=== PATIENT | female | born 1960 | race Caucasian/White ===

== ENCOUNTER 2019-08-06 19:11 | Inpatient (IN) | payer OTHER, SELFPAY ==
--- NOTE | ~2019-08-06 | US_ITS ---
EXAMINATION: US venous doppler [facility] DATE: 08/07/2019 14:52 INDICATION: Lower limb pain. TECHNIQUE: Grayscale ultrasound images without and with compression and Doppler ultrasound images of the bilateral lower extremity veins were obtained. COMPARISON: None. FINDINGS: The visualized portions of right common femoral vein, profunda (deep) femoral vein, femoral vein, per puentes veins, and greater saphenous vein outflow are patent. There is thrombus in right popliteal and posterior tibial veins. The visualized portions of left common femoral vein, profunda femoral vein, femoral vein, popliteal v ein, peroneal veins, posterior tibial veins, and greater saphenous vein outflow are patent. IMPRESSION: 1. Deep vein thrombosis involving right popliteal and posterior tibial veins. I discussed this resul t with Teofilo Kimbrough on 08/07/19 at 14:55. Reviewed, dictated and finalized at location A. SPECIALIST IMPRESSION: 1. Deep vein thrombosis involving right popliteal and posterior tibial veins. I discussed this result with Teofilo Kimbrough on 08/07/19 at 14:55.
--- NOTE | ~2019-08-06 | CT_ITS ---
EXAMINATION: CT abdomen pelvis w con INDICATION: Diarrhea and loss of appetite TECHNIQUE: Computed tomographic images of the abdomen and pelvis were obtained after the administrati on of 100 cc of Omnipaque 350 intravenous contrast. The dose-length product (DLP) was 203.66 mGy-cm. Automated exposure control and iterative reconstruction technique were employed. COMPARISON: 07/12/2019 FINDINGS: Small pleural effusions have developed, right greater than left. There is mild associated p assive atelectasis of the lower lobes. The heart size is normal. A moderate volume of ascites is pres ent. The liver, spleen, pancreas, and adrenal glands are normal. Distention of the gallbladder is lik marj due to fasting state. There is cortical thinning of the kidneys. There is diffuse wall thickening of the colon which demonstrates interval worsening since the comparison examination. There are no di lated loops of bowel. No pathologically enlarged abdominal or pelvic lymph nodes are identified. Ther e is calcified atherosclerosis of the aorta and many of the other arteries. Anasarca has developed. T here is severe lumbar spondylosis. IMPRESSION: 1. Pancolitis with interval worsening. 2. Increase in ascites, now moderate in volume. 3. New small pleural effusions, right greater than left. Reviewed, dictated and finalized at location A. ATRIC LICENSED PRACTICAL NURSE
--- NOTE | ~2019-08-06 | XR_ITS ---
EXAMINATION: XR femur LT min 2V DATE: 08/07/2019 14:51 INDICATION: Fall with pain and abrasions to the left thigh TECHNIQUE: Overlapping proximal and distal, AP and lateral views of the left femur were obtained. COMPARISON: None FINDINGS: Alignment is normal. No fracture. Mild osteoarthritis at the left hip and bilateral sacral iliac elba nts. Joint spaces in the left knee appear relatively preserved. Small left knee joint effusion withou t evident layering lipohemarthrosis. Soft tissues are unremarkable. Excreted contrast in the bladder from contrast enhanced CT performed one day prior. IMPRESSION: 1. No fracture or malalignment. Reviewed, dictated and finalized at location A. NT ROOM TEACHER
--- NOTE | ~2019-08-06 | CT_ITS ---
EXAMINATION: CT chest w con DATE: 08/08/2019 20:22 INDICATION: Weight loss and shortness of breath TECHNIQUE: Transaxial computed tomographic images of the chest were obtained after the administration of 75 cc of Omnipaque 350 intravenous contrast. The dose-length product (DLP) was 126.17 mGy-cm. Ite rative reconstruction was used. COMPARISON: None FINDINGS: There is mild emphysema. Small pleural effusions are present which cause mild passive depen dent atelectasis. There are minimal airspace opacities of the right middle lobe. No pneumothorax is i dentified. No pathologically enlarged thoracic lymph nodes are identified. The heart size is normal. There is diffuse anasarca. A moderate to large finding of ascites is noted in the visualized upper ab domen. There is also persistent wall thickening involving the visualized splenic flexure of the colon . There is mild thoracic spondylosis. IMPRESSION: 1. Small pleural effusions resulting in mild passive dependent atelectasis. 2. Minimal airspace opacity of the right middle lobe, consistent with pneumonia. 3. Moderate to large volume of ascites in the visualized upper abdomen as well as persistent colitis involving the partially visualized colon. 4. Mild emphysema. Reviewed, dictated and finalized at location A. ERCIAL ANNOUNCER IMPRESSION: 1. Small pleural effusions resulting in mild passive dependent atelectasis. 2. Minimal airspace opacity of the right middle lobe, consistent with pneumonia . 3. Moderate to large volume of ascites in the visualized upper abdomen as well as persistent colitis involving the partially visualized colon. 4. Mild emphysema.
--- NOTE | ~2019-08-06 | XR_ITS ---
EXAMINATION: XR tibia fibula LT 2V DATE: 08/07/2019 14:51 INDICATION: Left knee pain. Fall. TECHNIQUE: 2 views of left tibia and fibula on 3 radiographs were obtained. COMPARISON: None. FINDINGS: Bone alignment is normal. No fracture. Joint spaces are normal. IMPRESSION: 1. No fracture. Reviewed, dictated and finalized at location A. STEWARD/STEWARDESS IMPRESSION: 1. No fracture.
--- NOTE | ~2019-08-06 | XR_ITS ---
EXAMINATION: XR knee LT 3V DATE: 08/07/2019 14:51 INDICATION: Left knee pain. Fall. TECHNIQUE: 3 views of left knee were obtained. COMPARISON: None. FINDINGS: Bone alignment is normal. No fracture. There is diffuse osteopenia. Joint spaces are normal . There is a small knee joint effusion. IMPRESSION: 1. Small left knee joint effusion. Reviewed, dictated and finalized at location A. NE PIPEFITTER HELPER
--- NOTE | ~2019-08-06 | XR_ITS ---
EXAMINATION: XR chest 1V portable DATE: 08/11/2019 06:49 INDICATION: Dyspnea TECHNIQUE: frontal view of the chest was obtained. COMPARISON: Chest CT dated 08/08/2019 FINDINGS: Hyperexpansion of lungs consistent with mild emphysema which is better appreciated on prior CT. Patch y airspace opacity in the right lower lung zone. Left lung is clear. No pleural effusion or pneumotho rax. The cardiomediastinal silhouette is normal. Mild thoracic levocurvature with mild spondylosis. IMPRESSION: 1. Airspace opacity in the right lower lung zone which could represent atelectasis and/or pneumonia. Reviewed, dictated and finalized at location A. T SPINNER IMPRESSION: 1. Airspace opacity in the right lower lung zone which could represent atelecta sis and/or pneumonia.
[2019-08-06 19:15] VITALS: BP 106/71; PULSE 101; RESP 16; TEMP 37.4; O2SAT 100
[2019-08-06 19:22] VITALS: BP 125/80; PULSE 101; RESP 15; O2SAT 99
--- NOTE | 2019-08-06 19:52 | ED.NAVMDI ---
HPI - Nausea/Vomiting/Diarrhea General Chief complaint: Nausea/Vomiting/Diarrhea Stated complaint: can't eat or drink Time Seen by Provider: 08/06/19 19:52 Source: patient, family and RN notes reviewed Mode of arrival: other Limitations: no limitations History of Present Illness HPI Narrative: Pt is a 59 y/o female who presents to the ED with c/o diarrhea that began 5 days ago (08/01/19). Pt notes that she constantly has diarrhea. Pt describes her diarrhea as watery, but denies blood or mucus being present. Per pt's family, pt was admitted here at [facility] from 07/12-07/16 for pancolitis. Pt was sent home with Levaquin and Flagyl. Pt sees Dr. Son on (08/09/19). Pt's family states her sx are very similar, but he states that the pt's seem worse currently. Pt cannot stand on her own and she has fallen twice within three days. Pt's family states the pt has no strength. Per pt, pt states that she has had a large glass of water today. Pt also reports fatigue, weakness, sharp lower abd pain right before a BM that goes away after diarrhea, and decreased intake, but denies fever, chills, sweats, SOB, and CP. elicited complaint: diarrhea Onset (ago): day(s) (5) Description of vomiting: other (none) Description of diarrhea: watery Associated nausea: No Associated abdominal pain: Yes Location of pain: other (lower) Pain consistency: other (occurs right before her diarrhea, but resolves after her BM) Quality: sharp Associated symptoms: weakness and other (fatigue, decreased intake) Related Data Allergies Allergy/AdvReac Type Severity Reaction Status Date / Time No Known Allergies Allergy Unknown Unverified 01/16/08 17:26 Review of Systems Review of Systems: All systems reviewed & are unremarkable except as noted in HPI and below Constitutional: Constitutional: Denies chills, Reports fatigue, Denies fever(s) and Reports other (decreased intake) Cardiovascular: Cardiovascular: Denies chest pain Respiratory: Respiratory: Denies dyspnea Gastrointestinal: Gastrointestinal: Reports abdominal pain (sharp lower, occurs before her BM and is resolved right after her BM), Reports diarrhea, Denies nausea and Denies vomiting Neurologic: Reports weakness PMFSH Past Medical History Medical History (Updated 08/06/19 @ 21:28 by Bettie Bonilla MD) Anemia Cervical dysplasia HTN (hypertension) Pancolitis Vitamin D deficiency Surgical History Surgical History H/O LEEP Family History Family History (Updated 07/12/19 @ 15:24 by Jennifer Brenner, ROLLY) Father COPD (chronic obstructive pulmonary disease) Emphysema lung Mother Rheumatoid arthritis Social History Social History (Updated 07/23/19 @ 14:57 by Heather Villaseñor) Years smoked: 40 Smoking status: Light tobacco smoker Tobacco type: cigarettes Second hand tobacco smoke exposure: No Smoking end date: 01/25/19 Alcohol intake: former Substance use: never Substance use type: does not use Gender identity (if verbalized by the patient): Female Spiritual care concerns: No Agree to blood products: Yes Exam Const: General: ill appearing and other (elderly, frail) Nutritional Appearance: thin Orientation/consciousness: patient oriented x3 Limitations: no limitations HENMT: Mouth: Yes dry mucous membranes (slightly) Throat: other (throat normal) Resp: Effort & Inspection: normal respiratory effort Auscultation: clear to auscultation bilaterally Cardio: Rate: regular rate Rhythm: regular rhythm Heart sounds: no murmurs Peripheral pulses: dorsalis pedis present bilateral 2+ GI: Inspection: distended GI Palp: Yes abdominal tenderness (diffuse) and Yes Soft to palpation Auscultation: normal bowel sounds Skin: General skin exam: normal color Neuro: General: patient oriented x3 Cognition (Neuro): normal cognition Speech: normal speech Extrem: General: edema bilateral (lower) Right upper e
[2019-08-06 19:57] LABS: Basophils Absolute Auto 0.1 K/mm3 (0.0-0.1); Basophils Percent Auto 0.6 % (0.2-1.2); Eosinophils Percent Auto 0.2 % (0-4.4); Hematocrit 30.4 % (37.0-47.0); Hemoglobin 10.2 g/dL (12.0-15.0); Immature Granulocyte Absolute 0.15 K/mm3 (0.00-0.031); Immature Granulocyte Percent A 0.9 % (0-0.5); Lymphocytes Absolute Auto 1.38 K/mm3 (0.9-3.2); Lymphocytes Percent Auto 8.5 % (18.3-44.2); Mean Corpuscular HGB Conc 33.6 g/dl (32-36); Mean Corpuscular Hemoglobin 32.6 pg (26-34); Mean Corpuscular Volume 97.1 fl (80-100); Mean Platelet Volume 11.6 fl (7.4-10.4); Monocytes Percent Auto 6.4 % (2.6-8.5); Neutrophils Absolute Auto 13.6 K/mm3 (1.3-6.7); Neutrophils Percent Auto 83.4 % (45.5-73.1); Platelet Count Result 353 k/mm3 (150-375); Red Blood Count 3.13 M/mm3 (4.2-5.4); Red Cell Distribution Width 15.8 % (11.5-14.5); White Blood Count 16.3 K/mm3 (4.5-10.0)
[2019-08-06 20:18] LABS: Alanine Aminotransferase 17 U/L (4-35); Albumin Level 2.4 g/dL (3.5-5.1); Alkaline Phosphatase 134 U/L (38-126); Aspartate Amino Transferase 37 U/L (14-36); Bilirubin,Total 1.1 mg/dL (0.2-1.3); Blood Urea Nitrogen 12 mg/dL (7-17); Calcium 7.8 mg/dL (8.4-10.2); Carbon Dioxide 25 mmol/L (22-30); Chloride 96 mmol/L (98-107); Estimated CRCL calculation 61 ml/min; Estimated Glomerular Filt Rate > 60; Glucose 89 mg/dL (65-105); Sodium 133 mmol/L (137-145)
[2019-08-06] MEDS: LACTATED RINGERS 1,000 ML 999 ML IV CONT (20:30)
--- NOTE | 2019-08-06 20:45 | PC.NURSE ---
called pharmacy about medications
--- NOTE | 2019-08-06 20:46 | PC.NURSE ---
pt stood up for urine sample and placed on bedside commode. pt unable to urinate at this time.
[2019-08-06] MEDS: POTASSIUM CHLORIDE 20 MEQ TABLET 40 MEQ PO (20:56)
[2019-08-06 21:00] VITALS: BP 140/82; PULSE 105; RESP 19; TEMP 37; O2SAT 100
--- NOTE | 2019-08-06 21:00 | PC.NURSE ---
pt refusing straight cath. edp notified.
--- NOTE | 2019-08-06 21:30 | PC.NURSE ---
pt unable to void up to the commode multiple times.
[2019-08-06 21:37] LABS: Magnesium 1.5 mg/dL (1.6-2.3); Phosphorus 2.4 mg/dL (2.5-4.5)
[2019-08-06 21:47] LABS: Lipase < 10 U/L (23-300)
[2019-08-06] MEDS: MAGNESIUM SULF 2 GM/WATER 50ML 2 GM/50 ML BAG IVPB (21:50)
--- NOTE | 2019-08-06 21:53 | PC.NURSE ---
pt up to commode. pt unable to void. edp notified. pt refusing straight cath
[2019-08-06] MEDS: VANCOMYCIN ORAL 125 MG/2.5 ML SYRUP PO (22:18)
[2019-08-06 22:21] VITALS: BP 120/85; PULSE 101; RESP 15; TEMP 37.1; O2SAT 97
[2019-08-06 22:38] VITALS: BP 117/73; PULSE 96; RESP 17; O2SAT 93
[2019-08-06 22:45] VITALS: BP 123/77; PULSE 101; RESP 20; TEMP 37.3; O2SAT 97; BMI 15.0
--- NOTE | 2019-08-06 23:02 | ADMGEN ---
This patient, Nicole Crespo, was admitted to Medical Room 244-. Patient/family oriented to hospital policies and general routines including ID bracelet, bed and alarms, visiting hours, pain management, procedures, bathroom and other care routines, personal items, smoking policy, room service/diet, and visiting hours. Valuables list has been completed. Information on how to activate the Rapid Response Team has been discussed. Patient/Family are encouraged to report perceived risks to care and to ask questions if they do not understand what they are told or what they should do.
[2019-08-07] VITALS (9 sets, daily range): BP systolic 102–118; BP diastolic 64–90; PULSE 80–94; RESP 14–20; TEMP 36.6–36.9; O2SAT 94–98; BMI 15.0
[2019-08-07] MEDS: SODIUM CHLORIDE 0.9% IV 1,000 ML 150 ML IV CONT ×2 (02:21→09:22)
[2019-08-07] MEDS: VANCOMYCIN ORAL 125 MG/2.5 ML SYRUP PO ×4 (03:56→21:54)
[2019-08-07 05:39] LABS: Add Urine Microscopic? YES; Appearance Urine Clear (Clear); Bacteria Urine Trace /hpf; Bilirubin Urine Negative (Negative); Blood Urine 1+ (Negative); Color Urine Yellow (Yellow); Glucose Urine UA Negative (Negative); Ketones Urine Negative (Negative); Leukocyte Esterase Ur Trace LEU/UL (Negative); Mucus Urine Rare /lpf; Nitrate Urine Negative (Negative); Protein Urine Negative (Negative); Squamous Epithelial Cell Urine Many /hpf (Few); Urobilinogen Urine Negative mg/dL (<2.0); WBC Urine 0-3 /hpf
[2019-08-07 05:54] LABS: Specific Grav Ur > 1.060 (1.001-1.035)
--- NOTE | 2019-08-07 09:37 | PM.IMHP ---
H&P: HPI History of Present Illness Chief complaint: pancolitis,hypokalemia,dehydration <Teofilo Kimbrough PA-C - Last Filed: 08/07/19 18:35> Narrative: Nicole Crespo is a 59 year old female with history of HTN and recent admission/discharge from [facility] for pancolitis who presented to the ER on 08/06 with complaints of return of diarrhea. Patient states she finished her antibiotic therapy as prescribed from her last discharge and the diarrhea had subsided for some time, until returned 5 days prior to presentation. She describes diarrhea as watery, non-bloody, and without mucus. She has had associated lower abdominal pain only when I have to go . She states the pain is generally in her lower abdomen and does not radiate. It is relieved with BMs. At its worse is /; currently it is a 2/10. She tried imodium for her symptoms and provided little relief for no more than 1 hours time. She also notes she has been having unintentional weight loss for the past 6 months, in which she relates to her recent teeth extraction; she states she has not been eating as much since then. She notes she has had several falls in the past week or so, with the last one being 2 days ago. She states she hurt her left lower leg and notes a bruise/abrasion on the leg, but otherwise states she has no other injuries and does not think she has any fractures; no head injuries or LOC; she thinks she just has been so weak with diarrhea and decreased PO input. She notes dizziness occasionally these past several days. Denies f/c/ns, headaches, loc, changes in v/h, cp/palpitations, sob/cough, n/v/, dysphagia, melena, brbpr, dysuria, hematuria, cloudy urine, s/sx of stroke. <Teofilo Kimbrough PA-C - Last Filed: 08/07/19 18:35> Review of Systems Review of Systems: All systems reviewed & are unremarkable except as noted in HPI and below <Teofilo Kimbrough PA-C - Last Filed: 08/07/19 18:35> PMFSH Past Medical History Medical History: Medical History Anemia Cervical dysplasia Diarrhea DVT (deep venous thrombosis) HTN (hypertension) Malnutrition Pancolitis Vitamin D deficiency <Teofilo Kimbrough PA-C - Last Filed: 08/07/19 18:35> Surgical History Surgical History: Surgical History H/O LEEP <Teofilo Kimbrough PA-C - Last Filed: 08/07/19 18:35> Family History Family History: Family History Father COPD (chronic obstructive pulmonary disease) Emphysema lung Mother Rheumatoid arthritis <ANGEL LUIS Ta Last Filed: 08/07/19 18:35> Social History Social History: Social History Social History: Patient currently lives at home alone. She lists her son, Emir, as her surrogate MDM. She wishes to be listed as DNR. Her PCP is Dr. Peoples Years smoked: 40 Smoking status: Former smoker Tobacco type: cigarettes Second hand tobacco smoke exposure: No Smoking end date: 01/25/19 Alcohol intake: former Alcohol use details: Rarely Substance use: never Substance use type: does not use Gender identity (if verbalized by the patient): Female Spiritual care concerns: No Agree to blood products: Yes <Teofilo Kimbrough PA-C - Last Filed: 08/07/19 18:35> Meds Home Medications and Allergies Home medications: Home Medications Medication Instructions Recorded Confirmed Type No Home Medications 08/06/19 08/06/19 History <ANGEL LUIS Ta Last Filed: 08/07/19 18:35> Allergies/Adverse reactions: Allergies Allergy/AdvReac Type Severity Reaction Status Date / Time No Known Allergies Allergy Unknown Unverified 01/16/08 17:26 <ANGEL LUIS Ta Last Filed: 08/07/19 18:35> Vital Signs Vital Signs - 24 hr 08/06/19 19:15 08/06/19 19:22 08/06/19 21:00 Temperatur
[2019-08-07 10:44] LABS: Basophils Absolute Auto 0.1 K/mm3 (0.0-0.1); Basophils Percent Auto 0.4 % (0.2-1.2); Eosinophils Absolute Auto 0.1 K/mm3 (0-0.3); Eosinophils Percent Auto 0.4 % (0-4.4); Hematocrit 27.2 % (37.0-47.0); Hemoglobin 9.2 g/dL (12.0-15.0); Immature Granulocyte Absolute 0.11 K/mm3 (0.00-0.031); Immature Granulocyte Percent A 0.7 % (0-0.5); Lymphocytes Absolute Auto 0.86 K/mm3 (0.9-3.2); Lymphocytes Percent Auto 5.6 % (18.3-44.2); Mean Corpuscular HGB Conc 33.8 g/dl (32-36); Mean Corpuscular Hemoglobin 32.7 pg (26-34); Mean Corpuscular Volume 96.8 fl (80-100); Mean Platelet Volume 10.3 fl (7.4-10.4); Monocytes Absolute Auto 1.3 K/mm3 (0.1-0.6); Monocytes Percent Auto 8.7 % (2.6-8.5); Neutrophils Absolute Auto 12.8 K/mm3 (1.3-6.7); Neutrophils Percent Auto 84.2 % (45.5-73.1); Platelet Count Result 286 k/mm3 (150-375); Red Blood Count 2.81 M/mm3 (4.2-5.4); Red Cell Distribution Width 15.3 % (11.5-14.5); White Blood Count 15.2 K/mm3 (4.5-10.0)
[2019-08-07 11:12] LABS: Alanine Aminotransferase 17 U/L (4-35); Alkaline Phosphatase 124 U/L (38-126); Aspartate Amino Transferase 33 U/L (14-36); Bilirubin,Total 0.7 mg/dL (0.2-1.3); Blood Urea Nitrogen 10 mg/dL (7-17); Calcium 7.2 mg/dL (8.4-10.2); Carbon Dioxide 24 mmol/L (22-30); Chloride 100 mmol/L (98-107); Estimated CRCL calculation 66 ml/min; Estimated Glomerular Filt Rate > 60; Glucose 102 mg/dL (65-105); Potassium 2.8 mmol/L (3.4-5.0); Sodium 133 mmol/L (137-145)
--- NOTE | 2019-08-07 11:13 | WPDGICN ---
Assessment and Plan Additional Plan This is a 59-year-old white female patient I am asked see because of pancolitis. Patient gives a history of intermittent diarrhea beginning approximately 6 months ago. She states it began after having tooth extraction during the summer. She subsequently was maintained on a soft diet. She began to lose weight. And eventually developed a rather profuse watery diarrhea initially hospitalized July 12, 2019. CT scan revealed pancolitis. She was treated for infectious colitis with broad-spectrum antibiotic coverage in had significant improvement. She was able to be discharged on oral antibiotics 3 days later on July 16, 2019, anticipation was for an outpatient colonoscopy at some interval. Patient reports that she did well for 1-2 weeks. However over the last 2 weeks she has had recurrent nausea vomiting and profuse diarrhea. She also notices profuse abdominal discomfort and tenderness. In the emergency room CT scan revealed recurrent pancolitis perhaps more noticeable than last admission. Past medical history is significant for dystonia. She has been treated for hypertension. Family history is significant her mother had rheumatoid arthritis her father has COPD. Patient current we is on no home medications. She has no stated drug allergies. Physical exam reveals her to be alert. She is afebrile. HEENT exam unremarkable. She is anicteric. Lungs are clear to auscultation and percussion. Heart is without murmur or extra sounds. Abdominal exam bowel sounds are diminished. She is diffusely tender. She has significant tympany. No masses are noted. Extremities reveal no edema. Laboratory testing reveals WBC 16. Hemoglobin 10. Potassium of 2. CT scan consistent with pancolitis. Impression 1. Pancolitis. Infectious etiology is felt most likely. Plan is for broad-spectrum antibiotic coverage. IV rehydration. Colonoscopy when she is clinically more stable. 2. Dehydration. Associated electrolyte imbalance identified. Plan is for IV rehydration. 3. Abdominal tympany suggest partial ileus. She is not likely to tolerate significant oral intake at this time. Parental role nutrition will be started. 4. Anemia. Likely related to her pancolitis at this point. Plan is for IV fluid rehydration and broad-spectrum antibiotics workup as outlined above. We will follow with you. GI Consult Note Consult date/time: 08/07/19 11:13 HPI: Nicole Crespo is a 59 year old female [facility] Past Medical History Medical History Anemia Cervical dysplasia HTN (hypertension) Pancolitis Vitamin D deficiency Surgical History Surgical History H/O LEEP Family History Family History Father COPD (chronic obstructive pulmonary disease) Emphysema lung Mother Rheumatoid arthritis Social History Social History (Updated 08/07/19 @ 09:49 by Teofilo Kimbrough PA-C) Social History: Patient currently lives at home alone. She lists her son, Emir, as her surrogate MDM. She wishes to be listed as DNR. Her PCP is Dr. Peoples Years smoked: 40 Smoking status: Former smoker Tobacco type: cigarettes Second hand tobacco smoke exposure: No Smoking end date: 01/25/19 Alcohol intake: former Alcohol use details: Rarely Substance use: never Substance use type: does not use Gender identity (if verbalized by the patient): Female Spiritual care concerns: No Agree to blood products: Yes Meds Home Medications and Allergies Home Medications Medication Instructions Recorded Confirmed Type No Home Medications 08/06/19 08/06/19 History Allergies Allergy/AdvReac Type Severity Reaction Status Date / Time No Known Allergies Allergy Unknown Unverified 01/16/08 17:26 Vital Signs Vital Signs - 24 hr
[2019-08-07 11:27] LABS: Hypochromasia 1+ (NORMAL); Microcytosis 1+ (NORMAL); Platelet Estimate Adequate (Adequate); Poikilocytosis 1+ (NORMAL); Stomatocytes 1+ (NORMAL); Target Cells 1+ (NORMAL)
[2019-08-07] MEDS: POTASSIUM CHLORIDE 20 MEQ TABLET PO (11:56)
[2019-08-07 15:56] LABS: Hematocrit 27.7 % (37.0-47.0); Hemoglobin 9.5 g/dL (12.0-15.0); Mean Corpuscular HGB Conc 34.3 g/dl (32-36); Mean Corpuscular Hemoglobin 32.5 pg (26-34); Mean Corpuscular Volume 94.9 fl (80-100); Mean Platelet Volume 10.2 fl (7.4-10.4); Platelet Count Result 299 k/mm3 (150-375); Red Blood Count 2.92 M/mm3 (4.2-5.4); Red Cell Distribution Width 15.3 % (11.5-14.5); White Blood Count 15.8 K/mm3 (4.5-10.0)
[2019-08-07 16:05] LABS: INR 1.1
[2019-08-07 16:06] LABS: Partial Thromboplastin Time 33.2 SECONDS (22.3-36.8)
[2019-08-07 16:17] LABS: Band Neutrophils Percent 11 % (0-6); Eosinophils Absolute Manual 0.31 K/mm3 (0.02-0.5); Eosinophils Percent Manual 2 % (0-4); Lymphocytes Absolute Manual 0.63 K/mm3 (1.1-4.5); Monocytes Percent Manual 7 % (3-9); Neutrophils Absolute Manual 13.74 K/mm3 (1.7-7.2); Neutrophils Percent Manual 76 % (46-73); Total Cells Counted 100
[2019-08-07 16:18] LABS: Hypochromasia 1+ (NORMAL); Platelet Estimate Adequate (Adequate)
[2019-08-07 16:19] LABS: Anisocytosis 2+ (NORMAL)
--- NOTE | 2019-08-07 16:55 | PC.NURSE ---
Patient refusing heparin infusion. Educated patient on importance of medication and treatment for DVT's in right leg. Patient continues to refuse and would like this RN to notify hospitalist of wishes. Will notify EDU [place] patient refusing medication at this time. Per Nicole she would like a PICC line placed for IV infusions and blood draws, PA made aware.
[2019-08-07 17:07] LABS: Blood Urea Nitrogen 10 mg/dL (7-17); Calcium 7.3 mg/dL (8.4-10.2); Carbon Dioxide 22 mmol/L (22-30); Chloride 100 mmol/L (98-107); Estimated CRCL calculation 66 ml/min; Estimated Glomerular Filt Rate > 60; Glucose 121 mg/dL (65-105); Potassium 3.3 mmol/L (3.4-5.0); Sodium 132 mmol/L (137-145)
[2019-08-07] MEDS: POTASSIUM CHLORIDE 20 MEQ TABLET 40 MEQ PO (18:49)
[2019-08-07] MEDS: APIXABAN 5 MG TABLET 10 MG PO (20:30)
[2019-08-08] VITALS (9 sets, daily range): BP systolic 140–147; BP diastolic 76–84; PULSE 81–97; RESP 16–21; TEMP 36.2–36.7; O2SAT 97–100
[2019-08-08] MEDS: SODIUM CHLORIDE 0.9% IV 1,000 ML 60 ML IV CONT ×2 (01:04→19:27)
[2019-08-08] MEDS: VANCOMYCIN ORAL 125 MG/2.5 ML SYRUP PO ×4 (04:34→21:21)
[2019-08-08 06:11] LABS: Basophils Percent Auto 0.2 % (0.2-1.2); Eosinophils Absolute Auto 0.2 K/mm3 (0-0.3); Eosinophils Percent Auto 1.3 % (0-4.4); Hematocrit 25.7 % (37.0-47.0); Hemoglobin 8.7 g/dL (12.0-15.0); Immature Granulocyte Absolute 0.06 K/mm3 (0.00-0.031); Immature Granulocyte Percent A 0.5 % (0-0.5); Lymphocytes Absolute Auto 1.18 K/mm3 (0.9-3.2); Lymphocytes Percent Auto 9.7 % (18.3-44.2); Mean Corpuscular HGB Conc 33.9 g/dl (32-36); Mean Corpuscular Hemoglobin 32.1 pg (26-34); Mean Corpuscular Volume 94.8 fl (80-100); Mean Platelet Volume 10.3 fl (7.4-10.4); Monocytes Percent Auto 8.1 % (2.6-8.5); Neutrophils Absolute Auto 9.8 K/mm3 (1.3-6.7); Neutrophils Percent Auto 80.2 % (45.5-73.1); Platelet Count Result 275 k/mm3 (150-375); Red Blood Count 2.71 M/mm3 (4.2-5.4); Red Cell Distribution Width 15.3 % (11.5-14.5); White Blood Count 12.2 K/mm3 (4.5-10.0)
[2019-08-08 06:13] LABS: Blood Urea Nitrogen 9 mg/dL (7-17); Calcium 7.2 mg/dL (8.4-10.2); Carbon Dioxide 20 mmol/L (22-30); Chloride 102 mmol/L (98-107); Estimated CRCL calculation 66 ml/min; Estimated Glomerular Filt Rate > 60; Glucose 86 mg/dL (65-105); Magnesium 1.9 mg/dL (1.6-2.3); Potassium 3.4 mmol/L (3.4-5.0); Sodium 133 mmol/L (137-145)
--- NOTE | 2019-08-08 08:40 | PM.IMPN ---
Progress Note: A&P Assessment and Plan (1) Pancolitis: Code(s): K51.00 - Ulcerative (chronic) pancolitis without complications Status: Acute Assessment and Plan: Patient has been having worsening diarrhea the previous 5-6 days prior to presentation. She had finished her outpatient antibiotics. Worsened pancolitis noted on CT; mod ascites also noted. GI has been consulted from ED and greatly appreciate input. Patient continues IV zosyn and PO Vanc for possible C. Diff, as well as, due to recent abx use Continue IVF for now at 60 mL/hr due to poor PO intake Will start clinimix for now; will defer diet recommendations per GI Await further recommendations from GI on pancolitis and ascites (2) DVT (deep venous thrombosis): Code(s): I82.409 - Acute embolism and thrombosis of unspecified deep veins of unspecified lower extremity Status: Acute Assessment and Plan: Found on venous doppler of lower extremities; right popliteal and posterior tibial veins. Discussed case with Dr. Jones as this is in setting of likely pancolitis supported by CT imaging. Patient originally refusing heparin drip, but agreeable with Eliquis. Discussed with her in length about different options and risks/benefits of options. Recommended consulting Dr. Jones for further input which she was agreeable Discussed case with Dr. Jones as this is in setting of likely pancolitis supported by CT imaging. He recommended low dose Eliquis 2.5 mg q12 hours for now and perform stool occult study. He was agreeable to see patient and greatly appreciate input. Will start Eliquis 2.[address]hr [address] Dr[address] Jones recommendations. Await further recommendations per Dr. Jones (3) Acute hypokalemia: Code(s): E87.6 - Hypokalemia Status: Acute Assessment and Plan: K 3.4 today. This was replaced this am Trend values tomorrow Replace as needed (4) Status post fall: Code(s): Z91.81 - History of falling Status: Acute Assessment and Plan: Patient admits to multiple falls at home recently although denies any injuries other than left lower leg. No head injuries per patient. Xray of left LE showed no fracture; small effusion noted on left knee Possible SNF placement Will order PT/OT now that patient has started a/c therapy Fall precautions. (5) Weakness: Code(s): R53.1 - Weakness Status: Acute Assessment and Plan: Patient has been weak likely due to diarrhea and decreased PO intake. possibly SNF placement PT/OT ordered (6) Anemia: Code(s): D64.9 - Anemia, unspecified Status: Acute Assessment and Plan: Chronic normocytic anemia. H&H stable from last visit. Hgb 9.5 yesterday. Possible anemia of chronic disease from prior iron studies Monitor H&H Tranfuse as needed Time Spent With Patient Time with patient: 25 - 35 minutes Subjective Date/time seen: 08/08/19 08:40 Interval history: Patient is a 59 yo F with history of HTN and recent admission/discharge from [place] for pancolitis in 06/2019, who is here again for pancolitis found on CT imaging, as well as, DVT in right popliteal and posterior tibial veins. Patient is feeling okay today; she feels slightly better than yesterday, but is still having diarrhea; non-bloody, no melena as far as she is aware. She is having lower abd pain with BMs still, as well. She otherwise has no other complaints. We discussed in length about different options in terms of treatment of DVT in setting of pancolitis, including anticoagulation, possible filter placed, vs doing nothing; she was agreeable to discuss this further with Dr. Jones, Hematology/Oncology. Denies f/c/ns, headaches, dizziness, lightheadedness, change
--- NOTE | 2019-08-08 09:04 | WPDGIPROGNO ---
Progress Note: A&P Additional Plan Patient is tolerating liquid diet today. Still complains of some nausea. Complains of diarrhea. Physical exam reveals her to be alert. Lungs are clear. Heart without murmur. Abdomen is soft but diffusely tender. No masses are listed. Extremities are without clubbing cyanosis or edema. She complains of some left leg pain after a fall. Doppler of the lower extremity suggest popliteal DVT on the left. Stool cultures are pending. Impression 1. Colitis. Most likely infectious colitis. Plan is to continue broad-spectrum antibiotics. Await stool cultures. We may need to consider colonoscopy after an interval. 2. New DVT identified. Patient now on anticoagulation. We need to be vigilant watch for signs of GI bleeding given her severe colitis. 3. Dehydration. Plan is to continue IV fluid rehydration. Advance diet as tolerated. She may benefit from peripheral nutrition. Subjective Date/time seen: 08/08/19 09:04 Objective Data Vital Signs Vital Signs: Vital Signs - 24 hr 08/07/19 12:00 08/07/19 14:00 08/07/19 16:00 Temperature 36.7 C Pulse Rate 83 94 89 Respiratory Rate 14 Blood Pressure 118/90 Pulse Oximetry 98 08/07/19 20:00 08/07/19 22:00 08/08/19 00:00 Temperature 36.6 C Pulse Rate 84 80 86 Respiratory Rate 20 Blood Pressure 102/73 Pulse Oximetry 94 08/08/19 04:00 08/08/19 06:00 Temperature 36.2 C L Pulse Rate 81 85 Respiratory Rate 18 Blood Pressure 141/76 H Pulse Oximetry 97 Intake/Output Intake/Output: Intake & Output 08/05/19 08/06/19 08/07/19 08/08/19 23:59 23:59 23:59 23:59 Intake Total 1100 2825 637 Output Total 600 100 Balance 1100 2225 537 Meds/Results Medications: Active Medications Generic Name Dose Route Start Last Admin Trade Name Freq PRN Reason Stop Dose Admin Apixaban 2.5 mg 08/08/19 09:00 Eliquis PO Q12HR [facility] Heparin Sodium (Porcine) 2,000 units 08/07/19 15:20 Heparin Sodium IV PUSH PRN PRN aPTT 55 - 70 seconds Heparin Sodium (Porcine) 4,000 units 08/07/19 15:32 Heparin Sodium IV PUSH PRN PRN aPTT less than 55 seconds Piperacillin/Tazobactam/Dextrose 3.375 gm in 50 mls @ 100 mls/hr 08/07/19 04:00 08/08/19 05:00 Zosyn 3.375 Gm/D5w 50ml Pm IVPB Infused Q6H [facility] Infusion Sodium Chloride 1,000 mls @ 60 mls/hr 08/07/19 00:45 08/08/19 04:34 Normal Saline Iv IV CONT 60 mls/hr .[id number] [facility] Infusion Heparin Sodium/Dextrose 25,000 units in 250 mls @ 6 mls/hr 08/07/19 15:20 Heparin Sodium/D5w 100 Units/Ml IV CONT .Q24H [facility] Protocol 600 UNITS/HR Dextrose 1,000 mls @ 50 mls/hr 08/07/19 15:42 Dextrose 10% IV CONT .Q20H PRN if PN is interrupted Amino Acids/Electrolytes/Dextrose 2,000 mls @ 80 mls/hr 08/07/19 17:00 Clinimix E 4.25%/5% Solution IV CONT .Q24H [facility] Protocol Fat Emulsion Intravenous 250 mls @ 20.833 mls/hr 08/07/19 17:00 Lipids 20% IVPB Q24H [facility] Vancomycin HCl 125 mg 08/07/19 04:00 08/08/19 04:34 Vancomycin Oral PO 125 mg Q6H [facility] Administration Radiology Results: ITS Impressions Abdomen/Pelvis CT 08/06/19 20:38 IMPRESSION: 1. Pancolitis with interval worsening. 2. Increase in ascites, now moderate in volume. 3. New small pleural effusions, right greater than left. Knee X-Ray 08/07/19 14:52 IMPRESSION: 1. Small left knee joint effusion. Tibia/Fibula X-Ray 08/07/19 14:52 IMPRESSION: 1. No fracture. Venous Doppler Study 08/07/19 14:53 IMPRESSION: 1. Deep vein thrombosis involving right popliteal and posterior tibial veins. I discussed this result with Teofilo Kimbrough on 08/07/19 at 14:55. Femur X-Ray 08/07/19 15:02 IMPRESSION: 1. No fracture or malalignment. Labs Labs: Laboratory Results - last 24 hr 08/07/19 08/07/19 08/07/19 09:53 09:53 09:53 WBC 15.2 H RBC 2.81 L Hgb 9.2 L Hct 27
[2019-08-08 09:59] LABS: Helmet Cells 1+ (NORMAL); Hypochromasia 2+ (NORMAL); Platelet Estimate Adequate (Adequate); Target Cells 2+ (NORMAL)
[2019-08-08] MEDS: APIXABAN 2.5 MG TABLET PO ×2 (10:04→17:09)
[2019-08-08] MEDS: POTASSIUM CHLORIDE 20 MEQ TABLET 40 MEQ PO (10:04)
[2019-08-08 11:49] LABS: IFOB Positive Control Positive; Immunochemical Fecal Occult Bl Negative (N)
--- NOTE | 2019-08-08 17:00 | PC.NURSE ---
Inserted straight cath on patient with only a few ml's of urine noted. Patient agreeable to insertion of crawley catheter. Unable to insert crawley on first insertion attempt and asked for assistance from charge nurse. Crawley catheter inserted successfully by Lyssa Rosales RN.
[2019-08-09] VITALS (9 sets, daily range): BP systolic 132–142; BP diastolic 71–92; PULSE 77–94; RESP 16–21; TEMP 36.1–36.7; O2SAT 100
--- NOTE | 2019-08-09 02:52 | CONS_ITS ---
DATE OF CONSULTATION: 08/08/2019 REASON FOR CONSULTATION: Anemia. HISTORY OF PRESENTING ILLNESS: This is a 59-year-old female with history of smoking and hypertension, came into the hospital after recently being discharged from the hospital with pancolitis. She came back into the hospital with complaint of weakness and fatigue along with diarrhea for 10 days duration. She denies any bleeding and bruising. During the last admission, she was treated with antibiotic therapy for diarrhea with improvement. She also has lower abdominal pain. She lost more than 20 pounds weight in 6 months, which she attributed to recent dental extraction with poor eating. She had several falls in the last couple of weeks. REVIEW OF SYSTEMS: Twelve-point review of system was reviewed and as per HPI, otherwise negative. PAST MEDICAL HISTORY: Hypertension, anemia, cervical dysplasia, pancolitis, and vitamin D deficiency. PAST SURGICAL HISTORY: History of LEEP procedure. FAMILY HISTORY: No family history of malignancy. SOCIAL HISTORY: The patient lives by herself. She has a history of 40 years smoking, but quit in January 2019. Drinks alcohol occasionally. HOME MEDICATIONS: Reviewed. ALLERGIES: REVIEWED. PHYSICAL EXAMINATION: GENERAL: This patient is tired looking female, alert and oriented. VITAL SIGNS: Per nursing note. HEENT: Normocephalic, atraumatic. Clear oropharynx. LUNGS: Clear to auscultation bilaterally. CARDIOVASCULAR: Regular rate and rhythm. No murmurs. ABDOMEN: Soft, nontender, nondistended. Bowel sounds are positive in all 4 quadrants. No hepatosplenomegaly. EXTREMITIES: Left lower extremity mild edema. NEUROLOGIC: Grossly intact. LABORATORY DATA: WBC 12.2, hemoglobin 8.7, MCV 94.8, platelet 275,000, neutrophils 80%, and lymphocytes 9.7%. Creatinine 0.6. Total protein 5.0. Hemoccult stool negative. Vitamin B12 was more than 1000. Iron level was 58 with iron saturation of 52% and ferritin of 1560 with direct bilirubin of 0, with total bilirubin 0.7. ASSESSMENT AND PLAN: 1. Normocytic anemia with leukocytosis. The patient is a 59-year-old female. She lost significant amount of weight and complained of tiredness and fatigue. She denies any bleeding and bruising. The patient had CT scan of abdomen and pelvis done on August 06 that showed pancolitis with interval worsening along with increase in ascites and new small pleural effusion, right greater than the left. There was no evidence of lymphadenopathy or malignancy. Given the recent weight loss, new diagnosis of deep venous thrombosis and previous history of smoking, I am concerned about occult malignancy. I will order a CT chest to rule out any thoracic pathology. a. In regard to her anemia, previous workup showed elevated vitamin B12 level and iron studies were also suggesting anemia of chronic disease and inflammation. Total bilirubin was also normal. I doubt there is any evidence of hemolytic anemia, but I will check LDH, haptoglobin, and reticulocyte count. This could be a bone marrow suppression or possibility of bone marrow disorder like myelodysplasia. I do not see need for bone marrow biopsy. She has lost significant amount of weight and has hypoproteinemia. This can also contribute to her anemia. In the meantime, I will just support her with a blood transfusion on a as needed basis. GI consultation has been obtained and reviewed. Hemoccult stool is negative for bleeding. 2. New onset deep venous thrombosis involving right popliteal and posterior tibial vein. She has no prior history of blood clotting disorder. I have recommended a low dose of Eliquis 2.5 mg twice a day given the fact that she has severe pancolitis and at high risk for bleeding. We w
[2019-08-09] MEDS: VANCOMYCIN ORAL 125 MG/2.5 ML SYRUP PO ×4 (03:47→21:41)
[2019-08-09 06:08] LABS: Basophils Percent Auto 0.2 % (0.2-1.2); Eosinophils Absolute Auto 0.1 K/mm3 (0-0.3); Eosinophils Percent Auto 2.2 % (0-4.4); Hematocrit 27.6 % (37.0-47.0); Hemoglobin 9.1 g/dL (12.0-15.0); Immature Granulocyte Absolute 0.04 K/mm3 (0.00-0.031); Immature Granulocyte Percent A 0.6 % (0-0.5); Lymphocytes Absolute Auto 1.08 K/mm3 (0.9-3.2); Lymphocytes Percent Auto 16.6 % (18.3-44.2); Mean Corpuscular Hemoglobin 31.4 pg (26-34); Mean Corpuscular Volume 95.2 fl (80-100); Mean Platelet Volume 9.9 fl (7.4-10.4); Monocytes Absolute Auto 0.6 K/mm3 (0.1-0.6); Monocytes Percent Auto 9.6 % (2.6-8.5); Neutrophils Absolute Auto 4.6 K/mm3 (1.3-6.7); Neutrophils Percent Auto 70.8 % (45.5-73.1); Platelet Count Result 264 k/mm3 (150-375); Red Cell Distribution Width 15.2 % (11.5-14.5); White Blood Count 6.5 K/mm3 (4.5-10.0)
[2019-08-09 06:15] LABS: Blood Urea Nitrogen 7 mg/dL (7-17); Calcium 7.2 mg/dL (8.4-10.2); Carbon Dioxide 21 mmol/L (22-30); Chloride 104 mmol/L (98-107); Estimated CRCL calculation 56 ml/min; Estimated Glomerular Filt Rate > 60; Glucose 100 mg/dL (65-105); Magnesium 1.9 mg/dL (1.6-2.3); Potassium 3.6 mmol/L (3.4-5.0); Sodium 134 mmol/L (137-145)
--- NOTE | 2019-08-09 08:39 | WPDGIPROGNO ---
Progress Note: A&P Additional Plan Patient reports feeling better after placement of [place] catheter last night. She continues to have loose stools. No bleeding reported. Physical exam reveals her to be alert. Afebrile. Abdomen is soft and nontender this morning. Labs WBC 6.5, hemoglobin 9.1, hematocrit 27.6 Impression 1. Colitis. [place] to most likely be infectious colitis. Patient now on broad-spectrum antibiotic coverage. Stool cultures have been negative so far. 2. Urinary retention. 3. DVT. Newly identified. In the left lower extremity. Patient denies any pain. Now on anticoagulation. Plan is to continue broad-spectrum antibiotic coverage. Anticipate elective colonoscopy after discharge. Would be slow to advance her diet at this point. Subjective Date/time seen: 08/09/19 08:39 Objective Data Vital Signs Vital Signs: Vital Signs - 24 hr 08/08/19 12:00 08/08/19 14:00 08/08/19 16:00 Temperature 36.7 C Pulse Rate 90 87 87 Respiratory Rate 16 Blood Pressure 140/84 Pulse Oximetry 100 08/08/19 20:00 08/08/19 22:00 08/09/19 00:00 Temperature 36.4 C Pulse Rate 97 88 89 Respiratory Rate 16 21 H Blood Pressure 147/76 H Pulse Oximetry 100 100 08/09/19 04:00 08/09/19 06:42 Temperature 36.1 C L Pulse Rate 82 77 Respiratory Rate 21 H Blood Pressure 132/71 Pulse Oximetry 100 Intake/Output Intake/Output: Intake & Output 08/06/19 08/07/19 08/08/19 08/09/19 23:59 23:59 23:59 23:59 Intake Total 1100 2825 2135 200 Output Total 600 100 300 Balance 1100 2225 2035 -100 Meds/Results Medications: Active Medications Generic Name Dose Route Start Last Admin Trade Name Freq PRN Reason Stop Dose Admin Apixaban 2.5 mg 08/08/19 09:00 08/08/19 17:09 Eliquis PO 2.5 mg Q12HR [facility] Administration Piperacillin/Tazobactam/Dextrose 3.375 gm in 50 mls @ 100 mls/hr 08/07/19 04:00 08/09/19 03:47 Zosyn 3.375 Gm/D5w 50ml Pm IVPB 100 mls/hr Q6H [facility] Administration Sodium Chloride 1,000 mls @ 60 mls/hr 08/07/19 00:45 08/08/19 19:27 Normal Saline Iv IV CONT 60 mls/hr .[id number] [facility] Administration Dextrose 1,000 mls @ 50 mls/hr 08/07/19 15:42 Dextrose 10% IV CONT .Q20H PRN if PN is interrupted Amino Acids/Electrolytes/Dextrose 2,000 mls @ 80 mls/hr 08/07/19 17:00 Clinimix E 4.25%/5% Solution IV CONT .Q24H [facility] Protocol Fat Emulsion Intravenous 250 mls @ 20.833 mls/hr 08/07/19 17:00 Lipids 20% IVPB Q24H [facility] Vancomycin HCl 125 mg 08/07/19 04:00 08/09/19 03:47 Vancomycin Oral PO 125 mg Q6H [facility] Administration Radiology Results: ITS Impressions Abdomen/Pelvis CT 08/06/19 20:38 IMPRESSION: 1. Pancolitis with interval worsening. 2. Increase in ascites, now moderate in volume. 3. New small pleural effusions, right greater than left. Knee X-Ray 08/07/19 14:52 IMPRESSION: 1. Small left knee joint effusion. Tibia/Fibula X-Ray 08/07/19 14:52 IMPRESSION: 1. No fracture. Venous Doppler Study 08/07/19 14:53 IMPRESSION: 1. Deep vein thrombosis involving right popliteal and posterior tibial veins. I discussed this result with Teofilo Kimbrough on 08/07/19 at 14:55. Femur X-Ray 08/07/19 15:02 IMPRESSION: 1. No fracture or malalignment. Chest CT 08/08/19 20:59 IMPRESSION: 1. Small pleural effusions resulting in mild passive dependent atelectasis. 2. Minimal airspace opacity of the right middle lobe, consistent with pneumonia. 3. Moderate to large volume of ascites in the visualized upper abdomen as well as persistent colitis involving the partially visualized colon. 4. Mild emphysema. Labs Labs: Laboratory Results - last 24 hr 08/08/19 08/08/19 08/09/19 05:10 11:22 05:35 WBC 12.2 H 6.5 RBC 2.71 L 2.90 L Hgb 8.7 L 9.1 L Hct 25.7 L 27.6 L MCV 94.8 95.2 MCH 32.1 31.4 MCHC 33.9 33.0 RDW 15.3 H 15.2 H Plt Count 275 264 MPV 10.3 9.9
[2019-08-09] MEDS: APIXABAN 2.5 MG TABLET PO ×2 (09:17→21:40)
--- NOTE | 2019-08-09 12:43 | PCDIET ---
Nutrition Follow-Up Complete: Underweight R/T poor intake and diarrhea as evidence by BMI of 15 ADAT with PO intake of meals and banatrol at 75% or greater to halt further wt loss Goal:Progressing towards goal. Continue with current goal. Pt current nutrition is low fiber + thrive and banatrol BID Nutrition recommendation: Agree Last recorded weight is 48.9 kg. (need new wt) Bowel Motility: diarrhea continued yesterday Labs Reviewed:Na 134 Meds Noted:Vanc, zosyn, KCL Additional Notes: Pt feeling a bit better. Diet advanced to low fiber. I briefly explained the foods this would entail with rationale. Pt is accepting of thrive and agrees to banatrol BID with meals to help bulk stool. Thrive provides 9 grams of protein, 24 vitamins and minerals, 6grams of fiber, and 270 kcal per serving. We will continue to monitor for adequate PO intake, Bms, weight every five days.
--- NOTE | 2019-08-09 13:18 | PCOTNOTE ---
Attempted to see patient this pm, however patient refused. Pt stated, Oh no, I already did physical therapy today. I know I don't look good right now, but I can only do one therapy a day. Let's do tomorrow.
[2019-08-09] MEDS: SODIUM CHLORIDE 0.9% IV 1,000 ML 60 ML IV CONT (15:01)
--- NOTE | 2019-08-09 19:59 | PM.IMPN ---
Progress Note: A&P Assessment and Plan (1) Pancolitis: Code(s): K51.00 - Ulcerative (chronic) pancolitis without complications Status: Acute Assessment and Plan: Patient has been having worsening diarrhea the previous 5-6 days prior to presentation. She had finished her outpatient antibiotics from her prior admission last month. Worsened pancolitis noted on CT during this stay; mod ascites also noted. GI has been consulted from ED and greatly appreciate input. Patient continues IV zosyn and PO Vanc for possible C. Diff, as well as, due to recent abx use. C diff test not performed due to collection technique. Pateint is having adequate PO intake with low residue diet Will stop IVF today as patient appears to be having low urine output with possible 3rd spacing. Will consider imaging and nephrology consult tomorrow if UO not improving. Await further recommendations from GI on pancolitis and ascites (2) DVT (deep venous thrombosis): Code(s): I82.409 - Acute embolism and thrombosis of unspecified deep veins of unspecified lower extremity Status: Acute Assessment and Plan: Found on venous doppler of lower extremities; right popliteal and posterior tibial veins. Discussed case with Dr. Jones as this is in setting of likely pancolitis supported by CT imaging. Patient originally refusing heparin drip, but agreeable with Eliquis. Discussed with her in length about different options and risks/benefits of options. Recommended consulting Dr. Jones for further input which she was agreeable Discussed case with Dr. Jones as this is in setting of likely pancolitis supported by CT imaging. He recommended low dose Eliquis 2.5 mg q12 hours for now. Stool occult was negative. Greatly appreciate input Dr. Cain's input. Will start Eliquis 2.[address]hr [address] Dr[address] Jones recommendations. Await further recommendations per Dr. Jones (3) Acute hypokalemia: Code(s): E87.6 - Hypokalemia Status: Acute Assessment and Plan: K 3.6 today. Trend values tomorrow Replace as needed (4) Status post fall: Code(s): Z91.81 - History of falling Status: Acute Assessment and Plan: Patient admits to multiple falls at home recently although denies any injuries other than left lower leg. No head injuries per patient. Xrays of left LE showed no fracture; small effusion noted on left knee Possible SNF placement Will order PT/OT now that patient has started a/c therapy Fall precautions. (5) Weakness: Code(s): R53.1 - Weakness Status: Acute Assessment and Plan: Patient has been weak likely due to diarrhea and decreased PO intake. possibly SNF placement PT/OT ordered (6) Anemia: Code(s): D64.9 - Anemia, unspecified Status: Acute Assessment and Plan: Chronic normocytic anemia. H&H stable from last visit. Hgb 9.1 today. Possible anemia of chronic disease from prior iron studies Monitor H&H Tranfuse as needed Dr. Jones had been consulted and greatly appreciate input. Subjective Date/time seen: 08/09/19 19:59 Interval history: Patient is a 59 yo F with history of HTN and recent admission/discharge from [place] for pancolitis in 06/2019, who is here again for pancolitis found on CT imaging, as well as, DVT in right popliteal and posterior tibial veins. Patient is feeling okay today; She is having less diarrea today. Per nursing her diarrhea is watery. Denies f/c/ns, headaches, dizziness, lightheadedness, changes in v/h, cp/palpitations, sob/cough, n/v/c, abd pain other than when having BMs, dysphagia, melena, brbpr, dysuria, hematuria, cloudy urine, s/sx of stroke. Review of Systems Review of Systems: All systems reviewed & are unr
[2019-08-10] VITALS (9 sets, daily range): BP systolic 110–115; BP diastolic 66–85; PULSE 68–86; RESP 16–20; TEMP 36.5–37.1; O2SAT 97–99
[2019-08-10] MEDS: VANCOMYCIN ORAL 125 MG/2.5 ML SYRUP PO ×4 (04:15→21:46)
[2019-08-10 05:26] LABS: Basophils Percent Auto 0.4 % (0.2-1.2); Eosinophils Absolute Auto 0.1 K/mm3 (0-0.3); Hematocrit 29.4 % (37.0-47.0); Hemoglobin 9.7 g/dL (12.0-15.0); Immature Granulocyte Absolute 0.03 K/mm3 (0.00-0.031); Immature Granulocyte Percent A 0.5 % (0-0.5); Lymphocytes Absolute Auto 1.37 K/mm3 (0.9-3.2); Lymphocytes Percent Auto 24.4 % (18.3-44.2); Mean Corpuscular Hemoglobin 32.1 pg (26-34); Mean Corpuscular Volume 97.4 fl (80-100); Mean Platelet Volume 10.3 fl (7.4-10.4); Monocytes Absolute Auto 0.6 K/mm3 (0.1-0.6); Monocytes Percent Auto 11.4 % (2.6-8.5); Neutrophils Absolute Auto 3.5 K/mm3 (1.3-6.7); Neutrophils Percent Auto 61.3 % (45.5-73.1); Platelet Count Result 272 k/mm3 (150-375); Red Blood Count 3.02 M/mm3 (4.2-5.4); Red Cell Distribution Width 15.3 % (11.5-14.5); White Blood Count 5.6 K/mm3 (4.5-10.0)
[2019-08-10 05:44] LABS: Alanine Aminotransferase 20 U/L (4-35); Alkaline Phosphatase 161 U/L (38-126); Aspartate Amino Transferase 29 U/L (14-36); Bilirubin,Total 0.7 mg/dL (0.2-1.3); Blood Urea Nitrogen 6 mg/dL (7-17); Calcium 7.2 mg/dL (8.4-10.2); Carbon Dioxide 20 mmol/L (22-30); Chloride 104 mmol/L (98-107); Estimated CRCL calculation 56 ml/min; Estimated Glomerular Filt Rate > 60; Glucose 113 mg/dL (65-105); Magnesium 1.8 mg/dL (1.6-2.3); Potassium 3.2 mmol/L (3.4-5.0); Sodium 133 mmol/L (137-145)
--- NOTE | 2019-08-10 09:03 | WPDGIPROGNO ---
Progress Note: A&P Additional Plan Patient on comfortable this morning. No specific complaints offered. She continues to have intermittent loose stools. Physical exam patient is alert. Afebrile. Abdomen bowel sounds are present. Soft. Much less tender today. No masses identified. CT scan of the chest suggests some ascites in the abdomen. Not clinically evident on exam. Laboratory work WBC 5.6, hemoglobin 9.7, Impression 1. Colitis. Infectious colitis felt most likely. Plan is to continue broad-spectrum antibiotic coverage. Clinically she is starting to improve. Plan to advance diet as tolerated. She continues to require IV fluids given diarrhea. 2. DVT. Now on anticoagulation. She denies leg pain at the present time. No swelling identified. Subjective Date/time seen: 08/10/19 09:03 Objective Data Vital Signs Vital Signs: Vital Signs - 24 hr 08/09/19 12:00 08/09/19 14:00 08/09/19 16:00 Temperature 36.7 C Pulse Rate 78 94 82 Respiratory Rate 16 Blood Pressure 142/92 H Pulse Oximetry 100 08/09/19 20:00 08/09/19 21:53 08/10/19 00:00 Temperature 36.1 C L Pulse Rate 93 91 73 Respiratory Rate 21 H Blood Pressure 138/81 Pulse Oximetry 100 08/10/19 04:00 08/10/19 06:00 Temperature 37.1 C Pulse Rate 72 68 Respiratory Rate 20 Blood Pressure 115/66 Pulse Oximetry 98 Intake/Output Intake/Output: Intake & Output 08/07/19 08/08/19 08/09/19 08/10/19 23:59 23:59 23:59 23:59 Intake Total 2825 2135 2510 350 Output Total 600 100 425 200 Balance 2225 2035 2085 150 Meds/Results Medications: Active Medications Generic Name Dose Route Start Last Admin Trade Name Freq PRN Reason Stop Dose Admin Apixaban 2.5 mg 08/08/19 09:00 08/09/19 21:40 Eliquis PO 2.5 mg Q12HR [facility] Administration Piperacillin/Tazobactam/Dextrose 3.375 gm in 50 mls @ 100 mls/hr 08/07/19 04:00 08/10/19 04:14 Zosyn 3.375 Gm/D5w 50ml Pm IVPB 100 mls/hr Q6H [facility] Administration Dextrose 1,000 mls @ 50 mls/hr 08/07/19 15:42 Dextrose 10% IV CONT .Q20H PRN if PN is interrupted Amino Acids/Electrolytes/Dextrose 2,000 mls @ 80 mls/hr 08/07/19 17:00 Clinimix E 4.25%/5% Solution IV CONT .Q24H [facility] Protocol Fat Emulsion Intravenous 250 mls @ 20.833 mls/hr 08/07/19 17:00 Lipids 20% IVPB Q24H [facility] Vancomycin HCl 125 mg 08/07/19 04:00 08/10/19 04:15 Vancomycin Oral PO 125 mg Q6H [facility] Administration Radiology Results: ITS Impressions Abdomen/Pelvis CT 08/06/19 20:38 IMPRESSION: 1. Pancolitis with interval worsening. 2. Increase in ascites, now moderate in volume. 3. New small pleural effusions, right greater than left. Knee X-Ray 08/07/19 14:52 IMPRESSION: 1. Small left knee joint effusion. Tibia/Fibula X-Ray 08/07/19 14:52 IMPRESSION: 1. No fracture. Venous Doppler Study 08/07/19 14:53 IMPRESSION: 1. Deep vein thrombosis involving right popliteal and posterior tibial veins. I discussed this result with Teofilo Kimbrough on 08/07/19 at 14:55. Femur X-Ray 08/07/19 15:02 IMPRESSION: 1. No fracture or malalignment. Chest CT 08/08/19 20:59 IMPRESSION: 1. Small pleural effusions resulting in mild passive dependent atelectasis. 2. Minimal airspace opacity of the right middle lobe, consistent with pneumonia. 3. Moderate to large volume of ascites in the visualized upper abdomen as well as persistent colitis involving the partially visualized colon. 4. Mild emphysema. Labs Labs: Laboratory Results - last 24 hr 08/10/19 08/10/19 04:54 04:54 WBC 5.6 RBC 3.02 L Hgb 9.7 L Hct 29.4 L MCV 97.4 MCH 32.1 MCHC 33.0 RDW 15.3 H Plt Count 272 MPV 10.3 Immature Gran % (Auto) 0.5 Neut % (Auto) 61.3 Lymph % (Auto) 24.4 [place] % (Auto) 11.4 H Eos % (Auto) 2.0 Baso % (Auto) 0.4 Lymph # (Auto) 1.37 [place] # (Auto) 0.6 Eos # (Auto) 0.1 Baso # (Auto) 0.
[2019-08-10] MEDS: POTASSIUM CHLORIDE 20 MEQ TABLET 40 MEQ PO (09:17)
[2019-08-10] MEDS: APIXABAN 2.5 MG TABLET PO ×2 (09:17→21:46)
--- NOTE | 2019-08-10 13:19 | PM.IMPN ---
Progress Note: A&P Assessment and Plan (1) Pancolitis: Code(s): K51.00 - Ulcerative (chronic) pancolitis without complications Status: Acute Assessment and Plan: Patient has been having worsening diarrhea the previous 5-6 days prior to presentation. She had finished her outpatient antibiotics from her prior admission last month. Worsened pancolitis noted on CT during this stay; mod ascites also noted. Today patient reports she only has had one formed bowel movement; improvement from days prior. GI has been consulted from ED and greatly appreciate input. Patient continues IV zosyn and PO Vanc for possible C. Diff, as well, due to recent abx use. C diff test not performed due to collection technique; will treat empirically as symptoms having been improving Patient is having low PO intake today with low residue diet Patient having 3rd spacing likely due to hypoalbuminemia. Patient is malnurished. Possible occult malignancy although imaging thus far is unremarkable. Will give light IVF hydration and start patient on scheduled 25 GM albumin Q6hr today. Monitor closely. Await further recommendations from GI on pancolitis and ascites (2) DVT (deep venous thrombosis): Code(s): I82.409 - Acute embolism and thrombosis of unspecified deep veins of unspecified lower extremity Status: Acute Assessment and Plan: Found on venous doppler of lower extremities; right popliteal and posterior tibial veins. Discussed case with Dr. Jones as this is in setting of likely pancolitis supported by CT imaging. Patient originally refusing heparin drip, but agreeable with Eliquis. Discussed with her in length about different options and risks/benefits of options. Recommended consulting Dr. Jones for further input which she was agreeable Discussed case with Dr. Jones as this is in setting of likely pancolitis supported by CT imaging. He recommended low dose Eliquis 2.5 mg q12 hours for now. Stool occult was negative. Greatly appreciate input Dr. Cain's input. Will start Eliquis 2.[address] Jones recommendations. Await further recommendations (3) Acute hypokalemia: Code(s): E87.6 - Hypokalemia Status: Acute Assessment and Plan: K 3.2 today. Replaced this morning Trend values tomorrow Replace as needed (4) Status post fall: Code(s): Z91.81 - History of falling Status: Acute Assessment and Plan: Patient admits to multiple falls at home recently although denies any injuries other than left lower leg. No head injuries per patient. Xrays of left LE showed no fracture; small effusion noted on left knee Possible SNF placement if patient is willing PT/OT Fall precautions. (5) Weakness: Code(s): R53.1 - Weakness Status: Acute Assessment and Plan: Patient has been weak likely due to diarrhea and decreased PO intake. possibly SNF placement PT/OT ordered (6) Anemia: Code(s): D64.9 - Anemia, unspecified Status: Acute Assessment and Plan: Chronic normocytic anemia. H&H stable from last visit. Hgb 9.7 today. Possible anemia of chronic disease from prior iron studies Monitor H&H Tranfuse as needed Dr. Jones had been consulted and greatly appreciate input. (7) Hypoalbuminemia: Code(s): E88.09 - Other disorders of plasma-protein metabolism, not elsewhere classified Status: Acute Assessment and Plan: albumin 2.0. Patient is 3rd spacing on exam. Patient is malnourished with recent weight loss over past 6 months - 25 lbs per EMR reports. Occult malignancy a possibility although imaging thus far is unremarkable. Scheduled 25 GM albumin Q6hr with light IVF hydration Consider possibly adding light diureti
[2019-08-10] MEDS: SODIUM CHLORIDE 0.9% IV 1,000 ML 50 ML IV CONT (13:50)
[2019-08-10] MEDS: ALBUMIN HUMAN 25% 25 GM/100 ML 100 ML IVPB ×2 (13:51→20:03)
--- NOTE | 2019-08-10 13:51 | PCOTNOTE ---
Attempted to see patient this pm. Patient was offered to participate in skilled OT session, but reported that she had just gotten to bed, stated I'm done for the day. , and refused OT session this date.
[2019-08-11] VITALS (12 sets, daily range): BP systolic 121–127; BP diastolic 83–88; PULSE 79–96; RESP 16–18; TEMP 36.7–37.1; O2SAT 94–100
--- NOTE | 2019-08-11 | ECHO_ITS ---
Patient Info Name: Nicole Crespo Age: 59 years : 1960 Gender: Female Ht: 61 in Wt: 107 lbs BSA: 1.45 m2 HR: 88 bpm BP: 121 / 83 mmHg Technical Quality: Good Exam Date: 08/11/2019 9:31 AM Exam Location: [facility] Pulmonary Exam Room: [facility] Patient Status: Inpatient Admit Date: 08/06/2019 Staff Ordering Physician: Teofilo Kimbrough PA-C [employer] Inspector: Zofia Mcdonald RDCS Attending Provider: Teofilo Kimbrough PA-C Referring Physician: Luis E ARCE; Exam Type: CA echo doppler color flow Study Info Indications - sob dvt Complete two-dimensional, color flow and Doppler transthoracic echocardiogram is performed. Summary 1. Left ventricular chamber dimension is mildly enlarged. 2. Entire anteroseptum and septum are akinetic except the basal sigmoid portion. [place] is akinetic. 3. Ventricular septum is sigmoid shaped. 4. Left ventricular systolic function is moderately reduced, estimated at 35-40%. 5. The left ventricular diastolic function is abnormal. 6. E/e' 12 is mildly elevated. 7. Left atrial chamber dimension is mildly enlarged. 8. Right atrial chamber dimension is mildly enlarged. 9. There is mild aortic valve sclerosis. 10. There is mild mitral valve regurgitation. 11. There is mild tricuspid valve regurgitation. 12. Mild pulmonary hypertension, estimated pulmonary arterial systolic pressure is 43 mmHg. Left Ventricle Ventricular septum is sigmoid shaped. Entire anteroseptum and septum are akinetic except the basal sigmoid portion. [place] is akinetic. E/e' 12 is mildly elevated. Left ventricular chamber dimension is mildly enlarged. Left ventricular systolic function is moderately reduced, estimated at 35-40%. The left ventricular diastolic function is abnormal. Right Ventricle Right ventricular chamber dimension is normal. Right ventricular systolic function is normal. Left Atria Left atrial chamber dimension is mildly enlarged. Right Atria Right atrial chamber dimension is mildly enlarged. Aortic Valve The aortic valve is trileaflet. There is mild aortic valve sclerosis. There is no aortic valve stenosis. There is no aortic valve regurgitation. Pulmonic Valve There is no pulmonic regurgitation. Mitral Valve There is no mitral valve stenosis. There is mild mitral valve regurgitation. Tricuspid Valve There is mild tricuspid valve regurgitation. Mild pulmonary hypertension, estimated pulmonary arterial systolic pressure is 43 mmHg. Pericardium/Pleural There is no pericardial effusion. Inferior Vena Cava Normal inferior vena cava with >50% collapse upon inspiration consistent with normal right atrial pressure, 5 mmHg. Aorta The aortic root size at the sinus of Valsalva is normal. Left Ventricular Outflow Tract Name Value Normal LVOT 2D LVOT Diameter 2.0 cm LVOT Doppler LVOT Peak Gradient 3 mmHg LVOT Mean Gradient 1 mmHg LVOT VTI 17 cm LVOT VTI/AV VTI Ratio 1.0 LVOT Stroke Volume 53 ml
[2019-08-11] MEDS: ALBUMIN HUMAN 25% 25 GM/100 ML 100 ML IVPB ×2 (01:40→11:11)
[2019-08-11] MEDS: VANCOMYCIN ORAL 125 MG/2.5 ML SYRUP PO ×4 (03:35→21:35)
[2019-08-11] MEDS: ACETAMINOPHEN 325 MG TABLET 650 MG PO ×2 (03:55→18:19)
[2019-08-11 06:06] LABS: Basophils Percent Auto 0.3 % (0.2-1.2); Eosinophils Absolute Auto 0.1 K/mm3 (0-0.3); Eosinophils Percent Auto 1.3 % (0-4.4); Hematocrit 21.6 % (37.0-47.0); Hemoglobin 7.1 g/dL (12.0-15.0); Immature Granulocyte Absolute 0.04 K/mm3 (0.00-0.031); Immature Granulocyte Percent A 0.6 % (0-0.5); Lymphocytes Absolute Auto 1.37 K/mm3 (0.9-3.2); Lymphocytes Percent Auto 21.8 % (18.3-44.2); Mean Corpuscular HGB Conc 32.9 g/dl (32-36); Mean Corpuscular Hemoglobin 32.1 pg (26-34); Mean Corpuscular Volume 97.7 fl (80-100); Mean Platelet Volume 10.7 fl (7.4-10.4); Monocytes Absolute Auto 0.7 K/mm3 (0.1-0.6); Monocytes Percent Auto 10.5 % (2.6-8.5); Neutrophils Absolute Auto 4.1 K/mm3 (1.3-6.7); Neutrophils Percent Auto 65.5 % (45.5-73.1); Platelet Count Result 195 k/mm3 (150-375); Red Blood Count 2.21 M/mm3 (4.2-5.4); Red Cell Distribution Width 15.5 % (11.5-14.5); White Blood Count 6.3 K/mm3 (4.5-10.0)
[2019-08-11] MEDS: ALBUTEROL SULFATE NEB 2.5 MG/0.5 ML INH 5 MG INHALATION (06:26)
[2019-08-11 06:28] LABS: Alanine Aminotransferase 13 U/L (4-35); Albumin Level 3.3 g/dL (3.5-5.1); Alkaline Phosphatase 106 U/L (38-126); Aspartate Amino Transferase 20 U/L (14-36); Bilirubin,Total 1.1 mg/dL (0.2-1.3); Blood Urea Nitrogen 5 mg/dL (7-17); Calcium 8.1 mg/dL (8.4-10.2); Carbon Dioxide 18 mmol/L (22-30); Chloride 100 mmol/L (98-107); Estimated CRCL calculation 65 ml/min; Estimated Glomerular Filt Rate > 60; Glucose 102 mg/dL (65-105); Magnesium 1.7 mg/dL (1.6-2.3); Potassium 3.3 mmol/L (3.4-5.0); Sodium 134 mmol/L (137-145)
--- NOTE | 2019-08-11 08:41 | PM.IMPN ---
Progress Note: A&P Assessment and Plan (1) Pancolitis: Code(s): K51.00 - Ulcerative (chronic) pancolitis without complications Status: Acute Assessment and Plan: Patient has been having worsening diarrhea the previous 5-6 days prior to presentation. She had finished her outpatient antibiotics from her prior admission last month. Worsened pancolitis noted on CT during this stay; mod ascites also noted. Patient continues to have abdominal pain with BMs, but states she has been having formed BMs recently GI has been consulted from ED and greatly appreciate input. Patient continues IV zosyn and PO Vanc for possible C. Diff, as well, due to recent abx use. C diff test not performed due to collection technique; will treat empirically as she has been clinically slowly improving in this setting, although still appears very ill due to possibly other health issues Patient having 3rd spacing likely due to hypoalbuminemia. Patient is malnurished. Possible occult malignancy although imaging thus far is unremarkable. IVF held last night as patient was SOB and she is having 3rd spacing Await further recommendations from GI on pancolitis and ascites (2) DVT (deep venous thrombosis): Code(s): I82.409 - Acute embolism and thrombosis of unspecified deep veins of unspecified lower extremity Status: Acute Assessment and Plan: Found on venous doppler of lower extremities; right popliteal and posterior tibial veins. Discussed case with Dr. Jones as this is in setting of likely pancolitis supported by CT imaging. Patient originally refusing heparin drip, but was agreeable with Eliquis. Discussed with her in length about different options and risks/benefits of options. Recommended consulting Dr. Jones for further input which she was agreeable. Unfortunately, today, her Hgb has dropped to 7.1. Eliquis has been held; she is currently refusing blood transfusions. Discussed case with Dr. Jones earlier in stay as this is in setting of likely pancolitis supported by CT imaging. Will hold low dose Eliquis at this time. (3) Acute hypokalemia: Code(s): E87.6 - Hypokalemia Status: Acute Assessment and Plan: K 3.3 today. Replaced this morning Trend values tomorrow Replace as needed (4) Status post fall: Code(s): Z91.81 - History of falling Status: Acute Assessment and Plan: Patient admits to multiple falls at home recently although denies any injuries other than left lower leg. No head injuries per patient. Xrays of left LE showed no fracture; small effusion noted on left knee Possible SNF placement if patient is willing PT/OT Fall precautions. (5) Weakness: Code(s): R53.1 - Weakness Status: Acute Assessment and Plan: Patient has been weak likely due to diarrhea and decreased PO intake/malnutrition. possibly SNF placement PT/OT ordered (6) Anemia: Code(s): D64.9 - Anemia, unspecified Status: Acute Assessment and Plan: Chronic normocytic anemia. She has had a drop in Hgb as it 7.1 today; possible occult blood loss. This is on top of possible anemia of chronic disease from prior iron studies Monitor H&H Patient is refusing transfusions at this moment. If H&H continues to drop, and she continues to refuse transfusions, Comfort care may need to be discussed. Dr. Jones had been consulted and greatly appreciate input. (7) Hypoalbuminemia: Code(s): E88.09 - Other disorders of plasma-protein metabolism, not elsewhere classified Status: Acute Assessment and Plan: albumin 3.3 today. Patient is 3rd spacing on exam. Patient is malnourished with recent weight loss over past 6 months - 25 lbs per EMR reports. Occu
[2019-08-11] MEDS: POTASSIUM CHLORIDE 20 MEQ TABLET 40 MEQ PO (10:28)
[2019-08-11] MEDS: FUROSEMIDE INJ 40 MG/4 ML VIAL 20 MG IV PUSH (10:28)
[2019-08-11] MEDS: LEVOTHYROXINE SODIUM 50 MCG TABLET PO (11:10)
--- NOTE | 2019-08-11 12:01 | WPDGIPROGNO ---
Progress Note: A&P Assessment and Plan (1) Pancolitis: Code(s): K51.00 - Ulcerative (chronic) pancolitis without complications Status: Acute Assessment and Plan: stool cultures negative, C diff was not tested by lab because insufficient sample- will order again. She is being treated empirically with oral vancomycin and also zosyn iv. Still symptomatic, now normal WBC but acidosis again. She is trying to eat, denies vomiting. Never had a colonoscopy. (2) Diarrhea: Qualifiers: Diarrhea type: unspecified type Qualified Code(s): R19.7 - Diarrhea, unspecified Code(s): R19.7 - Diarrhea, unspecified Status: Acute (3) Dehydration: Code(s): E86.0 - Dehydration Status: Acute (4) Weight loss: Code(s): R63.4 - Abnormal weight loss Status: Acute (5) Anemia: Code(s): D64.9 - Anemia, unspecified Status: Acute Assessment and Plan: noted drop in hb after xarelto was given, now on hold. Monitor h/h, no overt gib, probably multifactorial- also pancolitis. (6) Malnutrition: Code(s): E46 - Unspecified protein-calorie malnutrition Status: Acute Subjective Date/time seen: 08/11/19 12:01 Interval history: still with diarrhea and bloating after eating, no vomiting and she is eating but small amount. WBC is trending down but noted acidosis again, on iv albumin because third spacing. Review of Systems Review of Systems: All systems reviewed & are unremarkable except as noted in HPI and below Exam Const: General: comfortable Other: frail elderly HENMT: General nose exam: Normal nares present Eyes: General: appearance normal, both eyes and all related structures Neck: Neck: no JVD Resp: Auscultation: clear to auscultation bilaterally Cardio: Rate: regular rate Rhythm: regular rhythm GI: Inspection: distended GI Palp: Yes Soft to palpation, Yes Tenderness to palpation present (GI) (mild ttp diffusely, no rebound), No Guarding due to palpation present (GI) and No Rigid due to palpation Percussion: No Fluid wave present Auscultation: Hypoactive bowel sounds present Neuro: Speech: normal speech Extrem: General: pedal edema Psych: Mental Status: mental status grossly normal Objective Data Vital Signs Vital Signs: Vital Signs - 24 hr 08/10/19 14:00 08/10/19 16:00 08/10/19 20:00 Temperature 97.7 F Pulse Rate 78 86 80 Respiratory Rate 18 Blood Pressure 112/85 Pulse Oximetry 99 08/10/19 22:00 08/11/19 00:00 08/11/19 04:00 Temperature 97.7 F Pulse Rate 85 85 93 Respiratory Rate 16 Blood Pressure 110/72 Pulse Oximetry 97 08/11/19 06:00 08/11/19 06:31 08/11/19 06:39 Temperature 98.7 F Pulse Rate 96 88 93 Respiratory Rate 16 18 18 Blood Pressure 121/83 Pulse Oximetry 94 Intake/Output Intake/Output: Intake & Output 08/08/19 08/09/19 08/10/19 08/11/19 23:59 23:59 23:59 23:59 Intake Total 2135 2510 1300 1220 Output Total 100 425 300 150 Balance 2035 2085 1000 1070 Meds/Results Medications: Active Medications Generic Name Dose Route Start Last Admin Trade Name Freq PRN Reason Stop Dose Admin Acetaminophen 650 mg 08/10/19 16:12 08/11/19 03:55 Tylenol Tablet PO 650 mg Q4H PRN Administration Pain or Fever Albuterol 2.5 mg 08/11/19 06:17 Albuterol Sulf Neb 2.5mg/0.5ml INHALATION 08/13/19 05:00 Q4HRT PRN Shortness Of Breath Apixaban 2.5 mg 08/08/19 09:00 08/10/19 21:46 Eliquis PO 2.5 mg Q12HR ARISTEO Administration Guaifenesin 600 mg 08/11/19 09:00 08/11/19 10:28 Mucinex 12 Hr Tab PO 600 mg Q12HR ARISTEO Administration Piperacillin/Tazobactam/Dextrose 3.375 gm in 50 mls @ 100 mls/hr 08/07/19 04:00 08/11/19 10:59 Zosyn 3.375 Gm/D5w 50ml Pm IVPB Infused Q6H ARISTEO Infusion Dextrose 1,000 mls @ 50 mls/hr 08/07/19 15:42 Dextrose 10% IV CONT .Q20H PRN if PN is interrupted Amino Acids/Electrolytes/Dextrose
[2019-08-11 12:06] LABS: Hematocrit 22.6 % (37.0-47.0); Hemoglobin 7.6 g/dL (12.0-15.0)
--- NOTE | 2019-08-11 14:20 | PCOTNOTE ---
Patient declined treatment x2 this pm due to working on my will with son.
--- NOTE | 2019-08-11 15:34 | PCPTNOTE ---
Attempted to see patient for Physical Therapy on this date. Patient refused to do lower extremity exercises while in bed and any therapy.
[2019-08-11 17:22] LABS: IFOB Positive Control Positive; Immunochemical Fecal Occult Bl Positive (N)
[2019-08-11] MEDS: ALBUTEROL SULFATE NEB 2.5 MG/0.5 ML INH INHALATION (23:33)
[2019-08-12] VITALS (10 sets, daily range): BP systolic 118–132; BP diastolic 72–75; PULSE 79–98; RESP 16–22; TEMP 36.5–36.7; O2SAT 94–100
[2019-08-12] MEDS: VANCOMYCIN ORAL 125 MG/2.5 ML SYRUP PO ×4 (04:05→21:44)
[2019-08-12 05:59] LABS: Basophils Percent Auto 0.1 % (0.2-1.2); Eosinophils Percent Auto 0.5 % (0-4.4); Hematocrit 22.5 % (37.0-47.0); Hemoglobin 7.6 g/dL (12.0-15.0); Immature Granulocyte Absolute 0.06 K/mm3 (0.00-0.031); Immature Granulocyte Percent A 0.8 % (0-0.5); Lymphocytes Absolute Auto 1.24 K/mm3 (0.9-3.2); Lymphocytes Percent Auto 15.9 % (18.3-44.2); Mean Corpuscular HGB Conc 33.8 g/dl (32-36); Mean Corpuscular Hemoglobin 31.9 pg (26-34); Mean Corpuscular Volume 94.5 fl (80-100); Mean Platelet Volume 10.7 fl (7.4-10.4); Monocytes Absolute Auto 0.9 K/mm3 (0.1-0.6); Monocytes Percent Auto 10.9 % (2.6-8.5); Neutrophils Absolute Auto 5.6 K/mm3 (1.3-6.7); Neutrophils Percent Auto 71.8 % (45.5-73.1); Platelet Count Result 181 k/mm3 (150-375); Red Blood Count 2.38 M/mm3 (4.2-5.4); Red Cell Distribution Width 15.5 % (11.5-14.5); White Blood Count 7.8 K/mm3 (4.5-10.0)
[2019-08-12 06:14] LABS: Alanine Aminotransferase 26 U/L (4-35); Alkaline Phosphatase 109 U/L (38-126); Aspartate Amino Transferase 85 U/L (14-36); Bilirubin,Total 1.1 mg/dL (0.2-1.3); Blood Urea Nitrogen 5 mg/dL (7-17); Calcium 8.2 mg/dL (8.4-10.2); Carbon Dioxide 19 mmol/L (22-30); Chloride 104 mmol/L (98-107); Estimated CRCL calculation 56 ml/min; Estimated Glomerular Filt Rate > 60; Glucose 126 mg/dL (65-105); Magnesium 1.6 mg/dL (1.6-2.3); Potassium 2.9 mmol/L (3.4-5.0); Sodium 134 mmol/L (137-145)
[2019-08-12 06:15] LABS: Lactic Acid 1.9 mmol/L (0.7-2.1)
[2019-08-12] MEDS: LEVOTHYROXINE SODIUM 50 MCG TABLET PO (06:24)
[2019-08-12] MEDS: MAGNESIUM SULF 1 GM/D5W 100 ML 1 GM/100 ML BAG IVPB (08:21)
[2019-08-12] MEDS: POTASSIUM CHLORIDE 20 MEQ TABLET 40 MEQ PO (08:21)
--- NOTE | 2019-08-12 10:51 | WPDGIPROGNO ---
Progress Note: A&P Assessment and Plan (1) Pancolitis: Code(s): K51.00 - Ulcerative (chronic) pancolitis without complications Status: Acute Assessment and Plan: stool cultures negative, C diff ordered again (was not tested by lab because insufficient sample). She is being treated empirically with oral vancomycin and also zosyn iv, improving, normal wbc for last 4 days and tolerating diet. Never had a colonoscopy, noted drop of Hb in setting of eliquis but now is on hold and stable hb last 2 days, FOBT + expected in pancolitis. Dr Son will resume patient's care tomorrow. (2) Diarrhea: Qualifiers: Diarrhea type: unspecified type Qualified Code(s): R19.7 - Diarrhea, unspecified Code(s): R19.7 - Diarrhea, unspecified Status: Acute (3) Dehydration: Code(s): E86.0 - Dehydration Status: Acute (4) Weight loss: Code(s): R63.4 - Abnormal weight loss Status: Acute (5) Anemia: Qualifiers: Anemia type: unspecified type Qualified Code(s): D64.9 - Anemia, unspecified Code(s): D64.9 - Anemia, unspecified Status: Acute Assessment and Plan: noted drop in hb after xarelto was given, now on hold. Monitor h/h, no overt gib, probably multifactorial- also pancolitis. (6) Malnutrition: Qualifiers: Malnutrition type: unspecified type Qualified Code(s): E46 - Unspecified protein-calorie malnutrition Code(s): E46 - Unspecified protein-calorie malnutrition Status: Acute Subjective Date/time seen: 08/12/19 10:51 Interval history: patient is eating breakfast and had milk with cereal, thrive. Still with diarrhea and bloated, no bleeding but less nausea, no vomiting. Review of Systems Review of Systems: All systems reviewed & are unremarkable except as noted in HPI and below Exam Const: General: comfortable Other: frail elderly HENMT: General nose exam: Normal nares present Eyes: General: appearance normal, both eyes and all related structures Neck: Neck: no JVD Resp: Auscultation: clear to auscultation bilaterally Cardio: Rate: regular rate Rhythm: regular rhythm GI: Inspection: distended GI Palp: Yes Soft to palpation, Yes Tenderness to palpation present (GI) (mild ttp diffusely, no rebound), No Guarding due to palpation present (GI) and No Rigid due to palpation Percussion: No Fluid wave present Auscultation: Hyperactive bowel sounds present Neuro: Speech: normal speech Extrem: General: pedal edema Psych: Mental Status: mental status grossly normal Objective Data Vital Signs Vital Signs: Vital Signs - 24 hr 08/11/19 12:00 08/11/19 14:00 08/11/19 16:00 Temperature 98.3 F Pulse Rate 89 84 87 Respiratory Rate 18 Blood Pressure 122/88 Pulse Oximetry 100 08/11/19 20:00 08/11/19 22:00 08/11/19 23:34 Temperature 98.1 F Pulse Rate 88 92 79 Respiratory Rate 16 16 Blood Pressure 127/83 Pulse Oximetry 97 08/12/19 00:00 08/12/19 04:00 08/12/19 06:00 Temperature 98.0 F Pulse Rate 79 81 82 Respiratory Rate 16 Blood Pressure 123/74 Pulse Oximetry 100 Intake/Output Intake/Output: Intake & Output 08/09/19 08/10/19 08/11/19 08/12/19 23:59 23:59 23:59 23:59 Intake Total 2510 1300 1570 200 Output Total 639 361 6284 250 Balance 2085 1000 20 -50 Meds/Results Medications: Active Medications Generic Name Dose Route Start Last Admin Trade Name Freq PRN Reason Stop Dose Admin Acetaminophen 650 mg 08/10/19 16:12 08/11/19 18:19 Tylenol Tablet PO 650 mg Q4H PRN Administration Pain or Fever Albuterol 2.5 mg 08/11/19 06:17 08/11/19 23:33 Albuterol Sulf Neb 2.5mg/0.5ml INHALATION 08/13/19 05:00 2.5 mg Q4HRT PRN Administration Shortness Of Breath Apixaban 2.5 mg 08/08/19 09:00 08/10/19 21:46 Eliquis PO 2.5 mg Q12HR ARISTEO Administration Guaifenesin 600 mg 08/11/19 09:00 08/12/19 08:20 Mucinex 12 Hr Tab PO
--- NOTE | 2019-08-12 11:30 | PM.IMPN ---
Progress Note: A&P Assessment and Plan (1) Pancolitis: Code(s): K51.00 - Ulcerative (chronic) pancolitis without complications Status: Acute Assessment and Plan: Patient has been having worsening diarrhea the previous 5-6 days prior to presentation. She had finished her outpatient antibiotics from her prior admission last month. Worsened pancolitis noted on CT during this stay; mod ascites also noted. Patient continues to have abdominal pain with BMs, but states she has been having formed BMs recently GI has been consulted from ED and greatly appreciate input. Patient continues IV zosyn and PO Vanc for possible C. Diff, as well, due to recent abx use. C diff test not performed due to collection technique; will treat empirically as she has been clinically slowly improving in this setting, although still appears very ill due to possibly other health issues. Stool sample has been resent for C. diff testing per GI. Patient having 3rd spacing likely due to hypoalbuminemia. Patient is malnurished. Possible occult malignancy although imaging thus far is unremarkable. Dr. Jones is following and appreciate recommendations Patient's UO improved with albumin and lasix Await further recommendations from GI on pancolitis and ascites (2) DVT (deep venous thrombosis): Code(s): I82.409 - Acute embolism and thrombosis of unspecified deep veins of unspecified lower extremity Status: Acute Assessment and Plan: Found on venous doppler of lower extremities; right popliteal and posterior tibial veins. Discussed case with Dr. Jones as this is in setting of likely pancolitis supported by CT imaging. Patient originally refusing heparin drip, but was agreeable with Eliquis. Discussed with her in length about different options and risks/benefits of options. Recommended consulting Dr. Jones for further input which she was agreeable. Unfortunately, her Hgb has dropped yesterday and Eliquis has been subsequently held; she is currently refusing blood transfusions. Hgb is now stable at 7.[address] Jones earlier in stay. Will hold low dose Eliquis at this time. She is agreeable to speak with Cardiology for further information on HFrEF and DVT with possible IVC filter if she is a candidate. Should she be agreeable to IVC filter, will consult General Surgery for evaluation if she is a candidate for possible placement and Dr. Mckeon is unable to perform procedure. (3) HFrEF (heart failure with reduced ejection fraction): Code(s): I50.20 - Unspecified systolic (congestive) heart failure Status: Acute Assessment and Plan: Patient was shown to have EF of 35-40%, among other findings including mild pulmonary hypertension, diastolic dysfunction, and akinesis of septum and apex. Patient is stable. Will consult Dr. Mckeon for further input on this matter and possibility of IVC filter for DVT. Monitor closely (4) Acute hypokalemia: Code(s): E87.6 - Hypokalemia Status: Acute Assessment and Plan: K 2.9 today. Replaced this morning. Likely due to decreased PO intake and diarrhea Trend values tomorrow Replace as needed (5) Hypoalbuminemia: Code(s): E88.09 - Other disorders of plasma-protein metabolism, not elsewhere classified Status: Acute Assessment and Plan: albumin 3.0 today. Patient is 3rd spacing on exam, but showing improvement, with good diuresis yesterday with albumin/lasix. Patient is malnourished with recent weight loss over past 6 months - 25 lbs per EMR reports. Occult malignancy a possibility although imaging thus far is unremarkable. Her Hgb has dropped yesterday but is stable today at 7.6 Will give another dose of albumin and 20 mg IV Lasix today to see if there is more improvement with UO Monitor
[2019-08-12] MEDS: ALBUMIN HUMAN 25% 25 GM/100 ML 100 ML IVPB (12:28)
--- NOTE | 2019-08-12 14:24 | PM.CNCAR ---
Assessment and Plan Assessment and plan (1) HFrEF (heart failure with reduced ejection fraction): Code(s): I50.20 - Unspecified systolic (congestive) heart failure Status: Acute Assessment and Plan: With obvious LV dysfunction, agree with diuresis, will add low-dose lisinopril, follow up input and outputs closely, whenever she is otherwise okay she would need to have at least stress test to look for cause of her LV dysfunction or consider cardiac catheterization (2) Diarrhea: Qualifiers: Diarrhea type: unspecified type Qualified Code(s): R19.7 - Diarrhea, unspecified Code(s): R19.7 - Diarrhea, unspecified Status: Acute (3) DVT (deep venous thrombosis): Code(s): I82.409 - Acute embolism and thrombosis of unspecified deep veins of unspecified lower extremity Status: Acute Assessment and Plan: She has right-sided popliteal DVT, with mobile thrombus, and other hand she has contraindication for anticoagulation with active drop of her hemoglobin, indicating internal bleed or GI bleed, with that in mind we have to stop Eliquis, and consider IVC filter placement to prevent large PE and to prevent thrombus from propagating into the vena cava and then into PE. I discussed the procedure with the patient, risks, benefits, alternative diagnostic measure explained, she agreed with the procedure (4) Anemia: Qualifiers: Anemia type: unspecified type Qualified Code(s): D64.9 - Anemia, unspecified Code(s): D64.9 - Anemia, unspecified Status: Acute Assessment and Plan: She has underlying chronic anemia but no has significant drop after she was started on Eliquis. Okay to stop it for now, we will arrange for IVC filter tomorrow Additional Plan Thank you for allowing me to participate in this patient's care, I will be following up with you. Please do not hesitate to call me for any other inquiry History of Present Illness History of Present Illness Consult date/time: 08/12/19 14:24 59-year-old lady with history of smoking, was admitted to the hospital because of diarrhea and weight loss, noted to have leg swelling and leg pain and she had a fall, the swelling was worked up and she had venous Doppler revealing right sided popliteal DVT. She was started on anticoagulation but subsequently her hemoglobin dropped as low as 7.4. Her venous duplex showed mobile thrombus in the popliteal vein, no history of previous PE or DVT, her chest is negative for PE. Currently she feels okay as far as the pain and swelling, but the anticoagulation had to be stopped in view of significant drop of hemoglobin. I was asked to see her for possible filter placement. Obviously she has contraindication for anticoagulation due to drop of hemoglobin and bleeding, at the same time she has DVT with mobile thrombus in the popliteal vein which could propagate up and could cause PE. With that in mind I think she would need a filter at least on a temporary basis Reason For Visit: pancolitis,hypokalemia,dehydration Review of Systems Constitutional: Constitutional: Reports body ache(s), Reports fatigue and Reports lethargy Comments: Significant weight loss Cardiovascular: Cardiovascular: Denies chest pain, Reports leg edema and Reports lightheadedness PMFSH Past Medical History Medical History Anemia Cervical dysplasia Diarrhea DVT (deep venous thrombosis) HTN (hypertension) Malnutrition Pancolitis Vitamin D deficiency Surgical History Surgical History H/O LEEP Family History Family History Father COPD (chronic obstructive pulmonary disease) Emphysema lung Mother Rheumatoid arthritis Social History Social History Social History: Patient currently lives at home alone.
[2019-08-12] MEDS: FUROSEMIDE INJ 40 MG/4 ML VIAL 20 MG IV PUSH (15:31)
[2019-08-12] MEDS: POTASSIUM CHLORIDE 20 MEQ TABLET PO (15:40)
[2019-08-12] MEDS: ALBUTEROL SULFATE NEB 2.5 MG/0.5 ML INH INHALATION (23:07)
[2019-08-13] VITALS (8 sets, daily range): BP systolic 121–127; BP diastolic 77–89; PULSE 81–101; RESP 12–20; TEMP 36.5–36.8; O2SAT 98
[2019-08-13] MEDS: VANCOMYCIN ORAL 125 MG/2.5 ML SYRUP PO ×4 (04:17→21:31)
[2019-08-13 06:26] LABS: Basophils Percent Auto 0.3 % (0.2-1.2); Eosinophils Absolute Auto 0.1 K/mm3 (0-0.3); Eosinophils Percent Auto 0.9 % (0-4.4); Hematocrit 25.2 % (37.0-47.0); Hemoglobin 8.5 g/dL (12.0-15.0); Immature Granulocyte Absolute 0.14 K/mm3 (0.00-0.031); Immature Granulocyte Percent A 1.5 % (0-0.5); Lymphocytes Absolute Auto 1.43 K/mm3 (0.9-3.2); Lymphocytes Percent Auto 14.8 % (18.3-44.2); Mean Corpuscular HGB Conc 33.7 g/dl (32-36); Mean Corpuscular Hemoglobin 32.1 pg (26-34); Mean Corpuscular Volume 95.1 fl (80-100); Monocytes Absolute Auto 0.8 K/mm3 (0.1-0.6); Monocytes Percent Auto 8.7 % (2.6-8.5); Neutrophils Absolute Auto 7.1 K/mm3 (1.3-6.7); Neutrophils Percent Auto 73.8 % (45.5-73.1); Platelet Count Result 241 k/mm3 (150-375); Red Blood Count 2.65 M/mm3 (4.2-5.4); Red Cell Distribution Width 15.7 % (11.5-14.5); White Blood Count 9.6 K/mm3 (4.5-10.0)
[2019-08-13] MEDS: LEVOTHYROXINE SODIUM 50 MCG TABLET PO (06:35)
[2019-08-13 06:43] LABS: Alanine Aminotransferase 23 U/L (4-35); Albumin Level 3.1 g/dL (3.5-5.1); Alkaline Phosphatase 118 U/L (38-126); Aspartate Amino Transferase 40 U/L (14-36); Bilirubin,Total 0.9 mg/dL (0.2-1.3); Blood Urea Nitrogen 3 mg/dL (7-17); Calcium 8.3 mg/dL (8.4-10.2); Carbon Dioxide 21 mmol/L (22-30); Chloride 101 mmol/L (98-107); Estimated CRCL calculation 56 ml/min; Estimated Glomerular Filt Rate > 60; Glucose 119 mg/dL (65-105); Magnesium 1.6 mg/dL (1.6-2.3); Sodium 135 mmol/L (137-145)
[2019-08-13] MEDS: GUAIFENESIN 200 MG/10 ML UDC 600 MG PO ×2 (09:55→21:29)
--- NOTE | 2019-08-13 10:28 | WPDGIPROGNO ---
Progress Note: A&P Additional Plan Patient reports being uncomfortable in general. She still reports loose diarrhea stools. No bleeding described. No significant abdominal pain at this time. Over the weekend was noted to have a slight decline in hemoglobin. No obvious bleeding described by staff. Anticoagulation has been held. Physical exam reveals patient to be alert. She is a poor historian. Lungs are clear. Heart without murmur. Abdomen is soft and nontender. Labs reveal WBC 9.6, hemoglobin 8.5, hematocrit 25.2, MCV 95. Repeat stool for C difficile toxin remains negative. Impression 1. Shaw colitis. Noted by CT scan. Infective etiology is felt most likely. Ongoing diarrhea is described. I discussed possible colonoscopy with both daughter and patient. They prefer to defer this for 1-2 days. Patient is to have an IVC filter placed today. We will continue empiric antibiotics for now. 2. DVT. Anticoagulants on hold because of concern over possible bleeding. No obvious bleeding described. IVC filter to be placed. 3. Congestive heart failure. Cardiology following. Plan is for colonoscopy at some point when her cardiopulmonary status is stable. Continue empiric antibiotics for presumed infectious etiology at the present time. Supportive care. Subjective Date/time seen: 08/13/19 10:28 Objective Data Vital Signs Vital Signs: Vital Signs - 24 hr 08/12/19 12:00 08/12/19 14:00 08/12/19 16:00 Temperature 36.6 C Pulse Rate 85 89 89 Respiratory Rate 18 Blood Pressure 118/72 Pulse Oximetry 94 08/12/19 20:00 08/12/19 22:00 08/12/19 23:07 Temperature 36.5 C Pulse Rate 83 98 82 Respiratory Rate 22 H 16 Blood Pressure 132/75 Pulse Oximetry 94 08/13/19 00:00 08/13/19 04:00 Temperature Pulse Rate 86 84 Respiratory Rate Blood Pressure Pulse Oximetry Intake/Output Intake/Output: Intake & Output 08/10/19 08/11/19 08/12/19 08/13/19 23:59 23:59 23:59 23:59 Intake Total 1300 1570 800 220 Output Total 300 1550 1000 200 Balance 1000 20 -200 20 Meds/Results Medications: Active Medications Generic Name Dose Route Start Last Admin Trade Name Freq PRN Reason Stop Dose Admin Acetaminophen 650 mg 08/10/19 16:12 08/11/19 18:19 Tylenol Tablet PO 650 mg Q4H PRN Administration Pain or Fever Apixaban 2.5 mg 08/08/19 09:00 08/10/19 21:46 Eliquis PO 2.5 mg Q12HR [facility] Administration Guaifenesin 600 mg 08/13/19 09:00 08/13/19 09:55 Guaifenesin Liq PO 600 mg Q12H [facility] Administration Piperacillin/Tazobactam/Dextrose 3.375 gm in 50 mls @ 100 mls/hr 08/07/19 04:00 08/13/19 09:59 Zosyn 3.375 Gm/D5w 50ml Pm IVPB 100 mls/hr Q6H [facility] Administration Dextrose 1,000 mls @ 50 mls/hr 08/07/19 15:42 Dextrose 10% IV CONT .Q20H PRN if PN is interrupted Amino Acids/Electrolytes/Dextrose 2,000 mls @ 80 mls/hr 08/07/19 17:00 Clinimix E 4.25%/5% Solution IV CONT .Q24H [facility] Protocol Fat Emulsion Intravenous 250 mls @ 20.833 mls/hr 08/07/19 17:00 Lipids 20% IVPB Q24H [facility] Potassium Chloride 500 mls @ 125 mls/hr 08/13/19 07:15 08/13/19 07:53 Kcl 40 Meq/D5w 500 Ml Peripheral IVPB 08/13/19 11:14 125 mls/hr ONCE ONE Administration Levothyroxine Sodium 50 mcg 08/11/19 09:40 08/13/19 06:35 Synthroid PO 50 mcg DAILY@0630 [facility] Administration Potassium Chloride 40 meq 08/14/19 09:00 Kcl Tablet PO QAM [facility] Vancomycin HCl 125 mg 08/07/19 04:00 08/13/19 09:57 Vancomycin Oral PO 125 mg Q6H [facility] Administration Radiology Results: ITS Impressions Abdomen/Pelvis CT 08/06/19 20:38 IMPRESSION: 1. Pancolitis with interval worsening. 2. Increase in ascites, now moderate in volume. 3. New small pleural effusions, right greater than left. Knee X-Ray 08/07/19 14:52 IMPRESSION: 1. Small left knee joint effusion. Tibia/Fibula X-Ray 08/07/19 14:52 IMPRESSION
--- NOTE | 2019-08-13 12:40 | PM.IMPN ---
Progress Note: A&P Assessment and Plan (1) Pancolitis: Code(s): K51.00 - Ulcerative (chronic) pancolitis without complications <Teofilo Kimbrough PA-C - Last Filed: 08/13/19 13:52> Status: Acute <Teofilo Kimbrough PA-C - Last Filed: 08/13/19 13:52> Assessment and Plan: Patient has been having worsening diarrhea the previous 5-6 days prior to presentation. She had finished her outpatient antibiotics from her prior admission last month. Worsened pancolitis noted on CT during this stay; mod ascites also noted. Patient had 2 BMs today; pain is improving in lower abdomen. GI has been consulted from ED and greatly appreciate input. Patient continues IV zosyn and PO Vanc for possible C. Diff, as well, due to recent abx use. C diff test not performed due to collection technique; will treat empirically as she has been clinically slowly improving in this setting, although still appears very ill due to possibly other health issues. Stool sample has been re-sent for C. diff testing per GI. Patient having 3rd spacing likely due to hypoalbuminemia. Patient is malnurished. Possible occult malignancy although imaging thus far is unremarkable. Dr. oJnes is following and appreciate recommendations Patient's UO improved with albumin and lasix. Will give another dose today. Await further recommendations from GI on pancolitis and ascites <Teofilo Kimbrough PA-C - Last Filed: 08/13/19 13:52> (2) DVT (deep venous thrombosis): Code(s): I82.409 - Acute embolism and thrombosis of unspecified deep veins of unspecified lower extremity <ANGEL LUIS Ta Last Filed: 08/13/19 13:52> Status: Acute <ANGEL LUIS Ta Last Filed: 08/13/19 13:52> Assessment and Plan: Found on venous doppler of lower extremities; right popliteal and posterior tibial veins. Discussed case with Dr. Jones as this is in setting of likely pancolitis supported by CT imaging. Patient originally refusing heparin drip, but was agreeable with Eliquis. Discussed with her in length about different options and risks/benefits of options. I recommended consulting Dr. Jones for further input which she was agreeable. Unfortunately, her Hgb has dropped earlier in stay and Eliquis has been subsequently held; she is currently refusing blood transfusions. Hgb is now at 8.5 today. Discussed this with Dr. Jones and Dr. Mckeon; the consensus per their recommendations was to hold on the IVC filter today and resume Eliquis today and trend Hgb over the next couple of days. Discussed this with patient and family who is agreeable to this. Per Dr. Mckeon recommendations, will resume Eliquis this afternoon, then resume the schedule at [address] Mckeon recommendations Trend Hgb tomorrow. If showing drop in hgb again over the next day or so, then plan will be to stop eliquis and possibly proceed with filter placement. Appreciate recommendations per Dr. Mckeon and Dr. Jones. Monitor closely <Teofilo Kimbrough PA-C - Last Filed: 08/13/19 13:52> (3) HFrEF (heart failure with reduced ejection fraction): Code(s): I50.20 - Unspecified systolic (congestive) heart failure <Teofilo Kimbrough PA-C - Last Filed: 08/13/19 13:52> Status: Acute <Teofilo Kimbrough PA-C - Last Filed: 08/13/19 13:52> Assessment and Plan: Patient was shown to have EF of 35-40%, among other findings including mild pulmonary hypertension, diastolic dysfunction, and akinesis of septum and apex. Patient is stable. Dr. Mckeon following and appreciate recommendations Monitor closely <Teofilo Kimbrough PA-C - Last Filed: 08/13/19 13:52> (4) Acute hypokalemia: Code(s): E87.6 - Hypokalemia <Teofilo Kimbrough PA-C - Last Filed: 08/13/19 13:52> Status: Acute <Teofilo Kimbrough PA-C - Last Filed: 07/28
--- NOTE | 2019-08-13 14:04 | PM.PNCARD ---
Progress Note: A&P Assessment and Plan (1) HFrEF (heart failure with reduced ejection fraction): Code(s): I50.20 - Unspecified systolic (congestive) heart failure Status: Acute Assessment and Plan: With obvious LV dysfunction, agree with diuresis, will add low-dose lisinopril, follow up input and outputs closely, whenever she is otherwise okay she would need to have at least stress test to look for cause of her LV dysfunction or consider cardiac catheterization (2) Diarrhea: Qualifiers: Diarrhea type: unspecified type Qualified Code(s): R19.7 - Diarrhea, unspecified Code(s): R19.7 - Diarrhea, unspecified Status: Acute (3) DVT (deep venous thrombosis): Code(s): I82.409 - Acute embolism and thrombosis of unspecified deep veins of unspecified lower extremity Status: Acute Assessment and Plan: She has right-sided popliteal DVT, with mobile thrombus, and other hand she has contraindication for anticoagulation with active drop of her hemoglobin, indicating internal bleed or GI bleed, agree with attempting to start back on Eliquis a cane and watch her hemoglobin for 2 more days before considering IVC filter. In the event that she had bleeding with that, then will stop it and then arrange for IVC filter placement (4) Anemia: Qualifiers: Anemia type: unspecified type Qualified Code(s): D64.9 - Anemia, unspecified Code(s): D64.9 - Anemia, unspecified Status: Acute Assessment and Plan: She has underlying chronic anemia but no has significant drop after she was started on Eliquis. Subjective Date/time seen: 08/13/19 14:04 She feels slightly better today, no more active bleed, IVC filter was canceled today as she wants to try going back again on anticoagulation, okay to try back on Eliquis 2.5 b.i.d. and monitor his hemoglobin and hematocrit. No chest pain, no leg swelling Exam Narrative: Exam Narrative: Awake alert oriented x3 not in acute distress Neck is supple no obvious JVD, no carotid bruit Chest: Good air entry bilaterally, lungs are clear to auscultation and percussion bilaterally Cardiovascular: Regular rate and rhythm, 2/6 systolic murmur noted left sternal border Abdomen: Soft nontender bowel sounds positive Extremities: No edema has good pulses distally bilaterally Objective Data Vital Signs Vital Signs: Vital Signs - 24 hr 08/12/19 16:00 08/12/19 20:00 08/12/19 22:00 Temperature 36.5 C Pulse Rate 89 83 98 Respiratory Rate 22 H Blood Pressure 132/75 Pulse Oximetry 94 08/12/19 23:07 08/13/19 00:00 08/13/19 04:00 Temperature Pulse Rate 82 86 84 Respiratory Rate 16 Blood Pressure Pulse Oximetry Intake/Output Intake/Output: Intake & Output 08/10/19 08/11/19 08/12/19 08/13/19 23:59 23:59 23:59 23:59 Intake Total 1300 1570 800 220 Output Total 300 1550 1000 200 Balance 1000 20 -200 20 Meds/Results Medications: Active Medications Generic Name Dose Route Start Last Admin Trade Name Freq PRN Reason Stop Dose Admin Acetaminophen 650 mg 08/10/19 16:12 08/11/19 18:19 Tylenol Tablet PO 650 mg Q4H PRN Administration Pain or Fever Apixaban 2.5 mg 08/13/19 21:00 Eliquis PO Q12HR [facility] Furosemide 20 mg 08/13/19 14:15 Lasix Inj IV PUSH 08/13/19 14:16 ONCE ONE Guaifenesin 600 mg 08/13/19 09:00 08/13/19 09:55 Guaifenesin Liq PO 600 mg Q12H [facility] Administration Piperacillin/Tazobactam/Dextrose 3.375 gm in 50 mls @ 100 mls/hr 08/07/19 04:00 08/13/19 09:59 Zosyn 3.375 Gm/D5w 50ml Pm IVPB 100 mls/hr Q6H [facility] Administration Dextrose 1,000 mls @ 50 mls/hr 08/07/19 15:42 Dextrose 10% IV CONT .Q20H PRN if PN is interrupted Amino Acids/Electrolytes/Dextrose 2,000 mls @ 80 mls/hr 08/07/19 17:00 Clinimix E 4.25%/5% Solution IV CONT .Q24H [facility] Protocol Fat Emulsion Intravenous 250 mls @ 20.833 mls/hr 08/07
--- NOTE | 2019-08-13 14:20 | PCDIET ---
Nutrition Follow-Up Complete: Underweight R/T poor intake and diarrhea as evidence by BMI of 15 ADAT with PO intake of meals and banatrol at 75% or greater to halt further wt loss Goal not met. Pt intake fluctuates between 0-50% of meals. Nutrition recommendation: Recommend continuation of Regular diet, once medically appropriate to help pt meet nutritional needs. Recommend supplementation of Thrive BID (270kcals and 9gm pro each) to help pt meet needs. Recommend supplementation of Banatrol TID to help lessen diarrhea, if medically appropriate. Recommend weight be taken and recorded to track possible weight gain/loss. Last recorded weight is 48.9 kg. Bowel Motility: +BM 08/13 (x2) Labs Reviewed: hgb(8.5), Hct(25.2), Alb(3.1), Na(135), K(3.0), BUN(3), Glu(119) Meds Noted:KCl, vancomycin, pipperacillin, prinivil, eliquis Additional Notes: Talked with pt and family. Pt stated appetite is okay . Stated she had no abdominal pain this morning nor N/V. Family said she has been eating bites of mashed potatoes and occasionally Thrive. Noted possible GI bleed, present ascites, and consideration for IVC filter in 2 days. Will continue to monitor diet, po intake, and wt every three days
[2019-08-13] MEDS: APIXABAN 2.5 MG TABLET PO ×2 (14:28→21:30)
--- NOTE | 2019-08-13 14:56 | PCNSR ---
On 08/13/19, the student, Cristine Mcmullen, provided care and completed [facility] documentation on this patient. I have reviewed the student's documentation and agree with the findings.
--- NOTE | 2019-08-13 15:30 | PCPTNOTE ---
The PT session was unable to be completed today. Will continue per Plan of Care frequency and duration.
[2019-08-13] MEDS: ALBUMIN HUMAN 25% 25 GM/100 ML 100 ML IVPB ×2 (16:03→21:26)
[2019-08-13] MEDS: FUROSEMIDE INJ 40 MG/4 ML VIAL 20 MG IV PUSH (17:48)
[2019-08-13] MEDS: POTASSIUM CHLORIDE 20 MEQ PACKET (FOR LIQUID) PO (17:49)
--- NOTE | 2019-08-13 19:54 | P.PNONC_ITS ---
Progress Note: A/P - Additional Plan Normocytic anemia. Likely secondary to malnutrition/malabsorption. Patient has been colitis. Hemoglobin noted and has improved. No need for transfusion. Pneumonia. CT scan was done due to weight loss. CT scan showed pneumonia. Patient is on antibiotic. She is afebrile. Right lower extremity DVT. Hemoglobin has improved. I will defer put IVC filter placement unless patient has obvious sign of bleeding. Continue low-dose of Eliquis. Shaw colitis. GI is following patient. Plan for colonoscopy when stable - Time Spent With Patient Total time spent is greater than 50% in coordination of care (as documented) at patient's floor/unit and/or counseling patient: 15 - 25 minutes Subjective Interval history: Anemia DVT Colitis Review of Systems - Review of Systems Patient denies any bleeding and bruising. She denies any chest pain and shortness of breath. Remains quite tired and fatigued. No other new complaints. - Neurologic Reports weakness Exam Vital signs: Temp Pulse Resp BP Pulse Ox 36.8 C 86 12 127/89 98 08/13/19 14:00 08/13/19 16:00 08/13/19 14:00 08/13/19 14:00 08/13/19 14:00 Lungs are clear to auscultation bilaterally Cardiovascular regular rate rhythm no murmurs Abdomen soft nontender nondistended Extremities no edema PN: Objective Data - Labs CBC & Chem 7: 08/13/19 06:01 08/13/19 06:01 Labs: Laboratory Results - last 24 hr 08/13/19 08/13/19 06:01 06:01 WBC 9.6 RBC 2.65 L Hgb 8.5 L Hct 25.2 L MCV 95.1 MCH 32.1 MCHC 33.7 RDW 15.7 H Plt Count 241 MPV 11.0 H Immature Gran % (Auto) 1.5 H Neut % (Auto) 73.8 H Lymph % (Auto) 14.8 L [place] % (Auto) 8.7 H Eos % (Auto) 0.9 Baso % (Auto) 0.3 Lymph # (Auto) 1.43 [place] # (Auto) 0.8 H Eos # (Auto) 0.1 Baso # (Auto) 0.0 Abs Immat Gran (auto) 0.14 H Absolute Neuts (auto) 7.1 H Absolute Nucleated RBC 0.0 Nucleated RBC % 0.0 Sodium 135 L Potassium 3.0 L Chloride 101 Carbon Dioxide 21 L BUN 3 L Creatinine 0.70 Estim Creat Clear Calc 56 Estimated GFR > 60 Glucose 119 H Calcium 8.3 L Magnesium 1.6 Total Bilirubin 0.9 AST 40 H ALT 23 Alkaline Phosphatase 118 Total Protein 6.0 L Albumin 3.1 L
[2019-08-14] VITALS (9 sets, daily range): BP systolic 106–136; BP diastolic 72–89; PULSE 81–99; RESP 20–21; TEMP 36.4–36.9; O2SAT 100
[2019-08-14] MEDS: VANCOMYCIN ORAL 125 MG/2.5 ML SYRUP PO ×4 (04:42→21:21)
[2019-08-14] MEDS: ACETAMINOPHEN 325 MG TABLET 650 MG PO (05:09)
[2019-08-14] MEDS: LEVOTHYROXINE SODIUM 50 MCG TABLET PO (05:11)
[2019-08-14 05:51] LABS: Hematocrit 21.5 % (37.0-47.0); Hemoglobin 7.3 g/dL (12.0-15.0); Mean Corpuscular Hemoglobin 32.2 pg (26-34); Mean Corpuscular Volume 94.7 fl (80-100); Mean Platelet Volume 10.7 fl (7.4-10.4); Platelet Count Result 202 k/mm3 (150-375); Red Blood Count 2.27 M/mm3 (4.2-5.4); Red Cell Distribution Width 15.8 % (11.5-14.5)
[2019-08-14 05:54] LABS: INR 1.5; Prothrombin Time 17.4 Seconds (11.1-14.7)
[2019-08-14 06:04] LABS: Alanine Aminotransferase 14 U/L (4-35); Albumin Level 3.2 g/dL (3.5-5.1); Alkaline Phosphatase 90 U/L (38-126); Aspartate Amino Transferase 23 U/L (14-36); Bilirubin,Total 0.9 mg/dL (0.2-1.3); Calcium 8.2 mg/dL (8.4-10.2); Carbon Dioxide 24 mmol/L (22-30); Chloride 100 mmol/L (98-107); Estimated CRCL calculation 56 ml/min; Estimated Glomerular Filt Rate > 60; Glucose 97 mg/dL (65-105); Magnesium 1.5 mg/dL (1.6-2.3); Potassium 2.9 mmol/L (3.4-5.0); Sodium 134 mmol/L (137-145)
[2019-08-14 08:39] LABS: Blood Urea Nitrogen < 2 mg/dL (7-17)
[2019-08-14] MEDS: GUAIFENESIN 200 MG/10 ML UDC 600 MG PO ×2 (09:21→21:21)
[2019-08-14] MEDS: MAGNESIUM OXIDE 400 MG TABLET PO (09:22)
[2019-08-14] MEDS: POTASSIUM CHLORIDE 20 MEQ PACKET (FOR LIQUID) 40 MEQ PO ×2 (09:22→13:54)
[2019-08-14] MEDS: lisinopriL 5 MG TABLET PO (09:22)
[2019-08-14] MEDS: MAGNESIUM SULF 2 GM/WATER 50ML 2 GM/50 ML BAG IVPB (09:37)
[2019-08-14] MEDS: ALBUMIN HUMAN 25% 25 GM/100 ML 100 ML IVPB ×2 (10:35→21:22)
--- NOTE | 2019-08-14 12:26 | WPDGIPROGNO ---
Progress Note: A&P Additional Plan Patient states the diarrhea has improved. She denies abdominal pain this morning. Physical exam reveals her to be more alert. Abdomen bowel sounds are present soft and no localized tenderness appreciated. Nursing staff reports no recent blood loss. Stools are greenish in color. Hemoglobin 7.3 this morning hematocrit 21.5. Patient never had IVC filter placed yesterday was restarted on Eliquis. Impression 1. Shaw colitis. Noted on CT scan. [place] to be infectious etiology. Appears to be improving with broad-spectrum antibiotic coverage. Colonoscopy anticipated when more stable. 2. Anemia. Suspected to be multifactorial. No obvious GI bleeding at this time. 3. DVT. Has intermittently been on Eliquis. IVC filter has been discussed as well. Subjective Date/time seen: 08/14/19 12:26 Objective Data Vital Signs Vital Signs: Vital Signs - 24 hr 08/13/19 14:00 08/13/19 16:00 08/13/19 20:00 Temperature 36.8 C Pulse Rate 95 86 81 Respiratory Rate 12 Blood Pressure 127/89 Pulse Oximetry 98 08/13/19 22:00 08/14/19 00:00 08/14/19 04:00 Temperature 36.5 C Pulse Rate 93 85 84 Respiratory Rate 20 Blood Pressure 121/77 Pulse Oximetry 98 08/14/19 06:00 Temperature 36.4 C Pulse Rate 99 Respiratory Rate 20 Blood Pressure 136/89 Pulse Oximetry 100 Intake/Output Intake/Output: Intake & Output 08/11/19 08/12/19 08/13/19 08/14/19 23:59 23:59 23:59 23:59 Intake Total 2866 289 8985 300 Output Total 1550 2478 019 7482 Balance 20 -200 920 -1500 Meds/Results Medications: Active Medications Generic Name Dose Route Start Last Admin Trade Name Freq PRN Reason Stop Dose Admin Acetaminophen 650 mg 08/10/19 16:12 08/14/19 05:09 Tylenol Tablet PO 650 mg Q4H PRN Administration Pain or Fever Apixaban 2.5 mg 08/13/19 21:00 08/13/19 21:30 Eliquis PO 2.5 mg Q12HR [facility] Administration Furosemide 20 mg 08/14/19 09:00 Lasix Inj IV PUSH DAILY [facility] Guaifenesin 600 mg 08/13/19 09:00 08/14/19 09:21 Guaifenesin Liq PO 600 mg Q12H [facility] Administration Piperacillin/Tazobactam/Dextrose 3.375 gm in 50 mls @ 100 mls/hr 08/07/19 04:00 08/14/19 10:43 Zosyn 3.375 Gm/D5w 50ml Pm IVPB Infused Q6H [facility] Infusion Dextrose 1,000 mls @ 50 mls/hr 08/07/19 15:42 Dextrose 10% IV CONT .Q20H PRN if PN is interrupted Amino Acids/Electrolytes/Dextrose 2,000 mls @ 80 mls/hr 08/07/19 17:00 Clinimix E 4.25%/5% Solution IV CONT .Q24H [facility] Protocol Fat Emulsion Intravenous 250 mls @ 20.833 mls/hr 08/07/19 17:00 Lipids 20% IVPB Q24H [facility] Albumin Human 100 mls @ 60 mls/hr 08/13/19 21:00 08/14/19 10:35 Albutein IVPB 60 mls/hr Q12HR [facility] Administration Levothyroxine Sodium 50 mcg 08/11/19 09:40 08/14/19 05:11 Synthroid PO 50 mcg DAILY@0630 [facility] Administration Lisinopril 5 mg 08/14/19 09:00 08/14/19 09:22 Prinivil PO 5 mg QAM [facility] Administration Magnesium Oxide 400 mg 08/14/19 09:00 08/14/19 09:22 Mag-Ox PO 400 mg QAM [facility] Administration Potassium Chloride 20 meq 08/13/19 17:00 08/13/19 17:49 Kcl Powder (For Liquid) PO 20 meq 1700 [facility] Administration Potassium Chloride 40 meq 08/14/19 09:00 08/14/19 09:22 Kcl Powder (For Liquid) PO 40 meq DAILY [facility] Administration Vancomycin HCl 125 mg 08/07/19 04:00 08/14/19 09:36 Vancomycin Oral PO 125 mg Q6H [facility] Administration Radiology Results: ITS Impressions Abdomen/Pelvis CT 08/06/19 20:38 IMPRESSION: 1. Pancolitis with interval worsening. 2. Increase in ascites, now moderate in volume. 3. New small pleural effusions, right greater than left. Knee X-Ray 08/07/19 14:52 IMPRESSION: 1. Small left knee joint effusion. Tibia/Fibula X-Ray 08/07/19 14:52 IMPRESSION: 1. No fracture. Venous Doppler Study 08/07/19 14:53 IMPRESSION: 1. Deep vein t
--- NOTE | 2019-08-14 13:49 | PCDIET ---
Consult recieved for a BMI of 20. Pt is being followed by RD. Current diet order for regular diet with Thrive BID and Banatrol TID. Next follow up on 08/16, and every three days.
[2019-08-14] MEDS: FUROSEMIDE INJ 40 MG/4 ML VIAL 20 MG IV PUSH (13:54)
--- NOTE | 2019-08-14 15:20 | PM.IMPN ---
Progress Note: A&P Assessment and Plan (1) Pancolitis: Code(s): K51.00 - Ulcerative (chronic) pancolitis without complications Status: Acute Assessment and Plan: Patient has been having worsening diarrhea the previous 5-6 days prior to presentation. She had finished her outpatient antibiotics from her prior admission last month. Worsened pancolitis noted on CT during this stay; mod ascites also noted. Patient had 2 BMs today; pain is improving in lower abdomen. GI has been consulted from ED and greatly appreciate input. Patient continues IV zosyn and PO Vanc for possible C. Diff, as well, due to recent abx use. C diff test not performed due to collection technique; will treat empirically as she has been clinically slowly improving in this setting, although still appears very ill due to possibly other health issues. Stool sample has been re-sent for C. diff testing per GI. Patient having 3rd spacing likely due to hypoalbuminemia. Patient is malnurished. Possible occult malignancy although imaging thus far is unremarkable. Dr. Jones is following and appreciate recommendations Patient's UO improved with albumin and lasix. Will give another dose today. 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 Discussed case with Dr. Jones as this is in setting of likely pancolitis supported by CT imaging. Patient originally refusing heparin drip, but was agreeable with Eliquis. Discussed with her in length about different options and risks/benefits of options. I recommended consulting Dr. Jones for further input which she was agreeable. Unfortunately, her Hgb has dropped earlier in stay and Eliquis has been subsequently held; she is currently refusing blood transfusions. Hgb is now at 8.5 today. Discussed this with Dr. Jones and Dr. Mckeon; the consensus per their recommendations was to hold on the IVC filter today and resume Eliquis today and trend Hgb over the next couple of days. Discussed this with patient and family who is agreeable to this. Per Dr. Mckeon recommendations, will resume Eliquis this afternoon, then resume the schedule at [address] Mckeon recommendations Trend Hgb tomorrow. If showing drop in hgb again over the next day or so, then plan will be to stop eliquis and possibly proceed with filter placement. Appreciate recommendations per Dr. Mckeon and Dr. Jones. Monitor closely (3) HFrEF (heart failure with reduced ejection fraction): Code(s): I50.20 - Unspecified systolic (congestive) heart failure Status: Acute Assessment and Plan: Patient was shown to have EF of 35-40%, among other findings including mild pulmonary hypertension, diastolic dysfunction, and akinesis of septum and apex. Patient is stable. Dr. Mckeon following and appreciate rec
--- NOTE | 2019-08-14 15:32 | PM.PNCARD ---
Progress Note: A&P Assessment and Plan (1) HFrEF (heart failure with reduced ejection fraction): Code(s): I50.20 - Unspecified systolic (congestive) heart failure Status: Acute Assessment and Plan: With obvious LV dysfunction Started on Lisinopril BP somewhat low. WIll hold off BB at this point She appears well compensated from CHF standpoint. No evidence of volume overload, she is probably dry. . Would hold off diuresing given ongoing diarrhea. whenever she is otherwise okay she would need to have at least stress test to look for cause of her LV dysfunction or consider cardiac catheterization (2) Diarrhea: Qualifiers: Diarrhea type: unspecified type Qualified Code(s): R19.7 - Diarrhea, unspecified Code(s): R19.7 - Diarrhea, unspecified Status: Acute (3) DVT (deep venous thrombosis): Code(s): I82.409 - Acute embolism and thrombosis of unspecified deep veins of unspecified lower extremity Status: Acute Assessment and Plan: She has right-sided popliteal DVT, with mobile thrombus, and other hand she has contraindication for anticoagulation with active drop of her hemoglobin, indicating internal bleed or GI bleed, agree with attempting to start back on Eliquis at low dose 2.5 BID and watch her hemoglobin before considering IVC filter. In the event that she had bleeding with that, then will stop it and then arrange for IVC filter placement (4) Anemia: Qualifiers: Anemia type: unspecified type Qualified Code(s): D64.9 - Anemia, unspecified Code(s): D64.9 - Anemia, unspecified Status: Acute Assessment and Plan: Monitor while on Eliquis Additional Plan Thank you for allowing me to participate in this patient's care, I will be following up with you. Please do not hesitate to call me for any other inquiry Subjective Date/time seen: 08/14/19 15:32 Still with diarrhea. Denies chest pain or dyspnea. Review of Systems Constitutional: Constitutional: Reports body ache(s), Reports fatigue and Reports lethargy Cardiovascular: Cardiovascular: Denies chest pain, Reports leg edema and Reports lightheadedness Endocrine: Endocrine: Reports fatigue Exam Narrative: Exam Narrative: Awake alert oriented x3. Appears cachectic. in not in acute distress Neck is supple no obvious JVD, no carotid bruit Chest: Good air entry bilaterally, lungs are clear to auscultation and percussion bilaterally Cardiovascular: Regular rate and rhythm, 2/6 systolic murmur noted left sternal border Abdomen: Soft nontender bowel sounds positive Extremities: No edema has good pulses distally bilaterally Objective Data Vital Signs Vital Signs: Vital Signs - 24 hr 08/13/19 16:00 08/13/19 20:00 08/13/19 22:00 Temperature 36.5 C Pulse Rate 86 81 93 Respiratory Rate 20 Blood Pressure 121/77 Pulse Oximetry 98 08/14/19 00:00 08/14/19 04:00 08/14/19 06:00 Temperature 36.4 C Pulse Rate 85 84 99 Respiratory Rate 20 Blood Pressure 136/89 Pulse Oximetry 100 08/14/19 14:00 Temperature 36.9 C Pulse Rate 85 Respiratory Rate 20 Blood Pressure 113/72 Pulse Oximetry 100 Intake/Output Intake/Output: Intake & Output 08/11/19 08/12/19 08/13/19 08/14/19 23:59 23:59 23:59 23:59 Intake Total 1633 769 2986 350 Output Total 1550 8847 592 6122 Balance 20 -200 920 -1450 Meds/Results Medications: Active Medications Generic Name Dose Route Start Last Admin Trade Name Freq PRN Reason Stop Dose Admin Acetaminophen 650 mg 08/10/19 16:12 08/14/19 05:09 Tylenol Tablet PO 650 mg Q4H PRN Administration Pain or Fever Apixaban 2.5 mg 08/13/19 21:00 08/13/19 21:30 Eliquis PO 2.5 mg Q12HR [facility] Administration Furosemide 20 mg 08/14/19 09:00 08/14/19 13:54 Lasix Inj IV PUSH 20 mg DAILY [facility] Administration Guaifenesin 600 mg 08/13/19 09:00 08/14/19 09:21 Guaifenesin Liq PO 600 mg Q12H [facility]
[2019-08-14 16:04] LABS: Magnesium 2.2 mg/dL (1.6-2.3); Potassium 4.7 mmol/L (3.4-5.0)
[2019-08-14] MEDS: APIXABAN 2.5 MG TABLET PO (21:23)
[2019-08-15] VITALS (9 sets, daily range): BP systolic 127–128; BP diastolic 74–79; PULSE 77–89; RESP 16–21; TEMP 36.7–37.2; O2SAT 99–100
[2019-08-15] MEDS: VANCOMYCIN ORAL 125 MG/2.5 ML SYRUP PO ×4 (05:00→21:01)
[2019-08-15 05:30] LABS: Hematocrit 22.2 % (37.0-47.0); Hemoglobin 7.5 g/dL (12.0-15.0); Mean Corpuscular HGB Conc 33.8 g/dl (32-36); Mean Corpuscular Hemoglobin 32.3 pg (26-34); Mean Corpuscular Volume 95.7 fl (80-100); Mean Platelet Volume 11.3 fl (7.4-10.4); Platelet Count Result 228 k/mm3 (150-375); Red Blood Count 2.32 M/mm3 (4.2-5.4); White Blood Count 7.1 K/mm3 (4.5-10.0)
[2019-08-15] MEDS: LEVOTHYROXINE SODIUM 50 MCG TABLET PO (05:37)
[2019-08-15 05:52] LABS: Alanine Aminotransferase 12 U/L (4-35); Albumin Level 3.4 g/dL (3.5-5.1); Alkaline Phosphatase 71 U/L (38-126); Aspartate Amino Transferase 19 U/L (14-36); Bilirubin,Total 0.9 mg/dL (0.2-1.3); Calcium 8.3 mg/dL (8.4-10.2); Carbon Dioxide 23 mmol/L (22-30); Chloride 100 mmol/L (98-107); Estimated CRCL calculation 56 ml/min; Estimated Glomerular Filt Rate > 60; Glucose 81 mg/dL (65-105); Sodium 135 mmol/L (137-145)
[2019-08-15 06:39] LABS: Blood Urea Nitrogen < 2 mg/dL (7-17)
[2019-08-15] MEDS: ALBUMIN HUMAN 25% 25 GM/100 ML 100 ML IVPB ×2 (08:03→21:00)
[2019-08-15] MEDS: GUAIFENESIN 200 MG/10 ML UDC 600 MG PO ×2 (08:04→21:00)
[2019-08-15] MEDS: APIXABAN 2.5 MG TABLET PO ×2 (08:04→21:01)
[2019-08-15] MEDS: POTASSIUM CHLORIDE 20 MEQ PACKET (FOR LIQUID) 40 MEQ PO (08:06)
[2019-08-15] MEDS: lisinopriL 5 MG TABLET PO (08:15)
--- NOTE | 2019-08-15 09:05 | WPDGIPROGNO ---
Progress Note: A&P Additional Plan Patient alert and comfortable this morning. Still feels weak. She states diarrhea has lessened to a great deal. Starting to have some formation to stools. H less frequent bowel movements. no recent evidence for GI blood loss. She denies abdominal pain. Tolerating diet. Physical exam reveals her to be alert. Vital signs are stable. HEENT exam she is anicteric. Lungs are clear. Heart without murmur. Abdomen bowel sounds are present soft and nontender. Extremities reveal ecchymoses. No swelling appreciated. Laboratory work WBC 7.1, hemoglobin 7.5, hematocrit 22.2. Essentially stable. Impression 1. Pancolitis by CT scan. Infectious etiology felt most likely. Clinically improving with antibiotics. Plan for colonoscopy at some point when she is stronger. 2. DVT. Currently on anticoagulation. IVC filter on hold. No signs of GI blood loss. This should be okay. Continue to monitor hemoglobin. 3. Fluid overload, congestive heart failure. Cardiology following. Plan is to increase activity if at all possible. Resume more normal diet. Complete course of antibiotics. Subjective Date/time seen: 08/15/19 09:05 Objective Data Vital Signs Vital Signs: Vital Signs - 24 hr 08/14/19 12:00 08/14/19 14:00 08/14/19 16:00 Temperature 36.9 C Pulse Rate 93 85 81 Respiratory Rate 20 Blood Pressure 113/72 Pulse Oximetry 100 08/14/19 20:00 08/14/19 22:00 08/15/19 00:00 Temperature 36.7 C Pulse Rate 84 81 89 Respiratory Rate 21 H Blood Pressure 106/79 Pulse Oximetry 100 08/15/19 04:00 08/15/19 06:00 Temperature 36.7 C Pulse Rate 78 80 Respiratory Rate 21 H Blood Pressure 127/79 Pulse Oximetry 100 Intake/Output Intake/Output: Intake & Output 08/12/19 08/13/19 08/14/19 08/15/19 23:59 23:59 23:59 23:59 Intake Total 800 1270 1315 400 Output Total 1368 586 3586 600 Balance -200 920 -5471 -200 Meds/Results Medications: Active Medications Generic Name Dose Route Start Last Admin Trade Name Freq PRN Reason Stop Dose Admin Acetaminophen 650 mg 08/10/19 16:12 08/14/19 05:09 Tylenol Tablet PO 650 mg Q4H PRN Administration Pain or Fever Apixaban 2.5 mg 08/13/19 21:00 08/13/19 21:30 Eliquis PO 2.5 mg Q12HR [facility] Administration Apixaban 2.5 mg 08/14/19 21:00 08/15/19 08:04 Eliquis PO 2.5 mg Q12HR [facility] Administration Guaifenesin 600 mg 08/13/19 09:00 08/15/19 08:04 Guaifenesin Liq PO 600 mg Q12H [facility] Administration Piperacillin/Tazobactam/Dextrose 3.375 gm in 50 mls @ 100 mls/hr 08/07/19 04:00 08/15/19 05:00 Zosyn 3.375 Gm/D5w 50ml Pm IVPB 100 mls/hr Q6H [facility] Administration Dextrose 1,000 mls @ 50 mls/hr 08/07/19 15:42 Dextrose 10% IV CONT .Q20H PRN if PN is interrupted Amino Acids/Electrolytes/Dextrose 2,000 mls @ 80 mls/hr 08/07/19 17:00 Clinimix E 4.25%/5% Solution IV CONT .Q24H [facility] Protocol Fat Emulsion Intravenous 250 mls @ 20.833 mls/hr 08/07/19 17:00 Lipids 20% IVPB Q24H [facility] Albumin Human 100 mls @ 60 mls/hr 08/13/19 21:00 08/15/19 08:03 Albutein IVPB 60 mls/hr Q12HR [facility] Administration Levothyroxine Sodium 50 mcg 08/11/19 09:40 08/15/19 05:37 Synthroid PO 50 mcg DAILY@0630 [facility] Administration Lisinopril 5 mg 08/14/19 09:00 08/15/19 08:15 Prinivil PO 5 mg QAM [facility] Administration Potassium Chloride 20 meq 08/13/19 17:00 08/14/19 16:29 Kcl Powder (For Liquid) PO Not Given 1700 [facility] Potassium Chloride 40 meq 08/14/19 09:00 08/15/19 08:06 Kcl Powder (For Liquid) PO 40 meq DAILY [facility] Administration Vancomycin HCl 125 mg 08/07/19 04:00 08/15/19 05:00 Vancomycin Oral PO 125 mg Q6H [facility] Administration Radiology Results: ITS Impressions Abdomen/Pelvis CT 08/06/19 20:38 IMPRESSION: 1. Pancolitis with interval worsening. 2. Increase in ascites, now moderate in volume. 3.
--- NOTE | 2019-08-15 12:52 | PM.IMPN ---
Progress Note: A&P Assessment and Plan (1) Pancolitis: Code(s): K51.00 - Ulcerative (chronic) pancolitis without complications Status: Acute Assessment and Plan: Patient has been having worsening diarrhea the previous 5-6 days prior to presentation. She had finished her outpatient antibiotics from her prior admission last month. Worsened pancolitis noted on CT during this stay; mod ascites also noted. Patient had 2 BMs today; pain is improving in lower abdomen. GI has been consulted from ED and greatly appreciate input. Patient continues IV zosyn and PO Vanc for possible C. Diff, as well, due to recent abx use. C diff test not performed due to collection technique; will treat empirically as she has been clinically slowly improving in this setting, although still appears very ill due to possibly other health issues. Stool sample has been re-sent for C. diff testing per GI. Patient having 3rd spacing likely due to hypoalbuminemia. Patient is malnurished. Possible occult malignancy although imaging thus far is unremarkable. Dr. Jones is following and appreciate recommendations Patient's UO improved with albumin and lasix. Will give another dose today. Await further recommendations from GI on pancolitis and ascites 08/15/19 12:52 Patient is a 59 year female with a pain colitis on broad-spectrum antibiotics her her symptoms have improved and able to tolerate diet without much complains abdominal pain and nausea vomiting, also found to DVT patient was started on Eliquis there was a concerned about bleeding, her hemoglobin was monitored and was stable it was decided to restart her Eliquis and placement of IVC filter was postponed, however her hemoglobin dropped today to 7 from 8.5 yesterday patient be seen by shovel log loader operator and lap layer and further recommendation to follow, patient also has systolic dysfunction patient is being diuresed and albumin is added to help hypoalbuminemia, patient main concern is a poor appetite she denies abdominal pain at present denies any fever or chills, today patient stats she feels better her appetite has improved, stool frequency has improved and there is no blood in the stool. discuss with patient and her son to increase her acitivities and appetite, will continue to work with PT/OT. (2) DVT (deep venous thrombosis): Code(s): I82.409 - Acute embolism and thrombosis of unspecified deep veins of unspecified lower extremity Status: Acute Assessment and Plan: Found on venous doppler of lower extremities; right popliteal and posterior tibial veins. Discussed case with Dr. Jones as this is in setting of likely pancolitis supported by CT imaging. Patient originally refusing heparin drip, but was agreeable with Eliquis. Discussed with her in length about different options and risks/benefits of options. I recommended consulting Dr. Jones for further input which she was agreeable. Unfortunately, her Hgb has dropped earlier in stay and Eliquis has been subsequently held; she is currently refusing blood transfusions. Hgb is now at 8.5 today. Discussed this with Dr. Jones and Dr. Mckeon; the consensus per their recommendations was to hold on the IVC filter today and resume Eliquis today and trend Hgb over the next couple of days. Discussed this with patient and family who is agreeable to this. Per Dr. Mckeon recommendations, will resume Eliquis this afternoon, then resume the schedule at [address] Mckeon recommendations Trend Hgb tomorrow. If showing drop in hgb again over the next day or so, then plan will be to stop eliquis and possibly proceed with filter placement. Appreciate recommendations per Dr. Mckeon and Dr. Jones. Monitor closely D/W shovel log loader operator on 08/14 does not suspect GI bleed with Eliquis and recommended to continue low dose Eliquis and patient does not need IVC filter, today patient HH is stable will CPM
--- NOTE | 2019-08-15 15:06 | PCOTNOTE ---
Attempted to see patient this pm. Patient reports of pain in her hips. Patient was asked if she would like to change position or participate in UE exercises, but patient stated she will only cooperate with one therapy session per day. Patient refuses skilled OT session this date.
--- NOTE | 2019-08-15 15:06 | PM.PNCARD ---
Progress Note: A&P Assessment and Plan (1) HFrEF (heart failure with reduced ejection fraction): Code(s): I50.20 - Unspecified systolic (congestive) heart failure Status: Acute Assessment and Plan: With obvious LV dysfunction Started on Lisinopril BP somewhat low. WIll hold off BB at this point She appears well compensated from CHF standpoint. No evidence of volume overload, she is probably dry. . Would hold off diuresing given ongoing diarrhea. whenever she is otherwise okay she would need to have at least stress test to look for cause of her LV dysfunction or consider cardiac catheterization (2) Diarrhea: Qualifiers: Diarrhea type: unspecified type Qualified Code(s): R19.7 - Diarrhea, unspecified Code(s): R19.7 - Diarrhea, unspecified Status: Acute (3) DVT (deep venous thrombosis): Code(s): I82.409 - Acute embolism and thrombosis of unspecified deep veins of unspecified lower extremity Status: Acute Assessment and Plan: She has right-sided popliteal DVT, with mobile thrombus, and other hand she has contraindication for anticoagulation with active drop of her hemoglobin, indicating internal bleed or GI bleed, agree with attempting to start back on Eliquis at low dose 2.5 BID and watch her hemoglobin before considering IVC filter. In the event that she had bleeding with that, then will stop it and then arrange for IVC filter placement (4) Anemia: Qualifiers: Anemia type: unspecified type Qualified Code(s): D64.9 - Anemia, unspecified Code(s): D64.9 - Anemia, unspecified Status: Acute Assessment and Plan: Monitor while on Eliquis Additional Plan Thank you for allowing me to participate in this patient's care, I will be following up with you. Please do not hesitate to call me for any other inquiry Subjective Date/time seen: 08/15/19 15:06 She feels slightly better today, no shortness of breath, no leg pain and no leg swelling, she is able to tolerate low-dose Eliquis with no further bleeding Exam Narrative: Exam Narrative: Awake alert oriented x3. Appears cachectic. in not in acute distress Neck is supple no obvious JVD, no carotid bruit Chest: Good air entry bilaterally, lungs are clear to auscultation and percussion bilaterally Cardiovascular: Regular rate and rhythm, 2/6 systolic murmur noted left sternal border Abdomen: Soft nontender bowel sounds positive Extremities: No edema has good pulses distally bilaterally Objective Data Vital Signs Vital Signs: Vital Signs - 24 hr 08/14/19 16:00 08/14/19 20:00 08/14/19 22:00 Temperature 36.7 C Pulse Rate 81 84 81 Respiratory Rate 21 H Blood Pressure 106/79 Pulse Oximetry 100 08/15/19 00:00 08/15/19 04:00 08/15/19 06:00 Temperature 36.7 C Pulse Rate 89 78 80 Respiratory Rate 21 H Blood Pressure 127/79 Pulse Oximetry 100 08/15/19 08:00 08/15/19 12:00 Temperature Pulse Rate 81 77 Respiratory Rate Blood Pressure Pulse Oximetry Intake/Output Intake/Output: Intake & Output 08/12/19 08/13/19 08/14/19 08/15/19 23:59 23:59 23:59 23:59 Intake Total 800 1270 1315 720 Output Total 3188 068 9738 600 Balance -200 920 -1485 120 Meds/Results Medications: Active Medications Generic Name Dose Route Start Last Admin Trade Name Freq PRN Reason Stop Dose Admin Acetaminophen 650 mg 08/10/19 16:12 08/14/19 05:09 Tylenol Tablet PO 650 mg Q4H PRN Administration Pain or Fever Apixaban 2.5 mg 08/13/19 21:00 08/13/19 21:30 Eliquis PO 2.5 mg Q12HR [facility] Administration Apixaban 2.5 mg 08/14/19 21:00 08/15/19 08:04 Eliquis PO 2.5 mg Q12HR [facility] Administration Guaifenesin 600 mg 08/13/19 09:00 08/15/19 08:04 Guaifenesin Liq PO 600 mg Q12H [facility] Administration Piperacillin/Tazobactam/Dextrose 3.375 gm in 50 mls @ 100 mls/hr 08/07/19 04:00 08/15/19 11:33 Zosyn 3.375 Gm/D5w 50ml Pm IVPB In
[2019-08-15] MEDS: POTASSIUM CHLORIDE 20 MEQ PACKET (FOR LIQUID) PO (17:35)
--- NOTE | 2019-08-15 18:10 | WPDONCPN ---
Progress Note: A/P - Additional Plan Normocytic anemia. This is likely secondary to malnutrition/malabsorption and colitis. Hemoglobin remains stable at 7.3 without any obvious signs of bleeding. GI is following and plan for colonoscopy when patient is stable. Right lower extremity DVT. Continue Eliquis at low dose of 2.5 mg b.i.d.. IVC filter placement plan is deferred for drop in hemoglobin or symptoms Pneumonia. Patient is afebrile. Shaw colitis. GI note reviewed. - Time Spent With Patient Total time spent is greater than 50% in coordination of care (as documented) at patient's floor/unit and/or counseling patient: 15 - 25 minutes Subjective Interval history: Anemia DVT Colitis Review of Systems - Review of Systems Patient is looking better with improvement in energy level. Denies any abdominal pain. Denies any bleeding. Denies any chest pain. No other new complaints. - Neurologic Reports weakness Exam Vital signs: Prasanth Whitehead. Assessment of coma and impaired consciousness. A practical scale. Lancet 1974; 2:81-4. Narrative: Lungs are clear to auscultation bilaterally Cardiovascular regular rate rhythm no murmurs Abdomen soft nontender nondistended bowel sounds are positive Extremities no edema PN: Objective Data - Labs CBC & Chem 7: 08/15/19 04:50 08/15/19 04:50 Labs: Laboratory Results - last 24 hr 08/15/19 08/15/19 04:50 04:50 WBC 7.1 RBC 2.32 L Hgb 7.5 L Hct 22.2 L MCV 95.7 MCH 32.3 MCHC 33.8 RDW 16.0 H Plt Count 228 MPV 11.3 H Sodium 135 L Potassium 3.0 L Chloride 100 Carbon Dioxide 23 BUN < 2 L Creatinine 0.70 Estim Creat Clear Calc 56 Estimated GFR > 60 Glucose 81 Calcium 8.3 L Total Bilirubin 0.9 AST 19 ALT 12 Alkaline Phosphatase 71 Total Protein 6.0 L Albumin 3.4 L
[2019-08-16] VITALS (9 sets, daily range): BP systolic 118–138; BP diastolic 69–88; PULSE 78–88; RESP 16–18; TEMP 36.6–37.2; O2SAT 97–100
[2019-08-16] MEDS: VANCOMYCIN ORAL 125 MG/2.5 ML SYRUP PO ×4 (03:51→21:07)
[2019-08-16] MEDS: LEVOTHYROXINE SODIUM 50 MCG TABLET PO (05:56)
[2019-08-16 06:06] LABS: Hematocrit 22.7 % (37.0-47.0); Hemoglobin 7.7 g/dL (12.0-15.0); Mean Corpuscular HGB Conc 33.9 g/dl (32-36); Mean Corpuscular Hemoglobin 32.1 pg (26-34); Mean Corpuscular Volume 94.6 fl (80-100); Mean Platelet Volume 10.7 fl (7.4-10.4); Platelet Count Result 232 k/mm3 (150-375); Red Cell Distribution Width 16.3 % (11.5-14.5); White Blood Count 7.8 K/mm3 (4.5-10.0)
[2019-08-16 06:34] LABS: Alanine Aminotransferase 11 U/L (4-35); Albumin Level 3.5 g/dL (3.5-5.1); Alkaline Phosphatase 68 U/L (38-126); Aspartate Amino Transferase 19 U/L (14-36); Bilirubin,Total 0.9 mg/dL (0.2-1.3); Calcium 8.6 mg/dL (8.4-10.2); Carbon Dioxide 22 mmol/L (22-30); Chloride 102 mmol/L (98-107); Estimated CRCL calculation 65 ml/min; Estimated Glomerular Filt Rate > 60; Glucose 96 mg/dL (65-105); Potassium 2.7 mmol/L (3.4-5.0); Sodium 135 mmol/L (137-145)
[2019-08-16 07:22] LABS: Blood Urea Nitrogen < 2 mg/dL (7-17)
--- NOTE | 2019-08-16 08:05 | WPDGIPROGNO ---
Progress Note: A&P Additional Plan Patient alert and comfortable this morning. She states bowel habits are much less frequent. Starting to have formation to her stools. She denies abdominal pain. She denies blood in her stools. Physical exam reveals her to be alert. Vital signs stable. She is afebrile. HEENT exam she is anicteric. Lungs were are clear. Abdomen is soft nontender with no organomegaly. Laboratory reveals hemoglobin 7.7, hematocrit 22.7 stable. Impression 1. Shaw colitis. [place] to be infectious etiology. Plan is for colonoscopy later when she is clinically more stable. Continue empiric antibiotics for complete course. Allow diet as tolerated. 2. DVT. Agree with anticoagulation if necessary. Continue to monitor hemoglobin closely. 3. Anemia. Likely multifactorial, could be from recent colitis as a contributing cause. Plan to increase activity. Eventual colonoscopy when stable. Complete course of antibiotics. Subjective Date/time seen: 08/16/19 08:05 Objective Data Vital Signs Vital Signs: Vital Signs - 24 hr 08/15/19 12:00 08/15/19 14:00 08/15/19 16:00 Temperature 36.8 C Pulse Rate 77 87 79 Respiratory Rate 16 Blood Pressure 128/74 Pulse Oximetry 99 08/15/19 20:00 08/15/19 22:00 08/16/19 00:00 Temperature 37.2 C Pulse Rate 89 84 79 Respiratory Rate 16 Blood Pressure 128/75 Pulse Oximetry 100 08/16/19 04:00 08/16/19 06:00 Temperature 37.2 C Pulse Rate 88 87 Respiratory Rate 16 Blood Pressure 138/88 Pulse Oximetry 100 Intake/Output Intake/Output: Intake & Output 08/13/19 08/14/19 08/15/19 08/16/19 23:59 23:59 23:59 23:59 Intake Total 1270 1315 1130 350 Output Total 350 2800 750 Balance 920 -1485 380 350 Meds/Results Medications: Active Medications Generic Name Dose Route Start Last Admin Trade Name Freq PRN Reason Stop Dose Admin Acetaminophen 650 mg 08/10/19 16:12 08/14/19 05:09 Tylenol Tablet PO 650 mg Q4H PRN Administration Pain or Fever Apixaban 2.5 mg 08/13/19 21:00 08/13/19 21:30 Eliquis PO 2.5 mg Q12HR ARISTEO Administration Apixaban 2.5 mg 08/14/19 21:00 08/15/19 21:01 Eliquis PO 2.5 mg Q12HR [facility]O Administration Guaifenesin 600 mg 08/13/19 09:00 08/15/19 21:00 Guaifenesin Liq PO 600 mg Q12H [facility] Administration Piperacillin/Tazobactam/Dextrose 3.375 gm in 50 mls @ 100 mls/hr 08/07/19 04:00 08/16/19 04:15 Zosyn 3.375 Gm/D5w 50ml Pm IVPB Infused Q6H [facility] Infusion Dextrose 1,000 mls @ 50 mls/hr 08/07/19 15:42 Dextrose 10% IV CONT .Q20H PRN if PN is interrupted Amino Acids/Electrolytes/Dextrose 2,000 mls @ 80 mls/hr 08/07/19 17:00 Clinimix E 4.25%/5% Solution IV CONT .Q24H [facility] Protocol Fat Emulsion Intravenous 250 mls @ 20.833 mls/hr 08/07/19 17:00 Lipids 20% IVPB Q24H [facility] Albumin Human 100 mls @ 60 mls/hr 08/13/19 21:00 08/15/19 22:30 Albutein IVPB Infused Q12HR [facility] Infusion Potassium Chloride 500 mls @ 125 mls/hr 08/16/19 06:36 Kcl 40 Meq/D5w 500 Ml Peripheral IVPB 08/16/19 10:35 ONCE ONE Levothyroxine Sodium 50 mcg 08/11/19 09:40 08/16/19 05:56 Synthroid PO 50 mcg DAILY@0630 [facility] Administration Lisinopril 5 mg 08/14/19 09:00 08/15/19 08:15 Prinivil PO 5 mg QAM [facility]O Administration Multivitamins Therapeutic 1 tablet 08/16/19 09:00 Multivitamins Therapeutic(*Bkc PO QAM [facility]STEO Potassium Chloride 20 meq 08/13/19 17:00 08/15/19 17:35 Kcl Powder (For Liquid) PO 20 meq 1700 [facility] Administration Potassium Chloride 40 meq 08/14/19 09:00 08/15/19 08:06 Kcl Powder (For Liquid) PO 40 meq DAILY [facility] Administration Vancomycin HCl 125 mg 08/07/19 04:00 08/16/19 03:51 Vancomycin Oral PO 125 mg Q6H [facility] Administration Radiology Results: ITS Impressions Abdomen/Pelvis CT 08/06/19 20:38 IMPRESSION: 1. Pancolitis with interval worsening. 2. Inc
[2019-08-16] MEDS: ALBUMIN HUMAN 25% 25 GM/100 ML 100 ML IVPB (08:19)
[2019-08-16] MEDS: APIXABAN 2.5 MG TABLET PO ×2 (08:25→21:07)
[2019-08-16] MEDS: GUAIFENESIN 200 MG/10 ML UDC 600 MG PO ×2 (08:25→21:07)
[2019-08-16] MEDS: lisinopriL 5 MG TABLET PO (08:27)
[2019-08-16] MEDS: MULTIVITAMINS THERAPEUTIC TAB (*BKC) 1 TABLET PO (08:27)
[2019-08-16] MEDS: POTASSIUM CHLORIDE 20 MEQ PACKET (FOR LIQUID) 40 MEQ PO ×2 (08:30→12:26)
--- NOTE | 2019-08-16 12:51 | PCDIET ---
Nutrition Follow-Up Complete: Underweight R/T poor intake and diarrhea as evidence by BMI of 15 ADAT with PO intake of meals and banatrol at 75% or greater to halt further wt loss Goal: Progressing towards goal. Continue with current goal. Pt current nutrition is Regular Level 7 with Banatrol and Thrive BID. Nutrition recommendation: Agree Last recorded weight is 48.9 kg. Bowel Motility: Watery stool yesterday, (per pt BM's starting to form and less frequent) Labs Reviewed:Hgb 7.7, Hct 22.7, Na 135, K 2.7, Protein 6.0 Meds Noted:KCL, MTV Additional Notes: Pt appetite improving. Average intake up to 50% for meals. Pt has not been eating banatrol. I explained that it comes in the applesauce and how it can aid in bulking stools and microbiome building . Pt is eating Thrive. Thrive provides 9 grams of protein, 24 vitamins and minerals, 6grams of fiber, and 270 kcal per serving. Need new weight. No new weight since admission. We will continue to monitor PO intake and wt every five days.
--- NOTE | 2019-08-16 13:01 | PM.IMPN ---
Progress Note: A&P Assessment and Plan (1) Pancolitis: Code(s): K51.00 - Ulcerative (chronic) pancolitis without complications Status: Acute Assessment and Plan: Patient has been having worsening diarrhea the previous 5-6 days prior to presentation. She had finished her outpatient antibiotics from her prior admission last month. Worsened pancolitis noted on CT during this stay; mod ascites also noted. Patient had 2 BMs today; pain is improving in lower abdomen. GI has been consulted from ED and greatly appreciate input. Patient continues IV zosyn and PO Vanc for possible C. Diff, as well, due to recent abx use. C diff test not performed due to collection technique; will treat empirically as she has been clinically slowly improving in this setting, although still appears very ill due to possibly other health issues. Stool sample has been re-sent for C. diff testing per GI. Patient having 3rd spacing likely due to hypoalbuminemia. Patient is malnurished. Possible occult malignancy although imaging thus far is unremarkable. Dr. Jones is following and appreciate recommendations Patient's UO improved with albumin and lasix. Will give another dose today. Await further recommendations from GI on pancolitis and ascites 08/15/19 12:52 08/16/19 13:01 Patient is a 59 year female with a pain colitis on broad-spectrum antibiotics her her symptoms have improved and able to tolerate diet without much complains abdominal pain and nausea vomiting, also found to DVT patient was started on Eliquis there was a concerned about bleeding, her hemoglobin was monitored and was stable it was decided to restart her Eliquis and placement of IVC filter was postponed, however her hemoglobin dropped today to 7 from 8.5 yesterday patient be seen by meter record clerk and charger and further recommendation to follow, patient also has systolic dysfunction patient is being diuresed and albumin is added to help hypoalbuminemia which is improving and will hold her albumin supplement, patient main concern was her poor appetite, which is also improving she denies abdominal pain at present denies any fever or chills, today patient stats she feels better her appetite has improved, stool frequency has improved and there is no blood in the stool. discuss with patient and her son to increase her acitivities and appetite, will continue to work with PT/OT. if patient is clinically stable, will discharge home tomorrow with home health. (2) DVT (deep venous thrombosis): Code(s): I82.409 - Acute embolism and thrombosis of unspecified deep veins of unspecified lower extremity Status: Acute Assessment and Plan: Found on venous doppler of lower extremities; right popliteal and posterior tibial veins. Discussed case with Dr. Jones as this is in setting of likely pancolitis supported by CT imaging. Patient originally refusing heparin drip, but was agreeable with Eliquis. Discussed with her in length about different options and risks/benefits of options. I recommended consulting Dr. Jones for further input which she was agreeable. Unfortunately, her Hgb has dropped earlier in stay and Eliquis has been subsequently held; she is currently refusing blood transfusions. Hgb is now at 8.5 today. Discussed this with Dr. Jones and Dr. Mckeon; the consensus per their recommendations was to hold on the IVC filter today and resume Eliquis today and trend Hgb over the next couple of days. Discussed this with patient and family who is agreeable to this. Per Dr. Mckeon recommendations, will resume Eliquis this afternoon, then resume the schedule at [address] Mckeon recommendations Trend Hgb tomorrow. If showing drop in hgb again over the next day or so, then plan will be to stop eliquis and possibly proceed with filter placement. Appreciate recommendations per Dr. Mckeon and Dr. Jones. Monitor closely D/W meter record clerk
--- NOTE | 2019-08-16 15:41 | PM.PNCARD ---
Progress Note: A&P Assessment and Plan (1) HFrEF (heart failure with reduced ejection fraction): Code(s): I50.20 - Unspecified systolic (congestive) heart failure Status: Acute Assessment and Plan: With obvious LV dysfunction Started on Lisinopril BP somewhat low. WIll hold off BB at this point She appears well compensated from CHF standpoint. No evidence of volume overload, she is probably dry. . Would hold off diuresing given ongoing diarrhea. whenever she is otherwise okay she would need to have at least stress test to look for cause of her LV dysfunction or consider cardiac catheterization (2) Diarrhea: Qualifiers: Diarrhea type: unspecified type Qualified Code(s): R19.7 - Diarrhea, unspecified Code(s): R19.7 - Diarrhea, unspecified Status: Acute (3) DVT (deep venous thrombosis): Code(s): I82.409 - Acute embolism and thrombosis of unspecified deep veins of unspecified lower extremity Status: Acute Assessment and Plan: She has right-sided popliteal DVT, with mobile thrombus, and other hand she has contraindication for anticoagulation with active drop of her hemoglobin, indicating internal bleed or GI bleed, agree with attempting to start back on Eliquis at low dose 2.5 BID and watch her hemoglobin before considering IVC filter. She seems to be progressively getting better slowly (4) Anemia: Qualifiers: Anemia type: unspecified type Qualified Code(s): D64.9 - Anemia, unspecified Code(s): D64.9 - Anemia, unspecified Status: Acute Assessment and Plan: Monitor while on Eliquis Additional Plan Thank you for allowing me to participate in this patient's care, I will be following up with you. Please do not hesitate to call me for any other inquiry Subjective Date/time seen: 08/16/19 15:41 She feels fair today, still feeling weak and fatigued, no more leg pain or leg swelling, no nausea or vomiting, no more diarrhea Exam Narrative: Exam Narrative: Awake alert oriented x3. Appears cachectic. in not in acute distress Neck is supple no obvious JVD, no carotid bruit Chest: Good air entry bilaterally, lungs are clear to auscultation and percussion bilaterally Cardiovascular: Regular rate and rhythm, 2/6 systolic murmur noted left sternal border Abdomen: Soft nontender bowel sounds positive Extremities: No edema has good pulses distally bilaterally Objective Data Vital Signs Vital Signs: Vital Signs - 24 hr 08/15/19 16:00 08/15/19 20:00 08/15/19 22:00 Temperature 37.2 C Pulse Rate 79 89 84 Respiratory Rate 16 Blood Pressure 128/75 Pulse Oximetry 100 08/16/19 00:00 08/16/19 04:00 08/16/19 06:00 Temperature 37.2 C Pulse Rate 79 88 87 Respiratory Rate 16 Blood Pressure 138/88 Pulse Oximetry 100 08/16/19 08:00 08/16/19 12:00 Temperature Pulse Rate 78 85 Respiratory Rate Blood Pressure Pulse Oximetry Intake/Output Intake/Output: Intake & Output 08/13/19 08/14/19 08/15/19 08/16/19 23:59 23:59 23:59 23:59 Intake Total 1270 1315 1130 507.2 Output Total 350 2800 750 Balance 920 -1485 380 507.2 Meds/Results Medications: Active Medications Generic Name Dose Route Start Last Admin Trade Name Freq PRN Reason Stop Dose Admin Acetaminophen 650 mg 08/10/19 16:12 08/14/19 05:09 Tylenol Tablet PO 650 mg Q4H PRN Administration Pain or Fever Apixaban 2.5 mg 08/13/19 21:00 08/13/19 21:30 Eliquis PO 2.5 mg Q12HR ARISTEO Administration Apixaban 2.5 mg 08/14/19 21:00 08/16/19 08:25 Eliquis PO 2.5 mg Q12HR ARISTEO Administration Guaifenesin 600 mg 08/13/19 09:00 08/16/19 08:25 Guaifenesin Liq PO 600 mg Q12H ARISTEO Administration Piperacillin/Tazobactam/Dextrose 3.375 gm in 50 mls @ 100 mls/hr 08/07/19 04:00 08/16/19 12:24 Zosyn 3.375 Gm/D5w 50ml Pm IVPB Infused Q6H ARISTEO Infusion Dextrose 1,000 mls @ 50 mls/hr 08/07/19 15:42 Dext
[2019-08-16] MEDS: POTASSIUM CHLORIDE 20 MEQ PACKET (FOR LIQUID) PO (17:09)
[2019-08-16 17:42] LABS: Calcium 8.8 mg/dL (8.4-10.2); Carbon Dioxide 22 mmol/L (22-30); Chloride 101 mmol/L (98-107); Estimated CRCL calculation 65 ml/min; Estimated Glomerular Filt Rate > 60; Glucose 106 mg/dL (65-105); Magnesium 1.9 mg/dL (1.6-2.3); Potassium 3.7 mmol/L (3.4-5.0); Sodium 139 mmol/L (137-145)
[2019-08-16 18:07] LABS: Blood Urea Nitrogen < 2 mg/dL (7-17)
[2019-08-17] VITALS (8 sets, daily range): BP systolic 120–131; BP diastolic 76–79; PULSE 81–88; RESP 16–18; TEMP 36.3–36.9; O2SAT 98–100
[2019-08-17] MEDS: ACETAMINOPHEN 325 MG TABLET 650 MG PO (04:47)
[2019-08-17] MEDS: VANCOMYCIN ORAL 125 MG/2.5 ML SYRUP PO (04:47)
[2019-08-17] MEDS: LEVOTHYROXINE SODIUM 50 MCG TABLET PO (05:48)
[2019-08-17 06:14] LABS: Alanine Aminotransferase 11 U/L (4-35); Albumin Level 3.2 g/dL (3.5-5.1); Alkaline Phosphatase 73 U/L (38-126); Aspartate Amino Transferase 22 U/L (14-36); Bilirubin,Total 0.9 mg/dL (0.2-1.3); Calcium 8.8 mg/dL (8.4-10.2); Carbon Dioxide 22 mmol/L (22-30); Chloride 103 mmol/L (98-107); Estimated CRCL calculation 65 ml/min; Estimated Glomerular Filt Rate > 60; Glucose 91 mg/dL (65-105); Potassium 3.6 mmol/L (3.4-5.0); Sodium 137 mmol/L (137-145)
[2019-08-17 06:21] LABS: Blood Urea Nitrogen < 2 mg/dL (7-17)
[2019-08-17 06:52] LABS: Hematocrit 23.7 % (37.0-47.0); Hemoglobin 7.8 g/dL (12.0-15.0); Mean Corpuscular HGB Conc 32.9 g/dl (32-36); Mean Corpuscular Hemoglobin 32.1 pg (26-34); Mean Corpuscular Volume 97.5 fl (80-100); Mean Platelet Volume 11.2 fl (7.4-10.4); Platelet Count Result 263 k/mm3 (150-375); Red Blood Count 2.43 M/mm3 (4.2-5.4); Red Cell Distribution Width 16.9 % (11.5-14.5); White Blood Count 7.8 K/mm3 (4.5-10.0)
[2019-08-17] MEDS: POTASSIUM CHLORIDE 20 MEQ PACKET (FOR LIQUID) 40 MEQ PO (09:29)
[2019-08-17] MEDS: GUAIFENESIN 200 MG/10 ML UDC 600 MG PO (09:29)
[2019-08-17] MEDS: lisinopriL 5 MG TABLET PO (09:29)
[2019-08-17] MEDS: APIXABAN 2.5 MG TABLET PO ×2 (09:29→20:11)
[2019-08-17] MEDS: MULTIVITAMINS THERAPEUTIC TAB (*BKC) 1 TABLET PO (09:29)
--- NOTE | 2019-08-17 09:34 | WPDGIPROGNO ---
Progress Note: A&P Additional Plan Patient reports no abdominal pain. Her appetite is slowly improving. But not yet at baseline. Diarrhea a improved during the day. Reports several bowel movements nightly. She denies any blood in her stools. She denies any abdominal pain. Physical exam reveals her to be alert. Vital signs stable. Lungs are clear. Heart without murmur. Abdomen is soft and nontender. Labs reveal hemoglobin 7.8, hematocrit 23.7, MCV 97, Impression 1. Pancolitis. Presumed infectious etiology. Plan is to complete course of antibiotics. Outpatient follow-up encourage. Anticipate colonoscopy when she is strong enough. 2. DVT. Patient now on anticoagulation. Agree with avoiding IVC filter if at all possible. 3. Congestive heart failure. Plan is to continue to encourage oral intake. Anticipate follow-up electively in the office in 2 weeks. Subjective Date/time seen: 08/17/19 09:34 Objective Data Vital Signs Vital Signs: Vital Signs - 24 hr 08/16/19 12:00 08/16/19 14:00 08/16/19 16:00 Temperature 36.6 C Pulse Rate 85 87 82 Respiratory Rate 16 Blood Pressure 118/69 Pulse Oximetry 100 08/16/19 20:00 08/16/19 21:18 08/17/19 00:00 Temperature 36.9 C Pulse Rate 79 87 82 Respiratory Rate 18 Blood Pressure 123/74 Pulse Oximetry 97 08/17/19 04:00 08/17/19 05:09 Temperature 36.9 C Pulse Rate 87 82 Respiratory Rate 16 Blood Pressure 131/79 Pulse Oximetry 100 Intake/Output Intake/Output: Intake & Output 08/14/19 08/15/19 08/16/19 08/17/19 23:59 23:59 23:59 23:59 Intake Total 1315 1130 982.2 610 Output Total 2800 750 250 125 Balance -1485 380 732.2 485 Meds/Results Medications: Active Medications Generic Name Dose Route Start Last Admin Trade Name Freq PRN Reason Stop Dose Admin Acetaminophen 650 mg 08/10/19 16:12 08/17/19 04:47 Tylenol Tablet PO 650 mg Q4H PRN Administration Pain or Fever Apixaban 2.5 mg 08/13/19 21:00 08/13/19 21:30 Eliquis PO 2.5 mg Q12HR ARISTEO Administration Apixaban 2.5 mg 08/14/19 21:00 08/16/19 21:07 Eliquis PO 2.5 mg Q12HR ARISTEO Administration Guaifenesin 600 mg 08/13/19 09:00 08/16/19 21:07 Guaifenesin Liq PO 600 mg Q12H ARISTEO Administration Dextrose 1,000 mls @ 50 mls/hr 08/07/19 15:42 Dextrose 10% IV CONT .Q20H PRN if PN is interrupted Fat Emulsion Intravenous 250 mls @ 20.833 mls/hr 08/07/19 17:00 Lipids 20% IVPB Q24H ARISTEO Levothyroxine Sodium 50 mcg 08/11/19 09:40 08/17/19 05:48 Synthroid PO 50 mcg DAILY@0630 ARISTEO Administration Lisinopril 5 mg 08/14/19 09:00 08/16/19 08:27 Prinivil PO 5 mg QAM ARISTEO Administration Multivitamins Therapeutic 1 tablet 08/16/19 09:00 08/16/19 08:27 Multivitamins Therapeutic(*Bkc PO 1 tablet QAM ARISTEO Administration Potassium Chloride 20 meq 08/13/19 17:00 08/16/19 17:09 Kcl Powder (For Liquid) PO 20 meq 1700 ARISTEO Administration Potassium Chloride 40 meq 08/14/19 09:00 08/16/19 08:30 Kcl Powder (For Liquid) PO 40 meq DAILY ARISTEO Administration Radiology Results: ITS Impressions Abdomen/Pelvis CT 08/06/19 20:38 IMPRESSION: 1. Pancolitis with interval worsening. 2. Increase in ascites, now moderate in volume. 3. New small pleural effusions, right greater than left. Knee X-Ray 08/07/19 14:52 IMPRESSION: 1. Small left knee joint effusion. Tibia/Fibula X-Ray 08/07/19 14:52 IMPRESSION: 1. No fracture. Venous Doppler Study 08/07/19 14:53 IMPRESSION: 1. Deep vein thrombosis involving right popliteal and posterior tibial veins. I discussed this result with Teofilo Kimbrough on 08/07/19 at 14:55. Femur X-Ray 08/07/19 15:02 IMPRESSION: 1. No fracture or malalignment. Chest CT 08/08/19 20:59 IMPRESSION: 1. Small pleural effusions resulting in mild passive dependent atelectasis. 2. Minimal airspace opacity of the right middle
--- NOTE | 2019-08-17 15:09 | PM.DS ---
DS: Diagnosis Admitting Diagnosis Admitting Diagnosis: Ulcerative (chronic) pancolitis without complications DS: Summary Time Spent with Patient Time attestation: Total time spent providing and/or coordinating discharge services: DS: Data Data Completed and Pending Labs on day of discharge: Labs from last 24 hours 08/17/19 08/17/19 08/16/19 05:45 05:45 17:22 WBC 7.8 RBC 2.43 L Hgb 7.8 L Hct 23.7 L MCV 97.5 MCH 32.1 MCHC 32.9 RDW 16.9 H Plt Count 263 MPV 11.2 H Sodium 137 139 Potassium 3.6 3.7 Chloride 103 101 Carbon Dioxide 22 22 BUN < 2 L < 2 L Creatinine 0.60 L 0.60 L Estim Creat Clear Calc 65 65 Estimated GFR > 60 > 60 Glucose 91 106 H Calcium 8.8 8.8 Magnesium 1.9 Total Bilirubin 0.9 AST 22 ALT 11 Alkaline Phosphatase 73 Total Protein 6.0 L Albumin 3.2 L Ova & Parasites 08/06/19 21:00 WBC RBC Hgb Hct MCV MCH MCHC RDW Plt Count MPV Sodium Potassium Chloride Carbon Dioxide BUN Creatinine Estim Creat Clear Calc Estimated GFR Glucose Calcium Magnesium Total Bilirubin AST ALT Alkaline Phosphatase Total Protein Albumin Ova & Parasites see below Discharge Plan Discharge Attending physician on discharge: John Grimaldo Consulting providers: Cristopher Son ; Stephane Jones ; Santosh Mckeon Discharging Clinician: John Grimaldo Patient Disposition: Home Health Service Activity: as tolerated Diet: heart healthy Discharge Instructions: Per Care Coordination: [facility] has been arranged and will follow for RN and PT/OT eval and treat. [facility] can be contacted at [phone]. [facility] will contact you prior to their first visit. Patient to follow up with her primary care provider as soon as possible, patient is instructed if any symptoms redevelop to go to nearest ER. Patient Instructions: Antibiotic Form, Albumin (By injection), Apixaban (By mouth), Hypokalemia (IP), Deep Vein Thrombosis (DC), Hypomagnesemia (IP), Infectious Colitis (GEN) Stand Alone Forms: General Discharge Information Follow-up/Referrals: Richelle Rey MD [Primary Care Provider] - 1 Week (Follow up with Dr. Peoples on 08/24/2019 at 10:15 am.) Discharge Medications: New Eliquis 2.5 mg Tablet 2.5 mg PO Q12HR Qty: 60 RF: 2 Thera 400 mcg Tablet 1 tablet PO QAM Qty: 30 RF: 2 levothyroxine [Synthroid] 50 mcg Tablet 50 mcg PO DAILY@0630 Qty: 30 RF: 2 guaifenesin 100 mg/5 mL Liquid 600 mg PO Q12H Qty: 120 RF: 0 potassium chloride 20 mEq Packet 20 meq PO 1700 Qty: 30 RF: 0 lisinopril 5 mg Tablet 5 mg PO QAM Qty: 30 RF: 2 No Action No Home Medications RF: 0 Date of admission: 08/06/19 21:13 Primary Care Provider: Richelle Rey Admitting Provider: Ry Sullivan Attending physician on admission: Teofilo Kimbrough Condition: Stable Quality VTE Prophylaxis VTE prophylaxis: pharmacologic ordered (DVT - low dose eliquis)
--- NOTE | 2019-08-17 15:39 | PM.PNCARD ---
Progress Note: A&P Assessment and Plan (1) HFrEF (heart failure with reduced ejection fraction): Code(s): I50.20 - Unspecified systolic (congestive) heart failure Status: Acute Assessment and Plan: With obvious LV dysfunction Started on Lisinopril BP somewhat low. WIll hold off BB at this point She appears well compensated from CHF standpoint. No evidence of volume overload, she is probably dry. . Would hold off diuresing given ongoing diarrhea. whenever she is otherwise okay she would need to have at least stress test to look for cause of her LV dysfunction or consider cardiac catheterization (2) Diarrhea: Qualifiers: Diarrhea type: unspecified type Qualified Code(s): R19.7 - Diarrhea, unspecified Code(s): R19.7 - Diarrhea, unspecified Status: Acute (3) DVT (deep venous thrombosis): Code(s): I82.409 - Acute embolism and thrombosis of unspecified deep veins of unspecified lower extremity Status: Acute Assessment and Plan: She has right-sided popliteal DVT, with mobile thrombus, and other hand she has contraindication for anticoagulation with active drop of her hemoglobin, indicating internal bleed or GI bleed, agree with attempting to start back on Eliquis at low dose 2.5 BID and watch her hemoglobin before considering IVC filter. She seems to be progressively getting better slowly (4) Anemia: Qualifiers: Anemia type: unspecified type Qualified Code(s): D64.9 - Anemia, unspecified Code(s): D64.9 - Anemia, unspecified Status: Acute Assessment and Plan: Monitor while on Eliquis Additional Plan Thank you for allowing me to participate in this patient's care, I will be following up with you. Please do not hesitate to call me for any other inquiry Subjective Date/time seen: 08/17/19 15:39 She feels slightly better today, now she is up in a chair, and trying to move, no chest pain no leg pain no shortness of breath Exam Narrative: Exam Narrative: Awake alert oriented x3. Appears cachectic. in not in acute distress Neck is supple no obvious JVD, no carotid bruit Chest: Good air entry bilaterally, lungs are clear to auscultation and percussion bilaterally Cardiovascular: Regular rate and rhythm, 2/6 systolic murmur noted left sternal border Abdomen: Soft nontender bowel sounds positive Extremities: No edema has good pulses distally bilaterally Objective Data Vital Signs Vital Signs: Vital Signs - 24 hr 08/16/19 16:00 08/16/19 20:00 08/16/19 21:18 Temperature 36.9 C Pulse Rate 82 79 87 Respiratory Rate 18 Blood Pressure 123/74 Pulse Oximetry 97 08/17/19 00:00 08/17/19 04:00 08/17/19 05:09 Temperature 36.9 C Pulse Rate 82 87 82 Respiratory Rate 16 Blood Pressure 131/79 Pulse Oximetry 100 Intake/Output Intake/Output: Intake & Output 08/14/19 08/15/19 08/16/19 08/17/19 23:59 23:59 23:59 23:59 Intake Total 1315 1130 982.2 850 Output Total 2800 750 250 125 Balance -1485 380 732.2 725 Meds/Results Medications: Active Medications Generic Name Dose Route Start Last Admin Trade Name Freq PRN Reason Stop Dose Admin Acetaminophen 650 mg 08/10/19 16:12 08/17/19 04:47 Tylenol Tablet PO 650 mg Q4H PRN Administration Pain or Fever Apixaban 2.5 mg 08/13/19 21:00 08/13/19 21:30 Eliquis PO 2.5 mg Q12HR ARISTEO Administration Apixaban 2.5 mg 08/14/19 21:00 08/17/19 09:29 Eliquis PO 2.5 mg Q12HR ARISTEO Administration Guaifenesin 600 mg 08/13/19 09:00 08/17/19 09:29 Guaifenesin Liq PO 600 mg Q12H ARISTEO Administration Dextrose 1,000 mls @ 50 mls/hr 08/07/19 15:42 Dextrose 10% IV CONT .Q20H PRN if PN is interrupted Fat Emulsion Intravenous 250 mls @ 20.833 mls/hr 08/07/19 17:00 Lipids 20% IVPB Q24H [facility] Levothyroxine Sodium 50 mcg 08/11/19 09:40 08/17/19 05:48 Synthroid PO 50 mcg DAILY@0630 [facility] Administration Lis
--- NOTE | 2019-08-17 16:22 | PCOTNOTE ---
The patient treatment was not able to be completed on 08/17/2019. Will plan to continue treatment per plan of care.
[2019-08-17] MEDS: POTASSIUM CHLORIDE 20 MEQ PACKET (FOR LIQUID) PO (17:10)
--- NOTE | 2019-08-17 17:27 | PM.IMPN ---
Progress Note: A&P Assessment and Plan (1) Pancolitis: Code(s): K51.00 - Ulcerative (chronic) pancolitis without complications Status: Acute Assessment and Plan: Patient has been having worsening diarrhea the previous 5-6 days prior to presentation. She had finished her outpatient antibiotics from her prior admission last month. Worsened pancolitis noted on CT during this stay; mod ascites also noted. Patient had 2 BMs today; pain is improving in lower abdomen. GI has been consulted from ED and greatly appreciate input. Patient continues IV zosyn and PO Vanc for possible C. Diff, as well, due to recent abx use. C diff test not performed due to collection technique; will treat empirically as she has been clinically slowly improving in this setting, although still appears very ill due to possibly other health issues. Stool sample has been re-sent for C. diff testing per GI. Patient having 3rd spacing likely due to hypoalbuminemia. Patient is malnurished. Possible occult malignancy although imaging thus far is unremarkable. Dr. Jones is following and appreciate recommendations Patient's UO improved with albumin and lasix. Will give another dose today. Await further recommendations from GI on pancolitis and ascites 08/15/19 12:52 08/17/19 17:27 Patient is a 59 year female with a pain colitis on broad-spectrum antibiotics her her symptoms have improved and able to tolerate diet without much complains abdominal pain and nausea vomiting, also found to DVT patient was started on Eliquis there was a concerned about bleeding, her hemoglobin was monitored and was stable it was decided to restart her Eliquis and placement of IVC filter was postponed, however her hemoglobin dropped today to 7 from 8.5 yesterday patient be seen by tube pusher and orange grower and further recommendation to follow, patient also has systolic dysfunction patient is being diuresed and albumin is added to help hypoalbuminemia which is improving and will hold her albumin supplement, patient main concern was her poor appetite, which is also improving she denies abdominal pain at present denies any fever or chills, today patient stats she feels better her appetite has improved, stool frequency has improved and there is no blood in the stool. discuss with patient and her son to increase her acitivities and appetite, will continue to work with PT/OT. if patient is clinically stable, plan was to discharge the patient to custodial today however patient insert insert template he refused and patient does not wish to go home will continue to monitor overnight and plan. (2) DVT (deep venous thrombosis): Code(s): I82.409 - Acute embolism and thrombosis of unspecified deep veins of unspecified lower extremity Status: Acute Assessment and Plan: Found on venous doppler of lower extremities; right popliteal and posterior tibial veins. Discussed case with Dr. Jones as this is in setting of likely pancolitis supported by CT imaging. Patient originally refusing heparin drip, but was agreeable with Eliquis. Discussed with her in length about different options and risks/benefits of options. I recommended consulting Dr. Jones for further input which she was agreeable. Unfortunately, her Hgb has dropped earlier in stay and Eliquis has been subsequently held; she is currently refusing blood transfusions. Hgb is now at 8.5 today. Discussed this with Dr. Jones and Dr. Mckeon; the consensus per their recommendations was to hold on the IVC filter today and resume Eliquis today and trend Hgb over the next couple of days. Discussed this with patient and family who is agreeable to this. Per Dr. Mckeon recommendations, will resume Eliquis this afternoon, then resume the schedule at [address] Mckeon recommendations Trend Hgb tomorrow. If showing drop in hgb again over the next day or so, then plan will be to stop eliquis a
[2019-08-18] MEDS: LEVOTHYROXINE SODIUM 50 MCG TABLET PO (05:30)
[2019-08-18 05:54] LABS: Hematocrit 24.5 % (37.0-47.0); Hemoglobin 8.1 g/dL (12.0-15.0); Mean Corpuscular HGB Conc 33.1 g/dl (32-36); Mean Corpuscular Hemoglobin 32.1 pg (26-34); Mean Corpuscular Volume 97.2 fl (80-100); Mean Platelet Volume 10.1 fl (7.4-10.4); Platelet Count Result 262 k/mm3 (150-375); Red Blood Count 2.52 M/mm3 (4.2-5.4); White Blood Count 9.7 K/mm3 (4.5-10.0)
[2019-08-18 06:00] VITALS: BP 122/70; PULSE 91; RESP 16; TEMP 36.4; O2SAT 97
[2019-08-18 06:13] LABS: Alanine Aminotransferase 13 U/L (4-35); Albumin Level 3.3 g/dL (3.5-5.1); Alkaline Phosphatase 85 U/L (38-126); Aspartate Amino Transferase 22 U/L (14-36); Bilirubin,Total 0.5 mg/dL (0.2-1.3); Carbon Dioxide 21 mmol/L (22-30); Chloride 107 mmol/L (98-107); Estimated CRCL calculation 65 ml/min; Estimated Glomerular Filt Rate > 60; Glucose 85 mg/dL (65-105); Sodium 136 mmol/L (137-145)
[2019-08-18 07:37] LABS: Blood Urea Nitrogen < 2 mg/dL (7-17)
--- NOTE | 2019-08-18 09:24 | WPDGIPROGNO ---
Progress Note: A&P Assessment and Plan (1) Pancolitis: Code(s): K51.00 - Ulcerative (chronic) pancolitis without complications Status: Acute Assessment and Plan: she completed treatment with abx, C diff stool was negative. timing of colonoscopy by Dr Son as outpatient whe she is stronger (2) Diarrhea: Qualifiers: Diarrhea type: unspecified type Qualified Code(s): R19.7 - Diarrhea, unspecified Code(s): R19.7 - Diarrhea, unspecified Status: Acute Assessment and Plan: overall much better (3) Malnutrition: Qualifiers: Malnutrition type: unspecified type Qualified Code(s): E46 - Unspecified protein-calorie malnutrition Code(s): E46 - Unspecified protein-calorie malnutrition Status: Acute Assessment and Plan: she is eating more, also getting thrive and other extra supplements (4) Weakness: Code(s): R53.1 - Weakness Status: Acute (5) DVT (deep venous thrombosis): Qualifiers: DVT location: lower extremity Affected thrombotic vein of extremity: unspecified vein of extremity Chronicity: acute Laterality: unspecified laterality Qualified Code(s): I82.409 - Acute embolism and thrombosis of unspecified deep veins of unspecified lower extremity Code(s): I82.409 - Acute embolism and thrombosis of unspecified deep veins of unspecified lower extremity Status: Acute Assessment and Plan: she is back again on blood thinners, she has chronic anemia- monitor for signs of bleeding. (6) Anemia: Qualifiers: Anemia type: unspecified type Qualified Code(s): D64.9 - Anemia, unspecified Code(s): D64.9 - Anemia, unspecified Status: Acute Subjective Date/time seen: 08/18/19 09:24 Interval history: every day she is eating more, less diarrhea and overall better. She is back on eliquis again and no report of gib Review of Systems Review of Systems: All systems reviewed & are unremarkable except as noted in HPI and below Exam Const: General: comfortable and no acute distress Other: chronically ill appearing but comfortable, thin HENMT: General nose exam: Normal nares present Eyes: General: appearance normal, both eyes and all related structures Neck: Neck: no JVD Resp: Auscultation: clear to auscultation bilaterally Cardio: Rate: regular rate Rhythm: regular rhythm GI: GI Palp: Yes Soft to palpation and No Tenderness to palpation present (GI) Auscultation: normal bowel sounds Skin: General skin exam: normal color Neuro: Speech: normal speech Extrem: General: normal to inspection Psych: Mental Status: mental status grossly normal Objective Data Vital Signs Vital Signs: Vital Signs - 24 hr 08/17/19 12:00 08/17/19 14:00 08/17/19 16:00 Temperature 97.3 F L Pulse Rate 81 86 86 Respiratory Rate 16 Blood Pressure 120/77 Pulse Oximetry 100 08/17/19 22:00 08/18/19 06:00 Temperature 97.7 F 97.5 F L Pulse Rate 82 91 Respiratory Rate 18 16 Blood Pressure 128/76 122/70 Pulse Oximetry 98 97 Intake/Output Intake/Output: Intake & Output 08/15/19 08/16/19 08/17/19 08/18/19 23:59 23:59 23:59 23:59 Intake Total 1130 982.2 1340 200 Output Total 750 250 250 400 Balance 380 732.2 1090 -200 Meds/Results Medications: Active Medications Generic Name Dose Route Start Last Admin Trade Name Freq PRN Reason Stop Dose Admin Acetaminophen 650 mg 08/10/19 16:12 08/17/19 04:47 Tylenol Tablet PO 650 mg Q4H PRN Administration Pain or Fever Apixaban 2.5 mg 08/13/19 21:00 08/13/19 21:30 Eliquis PO 2.5 mg Q12HR ARISTEO Administration Apixaban 2.5 mg 08/14/19 21:00 08/17/19 20:11 Eliquis PO 2.5 mg Q12HR ARISTEO Administration Dextrose 1,000 mls @ 50 mls/hr 08/07/19 15:42 Dextrose 10% IV CONT .Q20H PRN if PN is interrupted Fat Emulsion Intravenous 250 mls @ 20.833 mls/hr 08/07/19 17:00 Lipids 20% IVPB
[2019-08-18] MEDS: POTASSIUM CHLORIDE 20 MEQ PACKET (FOR LIQUID) 40 MEQ PO (09:45)
[2019-08-18] MEDS: APIXABAN 2.5 MG TABLET PO ×2 (09:46→20:36)
[2019-08-18] MEDS: lisinopriL 5 MG TABLET PO (09:46)
[2019-08-18] MEDS: MULTIVITAMINS THERAPEUTIC TAB (*BKC) 1 TABLET PO (09:46)
--- NOTE | 2019-08-18 12:39 | PM.PNCARD ---
Progress Note: A&P Assessment and Plan (1) HFrEF (heart failure with reduced ejection fraction): Code(s): I50.20 - Unspecified systolic (congestive) heart failure Status: Acute Assessment and Plan: With obvious LV dysfunction Started on Lisinopril BP somewhat low. WIll hold off BB at this point She appears well compensated from CHF standpoint. No evidence of volume overload, she is probably dry. . Would hold off diuresing given ongoing diarrhea. whenever she is otherwise okay she would need to have at least stress test to look for cause of her LV dysfunction or consider cardiac catheterization (2) Diarrhea: Qualifiers: Diarrhea type: unspecified type Qualified Code(s): R19.7 - Diarrhea, unspecified Code(s): R19.7 - Diarrhea, unspecified Status: Acute (3) DVT (deep venous thrombosis): Qualifiers: DVT location: lower extremity Affected thrombotic vein of extremity: unspecified vein of extremity Chronicity: acute Laterality: unspecified laterality Qualified Code(s): I82.409 - Acute embolism and thrombosis of unspecified deep veins of unspecified lower extremity Code(s): I82.409 - Acute embolism and thrombosis of unspecified deep veins of unspecified lower extremity Status: Acute Assessment and Plan: She has right-sided popliteal DVT, with mobile thrombus, and other hand she has contraindication for anticoagulation with active drop of her hemoglobin, indicating internal bleed or GI bleed, agree with attempting to start back on Eliquis at low dose 2.5 BID and watch her hemoglobin before considering IVC filter. She seems to be progressively getting better slowly (4) Anemia: Qualifiers: Anemia type: unspecified type Qualified Code(s): D64.9 - Anemia, unspecified Code(s): D64.9 - Anemia, unspecified Status: Acute Assessment and Plan: Monitor while on Eliquis Additional Plan She is okay to be discharged home, and needs to have a follow-up with me in 1 week Subjective Date/time seen: 08/18/19 12:39 Interval history: She reported that every day she is eating more, less diarrhea and overall better. She is back on eliquis again and no report of gib Exam Narrative: Exam Narrative: Awake alert oriented x3. Appears cachectic. in not in acute distress Neck is supple no obvious JVD, no carotid bruit Chest: Good air entry bilaterally, lungs are clear to auscultation and percussion bilaterally Cardiovascular: Regular rate and rhythm, 2/6 systolic murmur noted left sternal border Abdomen: Soft nontender bowel sounds positive Extremities: No edema has good pulses distally bilaterally Objective Data Vital Signs Vital Signs: Vital Signs - 24 hr 08/17/19 14:00 08/17/19 16:00 08/17/19 22:00 Temperature 36.3 C L 36.5 C Pulse Rate 86 86 82 Respiratory Rate 16 18 Blood Pressure 120/77 128/76 Pulse Oximetry 100 98 08/18/19 06:00 Temperature 36.4 C L Pulse Rate 91 Respiratory Rate 16 Blood Pressure 122/70 Pulse Oximetry 97 Intake/Output Intake/Output: Intake & Output 08/15/19 08/16/19 08/17/19 08/18/19 23:59 23:59 23:59 23:59 Intake Total 1130 982.2 1340 440 Output Total 750 250 250 400 Balance 380 732.2 1090 40 Meds/Results Medications: Active Medications Generic Name Dose Route Start Last Admin Trade Name Freq PRN Reason Stop Dose Admin Acetaminophen 650 mg 08/10/19 16:12 08/17/19 04:47 Tylenol Tablet PO 650 mg Q4H PRN Administration Pain or Fever Apixaban 2.5 mg 08/13/19 21:00 08/13/19 21:30 Eliquis PO 2.5 mg Q12HR ARISTEO Administration Apixaban 2.5 mg 08/14/19 21:00 08/18/19 09:46 Eliquis PO 2.5 mg Q12HR ARISTEO Administration Dextrose 1,000 mls @ 50 mls/hr 08/07/19 15:42 Dextrose 10% IV CONT .Q20H PRN if PN is interrupted Fat Emulsion Intravenous 250 mls @ 20.833 mls/hr 08/07/19 17:00 Lipids 20% IVPB Q24H ARISTEO Levothyroxine S
--- NOTE | 2019-08-18 13:04 | PM.IMPN ---
Progress Note: A&P Assessment and Plan (1) Pancolitis: Code(s): K51.00 - Ulcerative (chronic) pancolitis without complications Status: Acute Assessment and Plan: Patient has been having worsening diarrhea the previous 5-6 days prior to presentation. She had finished her outpatient antibiotics from her prior admission last month. Worsened pancolitis noted on CT during this stay; mod ascites also noted. Patient had 2 BMs today; pain is improving in lower abdomen. GI has been consulted from ED and greatly appreciate input. Patient continues IV zosyn and PO Vanc for possible C. Diff, as well, due to recent abx use. C diff test not performed due to collection technique; will treat empirically as she has been clinically slowly improving in this setting, although still appears very ill due to possibly other health issues. Stool sample has been re-sent for C. diff testing per GI. Patient having 3rd spacing likely due to hypoalbuminemia. Patient is malnurished. Possible occult malignancy although imaging thus far is unremarkable. Dr. Jones is following and appreciate recommendations Patient's UO improved with albumin and lasix. Will give another dose today. Await further recommendations from GI on pancolitis and ascites 08/15/19 12:52 08/18/19 13:04 Patient is a 59 year female with a pain colitis on broad-spectrum antibiotics her her symptoms have improved and able to tolerate diet without much complains abdominal pain and nausea vomiting, also found to DVT patient was started on Eliquis there was a concerned about bleeding, her hemoglobin was monitored and was stable it was decided to restart her Eliquis and placement of IVC filter was postponed, however her hemoglobin dropped today to 7 from 8.5 yesterday patient be seen by college sports assistant and lead nurse and further recommendation to follow, patient also has systolic dysfunction patient is being diuresed and albumin is added to help hypoalbuminemia which is improving and will hold her albumin supplement, patient main concern was her poor appetite, which is also improving she denies abdominal pain at present denies any fever or chills, today patient stats she feels better her appetite has improved, stool frequency has improved and there is no blood in the stool. discuss with patient and her son to increase her acitivities and appetite, will continue to work with PT/OT. if patient is clinically stable, plan was to discharge the [facility] however patient had not been participating in PT/OT, patient as started to participate in the therapy, patient will benefit from physical therapy and going to acute rehab before going home as patient is quite weak and debilitated (2) DVT (deep venous thrombosis): Qualifiers: DVT location: lower extremity Affected thrombotic vein of extremity: unspecified vein of extremity Chronicity: acute Laterality: unspecified laterality Qualified Code(s): I82.409 - Acute embolism and thrombosis of unspecified deep veins of unspecified lower extremity Code(s): I82.409 - Acute embolism and thrombosis of unspecified deep veins of unspecified lower extremity Status: Acute Assessment and Plan: Found on venous doppler of lower extremities; right popliteal and posterior tibial veins. Discussed case with Dr. Jones as this is in setting of likely pancolitis supported by CT imaging. Patient originally refusing heparin drip, but was agreeable with Eliquis. Discussed with her in length about different options and risks/benefits of options. I recommended consulting Dr. Jones for further input which she was agreeable. Unfortunately, her Hgb has dropped earlier in stay and Eliquis has been subsequently held; she is currently refusing blood transfusions. Hgb is now at 8.5 today[address] Discussed this with Dr. Jones and Dr. Mckeon; the consensus per their recommendations was to hold on the IVC don
[2019-08-18 14:00] VITALS: BP 123/80; PULSE 89; RESP 16; TEMP 38.1; O2SAT 99
[2019-08-18 14:56] VITALS: TEMP 36.9
--- NOTE | 2019-08-18 16:45 | PCOTNOTE ---
The patient treatment was not able to be completed on [08/18/19] due to [short of staff]. Will plan to continue treatment per plan of care.
[2019-08-18] MEDS: FAMOTIDINE 20 MG TABLET PO (16:46)
[2019-08-18] MEDS: POTASSIUM CHLORIDE 20 MEQ PACKET (FOR LIQUID) PO (16:47)
[2019-08-18 22:00] VITALS: BP 126/84; PULSE 82; RESP 16; TEMP 36.8; O2SAT 98
[2019-08-19 05:30] VITALS: BP 123/81; PULSE 86; RESP 16; TEMP 36.8; O2SAT 97
[2019-08-19] MEDS: LEVOTHYROXINE SODIUM 50 MCG TABLET PO (05:31)
[2019-08-19 05:35] LABS: Hematocrit 24.4 % (37.0-47.0); Hemoglobin 7.6 g/dL (12.0-15.0); Mean Corpuscular HGB Conc 31.1 g/dl (32-36); Mean Corpuscular Hemoglobin 31.8 pg (26-34); Mean Corpuscular Volume 102.1 fl (80-100); Mean Platelet Volume 10.9 fl (7.4-10.4); Platelet Count Result 238 k/mm3 (150-375); Red Blood Count 2.39 M/mm3 (4.2-5.4); Red Cell Distribution Width 17.1 % (11.5-14.5); White Blood Count 6.7 K/mm3 (4.5-10.0)
[2019-08-19 05:53] LABS: Alanine Aminotransferase 13 U/L (4-35); Alkaline Phosphatase 75 U/L (38-126); Aspartate Amino Transferase 26 U/L (14-36); Bilirubin,Total 0.5 mg/dL (0.2-1.3); Blood Urea Nitrogen 2 mg/dL (7-17); Calcium 8.7 mg/dL (8.4-10.2); Carbon Dioxide 21 mmol/L (22-30); Chloride 105 mmol/L (98-107); Estimated CRCL calculation 65 ml/min; Estimated Glomerular Filt Rate > 60; Glucose 80 mg/dL (65-105); Potassium 3.9 mmol/L (3.4-5.0); Sodium 137 mmol/L (137-145)
[2019-08-19] MEDS: FAMOTIDINE 20 MG TABLET PO ×2 (08:23→21:08)
[2019-08-19] MEDS: MULTIVITAMINS THERAPEUTIC TAB (*BKC) 1 TABLET PO (08:23)
[2019-08-19] MEDS: lisinopriL 5 MG TABLET PO (08:23)
[2019-08-19] MEDS: APIXABAN 2.5 MG TABLET PO ×2 (08:23→21:08)
[2019-08-19] MEDS: POTASSIUM CHLORIDE 20 MEQ PACKET (FOR LIQUID) 40 MEQ PO (08:24)
--- NOTE | 2019-08-19 11:25 | PM.PNCARD ---
Progress Note: A&P Assessment and Plan (1) HFrEF (heart failure with reduced ejection fraction): Code(s): I50.20 - Unspecified systolic (congestive) heart failure Status: Acute Assessment and Plan: With obvious LV dysfunction Started on Lisinopril BP somewhat low. WIll hold off BB at this point She appears well compensated from CHF standpoint. No evidence of volume overload, she is probably dry. . Would hold off diuresing given ongoing diarrhea. whenever she is otherwise okay she would need to have at least stress test to look for cause of her LV dysfunction or consider cardiac catheterization (2) Diarrhea: Qualifiers: Diarrhea type: unspecified type Qualified Code(s): R19.7 - Diarrhea, unspecified Code(s): R19.7 - Diarrhea, unspecified Status: Acute (3) DVT (deep venous thrombosis): Qualifiers: DVT location: lower extremity Affected thrombotic vein of extremity: unspecified vein of extremity Chronicity: acute Laterality: unspecified laterality Qualified Code(s): I82.409 - Acute embolism and thrombosis of unspecified deep veins of unspecified lower extremity Code(s): I82.409 - Acute embolism and thrombosis of unspecified deep veins of unspecified lower extremity Status: Acute Assessment and Plan: She has right-sided popliteal DVT, with mobile thrombus, and other hand she has contraindication for anticoagulation with active drop of her hemoglobin, indicating internal bleed or GI bleed, agree with attempting to start back on Eliquis at low dose 2.5 BID and watch her hemoglobin before considering IVC filter. She seems to be progressively getting better slowly (4) Anemia: Qualifiers: Anemia type: unspecified type Qualified Code(s): D64.9 - Anemia, unspecified Code(s): D64.9 - Anemia, unspecified Status: Acute Assessment and Plan: Monitor while on Eliquis Additional Plan She is okay to be discharged home, and needs to have a follow-up with me in 1 week Subjective Date/time seen: 08/19/19 11:25 Feels okay today, no shortness of breath no chest pain, still has some diarrhea Exam Narrative: Exam Narrative: Awake alert oriented x3. Appears cachectic. in not in acute distress Neck is supple no obvious JVD, no carotid bruit Chest: Good air entry bilaterally, lungs are clear to auscultation and percussion bilaterally Cardiovascular: Regular rate and rhythm, 2/6 systolic murmur noted left sternal border Abdomen: Soft nontender bowel sounds positive Extremities: No edema has good pulses distally bilaterally Objective Data Vital Signs Vital Signs: Vital Signs - 24 hr 08/18/19 14:00 08/18/19 14:56 08/18/19 22:00 Temperature 38.1 C H 36.9 C 36.8 C Pulse Rate 89 82 Respiratory Rate 16 16 Blood Pressure 123/80 126/84 Pulse Oximetry 99 98 08/19/19 05:30 Temperature 36.8 C Pulse Rate 86 Respiratory Rate 16 Blood Pressure 123/81 Pulse Oximetry 97 Intake/Output Intake/Output: Intake & Output 08/16/19 08/17/19 08/18/19 08/19/19 23:59 23:59 23:59 23:59 Intake Total 982.2 1340 990 540 Output Total 250 250 900 Balance 732.2 1090 90 540 Meds/Results Medications: Active Medications Generic Name Dose Route Start Last Admin Trade Name Freq PRN Reason Stop Dose Admin Acetaminophen 650 mg 08/10/19 16:12 08/17/19 04:47 Tylenol Tablet PO 650 mg Q4H PRN Administration Pain or Fever Apixaban 2.5 mg 08/13/19 21:00 08/13/19 21:30 Eliquis PO 2.5 mg Q12HR ARISTEO Administration Apixaban 2.5 mg 08/14/19 21:00 08/19/19 08:23 Eliquis PO 2.5 mg Q12HR ARISTEO Administration Famotidine 20 mg 08/18/19 15:00 08/19/19 08:23 Pepcid PO 20 mg Q12HR ARISTEO Administration Dextrose 1,000 mls @ 50 mls/hr 08/07/19 15:42 Dextrose 10% IV CONT .Q20H PRN if PN is interrupted Fat Emulsion Intravenous 250 mls @ 20.833 mls/hr 08/07/19 17:00 Lipids 20% IVPB
--- NOTE | 2019-08-19 11:59 | WPDGIPROGNO ---
Progress Note: A&P Assessment and Plan (1) Pancolitis: Code(s): K51.00 - Ulcerative (chronic) pancolitis without complications Status: Acute Assessment and Plan: she completed treatment with abx, C diff stool was negative. timing of colonoscopy by Dr Son as outpatient whe she is stronger (2) Diarrhea: Qualifiers: Diarrhea type: unspecified type Qualified Code(s): R19.7 - Diarrhea, unspecified Code(s): R19.7 - Diarrhea, unspecified Status: Acute Assessment and Plan: better (3) Malnutrition: Qualifiers: Malnutrition type: unspecified type Qualified Code(s): E46 - Unspecified protein-calorie malnutrition Code(s): E46 - Unspecified protein-calorie malnutrition Status: Acute Assessment and Plan: encourage to keep eating (4) Weakness: Code(s): R53.1 - Weakness Status: Acute (5) DVT (deep venous thrombosis): Qualifiers: Affected thrombotic vein of extremity: unspecified vein of extremity Chronicity: acute DVT location: lower extremity Laterality: unspecified laterality Qualified Code(s): I82.409 - Acute embolism and thrombosis of unspecified deep veins of unspecified lower extremity Code(s): I82.409 - Acute embolism and thrombosis of unspecified deep veins of unspecified lower extremity Status: Acute Assessment and Plan: low dose eliquis, monitor hb or signs of bleeding (6) Anemia: Qualifiers: Anemia type: unspecified type Qualified Code(s): D64.9 - Anemia, unspecified Code(s): D64.9 - Anemia, unspecified Status: Acute Assessment and Plan: hb 7.5-8.5, now she is on low dose eliquis because dvt's- monitor, patient denies blood in stools. Subjective Date/time seen: 08/19/19 11:59 Interval history: better appetite, overall better. Less diarrhea but still accidents. Review of Systems Review of Systems: All systems reviewed & are unremarkable except as noted in HPI and below Exam Const: General: comfortable and no acute distress Other: chronically ill appearing but comfortable, thin HENMT: General nose exam: Normal nares present Eyes: General: appearance normal, both eyes and all related structures Neck: Neck: no JVD Resp: Auscultation: clear to auscultation bilaterally Cardio: Rate: regular rate Rhythm: regular rhythm GI: GI Palp: Yes Soft to palpation, No Tenderness to palpation present (GI) and No Guarding due to palpation present (GI) Auscultation: normal bowel sounds Skin: General skin exam: normal color Neuro: Speech: normal speech Extrem: General: normal to inspection Psych: Mental Status: mental status grossly normal Objective Data Vital Signs Vital Signs: Vital Signs - 24 hr 08/18/19 14:00 08/18/19 14:56 08/18/19 22:00 Temperature 100.5 F H 98.5 F 98.2 F Pulse Rate 89 82 Respiratory Rate 16 16 Blood Pressure 123/80 126/84 Pulse Oximetry 99 98 08/19/19 05:30 Temperature 98.3 F Pulse Rate 86 Respiratory Rate 16 Blood Pressure 123/81 Pulse Oximetry 97 Intake/Output Intake/Output: Intake & Output 08/16/19 08/17/19 08/18/19 08/19/19 23:59 23:59 23:59 23:59 Intake Total 982.2 1340 990 540 Output Total 250 250 900 Balance 732.2 1090 90 540 Meds/Results Medications: Active Medications Generic Name Dose Route Start Last Admin Trade Name Freq PRN Reason Stop Dose Admin Acetaminophen 650 mg 08/10/19 16:12 08/17/19 04:47 Tylenol Tablet PO 650 mg Q4H PRN Administration Pain or Fever Apixaban 2.5 mg 08/13/19 21:00 08/13/19 21:30 Eliquis PO 2.5 mg Q12HR ARISTEO Administration Apixaban 2.5 mg 08/14/19 21:00 08/19/19 08:23 Eliquis PO 2.5 mg Q12HR ARISTEO Administration Famotidine 20 mg 08/18/19 15:00 08/19/19 08:23 Pepcid PO 20 mg Q12HR ARISTEO Administration Dextrose 1,000 mls @ 50 mls/hr 08/07/19 15:42 Dextrose 10% IV CONT .Q20H PRN if PN
--- NOTE | 2019-08-19 13:35 | PM.IMPN ---
Progress Note: A&P Assessment and Plan (1) Pancolitis: Code(s): K51.00 - Ulcerative (chronic) pancolitis without complications Status: Acute Assessment and Plan: Patient has been having worsening diarrhea the previous 5-6 days prior to presentation. She had finished her outpatient antibiotics from her prior admission last month. Worsened pancolitis noted on CT during this stay; mod ascites also noted. Patient had 2 BMs today; pain is improving in lower abdomen. GI has been consulted from ED and greatly appreciate input. Patient continues IV zosyn and PO Vanc for possible C. Diff, as well, due to recent abx use. C diff test not performed due to collection technique; will treat empirically as she has been clinically slowly improving in this setting, although still appears very ill due to possibly other health issues. Stool sample has been re-sent for C. diff testing per GI. Patient having 3rd spacing likely due to hypoalbuminemia. Patient is malnurished. Possible occult malignancy although imaging thus far is unremarkable. Dr. Jones is following and appreciate recommendations Patient's UO improved with albumin and lasix. Will give another dose today. Await further recommendations from GI on pancolitis and ascites 08/15/19 12:52 08/19/19 13:35 Patient is a 59 year female with a pain colitis on broad-spectrum antibiotics her her symptoms have improved and able to tolerate diet without much complains abdominal pain and nausea vomiting, also found to DVT patient was started on Eliquis there was a concerned about bleeding, her hemoglobin was monitored and was stable it was decided to restart her Eliquis and placement of IVC filter was postponed, however her hemoglobin dropped today to 7 from 8.5 yesterday patient be seen by manager payer and security incident handler and further recommendation to follow, patient also has systolic dysfunction patient is being diuresed and albumin is added to help hypoalbuminemia which is improving and will hold her albumin supplement, patient main concern was her poor appetite, which is also improving she denies abdominal pain at present denies any fever or chills, today patient stats she feels better her appetite has improved, stool frequency has improved and there is no blood in the stool. discuss with patient and her son to increase her acitivities and appetite, will continue to work with PT/OT. if patient is clinically stable, plan was [facility] however patient had not been participating in PT/OT, patient as started to participate in the therapy, patient will benefit from physical therapy and going to acute rehab before going home as patient is quite weak and debilitated, Today patient doing well however still loos BM and accidents, will give immodium as needed, hopefully we can discharge her tomorrow to rehab. (2) DVT (deep venous thrombosis): Qualifiers: DVT location: lower extremity Affected thrombotic vein of extremity: unspecified vein of extremity Chronicity: acute Laterality: unspecified laterality Qualified Code(s): I82.409 - Acute embolism and thrombosis of unspecified deep veins of unspecified lower extremity Code(s): I82.409 - Acute embolism and thrombosis of unspecified deep veins of unspecified lower extremity Status: Acute Assessment and Plan: Found on venous doppler of lower extremities; right popliteal and posterior tibial veins. Discussed case with Dr. Jones as this is in setting of likely pancolitis supported by CT imaging. Patient originally refusing heparin drip, but was agreeable with Eliquis. Discussed with her in length about different options and risks/benefits of options. I recommended consulting Dr. Jones for further input which she was agreeable. Unfortunately, her Hgb has dropped earlier in stay and Eliquis has been subsequently held; she is currently refusing blood transfusions.
[2019-08-19 14:00] VITALS: BP 112/72; PULSE 87; RESP 14; TEMP 36.8; O2SAT 99
[2019-08-19] MEDS: LOPERAMIDE HCL 2 MG CAPSULE PO (15:57)
--- NOTE | 2019-08-19 16:48 | PCOTNOTE ---
The patient treatment was not able to be completed on [08/19/2019]. Will plan to continue treatment per plan of care.
[2019-08-19] MEDS: POTASSIUM CHLORIDE 20 MEQ PACKET (FOR LIQUID) PO (17:59)
[2019-08-19 21:50] VITALS: BP 128/77; PULSE 94; RESP 16; TEMP 36.7; O2SAT 100
[2019-08-20] MEDS: LOPERAMIDE HCL 2 MG CAPSULE PO (05:28)
[2019-08-20 05:56] VITALS: BP 135/81; PULSE 89; RESP 16; TEMP 36.4; O2SAT 97
[2019-08-20 06:03] LABS: Hematocrit 24.3 % (37.0-47.0); Hemoglobin 7.6 g/dL (12.0-15.0); Mean Corpuscular HGB Conc 31.3 g/dl (32-36); Mean Corpuscular Hemoglobin 31.9 pg (26-34); Mean Corpuscular Volume 102.1 fl (80-100); Platelet Count Result 223 k/mm3 (150-375); Red Blood Count 2.38 M/mm3 (4.2-5.4); Red Cell Distribution Width 17.3 % (11.5-14.5); White Blood Count 7.4 K/mm3 (4.5-10.0)
[2019-08-20 06:16] LABS: Alanine Aminotransferase 14 U/L (4-35); Albumin Level 2.9 g/dL (3.5-5.1); Alkaline Phosphatase 82 U/L (38-126); Aspartate Amino Transferase 26 U/L (14-36); Bilirubin,Total 0.3 mg/dL (0.2-1.3); Blood Urea Nitrogen 3 mg/dL (7-17); Calcium 8.7 mg/dL (8.4-10.2); Carbon Dioxide 20 mmol/L (22-30); Chloride 107 mmol/L (98-107); Estimated CRCL calculation 65 ml/min; Estimated Glomerular Filt Rate > 60; Glucose 81 mg/dL (65-105); Sodium 136 mmol/L (137-145)
[2019-08-20] MEDS: LEVOTHYROXINE SODIUM 50 MCG TABLET PO (06:27)
--- NOTE | 2019-08-20 07:07 | WPDGIPROGNO ---
Progress Note: A&P Additional Plan Patient alert and comfortable. Reports some loose stools remain. No bleeding. Patient has completed course of antibiotics. Physical exam reveals her to be alert. Comfortable at rest. Abdomen bowel sounds are present. Soft and nontender. Impression 1. Pancolitis. Improving. Still some loose stools however. She remains very weak. Would not tolerate colonoscopy at this time. Plan is for outpatient follow-up. I will see her in the office in several weeks. Outpatient colonoscopy we anticipated. Continue supportive care. 2. DVT. Patient now on Eliquis. Would continue to follow CBC intermittently as an outpatient. Subjective Date/time seen: 08/20/19 07:07 Objective Data Vital Signs Vital Signs: Vital Signs - 24 hr 08/19/19 14:00 08/19/19 21:50 08/20/19 05:56 Temperature 36.8 C 36.7 C 36.4 C Pulse Rate 87 94 89 Respiratory Rate 14 16 16 Blood Pressure 112/72 128/77 135/81 Pulse Oximetry 99 100 97 Intake/Output Intake/Output: Intake & Output 08/17/19 08/18/19 08/19/19 08/20/19 23:59 23:59 23:59 23:59 Intake Total 2708 857 8237 250 Output Total 250 900 550 Balance 1090 90 1380 -300 Meds/Results Medications: Active Medications Generic Name Dose Route Start Last Admin Trade Name Freq PRN Reason Stop Dose Admin Acetaminophen 650 mg 08/10/19 16:12 08/17/19 04:47 Tylenol Tablet PO 650 mg Q4H PRN Administration Pain or Fever Apixaban 2.5 mg 08/13/19 21:00 08/13/19 21:30 Eliquis PO 2.5 mg Q12HR ARISTEO Administration Apixaban 2.5 mg 08/14/19 21:00 08/19/19 21:08 Eliquis PO 2.5 mg Q12HR ARISTEO Administration Famotidine 20 mg 08/18/19 15:00 08/19/19 21:08 Pepcid PO 20 mg Q12HR ARISTEO Administration Dextrose 1,000 mls @ 50 mls/hr 08/07/19 15:42 Dextrose 10% IV CONT .Q20H PRN if PN is interrupted Fat Emulsion Intravenous 250 mls @ 20.833 mls/hr 08/07/19 17:00 Lipids 20% IVPB Q24H ARISTEO Levothyroxine Sodium 50 mcg 08/11/19 09:40 08/20/19 06:27 Synthroid PO 50 mcg DAILY@0630 ARISTEO Administration Lisinopril 5 mg 08/14/19 09:00 08/19/19 08:23 Prinivil PO 5 mg QAM ARISTEO Administration Loperamide HCl 2 mg 08/19/19 14:30 08/20/19 05:28 Loperamide Hcl PO 2 mg PRN PRN Administration Diarrhea Multivitamins Therapeutic 1 tablet 08/16/19 09:00 08/19/19 08:23 Multivitamins Therapeutic(*Bkc PO 1 tablet QAM ARISTEO Administration Potassium Chloride 20 meq 08/13/19 17:00 08/19/19 17:59 Kcl Powder (For Liquid) PO 20 meq 1700 ARISTEO Administration Potassium Chloride 40 meq 08/14/19 09:00 08/19/19 08:24 Kcl Powder (For Liquid) PO 40 meq DAILY ARISTEO Administration Radiology Results: ITS Impressions Abdomen/Pelvis CT 08/06/19 20:38 IMPRESSION: 1. Pancolitis with interval worsening. 2. Increase in ascites, now moderate in volume. 3. New small pleural effusions, right greater than left. Knee X-Ray 08/07/19 14:52 IMPRESSION: 1. Small left knee joint effusion. Tibia/Fibula X-Ray 08/07/19 14:52 IMPRESSION: 1. No fracture. Venous Doppler Study 08/07/19 14:53 IMPRESSION: 1. Deep vein thrombosis involving right popliteal and posterior tibial veins. I discussed this result with Teofilo Kimbrough on 08/07/19 at 14:55. Femur X-Ray 08/07/19 15:02 IMPRESSION: 1. No fracture or malalignment. Chest CT 08/08/19 20:59 IMPRESSION: 1. Small pleural effusions resulting in mild passive dependent atelectasis. 2. Minimal airspace opacity of the right middle lobe, consistent with pneumonia. 3. Moderate to large volume of ascites in the visualized upper abdomen as well as persistent colitis involving the partially visualized colon. 4. Mild emphysema. Chest X-Ray 08/11/19 07:56 IMPRESSION: 1. Airspace opacity in the right lower lung zone which could represent atelectasis and/or pneumonia. Labs Labs: Laboratory Resul
[2019-08-20] MEDS: lisinopriL 5 MG TABLET PO (08:18)
[2019-08-20] MEDS: FAMOTIDINE 20 MG TABLET PO (08:18)
[2019-08-20] MEDS: APIXABAN 2.5 MG TABLET PO (08:19)
[2019-08-20] MEDS: MULTIVITAMINS THERAPEUTIC TAB (*BKC) 1 TABLET PO (08:19)
[2019-08-20] MEDS: POTASSIUM CHLORIDE 20 MEQ PACKET (FOR LIQUID) 40 MEQ PO (08:19)
--- NOTE | 2019-08-20 15:07 | PM.DS ---
DS: Diagnosis Admitting Diagnosis Admitting Diagnosis: Ulcerative (chronic) pancolitis without complications Discharge Diagnosis (1) Pancolitis: Code(s): K51.00 - Ulcerative (chronic) pancolitis without complications Status: Acute Assessment and Plan: Patient has been having worsening diarrhea the previous 5-6 days prior to presentation. She had finished her outpatient antibiotics from her prior admission last month. Worsened pancolitis noted on CT during this stay; mod ascites also noted. Patient had 2 BMs today; pain is improving in lower abdomen. GI has been consulted from ED and greatly appreciate input. Patient continues IV zosyn and PO Vanc for possible C. Diff, as well, due to recent abx use. C diff test not performed due to collection technique; will treat empirically as she has been clinically slowly improving in this setting, although still appears very ill due to possibly other health issues. Stool sample has been re-sent for C. diff testing per GI. Patient having 3rd spacing likely due to hypoalbuminemia. Patient is malnurished. Possible occult malignancy although imaging thus far is unremarkable. Dr. Jones is following and appreciate recommendations Patient's UO improved with albumin and lasix. Will give another dose today. Await further recommendations from GI on pancolitis and ascites 08/15/19 12:52 08/19/19 13:35 Patient is a 59 year female with a pain colitis on broad-spectrum antibiotics her her symptoms have improved and able to tolerate diet without much complains abdominal pain and nausea vomiting, also found to DVT patient was started on Eliquis there was a concerned about bleeding, her hemoglobin was monitored and was stable it was decided to restart her Eliquis and placement of IVC filter was postponed, however her hemoglobin dropped today to 7 from 8.5 yesterday patient be seen by lapping machine operator and wall taper helper and further recommendation to follow, patient also has systolic dysfunction patient is being diuresed and albumin is added to help hypoalbuminemia which is improving and will hold her albumin supplement, patient main concern was her poor appetite, which is also improving she denies abdominal pain at present denies any fever or chills, today patient stats she feels better her appetite has improved, stool frequency has improved and there is no blood in the stool. discuss with patient and her son to increase her acitivities and appetite, will continue to work with PT/OT. if patient is clinically stable, plan was to discharge the patient to halfway on 08/16 however patient had not been participating in PT/OT, patient as started to participate in the therapy, patient will benefit from physical therapy and going to acute rehab before going home as patient is quite weak and debilitated, Today patient doing well however still loos BM and accidents, will give immodium as needed, hopefully we can discharge her tomorrow to rehab. (2) DVT (deep venous thrombosis): Qualifiers: DVT location: lower extremity Affected thrombotic vein of extremity: unspecified vein of extremity Chronicity: acute Laterality: unspecified laterality Qualified Code(s): I82.409 - Acute embolism and thrombosis of unspecified deep veins of unspecified lower extremity Code(s): I82.409 - Acute embolism and thrombosis of unspecified deep veins of unspecified lower extremity Status: Acute Assessment and Plan: Found on venous doppler of lower extremities; right popliteal and posterior tibial veins. Discussed case with Dr. Jones as this is in setting of likely pancolitis supported by CT imaging. Patient originally refusing heparin drip, but was agreeable with Eligarcia. Discussed with her in length about different options and risks/benefits of options. I recommended consulting Dr. Jones for further input which she was agreeable. Unfortunately, her Hgb has dropped earlier in s
[2019-08-20] MEDS: NEOMYCIN/POLYMYXIN/BACITRACIN OINTMENT PACKET 1 PACKET (16:36)
--- NOTE | 2019-08-20 16:37 | PM.PNCARD ---
Progress Note: A&P Assessment and Plan (1) HFrEF (heart failure with reduced ejection fraction): Code(s): I50.20 - Unspecified systolic (congestive) heart failure Status: Acute Assessment and Plan: With obvious LV dysfunction Started on Lisinopril BP somewhat low. WIll hold off BB at this point She appears well compensated from CHF standpoint. No evidence of volume overload, she is probably dry. . Would hold off diuresing given ongoing diarrhea. whenever she is otherwise okay she would need to have at least stress test to look for cause of her LV dysfunction or consider cardiac catheterization (2) Diarrhea: Qualifiers: Diarrhea type: unspecified type Qualified Code(s): R19.7 - Diarrhea, unspecified Code(s): R19.7 - Diarrhea, unspecified Status: Acute (3) DVT (deep venous thrombosis): Qualifiers: DVT location: lower extremity Affected thrombotic vein of extremity: unspecified vein of extremity Chronicity: acute Laterality: unspecified laterality Qualified Code(s): I82.409 - Acute embolism and thrombosis of unspecified deep veins of unspecified lower extremity Code(s): I82.409 - Acute embolism and thrombosis of unspecified deep veins of unspecified lower extremity Status: Acute Assessment and Plan: She has right-sided popliteal DVT, with mobile thrombus, and other hand she has contraindication for anticoagulation with active drop of her hemoglobin, indicating internal bleed or GI bleed, agree with attempting to start back on Eliquis at low dose 2.5 BID and watch her hemoglobin before considering IVC filter. She seems to be progressively getting better slowly (4) Anemia: Qualifiers: Anemia type: unspecified type Qualified Code(s): D64.9 - Anemia, unspecified Code(s): D64.9 - Anemia, unspecified Status: Acute Assessment and Plan: Monitor while on Eliquis Additional Plan She is okay to be discharged home, and needs to have a follow-up with me in 1 week Subjective Date/time seen: 08/20/19 16:37 She feels well today, no chest pain no shortness of breath, she was able to ambulate with no limitation. Exam Narrative: Exam Narrative: Awake alert oriented x3. Appears cachectic. in not in acute distress Neck is supple no obvious JVD, no carotid bruit Chest: Good air entry bilaterally, lungs are clear to auscultation and percussion bilaterally Cardiovascular: Regular rate and rhythm, 2/6 systolic murmur noted left sternal border Abdomen: Soft nontender bowel sounds positive Extremities: No edema has good pulses distally bilaterally Objective Data Vital Signs Vital Signs: Vital Signs - 24 hr 08/19/19 21:50 08/20/19 05:56 Temperature 36.7 C 36.4 C Pulse Rate 94 89 Respiratory Rate 16 16 Blood Pressure 128/77 135/81 Pulse Oximetry 100 97 Intake/Output Intake/Output: Intake & Output 08/17/19 08/18/19 08/19/19 08/20/19 23:59 23:59 23:59 23:59 Intake Total 5536 465 3119 850 Output Total 250 900 550 Balance 1090 90 1380 300 Meds/Results Medications: Active Medications Generic Name Dose Route Start Last Admin Trade Name Freq PRN Reason Stop Dose Admin Acetaminophen 650 mg 08/10/19 16:12 08/17/19 04:47 Tylenol Tablet PO 650 mg Q4H PRN Administration Pain or Fever Apixaban 2.5 mg 08/13/19 21:00 08/13/19 21:30 Eliquis PO 2.5 mg Q12HR ARISTEO Administration Apixaban 2.5 mg 08/14/19 21:00 08/20/19 08:19 Eliquis PO 2.5 mg Q12HR ARISTEO Administration Famotidine 20 mg 08/18/19 15:00 08/20/19 08:18 Pepcid PO 20 mg Q12HR ARISTEO Administration Dextrose 1,000 mls @ 50 mls/hr 08/07/19 15:42 Dextrose 10% IV CONT .Q20H PRN if PN is interrupted Fat Emulsion Intravenous 250 mls @ 20.833 mls/hr 08/07/19 17:00 Lipids 20% IVPB Q24H [facility] Levothyroxine Sodium 50 mcg 08/11/19 09:40 08/20/19 06:27 Synthroid PO 50 mcg DAILY@0630 [facility] Adm
== END 2019-08-20 17:15 | disposition home health service (06) | DRG 386 ==
LOC: ANHED 21:28 → ANH2MED 21:32
PROVIDERS: Emergency Medicine; Family Medicine; Internal Medicine Gastroenterology; Physician Assistant; Admitting Provider Internal Medicine; Emergency Provider Emergency Medicine; PCP Family Medicine; Visit Provider Family Medicine
DX: K51.00 Ulcerative (chronic) pancolitis without complications (principal); E46 Unspecified protein-calorie malnutrition; I82.431 Acute embolism and thrombosis of right popliteal vein; I82.441 Acute embolism and thrombosis of right tibial vein; A09 Infectious gastroenteritis and colitis, unspecified; I50.32 Chronic diastolic (congestive) heart failure; I11.0 Hypertensive heart disease with heart failure; E86.0 Dehydration; E87.6 Hypokalemia; I10 Essential (primary) hypertension; D63.8 Anemia in other chronic diseases classified elsewhere; E55.9 Vitamin D deficiency, unspecified; E88.09 Other disorders of plasma-protein metabolism, not elsewhere classified; R33.9 Retention of urine, unspecified; D72.829 Elevated white blood cell count, unspecified; F17.210 Nicotine dependence, cigarettes, uncomplicated; Z86.718 Personal history of other venous thrombosis and embolism; Z68.20 Body mass index [BMI] 20.0-20.9, adult; Z91.81 History of falling; Z87.891 Personal history of nicotine dependence
CPT/HCPCS: 36415; 36569; 71045; 71260; 73552; 73562; 73590; 74177; 80048; 80053; 81001; 82274; 83605; 83690; 83735; 84100; 84132; 85014; 85018; 85025; 85027; 85610; 85730; 87045; 87046; 87177; 87209; 87324; 87427; 93306; 93970; 94640; 96361; 96365; 96367; 96368; 97110; 97116; 97161; 97166; 97530; 97535; 99285; A9270; C1751; J1940; J2543; J3475; J3480; J7030; J7120; P9047; Q9967

== ENCOUNTER 2019-08-23 16:49 | Inpatient (IN) | payer OTHER, SELFPAY ==
[2019-08-23] VITALS (8 sets, daily range): BP systolic 101–132; BP diastolic 66–98; PULSE 76–113; RESP 16–18; TEMP 36.7–38.3; O2SAT 97–100; BMI 20.5
--- NOTE | ~2019-08-23 | CT_ITS ---
EXAMINATION: CT abdomen pelvis w con DATE: 08/23/2019 19:53 INDICATION: Colitis presenting with abdominal pain TECHNIQUE: Computed tomography (CT) of the abdomen and pelvis was performed with 100 mL Omnipaque-350 intravenous contrast. Automated exposure control and iterative reconstruction technique were employe d. The dose-length product was 293.71 mGy-cm. COMPARISON: 08/06/2019 FINDINGS: Small bilateral pleural effusion with dependent compressive atelectasis in the bilateral lower lobes. Heart size is normal. Atherosclerotic coronary artery calcifications. No pericardial effusion. Small region of transient hepatic attenuation difference on both sides of the ligamentum teres. Liver is o therwise normal. Gallbladder is distended to 4 cm but without evident wall thickening or pericholecys tic inflammatory stranding to suggest acute cholecystitis. Spleen, pancreas, bilateral adrenal glands and kidneys are normal. Increase in the degree of marked edematous wall thickening with mucosal hype remia throughout the colon consistent with pancolitis. No pneumatosis or portal venous gas. Small bow el and appendix are normal. Moderate amount of ascites throughout the abdomen and pelvis. No abscess or free intraperitoneal gas. Small amount of gas within the otherwise normal-appearing bladder. Uteru s and bilateral ovaries are normal. Extensive body wall edema throughout the abdomen, pelvis and exte nding to the proximal thighs. No pathologically enlarged abdominal or pelvic lymphadenopathy. There i s calcified atherosclerosis of the aorta and many of the other arteries. Lumbar dextroscoliosis with severe spondylosis. IMPRESSION: 1. Progression of edematous wall thickening associated with pancolitis which could be infectious, inf lammatory or unlikely ischemic in etiology. 2. Anasarca with moderate amount of ascites, small bilateral pleural effusions and extensive body wal l edema. 3. Small amount of gas within the normal-appearing bladder. Correlate for recent instrumentation or F oley catheterization. Reviewed, dictated and finalized at location A. ON OPERATOR IMPRESSION: 1. Progression of edematous wall thickening associated with pancolitis which co uld be infectious, inflammatory or unlikely ischemic in etiology. 2. Anasarca with moderate amount of ascites, small bilateral pleural effusions and extensive body wall edema. 3. Small amount of gas within the normal-appearing bladder. Correlate for recen t instrumentation or [place] catheterization.
--- NOTE | 2019-08-23 17:04 | ECG_ITS ---
Measurements Intervals Tie Siding Rate: 109 P: 56 DC: 128 QRS: 69 QRSD: 82 T: 220 QT: 364 QTc: 491 Interpretive Statements SINUS TACHYCARDIA ST-T WAVE ABNORMALITY IN ANTEROLATERAL LEADS- CONSIDER ISCHEMIA BASELINE ARTIFACT- I, II, III, AVR, AVL, AVF, V1-V2 ABNORMAL ECG Electronically Signed On 08-23-2019 20:03:27 SAP PROJECT MANAGER by Nikolas Bullard D.O.
--- NOTE | 2019-08-23 17:42 | ED.NAVMDI ---
HPI - Nausea/Vomiting/Diarrhea General Chief complaint: Nausea/Vomiting/Diarrhea Stated complaint: Weakness,diarrhea Time Seen by Provider: 08/23/19 17:15 Source: patient, family and RN notes reviewed Mode of arrival: wheelchair Limitations: no limitations History of Present Illness HPI Narrative: A 59 y/o female presents to the ED with severe diarrhea since Tuesday. She states that she was recently admitted for diarrhea, decreased intake, cramping ABD pain, and generalized weakness and was d/c 3 days ago. She reports that her symptoms immediately returned and have continued to worsen. She notes that she has had 6-8 extremely bad smelling episode of diarrhea today and that she has been so weak that she has been unable to get up on her own. She also notes that she has been taking Immodium but denies it alleviating her symptoms. She also denies any blood in her diarrhea, fevers, chills, N/V, SOB, and any other medical complaints at this time. MD elicited complaint: diarrhea Onset (ago): day(s) (3) Associated nausea: No Associated abdominal pain: Yes Location of pain: other (lower) Quality: cramping Relieving factors: none Associated symptoms: loss of appetite and weakness (generalized) Treatment prior to arrival: immodium Related Data Allergies Allergy/AdvReac Type Severity Reaction Status Date / Time No Known Allergies Allergy Unknown Verified 08/23/19 17:41 Review of Systems Review of Systems: All systems reviewed & are unremarkable except as noted in HPI and below Constitutional: Constitutional: Denies chills, Denies fatigue, Denies fever(s), Denies headache(s), Denies night sweats, Reports poor appetite and Reports weakness (generalized) Eyes: Eyes: Denies change in vision, Denies loss of vision and Denies other visual disturbances ENT: Denies headache(s), Denies hoarseness, Denies epistaxis, Denies nasal congestion and Denies sore throat Cardiovascular: Cardiovascular: Denies chest pain, Denies leg edema, Denies palpitations and Denies dyspnea Respiratory: Respiratory: Denies cough, Denies dyspnea and Denies wheezing Gastrointestinal: Gastrointestinal: Reports GI cramping (lower), Reports diarrhea, Denies nausea and Denies vomiting Genitourinary: Genitourinary: Denies hematuria, Denies urinary frequency and Denies dysuria Musculoskeletal: Musculoskeletal: Denies abnormal gait, Denies deformity, Denies joint swelling, Denies muscle weakness and Denies numbness Integumentary/Breasts: Skin/Breast: Denies rash, Denies unusual bruising and Denies wounds Neurologic: Denies abnormal gait, Denies headache(s), Denies focal weakness, Denies loss of vision and Denies numbness Psychiatric: Psychiatric: Reports no additional psychiatric complaints Endocrine: Endocrine: Denies fatigue and Denies palpitations Hematologic/Lymphatic: Hematologic/Lymphatic: Denies easy bleeding and Denies easy bruising Allergic/Immunologic: Allergic/Immunologic: Denies wheezing PMFSH Past Medical History Medical History Anemia Cervical dysplasia Diarrhea DVT (deep venous thrombosis) HTN (hypertension) Malnutrition Pancolitis Vitamin D deficiency Surgical History Surgical History H/O LEEP Family History Family History Father COPD (chronic obstructive pulmonary disease) Emphysema lung Mother Rheumatoid arthritis Social History Social History Social History: Patient currently lives at home alone. She lists her son, Emir, as her surrogate MDM. She wishes to be listed as DNR. Her PCP is Dr. Peoples Years smoked: 40 Smoking status: Former smoker Tobacco type: cigarettes Second hand tobacco smoke exposure: No Smoking end date: 01/25/19 Alcohol intake: former Substance use: never Substance use type: does not use Gender identity (if verbalized by
[2019-08-23 18:09] LABS: Hematocrit 26.4 % (37.0-47.0); Hemoglobin 8.5 g/dL (12.0-15.0); Mean Corpuscular HGB Conc 32.2 g/dl (32-36); Mean Corpuscular Hemoglobin 32.8 pg (26-34); Mean Corpuscular Volume 101.9 fl (80-100); Mean Platelet Volume 10.6 fl (7.4-10.4); Platelet Count Result 224 k/mm3 (150-375); Red Blood Count 2.59 M/mm3 (4.2-5.4); Red Cell Distribution Width 17.2 % (11.5-14.5); White Blood Count 19.7 K/mm3 (4.5-10.0)
[2019-08-23 18:21] LABS: Alanine Aminotransferase 15 U/L (4-35); Albumin Level 3.2 g/dL (3.5-5.1); Alkaline Phosphatase 96 U/L (38-126); Aspartate Amino Transferase 27 U/L (14-36); Bilirubin,Total 0.6 mg/dL (0.2-1.3); Blood Urea Nitrogen 5 mg/dL (7-17); Calcium 8.8 mg/dL (8.4-10.2); Carbon Dioxide 23 mmol/L (22-30); Chloride 102 mmol/L (98-107); Estimated Glomerular Filt Rate > 60; Glucose 106 mg/dL (65-105); Lipase 44 U/L (23-300); Magnesium 1.5 mg/dL (1.6-2.3); Potassium 3.2 mmol/L (3.4-5.0); Sodium 135 mmol/L (137-145)
[2019-08-23] MEDS: LACTATED RINGERS 1,000 ML 999 ML IV CONT ×2 (18:28→20:30)
[2019-08-23 18:32] LABS: Band Neutrophils Percent 6 % (0-6); Lymphocytes Absolute Manual 0.78 K/mm3 (1.1-4.5); Monocytes Absolute Manual 0.59 K/mm3 (0.1-0.90); Monocytes Percent Manual 3 % (3-9); Neutrophils Absolute Manual 18.32 K/mm3 (1.7-7.2); Neutrophils Percent Manual 87 % (46-73); Nucleated Red Blood Cells 1 %; Total Cells Counted 100
[2019-08-23 18:33] LABS: Anisocytosis 2+ (NORMAL); Hypochromasia 1+ (NORMAL); Platelet Estimate Adequate (Adequate)
[2019-08-23] MEDS: ACETAMINOPHEN 500 MG TABLET 1000 MG PO (18:45)
[2019-08-23 20:25] LABS: Lactic Acid Reflex 1.1 mmol/L (0.7-2.1)
[2019-08-23] MEDS: POTASSIUM CHLORIDE 20 MEQ PACKET (FOR LIQUID) 40 MEQ (20:30)
[2019-08-23] MEDS: MAGNESIUM SULF 2 GM/WATER 50ML 2 GM/50 ML BAG IVPB (20:30)
--- NOTE | 2019-08-23 20:48 | PC.NURSE ---
avinash from dr curtis for 40 meq potasium powder instead of k ridella
[2019-08-23 21:02] LABS: Add Urine Microscopic? YES; Appearance Urine Cloudy (Clear); Bilirubin Urine Negative (Negative); Blood Urine Negative (Negative); Color Urine Yellow (Yellow); Glucose Urine UA Negative (Negative); Ketones Urine Negative (Negative); Leukocyte Esterase Ur 3+ LEU/UL (Negative); Mucus Urine Rare /lpf; Nitrate Urine Negative (Negative); Protein Urine 1+ mg/dL (Negative); Squamous Epithelial Cell Urine Many /hpf (Few); Urobilinogen Urine Negative mg/dL (<2.0); WBC Urine >75 /hpf
[2019-08-23 21:29] LABS: Specific Grav Ur 1.056 (1.001-1.035)
--- NOTE | 2019-08-23 21:42 | PM.IMHP ---
H&P: HPI History of Present Illness Chief complaint: colitis Narrative: This is a 59 year old female known to be anticoagulated chronically on Eliquis secondary to LLE DVT who is well known to our Hospitalist service for multiple recent admissions secondary to pancolitis who has had ongoing wattery diarrhea and diffuse abdominal pain since June of this year. The patient was discharged home 3 days ago and did complete her course of antibiotic therapy for her colitis. Tonight she came back to the hospital because her diarrhea has worsened since she left the hospital three days ago. She complains of worsening fatigue and diarrhea. She denies any black or bloody stools. She also denies any recent fevers. She has continued to have diffuse abdominal pain and abdominal bloating. The patient is currently being followed by animal husbandman, Dr. Son for her diarrhea. She tested negative for c. Diff colitis during her last hospitalization. On further questioning, she denies any chest pain, shortness of breath, coughing, nausea, vomiting, dysuria, hematuria or other symptoms. [facility] CT [facility] demonstrated progression of edematous wall thickening associated with pancolitis. Anasarca with moderate amount of ascites, small bilateral pleural effusions and extensive body wall edema. Review of Systems Review of Systems: All systems reviewed & are unremarkable except as noted in HPI and below PMFSH Past Medical History Medical History Anemia Cervical dysplasia Diarrhea DVT (deep venous thrombosis) HTN (hypertension) Malnutrition Pancolitis Vitamin D deficiency Surgical History Surgical History H/O LEEP Family History Family History Father COPD (chronic obstructive pulmonary disease) Emphysema lung Mother Rheumatoid arthritis Social History Social History Social History: Patient currently lives at home alone. She lists her son, Emir, as her surrogate MDM. She wishes to be listed as DNR. Her PCP is Dr. Peoples Years smoked: 40 Smoking status: Former smoker Tobacco type: cigarettes Second hand tobacco smoke exposure: No Smoking end date: 01/25/19 Alcohol intake: former Drinks per week: 2 Substance use: never Substance use type: does not use Gender identity (if verbalized by the patient): Female Spiritual care concerns: No Agree to blood products: Yes Meds Home Medications and Allergies Home Medications Medication Instructions Recorded Confirmed Type apixaban [Eliquis] 2.5 mg PO Q12HR #60 tablet 08/17/19 08/23/19 Rx levothyroxine [Synthroid] 50 mcg PO DAILY@0630 #30 tablet 08/17/19 08/23/19 Rx lisinopril 5 mg PO QAM #30 tablet 08/17/19 08/23/19 Rx potassium chloride 20 meq PO 1700 #30 ea 08/17/19 08/23/19 Rx multivitamin with folic acid 1 tablet PO QPM 08/23/19 08/23/19 History [Thera] Allergies Allergy/AdvReac Type Severity Reaction Status Date / Time No Known Allergies Allergy Unknown Verified 08/23/19 17:41 Vital Signs Vital Signs - 24 hr 08/23/19 16:58 08/23/19 17:40 08/23/19 19:22 Temperature 38.3 C H Pulse Rate 113 H 102 H 76 Respiratory Rate 18 16 18 Blood Pressure 124/71 132/98 H 112/74 Pulse Oximetry 100 98 97 08/23/19 20:47 08/23/19 21:02 Temperature Pulse Rate 90 102 H Respiratory Rate 16 16 Blood Pressure 128/72 101/67 Pulse Oximetry 97 100 Exam Const: General: cooperative, alert, awake, ill appearing and tired appearing Nutritional Appearance: thin and underweight Orientation/consciousness: patient oriented x3 HENMT: Head: normal to inspection General nose exam: Normal external nose present Face and sinus: normal facial exam Mouth: Yes Normal oral and palatal mucosa present and
--- NOTE | 2019-08-23 22:04 | ADMGEN ---
This patient, Nicole Crespo, was admitted to [facility] Surg Room 331-01. Patient/family oriented to hospital policies and general routines including ID bracelet, bed and alarms, visiting hours, pain management, procedures, bathroom and other care routines, personal items, smoking policy, room service/diet, and visiting hours. Valuables list has been completed. Information on how to activate the Rapid Response Team has been discussed. Patient/Family are encouraged to report perceived risks to care and to ask questions if they do not understand what they are told or what they should do.
[2019-08-23] MEDS: FAMOTIDINE 20 MG/2 ML VIAL IV PUSH (22:21)
[2019-08-23] MEDS: DEXTROSE 5%/LACTATED RINGERS 1,000 ML 125 ML IV CONT (22:24)
[2019-08-24] VITALS: BP 121/75; PULSE 100
[2019-08-24 06:00] VITALS: BP 115/61; PULSE 99; RESP 16; TEMP 36.7; O2SAT 95
[2019-08-24] MEDS: DEXTROSE 5%/LACTATED RINGERS 1,000 ML 125 ML IV CONT ×2 (06:21→14:46)
[2019-08-24] MEDS: LEVOTHYROXINE SODIUM INJ 100 MCG/5 ML VIAL 25 MCG IV PUSH (06:22)
[2019-08-24 08:07] LABS: Basophils Absolute Auto 0.1 K/mm3 (0.0-0.1); Basophils Percent Auto 0.6 % (0.2-1.2); Eosinophils Absolute Auto 0.1 K/mm3 (0-0.3); Eosinophils Percent Auto 0.5 % (0-4.4); Hematocrit 26.7 % (37.0-47.0); Hemoglobin 8.4 g/dL (12.0-15.0); Immature Granulocyte Absolute 0.43 K/mm3 (0.00-0.031); Immature Granulocyte Percent A 2.2 % (0-0.5); Lymphocytes Absolute Auto 1.08 K/mm3 (0.9-3.2); Lymphocytes Percent Auto 5.5 % (18.3-44.2); Mean Corpuscular HGB Conc 31.5 g/dl (32-36); Mean Corpuscular Hemoglobin 32.3 pg (26-34); Mean Corpuscular Volume 102.7 fl (80-100); Monocytes Absolute Auto 1.5 K/mm3 (0.1-0.6); Monocytes Percent Auto 7.8 % (2.6-8.5); Neutrophils Absolute Auto 16.5 K/mm3 (1.3-6.7); Neutrophils Percent Auto 83.4 % (45.5-73.1); Platelet Count Result 199 k/mm3 (150-375); Red Cell Distribution Width 17.3 % (11.5-14.5); White Blood Count 19.8 K/mm3 (4.5-10.0)
[2019-08-24 08:19] LABS: Blood Urea Nitrogen 5 mg/dL (7-17); Calcium 8.2 mg/dL (8.4-10.2); Carbon Dioxide 18 mmol/L (22-30); Chloride 103 mmol/L (98-107); Estimated CRCL calculation 93 ml/min; Estimated Glomerular Filt Rate > 60; Glucose 100 mg/dL (65-105); Magnesium 1.8 mg/dL (1.6-2.3); Potassium 3.3 mmol/L (3.4-5.0); Sodium 135 mmol/L (137-145)
[2019-08-24] MEDS: APIXABAN 2.5 MG TABLET PO ×2 (09:00→20:49)
[2019-08-24] MEDS: POTASSIUM CHLORIDE 20 MEQ TABLET.ER PO (09:29)
[2019-08-24] MEDS: FAMOTIDINE 20 MG/2 ML VIAL IV PUSH ×2 (09:29→20:49)
--- NOTE | 2019-08-24 12:55 | WPDGICN ---
Assessment and Plan Additional Plan This is a 59-year-old white female patient I am asked to see because of pancolitis. Patient has been hospitalized on 2 recent occasions with pancolitis. She has had significant diarrhea and dehydration. Most recently discharged from the hospital 3 days ago. She states 1-1/2 days ago began to have diarrhea again. This prompted her to return to the emergency room. She was admitted for concerns of dehydration and electrolyte imbalance. Patient denies any bleeding. She has only minimal abdominal pain. She does have a poor appetite that has not changed since her recent hospital stay. She denies a fever. During her last hospital stay she was identified to have a left lower extremity DVT. She now is on Eliquis anticoagulation. She was felt to have congestive heart failure with subsequent anasarca. Past medical history in addition to DVT, pancolitis, includes chronic anemia. She has been treated for cervical dysplasia. Family history is significant mother had rheumatoid arthritis, father had COPD. Physical exam reveals patient to be alert. She is anicteric. She is thin in appearance. Lungs are clear to auscultation and percussion. Heart is without murmur or extra sounds. Abdominal exam bowel sounds are present soft nontender with no organomegaly. Extremities are without clubbing cyanosis , she does have 2 to3+ edema in the lower extremities. Laboratory studies revealed WBC 19.7, hemoglobin 8.5, hematocrit 26, LFTs are within normal limits. Urinalysis with elevated wbc's. And is cloudy. CT scan of the abdomen consistent with pancolitis. Impression 1. Pancolitis. Infectious etiology is felt most likely. The pancolitis has been persistent. An inflammatory bowel disease cannot be excluded. We will plan a colonoscopy next week if she is strong enough to complete this test. Broad-spectrum antibiotics will be considered. Repeat stool cultures are in progress. 2. Diarrhea. Contributes to her dehydration. Cultures are pending. 3. Dehydration. Electrolyte imbalances noted. Rehydration in progress at this time. 3. DVT in the left lower extremity. Patient currently on Eliquis. Patient appears asymptomatic at this time. 5. Congestive heart failure. cardiology followed her during recent hospital stay. We will continue diuresis and supportive care. Plan is for stool cultures as described., rehydration. Anticipate colonoscopy next week if at all possible. GI Consult Note Consult date/time: 08/24/19 12:55 HPI: Nicole Crespo is a 59 year old female FOR[facility]LY [facility], [facility] Past Medical History Medical History Anemia Cervical dysplasia Diarrhea DVT (deep venous thrombosis) HTN (hypertension) Malnutrition Pancolitis Vitamin D deficiency Surgical History Surgical History H/O LEEP Family History Family History Father COPD (chronic obstructive pulmonary disease) Emphysema lung Mother Rheumatoid arthritis Social History Social History Social History: Patient currently lives at home alone. She lists her son, Emir, as her surrogate MDM. She wishes to be listed as DNR. Her PCP is Dr. Peoples Years smoked: 40 Smoking status: Former smoker Tobacco type: cigarettes Second hand tobacco smoke exposure: No Smoking end date: 01/25/19 Alcohol intake: former Drinks per week: 2 Substance use: never Substance use type: does not use Gender identity (if verbalized by the patient): Female Spiritual care concerns: No Agree to blood products: Yes Meds Home Medications and Allergies Home Medications Medication Instructions Recorded Confirmed Type apixaban [Eliquis] 2.5 mg PO Q12HR #60 tablet 08/17/19 08/23/19 Rx levothyroxine [Synthroid] 50 mcg PO DAILY@0630 #30
[2019-08-24 14:00] VITALS: BP 136/86; PULSE 109; RESP 18; TEMP 37.4; O2SAT 98
--- NOTE | 2019-08-24 14:09 | PM.IMPN ---
Progress Note: A&P Assessment and Plan (1) Pancolitis: Code(s): K51.00 - Ulcerative (chronic) pancolitis without complications Status: Acute Assessment and Plan: Admit to med-surg, consider that the patient's pancolitis may be secondary to inflammatory bowel disease, multiple episodes of colitis in past few months, continue IV flagyl , advance diet as tolerated add ensures for malnutrition (2) Diarrhea: Qualifiers: Diarrhea type: unspecified type Qualified Code(s): R19.7 - Diarrhea, unspecified Code(s): R19.7 - Diarrhea, unspecified Status: Chronic Assessment and Plan: Continue supportive care, encourage fluids orally (3) Acute hypokalemia: Code(s): E87.6 - Hypokalemia Status: Acute Assessment and Plan: Continue potassium replacement. Monitor serum potassium. (4) Hypomagnesemia: Code(s): E83.42 - Hypomagnesemia Status: Acute Assessment and Plan: Continue magnesium replacement. Monitor serum magnesium. 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 Continue Eliquis therapy. (7) Weakness: Code(s): R53.1 - Weakness Status: Chronic Assessment and Plan: Secondary to ongoing colitis and chronic illness. Encourage nutrition, PT/OT evaluation when appropriate. (8) Dehydration: Code(s): E86.0 - Dehydration Status: Acute Assessment and Plan: Continue ensure fluids orally Monitor urine output and vital signs closely. (9) Leukocytosis: Qualifiers: Leukocytosis type: unspecified Qualified Code(s): D72.829 - Elevated white blood cell count, unspecified Code(s): D72.829 - Elevated white blood cell count, unspecified Status: Acute Assessment and Plan: Likely secondary to ongoing inflammation from colitis - Monitor CBCd. (10) Anemia: Qualifiers: Anemia type: unspecified type Qualified Code(s): D64.9 - Anemia, unspecified Code(s): D64.9 - Anemia, unspecified Status: Chronic Assessment and Plan: No signs of acute blood loss. Monitor H/H, transfuse prn. Subjective Date/time seen: 08/24/19 14:09 Interval history: 59 year old female known to be anticoagulated chronically on Eliquis secondary to LLE DVT who is well known to our Hospitalist service for multiple recent admissions secondary to pancolitis who has had ongoing wattery diarrhea and diffuse abdominal pain since June of this year. Pt discharged 3 days ago, back again with similar symptoms. Pt explained that she will benefit from a colonoscopy, to check for diagnosis of UC. Review of Systems Review of Systems: All systems reviewed & are unremarkable except as noted in HPI and below ROS unobtainable: other (tired , unwell appearing ) Cardiovascular: Cardiovascular: Denies no additional cardiovascular complaints Respiratory: Respiratory: Denies no additional respiratory complaints Gastrointestinal: Gastrointestinal: Reports diarrhea and Denies vomiting Neurologic: Denies confusion Exam Const: General: cooperative, alert, awake, ill appearing and tired appearing Nutritional Appearance: thin and underweight Orientation/consciousness: patient oriented x3 Resp: Effort & Inspection: normal respiratory effort Auscultation: crackles (bibasilar crackles++) Cardio: Rate: regular rate Rhythm: regular rhythm Heart sounds: no murmurs GI: Inspection: normal to inspection Auscultation: normal bowel sounds Neuro: General: patient oriented x3 Cranial nerves: Yes CN's II-XII intact bila
[2019-08-24] MEDS: metroNIDAZOLE 500 MG/ISO 100ML 500 MG/100 ML BAG 100 MG IVPB ×2 (14:48→20:49)
[2019-08-24 21:46] VITALS: BP 124/68; PULSE 110; RESP 18; TEMP 37.9; O2SAT 100
[2019-08-24 22:31] VITALS: TEMP 37.9
[2019-08-24] MEDS: ACETAMINOPHEN 325 MG TABLET 650 MG PO (22:31)
[2019-08-24 23:30] VITALS: TEMP 37.4
[2019-08-25] MEDS: DEXTROSE 5%/LACTATED RINGERS 1,000 ML 125 ML IV CONT ×3 (00:28→19:35)
[2019-08-25] MEDS: metroNIDAZOLE 500 MG/ISO 100ML 500 MG/100 ML BAG 100 MG IVPB ×3 (05:59→21:21)
[2019-08-25 06:00] VITALS: BP 118/62; PULSE 102; RESP 18; TEMP 36.8; O2SAT 95
[2019-08-25] MEDS: LEVOTHYROXINE SODIUM INJ 100 MCG/5 ML VIAL 25 MCG IV PUSH (06:00)
[2019-08-25 08:18] LABS: Blood Urea Nitrogen 6 mg/dL (7-17); Calcium 8.3 mg/dL (8.4-10.2); Carbon Dioxide 18 mmol/L (22-30); Chloride 106 mmol/L (98-107); Estimated CRCL calculation 93 ml/min; Estimated Glomerular Filt Rate > 60; Glucose 103 mg/dL (65-105); Potassium 3.1 mmol/L (3.4-5.0); Sodium 133 mmol/L (137-145)
[2019-08-25 08:34] LABS: Hematocrit 24.8 % (37.0-47.0); Mean Corpuscular HGB Conc 32.3 g/dl (32-36); Mean Corpuscular Hemoglobin 32.9 pg (26-34); Mean Corpuscular Volume 102.1 fl (80-100); Mean Platelet Volume 10.9 fl (7.4-10.4); Platelet Count Result 192 k/mm3 (150-375); Red Blood Count 2.43 M/mm3 (4.2-5.4); Red Cell Distribution Width 16.8 % (11.5-14.5); White Blood Count 14.5 K/mm3 (4.5-10.0)
[2019-08-25] MEDS: FAMOTIDINE 20 MG/2 ML VIAL IV PUSH ×2 (09:39→21:21)
[2019-08-25] MEDS: POTASSIUM CHLORIDE 20 MEQ PACKET (FOR LIQUID) PO ×2 (09:40→17:53)
[2019-08-25] MEDS: APIXABAN 2.5 MG TABLET PO ×2 (09:40→21:21)
--- NOTE | 2019-08-25 12:17 | WPDGIPROGNO ---
Progress Note: A&P Additional Plan Patient alert this morning. She appears to be confused at times. She reports some size loose stools have persisted. She denies any bleeding. Physical exam reveals her to be alert. Afebrile. Lungs are clear. Heart without murmur. Abdomen is soft. Tender on the left abdomen. Labs reveal WBC 14.5. This is decreased from 19 yesterday. Hemoglobin 8, hematocrit 24, MCV 102. Urinalysis with greater than 75 white cells per high-power field. Impression 1. Pancolitis. Noted on CT scan. Infectious etiology felt most likely. This is her 3rd admission with diarrhea and dehydration. Plan is for colonoscopy on Tuesday. Stool cultures are in progress. Plan to continue intravenous antibiotics. Two. Dehydration. Electrolyte imbalance likely on this basis. Secondary to diarrhea. 3. UTI. Urine culture pending antibiotics in progress. This may account for her abdominal pain. 4. Chronic anemia. Macrocytic indices noted. Will be certain to check folate B12 levels. 5. DVT. Patient now on Eliquis anticoagulation. Plan is for colonoscopy on Tuesday. Empiric antibiotics pending stool cultures and urine cultures. Subjective Date/time seen: 08/25/19 12:17 Objective Data Vital Signs Vital Signs: Vital Signs - 24 hr 08/24/19 14:00 08/24/19 21:46 08/24/19 22:31 Temperature 37.4 C 37.9 C H 37.9 C H Pulse Rate 109 H 110 H Respiratory Rate 18 18 Blood Pressure 136/86 124/68 Pulse Oximetry 98 100 08/24/19 23:30 08/25/19 06:00 Temperature 37.4 C 36.8 C Pulse Rate 102 H Respiratory Rate 18 Blood Pressure 118/62 Pulse Oximetry 95 Intake/Output Intake/Output: Intake & Output 08/22/19 08/23/19 08/24/19 08/25/19 23:59 23:59 23:59 23:59 Intake Total 2049 3490 1200 Output Total 150 100 Balance 2049 3340 1100 Meds/Results Medications: Active Medications Generic Name Dose Route Start Last Admin Trade Name Freq PRN Reason Stop Dose Admin Acetaminophen 650 mg 08/23/19 20:48 08/24/19 22:31 Tylenol Tablet PO 650 mg Q4H PRN Administration Mild Pain (1-3) or Fever Apixaban 2.5 mg 08/24/19 09:00 08/25/19 09:40 Eliquis PO 2.5 mg Q12HR ARISTEO Administration Famotidine 20 mg 08/23/19 21:00 08/25/19 09:39 Pepcid Iv IV PUSH 20 mg Q12HR ARISTEO Administration Dextrose/Lactated Ringer's 1,000 mls @ 125 mls/hr 08/23/19 20:50 08/25/19 09:46 Dextrose 5%/Lactated Ringers IV CONT 125 mls/hr .Q8H ARISTEO Administration Metronidazole 500 mg in 100 mls @ 100 mls/hr 08/24/19 14:00 08/25/19 05:59 Flagyl 500 Mg/Iso Soln 100 Ml IVPB 100 mls/hr Q8H ARISTEO Administration Levothyroxine Sodium 25 mcg 08/24/19 06:30 08/25/19 06:00 Levothyroxine Sodium Inj IV PUSH 25 mcg DAILY@0630 ARISTEO Administration Ondansetron HCl 4 mg 08/23/19 20:48 Zofran Inj IV PUSH Q4H PRN Nausea Potassium Chloride 20 meq 08/25/19 09:00 08/25/19 09:40 Kcl Powder (For Liquid) PO 20 meq DAILY ARISTEO Administration Radiology Results: ITS Impressions Abdomen/Pelvis CT 08/23/19 20:03 IMPRESSION: 1. Progression of edematous wall thickening associated with pancolitis which could be infectious, inflammatory or unlikely ischemic in etiology. 2. Anasarca with moderate amount of ascites, small bilateral pleural effusions and extensive body wall edema. 3. Small amount of gas within the normal-appearing bladder. Correlate for recent instrumentation or Underwood catheterization. Labs Labs: Laboratory Results - last 24 hr 08/25/19 08/25/19 08:00 08:00 WBC 14.5 H RBC 2.43 L Hgb 8.0 L Hct 24.8 L MCV 102.1 H MCH 32.9 MCHC 32.3 RDW 16.8 H Plt Count 192 MPV 10.9 H Sodium 133 L Potassium 3.1 L Chloride 106 Carbon Dioxide 18 L BUN 6 L Creatinine 0.40 L Estim Creat Clear Calc 93 Estimated GFR > 60 Glucose 103 Calcium 8.3 L
[2019-08-25 14:00] VITALS: BP 140/75; PULSE 104; RESP 18; TEMP 37.2; O2SAT 99
--- NOTE | 2019-08-25 14:11 | PM.IMPN ---
Progress Note: A&P Assessment and Plan (1) Pancolitis: Code(s): K51.00 - Ulcerative (chronic) pancolitis without complications Status: Acute Assessment and Plan: Admit to med-surg, consider that the patient's pancolitis may be secondary to inflammatory bowel disease, multiple episodes of colitis in past few months, continue IV flagyl , advance diet as tolerated add ensures for malnutrition . WCC is 1400 coming down. Pt hopefully will be having colonoscopy on Tuesday. (2) Diarrhea: Qualifiers: Diarrhea type: unspecified type Qualified Code(s): R19.7 - Diarrhea, unspecified Code(s): R19.7 - Diarrhea, unspecified Status: Chronic Assessment and Plan: Continue supportive care, encourage fluids orally (3) Acute hypokalemia: Code(s): E87.6 - Hypokalemia Status: Acute Assessment and Plan: Continue potassium replacement. Monitor serum potassium. (4) Hypomagnesemia: Code(s): E83.42 - Hypomagnesemia Status: Acute Assessment and Plan: Continue magnesium replacement. Monitor serum magnesium. 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 Continue Eliquis therapy. (7) Weakness: Code(s): R53.1 - Weakness Status: Chronic Assessment and Plan: Secondary to ongoing colitis and chronic illness. Encourage nutrition, PT/OT evaluation when appropriate. (8) Dehydration: Code(s): E86.0 - Dehydration Status: Acute Assessment and Plan: Continue ensure fluids orally Monitor urine output and vital signs closely. (9) Leukocytosis: Qualifiers: Leukocytosis type: unspecified Qualified Code(s): D72.829 - Elevated white blood cell count, unspecified Code(s): D72.829 - Elevated white blood cell count, unspecified Status: Acute Assessment and Plan: Likely secondary to ongoing inflammation from colitis - Monitor CBCd. (10) Anemia: Qualifiers: Anemia type: unspecified type Qualified Code(s): D64.9 - Anemia, unspecified Code(s): D64.9 - Anemia, unspecified Status: Chronic Assessment and Plan: No signs of acute blood loss. Monitor H/H, transfuse prn. Subjective Date/time seen: 08/25/19 14:11 Interval history: 59 year old female known to be anticoagulated chronically on Eliquis secondary to LLE DVT who is well known to our Hospitalist service for 3 recent admissions secondary to pancolitis who has had ongoing wattery diarrhea and diffuse abdominal pain since June of this year. Pt discharged 3 days ago, back again with similar symptoms. Pt explained that she will benefit from a colonoscopy, to check for diagnosis of UC. Pt will hopefully have colonoscopy on tuesday. Review of Systems Constitutional: Constitutional: Reports fatigue Gastrointestinal: Gastrointestinal: Reports diarrhea Psychiatric: Psychiatric: Reports anxiety and Denies confusion Exam Const: General: alert, ill appearing and tired appearing; No confusion Nutritional Appearance: thin and underweight Orientation/consciousness: patient oriented x3 and No confusion HENMT: Head: normal to inspection General nose exam: Normal external nose present Face and sinus: normal facial exam Mouth: Yes Normal oral and palatal mucosa present and Yes oropharynx normal Eyes: Pupils: Equal, round and reactive pupils present EOM: EOMs intact bilaterally Neck: Neck: supple and no JVD Thyroid: thyroid normal Lymphatic: lymphadenopathy not noted Resp: Effort & Inspection: normal respiratory effort Ausculta
[2019-08-25 14:55] LABS: Folic Acid 5.7 ng/mL (2.76->20)
[2019-08-25 22:00] VITALS: BP 148/80; PULSE 105; RESP 18; TEMP 36.6; O2SAT 100
[2019-08-25] MEDS: GUAIFENESIN/DEXTROMETHORPHAN 10 ML UDC PO (22:54)
[2019-08-26] MEDS: LEVOTHYROXINE SODIUM INJ 100 MCG/5 ML VIAL 25 MCG IV PUSH (05:48)
[2019-08-26] MEDS: metroNIDAZOLE 500 MG/ISO 100ML 500 MG/100 ML BAG 100 MG IVPB ×3 (05:52→21:00)
[2019-08-26 06:00] VITALS: BP 132/74; PULSE 100; RESP 16; TEMP 36.8; O2SAT 98
--- NOTE | 2019-08-26 07:47 | WPDGIPROGNO ---
Progress Note: A&P Additional Plan Patient has difficulty reporting her bowel habits. Apparently still has loose stools. That are watery. Appears to be less frequent. She states pain has minimized. No bleeding reported. Current we afebrile. Physical exam reveals her to be alert. Current we oriented. She is anicteric. Lungs are clear. Abdomen is soft. Minimal tenderness appreciated. Extremities with edema is noted. Laboratory work reveals WBC 14.5, hemoglobin 8.0. Hematocrit 24. MCV 102. Impression 1. Pancolitis. 2. Diarrhea. Presumed infectious etiology. Because of recurrent persistent colitis colonoscopy will be performed hopefully to exclude IBD. 3. Dehydration. Improving with IV rehydration. 4. Congestive heart failure. 5. Apparent bouts of confusion. 6. DVT. Will hold anticoagulation until after endoscopy. Plan is for colonoscopy in the morning after preparation today. We will continue broad-spectrum antibiotic coverage. IV rehydration as required. Monitor for signs of fluid overload. Subjective Date/time seen: 08/26/19 07:47 Objective Data Vital Signs Vital Signs: Vital Signs - 24 hr 08/25/19 14:00 08/25/19 22:00 08/26/19 06:00 Temperature 37.2 C 36.6 C 36.8 C Pulse Rate 104 H 105 H 100 Respiratory Rate 18 18 16 Blood Pressure 140/75 148/80 H 132/74 Pulse Oximetry 99 100 98 Intake/Output Intake/Output: Intake & Output 08/23/19 08/24/19 08/25/19 08/26/19 23:59 23:59 23:59 23:59 Intake Total 2049 3490 3500 1021 Output Total 150 100 300 Balance 2049 3340 3400 721 Meds/Results Medications: Active Medications Generic Name Dose Route Start Last Admin Trade Name Freq PRN Reason Stop Dose Admin Acetaminophen 650 mg 08/23/19 20:48 08/24/19 22:31 Tylenol Tablet PO 650 mg Q4H PRN Administration Mild Pain (1-3) or Fever Apixaban 2.5 mg 08/24/19 09:00 08/25/19 21:21 Eliquis PO 2.5 mg Q12HR ARISTEO Administration Famotidine 20 mg 08/23/19 21:00 08/25/19 21:21 Pepcid Iv IV PUSH 20 mg Q12HR ARISTEO Administration Guaifenesin/Dextromethorphan 10 ml 08/25/19 21:49 08/25/19 22:54 Robitussin-Dm Syrup PO 10 ml Q4H PRN Administration Cough Dextrose/Lactated Ringer's 1,000 mls @ 125 mls/hr 08/23/19 20:50 08/26/19 04:58 Dextrose 5%/Lactated Ringers IV CONT 125 mls/hr .Q8H ARISTEO Infusion Metronidazole 500 mg in 100 mls @ 100 mls/hr 08/24/19 14:00 08/26/19 05:52 Flagyl 500 Mg/Iso Soln 100 Ml IVPB 100 mls/hr Q8H ARISTEO Administration Levothyroxine Sodium 25 mcg 08/24/19 06:30 08/26/19 05:48 Levothyroxine Sodium Inj IV PUSH 25 mcg DAILY@0630 ARISTEO Administration Ondansetron HCl 4 mg 08/23/19 20:48 Zofran Inj IV PUSH Q4H PRN Nausea Potassium Chloride 20 meq 08/25/19 17:00 08/25/19 17:53 Kcl Powder (For Liquid) PO 20 meq BID ARISTEO Administration Radiology Results: ITS Impressions Abdomen/Pelvis CT 08/23/19 20:03 IMPRESSION: 1. Progression of edematous wall thickening associated with pancolitis which could be infectious, inflammatory or unlikely ischemic in etiology. 2. Anasarca with moderate amount of ascites, small bilateral pleural effusions and extensive body wall edema. 3. Small amount of gas within the normal-appearing bladder. Correlate for recent instrumentation or Underwood catheterization. Labs Labs: Laboratory Results - last 24 hr 08/25/19 08/25/19 08/25/19 07:54 08:00 08:00 WBC 14.5 H RBC 2.43 L Hgb 8.0 L Hct 24.8 L MCV 102.1 H MCH 32.9 MCHC 32.3 RDW 16.8 H Plt Count 192 MPV 10.9 H Sodium 133 L Potassium 3.1 L Chloride 106 Carbon Dioxide 18 L BUN 6 L Creatinine 0.40 L Estim Creat Clear Calc 93 Estimated GFR > 60 Glucose 103 Calcium 8.3 L Vitamin B12 747.0 Folate 5.7
[2019-08-26 10:03] LABS: Hematocrit 23.5 % (37.0-47.0); Hemoglobin 7.8 g/dL (12.0-15.0); Mean Corpuscular HGB Conc 33.2 g/dl (32-36); Mean Corpuscular Hemoglobin 32.9 pg (26-34); Mean Corpuscular Volume 99.2 fl (80-100); Mean Platelet Volume 10.1 fl (7.4-10.4); Platelet Count Result 172 k/mm3 (150-375); Red Blood Count 2.37 M/mm3 (4.2-5.4); Red Cell Distribution Width 16.2 % (11.5-14.5); White Blood Count 10.9 K/mm3 (4.5-10.0)
[2019-08-26] MEDS: POTASSIUM CHLORIDE 20 MEQ PACKET (FOR LIQUID) PO (10:06)
[2019-08-26] MEDS: FAMOTIDINE 20 MG/2 ML VIAL IV PUSH ×2 (10:06→20:54)
[2019-08-26] MEDS: PEG (High)/E-LYTE SOLN 4,000 ML BTL 4000 ML PO (10:13)
[2019-08-26 10:17] LABS: Blood Urea Nitrogen 6 mg/dL (7-17); Carbon Dioxide 19 mmol/L (22-30); Chloride 101 mmol/L (98-107); Estimated CRCL calculation 93 ml/min; Estimated Glomerular Filt Rate > 60; Glucose 138 mg/dL (65-105); Sodium 132 mmol/L (137-145)
[2019-08-26 14:00] VITALS: BP 130/73; PULSE 101; RESP 12; TEMP 36.6; O2SAT 98
--- NOTE | 2019-08-26 14:31 | PCPTNOTE ---
The PT treatment was unable to be completed today due to patient refusal in AM, procedure preparation in PM. Will continue per Plan of Care frequency and duration.
--- NOTE | 2019-08-26 15:28 | PM.IMPN ---
Progress Note: A&P Assessment and Plan (1) Pancolitis: Code(s): K51.00 - Ulcerative (chronic) pancolitis without complications Status: Acute Assessment and Plan: Admit to med-surg, consider that the patient's pancolitis may be secondary to inflammatory bowel disease, multiple episodes of colitis in past few months, continue IV flagyl ,wcc is normal now, npo from sd, Pt hopefully will be having colonoscopy on Tuesday. 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 Monitor serum potassium. (4) Hypomagnesemia: Code(s): E83.42 - Hypomagnesemia Status: Acute Assessment and Plan: Continue magnesium replacement. Monitor serum magnesium. (5) Malnutrition: Qualifiers: Malnutrition type: unspecified type Qualified Code(s): E46 - Unspecified protein-calorie malnutrition Code(s): E46 - Unspecified protein-calorie malnutrition Status: Acute (6) Chronic anticoagulation: Code(s): Z79.01 - [facility]PC (current) use of anticoagulants Status: Chronic Assessment and Plan: On chronic anticoagulation w/ Elquis secondary to LLE DVT. Continue Eliquis therapy. hold eliquis pt is going for colonoscopy tuesday (7) Weakness: Code(s): R53.1 - Weakness Status: Chronic Assessment and Plan: Secondary to ongoing colitis and chronic illness. Encourage nutrition, PT/OT evaluation when appropriate. (8) Dehydration: Code(s): E86.0 - Dehydration Status: Acute Assessment and Plan: Continue ensure fluids orally Monitor urine output and vital signs closely. (9) Leukocytosis: Qualifiers: Leukocytosis type: unspecified Qualified Code(s): D72.829 - Elevated white blood cell count, unspecified Code(s): D72.829 - Elevated white blood cell count, unspecified Status: Acute Assessment and Plan: Likely secondary to ongoing inflammation from colitis - Monitor CBCd. (10) Anemia: Qualifiers: Anemia type: unspecified type Qualified Code(s): D64.9 - Anemia, unspecified Code(s): D64.9 - Anemia, unspecified Status: Chronic Assessment and Plan: No signs of acute blood loss. Monitor H/H, transfuse prn. Subjective Date/time seen: 08/26/19 15:28 Interval history: 59 year old female known to be anticoagulated chronically on Eliquis secondary to LLE DVT who is well known to our Hospitalist service for 3 recent admissions secondary to pancolitis who has had ongoing wattery diarrhea and diffuse abdominal pain since June of this year. Pt discharged few days ago, back again with similar symptoms. Pt explained that she will benefit from a colonoscopy, to check for diagnosis of UC. Pt will hopefully have colonoscopy on tuesday. pt is doing bowel prep. pt looks very malnourished from chronic diarrhea, i will consult dietican tomorrow Review of Systems Review of Systems: All systems reviewed & are unremarkable except as noted in HPI and below Gastrointestinal: Gastrointestinal: Reports diarrhea Comments: thin , malnournished, thin skin , pale complexion Exam Const: General: alert, ill appearing and tired appearing; No confusion Nutritional Appearance: thin and underweight Orientation/consciousness: patient oriented x3 and No confusion HENMT: Head: normal to inspection General nose exam: Normal external nose present Face and sinus: normal facial exam Mouth: Yes Normal oral and palatal mucosa present and Yes oropharynx normal Eyes: Pupils: Equal, rou
[2019-08-26] MEDS: POTASSIUM CHLORIDE 20 MEQ PACKET (FOR LIQUID) 40 MEQ PO (16:49)
[2019-08-26] MEDS: DEXTROSE 5%/LACTATED RINGERS 1,000 ML 125 ML IV CONT (19:51)
[2019-08-26 22:00] VITALS: BP 149/90; PULSE 99; RESP 18; TEMP 36.5; O2SAT 100
[2019-08-27] VITALS (8 sets, daily range): BP systolic 107–144; BP diastolic 63–88; PULSE 76–100; RESP 16–22; TEMP 36.3–36.9; O2SAT 97–100; BMI 20.5
[2019-08-27] MEDS: metroNIDAZOLE 500 MG/ISO 100ML 500 MG/100 ML BAG 100 MG IVPB ×3 (05:29→21:41)
[2019-08-27 06:20] LABS: Hematocrit 23.1 % (37.0-47.0); Hemoglobin 7.6 g/dL (12.0-15.0); Mean Corpuscular HGB Conc 32.9 g/dl (32-36); Mean Corpuscular Hemoglobin 32.5 pg (26-34); Mean Corpuscular Volume 98.7 fl (80-100); Mean Platelet Volume 10.6 fl (7.4-10.4); Platelet Count Result 162 k/mm3 (150-375); Red Blood Count 2.34 M/mm3 (4.2-5.4); Red Cell Distribution Width 15.8 % (11.5-14.5); White Blood Count 7.7 K/mm3 (4.5-10.0)
[2019-08-27] MEDS: DEXTROSE 5%/LACTATED RINGERS 1,000 ML 125 ML IV CONT (06:44)
[2019-08-27 07:11] LABS: Blood Urea Nitrogen 5 mg/dL (7-17); Calcium 8.2 mg/dL (8.4-10.2); Carbon Dioxide 19 mmol/L (22-30); Chloride 104 mmol/L (98-107); Estimated CRCL calculation 93 ml/min; Estimated Glomerular Filt Rate > 60; Glucose 116 mg/dL (65-105); Potassium 3.1 mmol/L (3.4-5.0); Sodium 135 mmol/L (137-145)
[2019-08-27] MEDS: LEVOTHYROXINE SODIUM INJ 100 MCG/5 ML VIAL 25 MCG IV PUSH (07:30)
--- NOTE | 2019-08-27 09:57 | PCPTNOTE ---
The patient treatment was not able to be completed this A.M. due to going for testing. Will plan to continue treatment per plan of care.
--- NOTE | 2019-08-27 10:05 | PC.NURSE ---
To [facility] lab @ [id number]
[2019-08-27] MEDS: LACTATED RINGERS 1,000 ML 150 ML IV CONT (10:24)
--- NOTE | 2019-08-27 10:44 | WPDANESEPPF ---
Anes - Initial Pre Proc Eval Procedure: Operation Date: 08/27/19 11:00 Proposed Procedures p Colonoscopy - Critsopher Son MD Date/Time: 08/27/19 10:44 Surgeon: Jim Medeiros MD Pre Op Diagnosis: colitis Patient Data Age: 59 Gender: F Height: 5 ft 1 in Weight: 49.3 kg Last Vital Signs Temp 97.4 F L 08/27/19 10:22 Pulse 97 08/27/19 10:22 Resp 20 08/27/19 10:22 BP 144/79 H 08/27/19 10:22 Pulse Ox 100 08/27/19 10:22 Allergies Allergy/AdvReac Type Severity Reaction Status Date / Time No Known Allergies Allergy Unknown Verified 08/27/19 10:17 Home Medications Medication Instructions Recorded Confirmed Type apixaban [Eliquis] 2.5 mg PO Q12HR #60 tablet 08/17/19 08/23/19 Rx levothyroxine [Synthroid] 50 mcg PO DAILY@0630 #30 tablet 08/17/19 08/23/19 Rx lisinopril 5 mg PO QAM #30 tablet 08/17/19 08/23/19 Rx potassium chloride 20 meq PO 1700 #30 ea 08/17/19 08/23/19 Rx multivitamin with folic acid 1 tablet PO QPM 08/23/19 08/23/19 History [Thera] Laboratory Tests 08/27/19 08/27/19 05:48 05:54 WBC 7.7 K/mm3 K/mm3 (4.5-10.0) RBC 2.34 M/mm3 L M/mm3 (4.2-5.4) Hgb 7.6 g/dL L g/dL (12.0-15.0) Hct 23.1 % L % (37.0-47.0) MCV 98.7 fl fl (80-100) MCH 32.5 pg pg (26-34) MCHC 32.9 g/dl g/dl (32-36) RDW 15.8 % H % (11.5-14.5) Plt Count 162 k/mm3 k/mm3 (150-375) MPV 10.6 fl H fl (7.4-10.4) Sodium 135 mmol/L L mmol/L (137-145) Potassium 3.1 mmol/L L mmol/L (3.4-5.0) Chloride 104 mmol/L mmol/L (98-107) Carbon Dioxide 19 mmol/L L mmol/L (22-30) BUN 5 mg/dL L mg/dL (7-17) Creatinine 0.40 mg/dL L mg/dL (0.7-1.0) Estim Creat Clear Calc 93 ml/min ml/min Estimated GFR > 60 (59 - ) Glucose 116 mg/dL H mg/dL (65-105) Calcium 8.2 mg/dL L mg/dL (8.4-10.2) Patient hx anesthesia problems: none Family hx anesthesia problems: none PMFSH Past Medical History Medical History Anemia Cervical dysplasia Diarrhea DVT (deep venous thrombosis) HTN (hypertension) Malnutrition Pancolitis Vitamin D deficiency Surgical History Surgical History H/O LEEP Family History Family History Father COPD (chronic obstructive pulmonary disease) Emphysema lung Mother Rheumatoid arthritis Social History Social History Social History: Patient currently lives at home alone. She lists her son, Emir, as her surrogate MDM. She wishes to be listed as DNR. Her PCP is Dr. Peoples Years smoked: 40 Smoking status: Former smoker Tobacco type: cigarettes Second hand tobacco smoke exposure: No Smoking end date: 01/25/19 Alcohol intake: former Drinks per week: 2 Substance use: never Substance use type: does not use Gender identity (if verbalized by the patient): Female Spiritual care concerns: No Agree to blood products: Yes Anes - Eval Final PreProcedure Day of Procedure 08/27/19 10:44 Patient weight: thin Heart: regular rate and rhythm Lungs: clear to auscultation Airway: Mallampati scale class II Neurological: alert and oriented Last oral intake: >/= 8 hours ASA classification: III Emergent: no Anesthetic plan: proceed Anesthesia type and monitoring: general GIVS and standard monitoring Informed Consent: The patient's anesthetic plan and its attendant risks and benefits were discussed with the patient/family/POA. Questions were solicited and answers provided to the satisfaction of the patient/family/POA.
--- NOTE | 2019-08-27 13:06 | PC.NURSE ---
Returned to room from GI lab at 1205. Family at bedside.
[2019-08-27] MEDS: POTASSIUM CHLORIDE 20 MEQ PACKET (FOR LIQUID) 40 MEQ PO ×2 (13:13→17:26)
[2019-08-27] MEDS: FAMOTIDINE 20 MG/2 ML VIAL IV PUSH ×2 (13:13→21:41)
--- NOTE | 2019-08-27 17:03 | PM.IMPN ---
Progress Note: A&P Assessment and Plan (1) Pancolitis: Code(s): K51.00 - Ulcerative (chronic) pancolitis without complications Status: Acute Assessment and Plan: 59 year old female known to be anticoagulated chronically on Eliquis secondary to LLE DVT who is well known to our Hospitalist service for 3 recent admissions secondary to pancolitis who has had ongoing wattery diarrhea and diffuse abdominal pain since June of this year. Pt discharged few days ago, back again with similar symptoms. Pt explained that she will benefit from a colonoscopy, to check for pathology. Patient was seen by GI had a colonoscopy today showed pseudomembrane colitis suspect patient may have C diff. Patient has been on Flagyl and dificid was added, pt looks very malnourished from chronic diarrhea, seen by interior assemblies installer and further recommendation to follow, patient denies any fever or chills (2) Diarrhea: Qualifiers: Diarrhea type: unspecified type Qualified Code(s): R19.7 - Diarrhea, unspecified Code(s): R19.7 - Diarrhea, unspecified Status: Chronic Assessment and Plan: Continue supportive care, encourage fluids orally, interior assemblies installer consult (3) Acute hypokalemia: Code(s): E87.6 - Hypokalemia Status: Acute Assessment and Plan: Continue potassium replacement. Monitor serum potassium. (4) Hypomagnesemia: Code(s): E83.42 - Hypomagnesemia Status: Acute Assessment and Plan: Continue magnesium replacement. Monitor serum magnesium. 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 Continue Eliquis therapy. hold eliquis pt is going for colonoscopy tuesday (7) Weakness: Code(s): R53.1 - Weakness Status: Chronic Assessment and Plan: Secondary to ongoing colitis and chronic illness. Encourage nutrition, PT/OT evaluation when appropriate. (8) Dehydration: Code(s): E86.0 - Dehydration Status: Acute Assessment and Plan: Continue ensure fluids orally Monitor urine output and vital signs closely. (9) Leukocytosis: Qualifiers: Leukocytosis type: unspecified Qualified Code(s): D72.829 - Elevated white blood cell count, unspecified Code(s): D72.829 - Elevated white blood cell count, unspecified Status: Acute Assessment and Plan: Likely secondary to ongoing inflammation from colitis - Monitor CBCd. (10) Anemia: Qualifiers: Anemia type: unspecified type Qualified Code(s): D64.9 - Anemia, unspecified Code(s): D64.9 - Anemia, unspecified Status: Chronic Assessment and Plan: No signs of acute blood loss. Monitor H/H, transfuse prn. Subjective Date/time seen: 08/27/19 17:03 Interval history: 59 year old female known to be anticoagulated chronically on Eliquis secondary to LLE DVT who is well known to our Hospitalist service for 3 recent admissions secondary to pancolitis who has had ongoing wattery diarrhea and diffuse abdominal pain since June of this year. Pt discharged few days ago, back again with similar symptoms. Pt explained that she will benefit from a colonoscopy, to check for pathology. Patient was seen by GI had a colonoscopy today showed pseudomembrane colitis suspect patient may have C diff. Patient has been on Flagyl and dificid was added, pt looks very malnourished from chronic diarrhea, seen by interior assemblies installer and further recommendation to follow, patient denies any fever or chills Review of Systems Review of Systems: All systems reviewed & are unremarkable except
[2019-08-27] MEDS: CHOLESTYRAMINE LIGHT 4 GM POWD.PACK PO (17:26)
[2019-08-27] MEDS: FIDAXOMICIN 200 MG TABLET PO (21:41)
[2019-08-28] MEDS: DEXTROSE 5%/LACTATED RINGERS 1,000 ML 125 ML IV CONT (00:08)
[2019-08-28 05:52] LABS: IFOB Positive Control Positive; Immunochemical Fecal Occult Bl Negative (N)
[2019-08-28 06:00] VITALS: BP 149/91; PULSE 105; RESP 18; TEMP 36.9; O2SAT 100
[2019-08-28] MEDS: metroNIDAZOLE 500 MG/ISO 100ML 500 MG/100 ML BAG 100 MG IVPB ×3 (06:00→20:31)
[2019-08-28] MEDS: LEVOTHYROXINE SODIUM INJ 100 MCG/5 ML VIAL 25 MCG IV PUSH (06:02)
[2019-08-28 06:05] LABS: Hematocrit 26.9 % (37.0-47.0); Hemoglobin 9.1 g/dL (12.0-15.0); Mean Corpuscular HGB Conc 33.8 g/dl (32-36); Mean Corpuscular Hemoglobin 32.5 pg (26-34); Mean Corpuscular Volume 96.1 fl (80-100); Mean Platelet Volume 10.8 fl (7.4-10.4); Platelet Count Result 201 k/mm3 (150-375); Red Cell Distribution Width 15.6 % (11.5-14.5); White Blood Count 6.8 K/mm3 (4.5-10.0)
[2019-08-28 06:35] LABS: Blood Urea Nitrogen 3 mg/dL (7-17); Calcium 8.2 mg/dL (8.4-10.2); Carbon Dioxide 19 mmol/L (22-30); Chloride 104 mmol/L (98-107); Estimated CRCL calculation 76 ml/min; Estimated Glomerular Filt Rate > 60; Glucose 109 mg/dL (65-105); Magnesium 1.5 mg/dL (1.6-2.3); Potassium 4.2 mmol/L (3.4-5.0); Sodium 136 mmol/L (137-145)
--- NOTE | 2019-08-28 07:35 | WPDANESPN ---
Anes - Prog Note Post-Op Date/Time: 08/28/19 07:35 Cardiovascular status: normal Respiratory status: normal Airway patency: baseline Mental status: baseline Post-Op hydration status: normal Vital Signs: Last Vital Signs Temp 36.9 C 08/28/19 06:00 Pulse 105 H 08/28/19 06:00 Resp 18 08/28/19 06:00 BP 149/91 H 08/28/19 06:00 Pulse Ox 100 08/28/19 06:00 I/O: Intake & Output 08/27/19 08/27/19 08/28/19 15:59 23:59 07:59 Intake Total 100 1200 Output Total 200 50 Balance 100 1000 -50 Laboratory Tests 08/28/19 05:54 08/28/19 05:54 08/23/19 08/28/19 08/28/19 04:16 05:54 05:54 WBC 6.8 RBC 2.80 L Hgb 9.1 L Hct 26.9 L MCV 96.1 MCH 32.5 MCHC 33.8 RDW 15.6 H Plt Count 201 MPV 10.8 H Sodium 136 L Potassium 4.2 Chloride 104 Carbon Dioxide 19 L BUN 3 L Creatinine 0.50 L Estim Creat Clear Calc 76 Estimated GFR > 60 Glucose 109 H Calcium 8.2 L Magnesium 1.5 L Stl Occult Blood (IFOB) Negative Post-procedural complaints: none Patient Feedback: Patient satisfied with anesthetic care.
--- NOTE | 2019-08-28 07:59 | WPDGIPROGNO ---
Progress Note: A&P Additional Plan Patient alert this morning. Patient states diarrhea may be lessened last evening. She still has a poor appetite. She denies abdominal pain. Physical exam reveals Vital Signs to be stable. HEENT exam she is anicteric. Lungs are clear. Heart without murmur. Abdomen is soft and nontender. Labs reveal repeat stool for C difficile again canceled by someone. Impression 1. Pseudomembranous colitis by colonoscopy. Most consistent with C difficile infection. Stool for C difficile was negative approximately 2 weeks ago. Plan is to treat empirically with Dificid. Questran will be added for diarrhea control. Advance diet as tolerated. 2. History of DVT. We will resume anticoagulation today. It was held yesterday because of biopsies. Subjective Date/time seen: 08/28/19 07:59 Objective Data Vital Signs Vital Signs: Vital Signs - 24 hr 08/27/19 10:22 08/27/19 11:28 08/27/19 11:38 Temperature 36.3 C L Pulse Rate 97 96 97 Respiratory Rate 20 22 H 18 Blood Pressure 144/79 H 123/77 120/77 Pulse Oximetry 100 98 97 08/27/19 11:48 08/27/19 12:19 08/27/19 14:00 Temperature 36.8 C 36.9 C Pulse Rate 93 94 96 Respiratory Rate 17 20 16 Blood Pressure 125/79 107/63 127/82 Pulse Oximetry 98 100 100 08/27/19 22:00 08/28/19 06:00 Temperature 36.8 C 36.9 C Pulse Rate 100 105 H Respiratory Rate 18 18 Blood Pressure 133/88 149/91 H Pulse Oximetry 99 100 Intake/Output Intake/Output: Intake & Output 08/25/19 08/26/19 08/27/19 08/28/19 23:59 23:59 23:59 23:59 Intake Total 3500 1560 29414 Output Total 100 300 200 50 Balance 3400 1260 87802 -50 Meds/Results Medications: Active Medications Generic Name Dose Route Start Last Admin Trade Name Freq PRN Reason Stop Dose Admin Acetaminophen 650 mg 08/23/19 20:48 08/24/19 22:31 Tylenol Tablet PO 650 mg Q4H PRN Administration Mild Pain (1-3) or Fever Cholestyramine Resin 4 gm 08/27/19 18:00 08/27/19 17:26 Questran Light Packet PO 4 gm BID@1000,1800 ARISTEO Administration Famotidine 20 mg 08/23/19 21:00 08/27/19 21:41 Pepcid Iv IV PUSH 20 mg Q12HR ARISTEO Administration Fidaxomicin 200 mg 08/27/19 21:00 08/27/19 21:41 Dificid PO 200 mg Q12HR ARISTEO Administration Guaifenesin/Dextromethorphan 10 ml 08/25/19 21:49 08/25/19 22:54 Robitussin-Dm Syrup PO 10 ml Q4H PRN Administration Cough Dextrose/Lactated Ringer's 1,000 mls @ 125 mls/hr 08/23/19 20:50 08/28/19 00:08 Dextrose 5%/Lactated Ringers IV CONT 125 mls/hr .Q8H ARISTEO Administration Metronidazole 500 mg in 100 mls @ 100 mls/hr 08/24/19 14:00 08/28/19 06:00 Flagyl 500 Mg/Iso Soln 100 Ml IVPB 100 mls/hr Q8H ARISTEO Administration Levothyroxine Sodium 25 mcg 08/24/19 06:30 08/28/19 06:02 Levothyroxine Sodium Inj IV PUSH 25 mcg DAILY@0630 ARISTEO Administration Ondansetron HCl 4 mg 08/23/19 20:48 Zofran Inj IV PUSH Q4H PRN Nausea Potassium Chloride 40 meq 08/26/19 15:36 08/27/19 17:26 Kcl Powder (For Liquid) PO 40 meq BID ARISTEO Administration Radiology Results: ITS Impressions Abdomen/Pelvis CT 08/23/19 20:03 IMPRESSION: 1. Progression of edematous wall thickening associated with pancolitis which could be infectious, inflammatory or unlikely ischemic in etiology. 2. Anasarca with moderate amount of ascites, small bilateral pleural effusions and extensive body wall edema. 3. Small amount of gas within the normal-appearing bladder. Correlate for recent instrumentation or Underwood catheterization. Labs Labs: Laboratory Results - last 24 hr 08/23/19 08/28/19 08/28/19 04:16 05:54 05:54 WBC 6.8 RBC 2.80 L Hgb 9.1 L Hct 26.9 L MCV 96.1 MCH 32.5 MCHC 33.8 RDW 15.6 H Plt Count 201 MPV 10.8 H Sodium 136 L Potassium 4.2 Chloride 104 Carbon Dioxide 19 L BUN 3 L Creatinine 0.50 L Estim Creat Clear C
[2019-08-28] MEDS: APIXABAN 2.5 MG TABLET PO ×2 (09:18→20:30)
[2019-08-28] MEDS: CHOLESTYRAMINE LIGHT 4 GM POWD.PACK PO ×2 (09:19→18:09)
[2019-08-28] MEDS: POTASSIUM CHLORIDE 20 MEQ PACKET (FOR LIQUID) 40 MEQ PO ×2 (09:19→18:08)
[2019-08-28] MEDS: FIDAXOMICIN 200 MG TABLET PO ×2 (09:20→20:30)
[2019-08-28] MEDS: MAGNESIUM OXIDE 400 MG TABLET 800 MG PO ×2 (09:21→13:15)
[2019-08-28] MEDS: FAMOTIDINE 20 MG/2 ML VIAL IV PUSH ×2 (09:22→20:30)
[2019-08-28 11:29] LABS: Alanine Aminotransferase 22 U/L (4-35); Albumin Level 2.5 g/dL (3.5-5.1); Alkaline Phosphatase 341 U/L (38-126); Aspartate Amino Transferase 29 U/L (14-36); Blood Urea Nitrogen 3 mg/dL (7-17); Calcium 8.2 mg/dL (8.4-10.2); Carbon Dioxide 20 mmol/L (22-30); Chloride 104 mmol/L (98-107); Estimated CRCL calculation 76 ml/min; Estimated Glomerular Filt Rate > 60; Glucose 143 mg/dL (65-105); Potassium 4.4 mmol/L (3.4-5.0); Sodium 138 mmol/L (137-145)
--- NOTE | 2019-08-28 11:42 | PCRCNOTE ---
jabier refused med and stated she was not short of breath. She did say she gets short of breath while lying down. Told her I would speak to doctor about ordering PRN so she can call when she feels that way and have them on stand by.
[2019-08-28] MEDS: ALBUMIN HUMAN 25% 25 GM/100 ML 100 ML IVPB (13:15)
[2019-08-28 14:00] VITALS: BP 142/97; PULSE 101; RESP 18; TEMP 36.9; O2SAT 98
[2019-08-28] MEDS: FUROSEMIDE INJ 40 MG/4 ML VIAL 20 MG IV PUSH (14:59)
--- NOTE | 2019-08-28 15:50 | PCPTNOTE ---
PT attempted to see pt this afternoon, however pt was not able to participate due to fatigue and c/o diarrhea.
--- NOTE | 2019-08-28 17:47 | PM.IMPN ---
Progress Note: A&P Assessment and Plan (1) Pancolitis: Code(s): K51.00 - Ulcerative (chronic) pancolitis without complications Status: Acute Assessment and Plan: 59 year old female known to be anticoagulated chronically on Eliquis secondary to LLE DVT who is well known to our Hospitalist service for 3 recent admissions secondary to pancolitis who has had ongoing wattery diarrhea and diffuse abdominal pain since June of this year. Pt discharged few days ago, back again with similar symptoms. Pt explained that she will benefit from a colonoscopy, to check for pathology. Patient was seen by GI had a colonoscopy today showed pseudomembrane colitis suspect patient may have C diff. Patient has been on Flagyl and dificid was added, pt looks very malnourished from chronic diarrhea, seen by machine tool technology instructor and further recommendation to follow, patient denies any fever or chills, bilateral lower extremity edematous, patient with hypoalbuminemia will start the patient albumin with Lasix to help her diuresed. (2) Diarrhea: Qualifiers: Diarrhea type: unspecified type Qualified Code(s): R19.7 - Diarrhea, unspecified Code(s): R19.7 - Diarrhea, unspecified Status: Chronic Assessment and Plan: Continue supportive care, encourage fluids orally, machine tool technology instructor consult (3) Acute hypokalemia: Code(s): E87.6 - Hypokalemia Status: Acute Assessment and Plan: Continue potassium replacement. Monitor serum potassium. (4) Hypomagnesemia: Code(s): E83.42 - Hypomagnesemia Status: Acute Assessment and Plan: Continue magnesium replacement. Monitor serum magnesium. (5) Malnutrition: Qualifiers: Malnutrition type: unspecified type Qualified Code(s): E46 - Unspecified protein-calorie malnutrition Code(s): E46 - Unspecified protein-calorie malnutrition Status: Acute (6) Chronic anticoagulation: Code(s): Z79.01 - retirement (current) use of anticoagulants Status: Chronic Assessment and Plan: On chronic anticoagulation w/ Elquis secondary to LLE DVT. Continue Eliquis therapy. hold eliquis pt is going for colonoscopy tuesday (7) Weakness: Code(s): R53.1 - Weakness Status: Chronic Assessment and Plan: Secondary to ongoing colitis and chronic illness. Encourage nutrition, PT/OT evaluation when appropriate. (8) Dehydration: Code(s): E86.0 - Dehydration Status: Acute Assessment and Plan: Continue ensure fluids orally Monitor urine output and vital signs closely. (9) Leukocytosis: Qualifiers: Leukocytosis type: unspecified Qualified Code(s): D72.829 - Elevated white blood cell count, unspecified Code(s): D72.829 - Elevated white blood cell count, unspecified Status: Acute Assessment and Plan: Likely secondary to ongoing inflammation from colitis - Monitor CBCd. (10) Anemia: Qualifiers: Anemia type: unspecified type Qualified Code(s): D64.9 - Anemia, unspecified Code(s): D64.9 - Anemia, unspecified Status: Chronic Assessment and Plan: No signs of acute blood loss. Monitor H/H, transfuse prn. (11) DVT (deep venous thrombosis): Qualifiers: Affected thrombotic vein of extremity: unspecified vein of extremity Chronicity: acute DVT location: lower extremity Laterality: unspecified laterality Qualified Code(s): I82.409 - Acute embolism and thrombosis of unspecified deep veins of unspecified lower extremity Code(s): I82.409 - Acute embolism and thrombosis of unspecified deep veins of unspecified lower extremity Status: Acute Assessment and Plan: On Eliquis Subjective Date/time seen: 08/28/19 17:47 Interval history: 59 year old female known to be anticoagulated chronically on Eliquis secondary to LLE DVT who is well known to our Hospitalist service for 3 recent admissions secondary t
[2019-08-28 22:00] VITALS: BP 140/97; PULSE 101; RESP 18; TEMP 36.6; O2SAT 100
--- NOTE | 2019-08-28 23:30 | PC.NURSE ---
Ashlie BAIG notified r/t IVF. Orders to D/C IVF received and entered.
[2019-08-29] MEDS: metroNIDAZOLE 500 MG/ISO 100ML 500 MG/100 ML BAG 100 MG IVPB ×3 (05:24→21:19)
[2019-08-29] MEDS: LEVOTHYROXINE SODIUM INJ 100 MCG/5 ML VIAL 25 MCG IV PUSH (05:26)
[2019-08-29 06:00] VITALS: BP 135/95; PULSE 99; RESP 18; TEMP 36.8; O2SAT 97
[2019-08-29 06:09] LABS: Hematocrit 26.7 % (37.0-47.0); Hemoglobin 8.8 g/dL (12.0-15.0); Mean Corpuscular Hemoglobin 32.2 pg (26-34); Mean Corpuscular Volume 97.8 fl (80-100); Mean Platelet Volume 10.9 fl (7.4-10.4); Platelet Count Result 221 k/mm3 (150-375); Red Blood Count 2.73 M/mm3 (4.2-5.4); White Blood Count 6.9 K/mm3 (4.5-10.0)
[2019-08-29 06:48] LABS: Alanine Aminotransferase 16 U/L (4-35); Albumin Level 2.7 g/dL (3.5-5.1); Alkaline Phosphatase 290 U/L (38-126); Aspartate Amino Transferase 20 U/L (14-36); Bilirubin,Total 0.8 mg/dL (0.2-1.3); Blood Urea Nitrogen 2 mg/dL (7-17); Calcium 8.4 mg/dL (8.4-10.2); Carbon Dioxide 24 mmol/L (22-30); Chloride 106 mmol/L (98-107); Estimated CRCL calculation 76 ml/min; Estimated Glomerular Filt Rate > 60; Glucose 107 mg/dL (65-105); Sodium 137 mmol/L (137-145)
[2019-08-29] MEDS: FUROSEMIDE INJ 40 MG/4 ML VIAL 20 MG IV PUSH (08:55)
[2019-08-29] MEDS: POTASSIUM CHLORIDE 20 MEQ PACKET (FOR LIQUID) 40 MEQ PO ×2 (08:56→17:24)
[2019-08-29] MEDS: APIXABAN 2.5 MG TABLET PO ×2 (08:56→21:19)
[2019-08-29] MEDS: FIDAXOMICIN 200 MG TABLET PO ×2 (08:56→21:19)
[2019-08-29] MEDS: FAMOTIDINE 20 MG/2 ML VIAL IV PUSH ×2 (08:56→21:19)
[2019-08-29] MEDS: CHOLESTYRAMINE LIGHT 4 GM POWD.PACK PO ×2 (09:00→17:24)
[2019-08-29] MEDS: ALBUMIN HUMAN 25% 25 GM/100 ML 100 ML IVPB (09:04)
--- NOTE | 2019-08-29 11:04 | WPDGIPROGNO ---
Progress Note: A&P Additional Plan Patient alert this morning. Appears more comfortable. Physical exam reveals her to be alert. Vital signs stable. She is afebrile. Anicteric. Lungs are clear. Heart without murmur. Abdomen soft and nontender impression pseudomembranous colitis. Most likely C difficile infection. Repeat stool cultures have been canceled for uncertain reason. Plan is to continue treatment. Oral medication is best. Oral Dificid in progress. Intravenous medicine may be discontinued. Plan to advance diet and activity. Consider rehab to strengthen her. Subjective Date/time seen: 08/29/19 11:04 Objective Data Vital Signs Vital Signs: Vital Signs - 24 hr 08/28/19 14:00 08/28/19 22:00 08/29/19 06:00 Temperature 36.9 C 36.6 C 36.8 C Pulse Rate 101 H 101 H 99 Respiratory Rate 18 18 18 Blood Pressure 142/97 H 140/97 H 135/95 H Pulse Oximetry 98 100 97 Intake/Output Intake/Output: Intake & Output 08/26/19 08/27/19 08/28/19 08/29/19 23:59 23:59 23:59 23:59 Intake Total 1560 91130 1330 100 Output Total 300 200 50 Balance 1260 91107 1280 100 Meds/Results Medications: Active Medications Generic Name Dose Route Start Last Admin Trade Name Freq PRN Reason Stop Dose Admin Acetaminophen 650 mg 08/23/19 20:48 08/24/19 22:31 Tylenol Tablet PO 650 mg Q4H PRN Administration Mild Pain (1-3) or Fever Apixaban 2.5 mg 08/28/19 09:00 08/29/19 08:56 Eliquis PO 2.5 mg Q12HR ARISTEO Administration Cholestyramine Resin 4 gm 08/27/19 18:00 08/29/19 09:00 Questran Light Packet PO 4 gm BID@1000,1800 ARISTEO Administration Famotidine 20 mg 08/23/19 21:00 08/29/19 08:56 Pepcid Iv IV PUSH 20 mg Q12HR ARISTEO Administration Fidaxomicin 200 mg 08/27/19 21:00 08/29/19 08:56 Dificid PO 200 mg Q12HR ARISTEO Administration Furosemide 20 mg 08/28/19 11:45 08/29/19 08:55 Lasix Inj IV PUSH 20 mg DAILY ARISTEO Administration Guaifenesin/Dextromethorphan 10 ml 08/25/19 21:49 08/25/19 22:54 Robitussin-Dm Syrup PO 10 ml Q4H PRN Administration Cough Metronidazole 500 mg in 100 mls @ 100 mls/hr 08/24/19 14:00 08/29/19 06:24 Flagyl 500 Mg/Iso Soln 100 Ml IVPB Infused Q8H ARISTEO Infusion Albumin Human 100 mls @ 60 mls/hr 08/28/19 11:45 08/29/19 09:04 Albutein IVPB 60 mls/hr DAILY ARISTEO Administration Levothyroxine Sodium 25 mcg 08/24/19 06:30 08/29/19 05:26 Levothyroxine Sodium Inj IV PUSH 25 mcg DAILY@0630 ARISTEO Administration Miconazole Nitrate 1 applic 08/28/19 09:00 08/29/19 09:00 Aloe [place] TOPICAL 1 applic Q12HR ARISTEO Administration Ondansetron HCl 4 mg 08/23/19 20:48 Zofran Inj IV PUSH Q4H PRN Nausea Potassium Chloride 40 meq 08/26/19 15:36 08/29/19 08:56 Kcl Powder (For Liquid) PO 40 meq BID ARISTEO Administration Radiology Results: ITS Impressions Abdomen/Pelvis CT 08/23/19 20:03 IMPRESSION: 1. Progression of edematous wall thickening associated with pancolitis which could be infectious, inflammatory or unlikely ischemic in etiology. 2. Anasarca with moderate amount of ascites, small bilateral pleural effusions and extensive body wall edema. 3. Small amount of gas within the normal-appearing bladder. Correlate for recent instrumentation or Underwood catheterization. Labs Labs: Laboratory Results - last 24 hr 08/28/19 08/29/19 08/29/19 11:08 05:47 05:47 WBC 6.9 RBC 2.73 L Hgb 8.8 L Hct 26.7 L MCV 97.8 MCH 32.2 MCHC 33.0 RDW 16.0 H Plt Count 221 MPV 10.9 H Sodium 138 137 Potassium 4.4 4.0 Chloride 104 106 Carbon Dioxide 20 L 24 BUN 3 L 2 L Creatinine 0.50 L 0.50 L Estim Creat Clear Calc 76 76 Estimated GFR > 60 > 60 Glucose 143 H 107 H Calcium 8.2 L 8.4 Total Bilirubin 1.0 0.8 AST 29 20 ALT 22 16 Alkaline Phosphatase 341 H 290 H Total Protein 5.0 L 5.0 L Albumin 2.5 L
--- NOTE | 2019-08-29 11:42 | PCDIET ---
Nutrition Follow-Up Complete: Inadequate Oral Intake as related to colitis as evidenced by poor po intake reported. Adequate Intake of at least 75% of meals/supplements Goal: Goal met. Continue goal. Pt current nutrition is 2gmNa +thrive BID. Nutrition recommendation: Agree Last recorded weight is 49.3 kg (recommend new wt) Bowel Motility: Last BM yesterday Labs Reviewed: GFR 52, Hgb 10.0, Hct 33 Meds Noted:Flagyl, MTV Additional Notes: Pt eating 100% of all meals on an appropriate diet. No updated wt since assessment on 08/26. Recommend new wt. Pt may benefit from pre/probiotic powder or probiotic to repopulate good bacteria. We will continue to monitor PO intake, bowel frequency, labs, and wt every three days.
--- NOTE | 2019-08-29 13:49 | PC.NURSE ---
Notified by Infection control nurse that isolation is nolonger needed for c-diff on this patient. Patient has had three negative stool samples.
[2019-08-29 13:51] LABS: Magnesium 1.8 mg/dL (1.6-2.3)
[2019-08-29 13:52] LABS: INR 1.6; Prothrombin Time 18.5 Seconds (11.1-14.7)
[2019-08-29 14:00] VITALS: BP 123/63; PULSE 99; RESP 18; TEMP 37; O2SAT 96
--- NOTE | 2019-08-29 15:49 | PM.IMPN ---
Progress Note: A&P Assessment and Plan (1) Pancolitis: Code(s): K51.00 - Ulcerative (chronic) pancolitis without complications Status: Acute Assessment and Plan: 59 year old female known to be anticoagulated chronically on Eliquis secondary to LLE DVT who is well known to our Hospitalist service for 3 recent admissions secondary to pancolitis who has had ongoing wattery diarrhea and diffuse abdominal pain since June of this year. Pt discharged few days ago, back again with similar symptoms. Pt explained that she will benefit from a colonoscopy, to check for pathology. Patient was seen by GI had a colonoscopy today showed pseudomembrane colitis suspect patient may have C diff. Patient has been on Flagyl and dificid was added, pt looks very malnourished from chronic diarrhea, seen by derrick boat runner and further recommendation to follow, patient denies any fever or chills, bilateral lower extremity edematous, patient with hypoalbuminemia started the patient albumin with Lasix to help her diuresed on 08/27, patient urine output has improved loose bowel movement still persist, denies any fever or chills is feeling much better appetite is improving, will continue to monitor (2) Diarrhea: Qualifiers: Diarrhea type: unspecified type Qualified Code(s): R19.7 - Diarrhea, unspecified Code(s): R19.7 - Diarrhea, unspecified Status: Chronic Assessment and Plan: Most likely secondary to C diff colitis patient is treated with dicifid, continue supportive care, encourage fluids orally, derrick boat runner consult (3) Acute hypokalemia: Code(s): E87.6 - Hypokalemia Status: Acute Assessment and Plan: Continue potassium replacement. Monitor serum potassium. (4) Hypomagnesemia: Code(s): E83.42 - Hypomagnesemia Status: Acute Assessment and Plan: Continue magnesium replacement. Monitor serum magnesium. 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 Continue Eliquis therapy. hold eliquis pt is going for colonoscopy tuesday (7) Weakness: Code(s): R53.1 - Weakness Status: Chronic Assessment and Plan: Secondary to ongoing colitis and chronic illness. Encourage nutrition, PT/OT evaluation when appropriate. (8) Dehydration: Code(s): E86.0 - Dehydration Status: Acute Assessment and Plan: Continue ensure fluids orally Monitor urine output and vital signs closely. (9) Leukocytosis: Qualifiers: Leukocytosis type: unspecified Qualified Code(s): D72.829 - Elevated white blood cell count, unspecified Code(s): D72.829 - Elevated white blood cell count, unspecified Status: Acute Assessment and Plan: Likely secondary to ongoing inflammation from colitis - Monitor CBCd. (10) Anemia: Qualifiers: Anemia type: unspecified type Qualified Code(s): D64.9 - Anemia, unspecified Code(s): D64.9 - Anemia, unspecified Status: Chronic Assessment and Plan: No signs of acute blood loss. Monitor H/H, transfuse prn. (11) DVT (deep venous thrombosis): Qualifiers: DVT location: lower extremity Affected thrombotic vein of extremity: unspecified vein of extremity Chronicity: acute Laterality: unspecified laterality Qualified Code(s): I82.409 - Acute embolism and thrombosis of unspecified deep veins of unspecified lower extremity Code(s): I8
[2019-08-29 22:00] VITALS: BP 130/82; PULSE 98; RESP 16; TEMP 36.8; O2SAT 98
[2019-08-30] MEDS: LEVOTHYROXINE SODIUM INJ 100 MCG/5 ML VIAL 25 MCG IV PUSH (05:30)
[2019-08-30] MEDS: metroNIDAZOLE 500 MG/ISO 100ML 500 MG/100 ML BAG 100 MG IVPB ×3 (05:31→21:42)
[2019-08-30 06:00] VITALS: BP 133/83; PULSE 93; RESP 16; TEMP 36.7; O2SAT 98
[2019-08-30 06:18] LABS: Hematocrit 27.3 % (37.0-47.0); Hemoglobin 8.8 g/dL (12.0-15.0); Mean Corpuscular HGB Conc 32.2 g/dl (32-36); Mean Corpuscular Hemoglobin 32.6 pg (26-34); Mean Corpuscular Volume 101.1 fl (80-100); Mean Platelet Volume 11.1 fl (7.4-10.4); Platelet Count Result 225 k/mm3 (150-375); Red Cell Distribution Width 16.4 % (11.5-14.5); White Blood Count 7.9 K/mm3 (4.5-10.0)
[2019-08-30 06:36] LABS: Alanine Aminotransferase 12 U/L (4-35); Albumin Level 2.7 g/dL (3.5-5.1); Alkaline Phosphatase 240 U/L (38-126); Aspartate Amino Transferase 20 U/L (14-36); Bilirubin,Total 0.6 mg/dL (0.2-1.3); Calcium 8.4 mg/dL (8.4-10.2); Carbon Dioxide 25 mmol/L (22-30); Chloride 107 mmol/L (98-107); Estimated CRCL calculation 65 ml/min; Estimated Glomerular Filt Rate > 60; Glucose 95 mg/dL (65-105); Potassium 4.5 mmol/L (3.4-5.0); Sodium 136 mmol/L (137-145)
[2019-08-30 06:40] LABS: Blood Urea Nitrogen < 2 mg/dL (7-17)
--- NOTE | 2019-08-30 08:07 | WPDGIPROGNO ---
Progress Note: A&P Additional Plan patient alert and comfortable this morning. Appears in a good mood. Tolerating diet more easily. She denies abdominal pain. She is very forgetful and unable to give much history from yesterday. Physical exam reveals her to be alert. Afebrile. Lungs are clear. Heart without murmur. Abdomen bowel sounds are present soft nontender with no organomegaly. Impression 1. Pseudomembranous colitis. C difficile infection is presumed. Plan is to continue oral Dificid For a 10 day course. IV Flagyl can be discontinued. Anticipate placement for rehabilitation. Patient will then need to be watched closely for relapse of infection. Subjective Date/time seen: 08/30/19 08:07 Objective Data Vital Signs Vital Signs: Vital Signs - 24 hr 08/29/19 14:00 08/29/19 22:00 08/30/19 06:00 Temperature 37.0 C 36.8 C 36.7 C Pulse Rate 99 98 93 Respiratory Rate 18 16 16 Blood Pressure 123/63 130/82 133/83 Pulse Oximetry 96 98 98 Intake/Output Intake/Output: Intake & Output 08/27/19 08/28/19 08/29/19 08/30/19 23:59 23:59 23:59 23:59 Intake Total 92933 1330 1090 200 Output Total 200 50 800 Balance 16018 1280 290 200 Meds/Results Medications: Active Medications Generic Name Dose Route Start Last Admin Trade Name Freq PRN Reason Stop Dose Admin Acetaminophen 650 mg 08/23/19 20:48 08/24/19 22:31 Tylenol Tablet PO 650 mg Q4H PRN Administration Mild Pain (1-3) or Fever Apixaban 2.5 mg 08/28/19 09:00 08/29/19 21:19 Eliquis PO 2.5 mg Q12HR ARISTEO Administration Cholestyramine Resin 4 gm 08/27/19 18:00 08/29/19 17:24 Questran Light Packet PO 4 gm BID@1000,1800 ARISTEO Administration Famotidine 20 mg 08/23/19 21:00 08/29/19 21:19 Pepcid Iv IV PUSH 20 mg Q12HR ARISTEO Administration Fidaxomicin 200 mg 08/27/19 21:00 08/29/19 21:19 Dificid PO 200 mg Q12HR ARISTEO Administration Furosemide 20 mg 08/28/19 11:45 08/29/19 08:55 Lasix Inj IV PUSH 20 mg DAILY ARISTEO Administration Guaifenesin/Dextromethorphan 10 ml 08/25/19 21:49 08/25/19 22:54 Robitussin-Dm Syrup PO 10 ml Q4H PRN Administration Cough Metronidazole 500 mg in 100 mls @ 100 mls/hr 08/24/19 14:00 08/30/19 06:31 Flagyl 500 Mg/Iso Soln 100 Ml IVPB Infused Q8H ARISTEO Infusion Albumin Human 100 mls @ 60 mls/hr 08/28/19 11:45 08/29/19 09:04 Albutein IVPB 60 mls/hr DAILY ARISTEO Administration Levothyroxine Sodium 25 mcg 08/24/19 06:30 08/30/19 05:30 Levothyroxine Sodium Inj IV PUSH 25 mcg DAILY@0630 ARISTEO Administration Miconazole Nitrate 1 applic 08/28/19 09:00 08/29/19 21:28 [place] TOPICAL 1 applic Q12HR ARISTEO Administration Ondansetron HCl 4 mg 08/23/19 20:48 Zofran Inj IV PUSH Q4H PRN Nausea Potassium Chloride 40 meq 08/26/19 15:36 08/29/19 17:24 Kcl Powder (For Liquid) PO 40 meq BID ARISTEO Administration Radiology Results: ITS Impressions Abdomen/Pelvis CT 08/23/19 20:03 IMPRESSION: 1. Progression of edematous wall thickening associated with pancolitis which could be infectious, inflammatory or unlikely ischemic in etiology. 2. Anasarca with moderate amount of ascites, small bilateral pleural effusions and extensive body wall edema. 3. Small amount of gas within the normal-appearing bladder. Correlate for recent instrumentation or Underwood catheterization. Labs Labs: Laboratory Results - last 24 hr 08/29/19 08/29/19 08/30/19 13:18 13:18 06:12 WBC 7.9 RBC 2.70 L Hgb 8.8 L Hct 27.3 L MCV 101.1 H MCH 32.6 MCHC 32.2 RDW 16.4 H Plt Count 225 MPV 11.1 H PT 18.5 H INR 1.6 Sodium Potassium Chloride Carbon Dioxide BUN Creatinine Estim Creat Clear Calc Estimated GFR Glucose Calcium Magnesium 1.8 Total Bilirubin AST ALT Alkaline Phosphatase Total Protein Albumin 08/30/19 06:12
[2019-08-30] MEDS: ALBUMIN HUMAN 25% 25 GM/100 ML 100 ML IVPB (08:50)
[2019-08-30] MEDS: CHOLESTYRAMINE LIGHT 4 GM POWD.PACK PO ×2 (08:50→17:12)
[2019-08-30] MEDS: FAMOTIDINE 20 MG/2 ML VIAL IV PUSH ×2 (08:50→21:41)
[2019-08-30] MEDS: APIXABAN 2.5 MG TABLET PO ×2 (08:50→21:41)
[2019-08-30] MEDS: POTASSIUM CHLORIDE 20 MEQ PACKET (FOR LIQUID) 40 MEQ PO ×2 (08:50→17:12)
[2019-08-30] MEDS: FUROSEMIDE INJ 40 MG/4 ML VIAL 20 MG IV PUSH (08:51)
[2019-08-30] MEDS: FIDAXOMICIN 200 MG TABLET PO ×2 (08:51→21:41)
--- NOTE | 2019-08-30 14:26 | PM.IMPN ---
Progress Note: A&P Assessment and Plan (1) Pancolitis: Code(s): K51.00 - Ulcerative (chronic) pancolitis without complications Status: Acute Assessment and Plan: 59 year old female known to be anticoagulated chronically on Eliquis secondary to LLE DVT who is well known to our Hospitalist service for 3 recent admissions secondary to pancolitis who has had ongoing wattery diarrhea and diffuse abdominal pain since June of this year. Pt discharged few days ago, back again with similar symptoms. Pt explained that she will benefit from a colonoscopy, to check for pathology. Patient was seen by GI had a colonoscopy today showed pseudomembrane colitis suspect patient may have C diff. Patient has been on Flagyl and dificid was added, pt looks very malnourished from chronic diarrhea, seen by harbor pilot and further recommendation to follow, patient denies any fever or chills, bilateral lower extremity edematous, patient with hypoalbuminemia started the patient albumin with Lasix to help her diuresed on 08/27, 08/28 patient urine output had improved loose bowel movement still persist, today patient states see urinating very well and her bowel movements have improved, patient seen by GI recommending to continue Dificid orally another 10 days, stop the IV Flagyl, her appetite has improved, denies any fever or chills is feeling much better, will stop albumin continue Lasix will monitor overnight may possibly discharge to rehab tomorrow (2) Diarrhea: Qualifiers: Diarrhea type: unspecified type Qualified Code(s): R19.7 - Diarrhea, unspecified Code(s): R19.7 - Diarrhea, unspecified Status: Chronic Assessment and Plan: Most likely secondary to C diff colitis patient is treated with dicifid, seen by GI plan is above continue supportive care, encourage fluids orally, harbor pilot consult (3) Acute hypokalemia: Code(s): E87.6 - Hypokalemia Status: Acute Assessment and Plan: Continue potassium replacement. Monitor serum potassium. (4) Hypomagnesemia: Code(s): E83.42 - Hypomagnesemia Status: Acute Assessment and Plan: Continue magnesium replacement. Monitor serum magnesium. 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 Continue Eliquis therapy. hold eliquis pt is going for colonoscopy tuesday (7) Weakness: Code(s): R53.1 - Weakness Status: Chronic Assessment and Plan: Secondary to ongoing colitis and chronic illness. Encourage nutrition, PT/OT evaluation when appropriate. (8) Dehydration: Code(s): E86.0 - Dehydration Status: Acute Assessment and Plan: Continue ensure fluids orally Monitor urine output and vital signs closely. (9) Leukocytosis: Qualifiers: Leukocytosis type: unspecified Qualified Code(s): D72.829 - Elevated white blood cell count, unspecified Code(s): D72.829 - Elevated white blood cell count, unspecified Status: Acute Assessment and Plan: Likely secondary to ongoing inflammation from colitis - Monitor CBCd. (10) Anemia: Qualifiers: Anemia type: unspecified type Qualified Code(s): D64.9 - Anemia, unspecified Code(s): D64.9 - Anemia, unspecified Status: Chronic Assessment and Plan: No signs of acute blood loss. Monitor H/H, transfuse prn. (11) DVT (deep venous thrombosis): Qualifiers: DVT
[2019-08-30 15:01] VITALS: BP 123/89; PULSE 98; RESP 16; TEMP 36.6; O2SAT 100
[2019-08-30 22:00] VITALS: BP 120/77; PULSE 97; RESP 16; TEMP 36.8; O2SAT 98
[2019-08-30 22:57] LABS: Neutral Fat, Stool Normal (Normal)
[2019-08-31 06:00] VITALS: BP 131/87; PULSE 92; RESP 14; TEMP 36.7; O2SAT 98
[2019-08-31 06:26] LABS: Hematocrit 26.7 % (37.0-47.0); Hemoglobin 8.7 g/dL (12.0-15.0); Mean Corpuscular HGB Conc 32.6 g/dl (32-36); Mean Corpuscular Volume 98.2 fl (80-100); Mean Platelet Volume 11.4 fl (7.4-10.4); Platelet Count Result 287 k/mm3 (150-375); Red Blood Count 2.72 M/mm3 (4.2-5.4); White Blood Count 7.6 K/mm3 (4.5-10.0)
[2019-08-31] MEDS: metroNIDAZOLE 500 MG/ISO 100ML 500 MG/100 ML BAG 100 MG IVPB (06:26)
[2019-08-31] MEDS: LEVOTHYROXINE SODIUM INJ 100 MCG/5 ML VIAL 25 MCG IV PUSH (06:28)
[2019-08-31 06:40] LABS: Alanine Aminotransferase 11 U/L (4-35); Albumin Level 2.8 g/dL (3.5-5.1); Alkaline Phosphatase 174 U/L (38-126); Aspartate Amino Transferase 21 U/L (14-36); Bilirubin,Total 0.5 mg/dL (0.2-1.3); Calcium 8.4 mg/dL (8.4-10.2); Carbon Dioxide 26 mmol/L (22-30); Chloride 105 mmol/L (98-107); Estimated CRCL calculation 65 ml/min; Estimated Glomerular Filt Rate > 60; Glucose 76 mg/dL (65-105); Potassium 3.6 mmol/L (3.4-5.0); Sodium 136 mmol/L (137-145)
[2019-08-31 07:02] LABS: Blood Urea Nitrogen < 2 mg/dL (7-17)
[2019-08-31] MEDS: FUROSEMIDE INJ 40 MG/4 ML VIAL 20 MG IV PUSH (08:31)
[2019-08-31] MEDS: FIDAXOMICIN 200 MG TABLET PO ×2 (08:31→22:18)
[2019-08-31] MEDS: APIXABAN 2.5 MG TABLET PO ×2 (08:31→22:18)
[2019-08-31] MEDS: FAMOTIDINE 20 MG/2 ML VIAL IV PUSH ×2 (08:31→22:18)
[2019-08-31] MEDS: CHOLESTYRAMINE LIGHT 4 GM POWD.PACK PO ×2 (08:32→17:06)
[2019-08-31] MEDS: POTASSIUM CHLORIDE 20 MEQ PACKET (FOR LIQUID) 40 MEQ PO ×2 (08:32→17:06)
--- NOTE | 2019-08-31 10:06 | WPDGIPROGNO ---
Progress Note: A&P Additional Plan Patient alert more comfortable this morning. She remains somewhat weak. But more energy reported. She states diarrhea is improving. No bleeding reported. Physical exam reveals her to be alert. Afebrile. Anicteric. Lungs are clear. Heart without murmur. Abdomen is soft nontender. Impression pseudomembranous colitis. Presumed to be related to C difficile infection. Plan is to continue Dificid for a complete course. Discontinue intravenous metronidazole. Hopefully discharge soon. Subjective Date/time seen: 08/31/19 10:06 Objective Data Vital Signs Vital Signs: Vital Signs - 24 hr 08/30/19 15:01 08/30/19 22:00 08/31/19 06:00 Temperature 36.6 C 36.8 C 36.7 C Pulse Rate 98 97 92 Respiratory Rate 16 16 14 Blood Pressure 123/89 120/77 131/87 Pulse Oximetry 100 98 98 Intake/Output Intake/Output: Intake & Output 08/28/19 08/29/19 08/30/19 08/31/19 23:59 23:59 23:59 23:59 Intake Total 1330 1190 1040 350 Output Total 50 800 Balance 0943 442 3323 350 Meds/Results Medications: Active Medications Generic Name Dose Route Start Last Admin Trade Name Freq PRN Reason Stop Dose Admin Acetaminophen 650 mg 08/23/19 20:48 08/24/19 22:31 Tylenol Tablet PO 650 mg Q4H PRN Administration Mild Pain (1-3) or Fever Apixaban 2.5 mg 08/28/19 09:00 08/31/19 08:31 Eliquis PO 2.5 mg Q12HR ARISTEO Administration Cholestyramine Resin 4 gm 08/27/19 18:00 08/31/19 08:32 Questran Light Packet PO 4 gm BID@1000,1800 ARISTEO Administration Famotidine 20 mg 08/23/19 21:00 08/31/19 08:31 Pepcid Iv IV PUSH 20 mg Q12HR ARISTEO Administration Fidaxomicin 200 mg 08/27/19 21:00 08/31/19 08:31 Dificid PO 200 mg Q12HR ARISTEO Administration Furosemide 20 mg 08/28/19 11:45 08/31/19 08:31 Lasix Inj IV PUSH 20 mg DAILY ARISTEO Administration Guaifenesin/Dextromethorphan 10 ml 08/25/19 21:49 08/25/19 22:54 Robitussin-Dm Syrup PO 10 ml Q4H PRN Administration Cough Metronidazole 500 mg in 100 mls @ 100 mls/hr 08/24/19 14:00 08/31/19 07:30 Flagyl 500 Mg/Iso Soln 100 Ml IVPB Infused Q8H ARISTEO Infusion Levothyroxine Sodium 25 mcg 08/24/19 06:30 08/31/19 06:28 Levothyroxine Sodium Inj IV PUSH 25 mcg DAILY@0630 ARISTEO Administration Miconazole Nitrate 1 applic 08/28/19 09:00 08/31/19 08:32 [place] TOPICAL 1 applic Q12HR ARISTEO Administration Ondansetron HCl 4 mg 08/23/19 20:48 Zofran Inj IV PUSH Q4H PRN Nausea Potassium Chloride 40 meq 08/26/19 15:36 08/31/19 08:32 Kcl Powder (For Liquid) PO 40 meq BID ARISTEO Administration Radiology Results: ITS Impressions Abdomen/Pelvis CT 08/23/19 20:03 IMPRESSION: 1. Progression of edematous wall thickening associated with pancolitis which could be infectious, inflammatory or unlikely ischemic in etiology. 2. Anasarca with moderate amount of ascites, small bilateral pleural effusions and extensive body wall edema. 3. Small amount of gas within the normal-appearing bladder. Correlate for recent instrumentation or Underwood catheterization. Labs Labs: Laboratory Results - last 24 hr 08/23/19 08/31/19 08/31/19 20:58 06:04 06:04 WBC 7.6 RBC 2.72 L Hgb 8.7 L Hct 26.7 L MCV 98.2 MCH 32.0 MCHC 32.6 RDW 16.0 H Plt Count 287 MPV 11.4 H Sodium 136 L Potassium 3.6 Chloride 105 Carbon Dioxide 26 BUN < 2 L Creatinine 0.60 L Estim Creat Clear Calc 65 Estimated GFR > 60 Glucose 76 Calcium 8.4 Total Bilirubin 0.5 AST 21 ALT 11 Alkaline Phosphatase 174 H Total Protein 5.0 L Albumin 2.8 L Stool Neutral Fats Normal
--- NOTE | 2019-08-31 12:29 | PCNFU ---
Nutrition Follow-Up Complete: Inadequate Oral Intake as related to colitis as evidenced by poor po intake reported. Adequate Intake of at least 75% of meals/supplements Goal: progressing towards goal. Pt current nutrition is 2 gm Na . Nutrition recommendation: Agree Last recorded weight is 49.3 kg. Bowel Motility:+BM reported today Labs Reviewed: Cr 0.6,Alb 2.8,Na 136,Hct 26.7,Hgb 8.7 Meds Noted:Dileep Avilez Additional Notes: Spoke with patient and son today regarding diet orders and food choices. Patient is drinking ensure compact and [employer] Ice cream. She does not have dentures at this time, trying to eat soft foods. Intakes have been 0-100% of meals. We talked about high kcal/high protein foods to eat. Bilateral Buttock-Maceration noted. Monitoring: RD will monitor every 3 days.
[2019-08-31 14:39] VITALS: BP 128/78; PULSE 94; RESP 16; TEMP 37.1; O2SAT 98
--- NOTE | 2019-08-31 17:08 | PM.IMPN ---
Progress Note: A&P Assessment and Plan (1) Pancolitis: Code(s): K51.00 - Ulcerative (chronic) pancolitis without complications Status: Acute Assessment and Plan: 59 year old female known to be anticoagulated chronically on Eliquis secondary to LLE DVT who is well known to our Hospitalist service for 3 recent admissions secondary to pancolitis who has had ongoing wattery diarrhea and diffuse abdominal pain since June of this year. Pt discharged few days ago, back again with similar symptoms. Pt explained that she will benefit from a colonoscopy, to check for pathology. Patient was seen by GI had a colonoscopy today showed pseudomembrane colitis suspect patient may have C diff. Patient has been on Flagyl and dificid was added, pt looks very malnourished from chronic diarrhea, seen by stereoptic projection topographer and further recommendation to follow, patient denies any fever or chills, bilateral lower extremity edematous, patient with hypoalbuminemia started the patient albumin with Lasix to help her diuresed on 08/27, 08/28 patient urine output had improved loose bowel movement still persist, today patient states see urinating very well and her bowel movements have improved, patient seen by GI recommending to continue Dificid orally another 10 days, stop the IV Flagyl, today patient stats feeling better and BM have improved and she is urinating more, her appetite has improved, will stop supplementing albumin and will monitor, her urine output, as well as and and endogenous albumin level denies any fever or chills is feeling much better, will stop albumin continue Lasix will monitor overnight may possibly discharge to rehab on Tuesday (2) Diarrhea: Qualifiers: Diarrhea type: unspecified type Qualified Code(s): R19.7 - Diarrhea, unspecified Code(s): R19.7 - Diarrhea, unspecified Status: Chronic Assessment and Plan: Most likely secondary to C diff colitis patient is treated with dicifid, seen by GI plan is above continue supportive care, encourage fluids orally, stereoptic projection topographer consult (3) Acute hypokalemia: Code(s): E87.6 - Hypokalemia Status: Acute Assessment and Plan: Continue potassium replacement. Monitor serum potassium. (4) Hypomagnesemia: Code(s): E83.42 - Hypomagnesemia Status: Acute Assessment and Plan: Continue magnesium replacement. Monitor serum magnesium. (5) Malnutrition: Qualifiers: Malnutrition type: unspecified type Qualified Code(s): E46 - Unspecified protein-calorie malnutrition Code(s): E46 - Unspecified protein-calorie malnutrition Status: Acute Assessment and Plan: Patient is a poor appetite has liver cirrhosis will continue to increase the patient to eat more patient is seen by dietitian (6) Chronic anticoagulation: Code(s): Z79.01 - USP (current) use of anticoagulants Status: Chronic Assessment and Plan: On chronic anticoagulation w/ Elquis secondary to LLE DVT. Continue Eliquis therapy. hold eliquis pt is going for colonoscopy tuesday (7) Weakness: Code(s): R53.1 - Weakness Status: Chronic Assessment and Plan: Secondary to ongoing colitis and chronic illness. Encourage nutrition, PT/OT evaluation when appropriate. (8) Dehydration: Code(s): E86.0 - Dehydration Status: Acute Assessment and Plan: Continue ensure fluids orally Monitor urine output and vital signs closely. (9) Leukocytosis: Qualifiers: Leukocytosis type: unspecified Qualified Code(s): D72.829 - Elevated white blood cell count, unspecified Code(s): D72.829 - Elevated white blood cell count, unspecified Status: Acute Assessment and Plan: Likely secondary to ongoing inflammation from colitis - Monitor CBCd. (10) Anemia: Qualifiers: Anemia type: unspecified type Qualified Code(s): D64.9 - Anemia, unspecified Code(s): D64.9 -
[2019-08-31 22:00] VITALS: BP 121/79; PULSE 97; RESP 16; TEMP 37; O2SAT 97
[2019-09-01] MEDS: LEVOTHYROXINE SODIUM INJ 100 MCG/5 ML VIAL 25 MCG IV PUSH (05:55)
[2019-09-01 06:00] VITALS: BP 138/91; PULSE 88; RESP 16; TEMP 37; O2SAT 99
[2019-09-01 06:32] LABS: Hematocrit 26.5 % (37.0-47.0); Hemoglobin 8.6 g/dL (12.0-15.0); Mean Corpuscular HGB Conc 32.5 g/dl (32-36); Mean Corpuscular Hemoglobin 32.2 pg (26-34); Mean Corpuscular Volume 99.3 fl (80-100); Mean Platelet Volume 10.9 fl (7.4-10.4); Platelet Count Result 375 k/mm3 (150-375); Red Blood Count 2.67 M/mm3 (4.2-5.4); Red Cell Distribution Width 16.2 % (11.5-14.5); White Blood Count 8.8 K/mm3 (4.5-10.0)
[2019-09-01 06:48] LABS: Alanine Aminotransferase 11 U/L (4-35); Albumin Level 2.8 g/dL (3.5-5.1); Alkaline Phosphatase 167 U/L (38-126); Aspartate Amino Transferase 19 U/L (14-36); Bilirubin,Total 0.4 mg/dL (0.2-1.3); Calcium 8.5 mg/dL (8.4-10.2); Carbon Dioxide 23 mmol/L (22-30); Chloride 107 mmol/L (98-107); Estimated CRCL calculation 56 ml/min; Estimated Glomerular Filt Rate > 60; Glucose 91 mg/dL (65-105); Potassium 3.9 mmol/L (3.4-5.0); Sodium 135 mmol/L (137-145)
[2019-09-01 07:15] LABS: Blood Urea Nitrogen < 2 mg/dL (7-17)
--- NOTE | 2019-09-01 07:45 | WPDGIPROGNO ---
Progress Note: A&P Additional Plan Patient appears alert and stronger today. She still has bouts of confusion. She has reports diarrhea has stopped. She denies abdominal pain. Physical exam reveals her to be alert. Vital signs stable. Lungs are clear. Abdomen is soft and nontender. Impression 1. Pseudomembranous colitis. Presumed to be C difficile infection. Although stool cultures apparently were canceled. Patient appears to be re-improving on oral Dificid therapy. This should be continued for at least a 10 day course. Plan is for return to [facility]. This is anticipated on Tuesday. We need to watch for evidence of relapse subsequently. Subjective Date/time seen: 09/01/19 07:46 Objective Data Vital Signs Vital Signs: Vital Signs - 24 hr 08/31/19 14:39 08/31/19 22:00 Temperature 37.1 C 37.0 C Pulse Rate 94 97 Respiratory Rate 16 16 Blood Pressure 128/78 121/79 Pulse Oximetry 98 97 Intake/Output Intake/Output: Intake & Output 08/29/19 08/30/19 08/31/19 09/01/19 23:59 23:59 23:59 23:59 Intake Total 1190 1040 1270 Output Total 800 Balance 390 1040 1270 Meds/Results Medications: Active Medications Generic Name Dose Route Start Last Admin Trade Name Freq PRN Reason Stop Dose Admin Acetaminophen 650 mg 08/23/19 20:48 08/24/19 22:31 Tylenol Tablet PO 650 mg Q4H PRN Administration Mild Pain (1-3) or Fever Apixaban 2.5 mg 08/28/19 09:00 08/31/19 22:18 Eliquis PO 2.5 mg Q12HR ARISTEO Administration Cholestyramine Resin 4 gm 08/27/19 18:00 08/31/19 17:06 Questran Light Packet PO 4 gm BID@1000,1800 ARISTEO Administration Famotidine 20 mg 08/23/19 21:00 08/31/19 22:18 Pepcid Iv IV PUSH 20 mg Q12HR ARISTEO Administration Fidaxomicin 200 mg 08/27/19 21:00 08/31/19 22:18 Dificid PO 200 mg Q12HR ARISTEO Administration Furosemide 20 mg 08/28/19 11:45 08/31/19 08:31 Lasix Inj IV PUSH 20 mg DAILY ARISTEO Administration Guaifenesin/Dextromethorphan 10 ml 08/25/19 21:49 08/25/19 22:54 Robitussin-Dm Syrup PO 10 ml Q4H PRN Administration Cough Levothyroxine Sodium 25 mcg 08/24/19 06:30 09/01/19 05:55 Levothyroxine Sodium Inj IV PUSH 25 mcg DAILY@0630 ARISTEO Administration Miconazole Nitrate 1 applic 08/28/19 09:00 08/31/19 22:18 [place] TOPICAL 1 applic Q12HR ARISTEO Administration Ondansetron HCl 4 mg 08/23/19 20:48 Zofran Inj IV PUSH Q4H PRN Nausea Potassium Chloride 40 meq 08/26/19 15:36 08/31/19 17:06 Kcl Powder (For Liquid) PO 40 meq BID ARISTEO Administration Radiology Results: ITS Impressions Abdomen/Pelvis CT 08/23/19 20:03 IMPRESSION: 1. Progression of edematous wall thickening associated with pancolitis which could be infectious, inflammatory or unlikely ischemic in etiology. 2. Anasarca with moderate amount of ascites, small bilateral pleural effusions and extensive body wall edema. 3. Small amount of gas within the normal-appearing bladder. Correlate for recent instrumentation or Underwood catheterization. Labs Labs: Laboratory Results - last 24 hr 09/01/19 09/01/19 06:09 06:09 WBC 8.8 RBC 2.67 L Hgb 8.6 L Hct 26.5 L MCV 99.3 MCH 32.2 MCHC 32.5 RDW 16.2 H Plt Count 375 MPV 10.9 H Sodium 135 L Potassium 3.9 Chloride 107 Carbon Dioxide 23 BUN < 2 L Creatinine 0.70 Estim Creat Clear Calc 56 Estimated GFR > 60 Glucose 91 Calcium 8.5 Total Bilirubin 0.4 AST 19 ALT 11 Alkaline Phosphatase 167 H Total Protein 5.0 L Albumin 2.8 L
[2019-09-01] MEDS: APIXABAN 2.5 MG TABLET PO ×2 (09:42→21:20)
[2019-09-01] MEDS: FIDAXOMICIN 200 MG TABLET PO ×2 (09:43→21:20)
[2019-09-01] MEDS: POTASSIUM CHLORIDE 20 MEQ PACKET (FOR LIQUID) 40 MEQ PO ×2 (09:45→18:06)
[2019-09-01] MEDS: CHOLESTYRAMINE LIGHT 4 GM POWD.PACK PO ×2 (09:45→18:07)
[2019-09-01] MEDS: FUROSEMIDE 20 MG TABLET PO (12:39)
[2019-09-01 14:55] VITALS: BP 118/72; PULSE 84; RESP 18; TEMP 36.3; O2SAT 93
--- NOTE | 2019-09-01 16:27 | PM.IMPN ---
Progress Note: A&P Assessment and Plan (1) Pancolitis: Code(s): K51.00 - Ulcerative (chronic) pancolitis without complications Status: Acute Assessment and Plan: 59 year old female known to be anticoagulated chronically on Eliquis secondary to LLE DVT who is well known to our Hospitalist service for 3 recent admissions secondary to pancolitis who has had ongoing wattery diarrhea and diffuse abdominal pain since June of this year. Pt discharged few days ago, back again with similar symptoms. Pt explained that she will benefit from a colonoscopy, to check for pathology. Patient was seen by GI had a colonoscopy today showed pseudomembrane colitis suspect patient may have C diff. Patient has been on Flagyl and dificid was added, pt looks very malnourished from chronic diarrhea, seen by network controller and further recommendation to follow, patient denies any fever or chills, bilateral lower extremity edematous, patient with hypoalbuminemia started the patient albumin with Lasix to help her diuresed on 08/27, 08/28 patient urine output had improved loose bowel movement still persist, today patient states see urinating very well and her bowel movements have improved, patient seen by GI recommending to continue Dificid orally another 10 days, stop the IV Flagyl, today patient stats feeling better and BM have improved and she is urinating more, her appetite has improved, stopped supplementing albumin on 08/30 and monitored, her urine output, as well as and and endogenous albumin level which are better withour supplementing albumin, will continue to monitor, patient was seen by Dr. Son and recommending to monitor until Tuesday, denies any fever or chills is feeling much better, will stop albumin continue Lasix will monitor overnight may possibly discharge to rehab on Tuesday (2) Diarrhea: Qualifiers: Diarrhea type: unspecified type Qualified Code(s): R19.7 - Diarrhea, unspecified Code(s): R19.7 - Diarrhea, unspecified Status: Chronic Assessment and Plan: Most likely secondary to C diff colitis patient is treated with dicifid, seen by GI plan is above continue supportive care, encourage fluids orally, network controller consult (3) Acute hypokalemia: Code(s): E87.6 - Hypokalemia Status: Acute Assessment and Plan: Continue potassium replacement. Monitor serum potassium. (4) Hypomagnesemia: Code(s): E83.42 - Hypomagnesemia Status: Acute Assessment and Plan: Continue magnesium replacement. Monitor serum magnesium. (5) Malnutrition: Qualifiers: Malnutrition type: unspecified type Qualified Code(s): E46 - Unspecified protein-calorie malnutrition Code(s): E46 - Unspecified protein-calorie malnutrition Status: Acute Assessment and Plan: Patient is a poor appetite has liver cirrhosis will continue to increase the patient to eat more patient is seen by dietitian (6) Chronic anticoagulation: Code(s): Z79.01 - detention (current) use of anticoagulants Status: Chronic Assessment and Plan: On chronic anticoagulation w/ Elquis secondary to LLE DVT. Continue Eliquis therapy. hold eliquis pt is going for colonoscopy tuesday (7) Weakness: Code(s): R53.1 - Weakness Status: Chronic Assessment and Plan: Secondary to ongoing colitis and chronic illness. Encourage nutrition, PT/OT evaluation when appropriate. (8) Dehydration: Code(s): E86.0 - Dehydration Status: Acute Assessment and Plan: Continue ensure fluids orally Monitor urine output and vital signs closely. (9) Leukocytosis: Qualifiers: Leukocytosis type: unspecified Qualified Code(s): D72.829 - Elevated white blood cell count, unspecified Code(s): D72.829 - Elevated white blood cell count, unspecified Status: Acute Assessment and Plan: Likely secondary to ongoing inflammation from colitis - Monitor C
[2019-09-01 21:20] VITALS: BP 129/88; PULSE 94; RESP 16; TEMP 36.8; O2SAT 97
--- NOTE | 2019-09-02 03:46 | PC.NURSE ---
Daylight Savings Time For Daylight Savings Time Ending in the Fall - Clocks are moved back. For Daylight Savings Time Beginning in the Spring - Clocks are moved ahead. For [facility], the time of change occurs at 0200 hrs. Time is taken from the pta. This entry on the patient's chart recognizes the change in time reflected during documentation. Example: 2 entries for vital signs may be charted for 0200 hrs.
[2019-09-02] MEDS: LEVOTHYROXINE SODIUM INJ 100 MCG/5 ML VIAL 25 MCG IV PUSH (06:44)
[2019-09-02 06:55] VITALS: BP 136/97; PULSE 90; RESP 16; TEMP 36.9; O2SAT 99
[2019-09-02 07:37] LABS: Alanine Aminotransferase 11 U/L (4-35); Albumin Level 2.7 g/dL (3.5-5.1); Alkaline Phosphatase 145 U/L (38-126); Aspartate Amino Transferase 18 U/L (14-36); Bilirubin,Total 0.4 mg/dL (0.2-1.3); Calcium 8.7 mg/dL (8.4-10.2); Carbon Dioxide 23 mmol/L (22-30); Chloride 108 mmol/L (98-107); Estimated CRCL calculation 56 ml/min; Estimated Glomerular Filt Rate > 60; Glucose 99 mg/dL (65-105); Potassium 4.5 mmol/L (3.4-5.0); Sodium 136 mmol/L (137-145)
[2019-09-02 07:48] LABS: Blood Urea Nitrogen < 2 mg/dL (7-17)
[2019-09-02 07:51] LABS: Hematocrit 25.4 % (37.0-47.0); Hemoglobin 8.2 g/dL (12.0-15.0); Mean Corpuscular HGB Conc 32.3 g/dl (32-36); Mean Corpuscular Hemoglobin 32.9 pg (26-34); Mean Platelet Volume 11.4 fl (7.4-10.4); Platelet Count Result 401 k/mm3 (150-375); Red Blood Count 2.49 M/mm3 (4.2-5.4); Red Cell Distribution Width 16.4 % (11.5-14.5)
[2019-09-02] MEDS: APIXABAN 2.5 MG TABLET PO ×2 (09:24→20:38)
[2019-09-02] MEDS: CHOLESTYRAMINE LIGHT 4 GM POWD.PACK PO ×2 (09:24→17:16)
[2019-09-02] MEDS: FUROSEMIDE 20 MG TABLET PO (09:24)
[2019-09-02] MEDS: FIDAXOMICIN 200 MG TABLET PO ×2 (09:24→20:38)
[2019-09-02] MEDS: POTASSIUM CHLORIDE 20 MEQ PACKET (FOR LIQUID) 40 MEQ PO ×2 (09:24→17:16)
[2019-09-02 14:00] VITALS: BP 145/85; PULSE 91; RESP 18; TEMP 36.5; O2SAT 100
--- NOTE | 2019-09-02 14:35 | PM.IMPN ---
Progress Note: A&P Assessment and Plan (1) Pancolitis: Code(s): K51.00 - Ulcerative (chronic) pancolitis without complications Status: Acute Assessment and Plan: 59 year old female known to be anticoagulated chronically on Eliquis secondary to LLE DVT who is well known to our Hospitalist service for 3 recent admissions secondary to pancolitis who has had ongoing wattery diarrhea and diffuse abdominal pain since June of this year. Pt discharged few days ago, back again with similar symptoms. Pt explained that she will benefit from a colonoscopy, to check for pathology. Patient was seen by GI had a colonoscopy today showed pseudomembrane colitis suspect patient may have C diff. Patient has been on Flagyl and dificid was added, pt looks very malnourished from chronic diarrhea, seen by airport tower controller and further recommendation to follow, patient denies any fever or chills, bilateral lower extremity edematous, patient with hypoalbuminemia started the patient albumin with Lasix to help her diuresed on 08/27, 08/28 patient urine output had improved loose bowel movement still persist, today patient states see urinating very well and her bowel movements have improved, patient seen by GI recommending to continue Dificid orally another 10 days, stop the IV Flagyl, today patient stats feeling better and BM have improved and she is urinating more, her appetite has improved, stopped supplementing albumin on 08/30 and monitored, her urine output, as well as and and endogenous albumin level which are better withour supplementing albumin, will continue to monitor, patient was seen by Dr. Son and recommending to monitor until Tuesday, denies any fever or chills is feeling much better, on 08/30 stopped albumin supplement continue Lasix, her albumin is slightly down to 2.7 from 2.8, her urine output remains same per patient, will monitor overnight may possibly discharge to rehab on Tuesday (2) Diarrhea: Qualifiers: Diarrhea type: unspecified type Qualified Code(s): R19.7 - Diarrhea, unspecified Code(s): R19.7 - Diarrhea, unspecified Status: Chronic Assessment and Plan: Most likely secondary to C diff colitis patient is treated with dicifid, seen by GI plan is above continue supportive care, encourage fluids orally, airport tower controller consult (3) Acute hypokalemia: Code(s): E87.6 - Hypokalemia Status: Acute Assessment and Plan: Continue potassium replacement. Monitor serum potassium. (4) Hypomagnesemia: Code(s): E83.42 - Hypomagnesemia Status: Acute Assessment and Plan: Continue magnesium replacement. Monitor serum magnesium. (5) Malnutrition: Qualifiers: Malnutrition type: unspecified type Qualified Code(s): E46 - Unspecified protein-calorie malnutrition Code(s): E46 - Unspecified protein-calorie malnutrition Status: Acute Assessment and Plan: Patient is a poor appetite has liver cirrhosis will continue to increase the patient to eat more patient is seen by dietitian (6) Chronic anticoagulation: Code(s): Z79.01 - continuous churn buttermaker (current) use of anticoagulants Status: Chronic Assessment and Plan: On chronic anticoagulation w/ Elquis secondary to LLE DVT. Continue Eliquis therapy. hold eliquis pt is going for colonoscopy tuesday (7) Weakness: Code(s): R53.1 - Weakness Status: Chronic Assessment and Plan: Secondary to ongoing colitis and chronic illness. Encourage nutrition, PT/OT evaluation when appropriate. (8) Dehydration: Code(s): E86.0 - Dehydration Status: Acute Assessment and Plan: Continue ensure fluids orally Monitor urine output and vital signs closely. (9) Leukocytosis: Qualifiers: Leukocytosis type: unspecified Qualified Code(s): D72.829 - Elevated white blood cell count, unspecified Code(s): D72.829 - Elevated white blood cell count, unspecified
--- NOTE | 2019-09-02 16:26 | PCOTNOTE ---
The patient treatment was not able to be completed on 09/02/2019. Will plan to continue treatment per plan of care.
[2019-09-02] MEDS: PANTOPRAZOLE 40 MG TABLET PO (20:38)
[2019-09-02 22:00] VITALS: BP 129/86; PULSE 100; RESP 16; TEMP 37.1; O2SAT 95
[2019-09-03] MEDS: LEVOTHYROXINE SODIUM INJ 100 MCG/5 ML VIAL 25 MCG IV PUSH (05:59)
[2019-09-03 06:00] VITALS: BP 141/92; PULSE 94; RESP 16; TEMP 36.9; O2SAT 98
[2019-09-03 06:43] LABS: Hematocrit 26.3 % (37.0-47.0); Hemoglobin 8.5 g/dL (12.0-15.0); Mean Corpuscular HGB Conc 32.3 g/dl (32-36); Mean Corpuscular Hemoglobin 32.4 pg (26-34); Mean Corpuscular Volume 100.4 fl (80-100); Mean Platelet Volume 10.5 fl (7.4-10.4); Platelet Count Result 409 k/mm3 (150-375); Red Blood Count 2.62 M/mm3 (4.2-5.4); Red Cell Distribution Width 16.4 % (11.5-14.5)
[2019-09-03 06:59] LABS: Alanine Aminotransferase 10 U/L (4-35); Albumin Level 2.8 g/dL (3.5-5.1); Alkaline Phosphatase 137 U/L (38-126); Aspartate Amino Transferase 19 U/L (14-36); Bilirubin,Total 0.4 mg/dL (0.2-1.3); Blood Urea Nitrogen 4 mg/dL (7-17); Calcium 8.3 mg/dL (8.4-10.2); Carbon Dioxide 21 mmol/L (22-30); Chloride 107 mmol/L (98-107); Estimated CRCL calculation 65 ml/min; Estimated Glomerular Filt Rate > 60; Glucose 82 mg/dL (65-105); Potassium 4.2 mmol/L (3.4-5.0); Sodium 135 mmol/L (137-145)
[2019-09-03] MEDS: FIDAXOMICIN 200 MG TABLET PO (09:46)
[2019-09-03] MEDS: FUROSEMIDE 20 MG TABLET PO (09:46)
[2019-09-03] MEDS: PANTOPRAZOLE 40 MG TABLET PO (09:46)
[2019-09-03] MEDS: APIXABAN 2.5 MG TABLET PO (09:47)
[2019-09-03] MEDS: POTASSIUM CHLORIDE 20 MEQ PACKET (FOR LIQUID) 40 MEQ PO (09:47)
--- NOTE | 2019-09-03 10:13 | PM.DS ---
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 Pt discharged few days ago, back again with similar symptoms. Pt explained that she will benefit from a colonoscopy, to check for pathology. Patient was seen by GI had a colonoscopy today showed pseudomembrane colitis suspect patient may have C diff. Patient has been on Flagyl and dificid was added, pt looks very malnourished from chronic diarrhea, seen by cdl driver and further recommendation to follow, patient denies any fever or chills, bilateral lower extremity edematous, patient with hypoalbuminemia started the patient albumin with Lasix to help her diuresed on 08/27, 08/28 patient urine output had improved loose bowel movement still persist, today patient states see urinating very well and her bowel movements have improved, patient seen by GI recommending to continue Dificid orally another 10 days, stop the IV Flagyl, today patient stats feeling better and BM have improved and she is urinating more, her appetite has improved, stopped supplementing albumin on 08/30 and monitored, her urine output, as well as and and endogenous albumin level which are better withour supplementing albumin, will continue to monitor, patient was seen by Dr. Son and recommending to monitor until Tuesday, denies any fever or chills is feeling much better, on 08/30 stopped albumin supplement continue Lasix, her albumin is slightly down to 2.7 from 2.8, her urine output remains same per patient, will monitor overnight may possibly discharge to rehab on Tuesday (2) Diarrhea: Qualifiers: Diarrhea type: unspecified type Qualified Code(s): R19.7 - Diarrhea, unspecified Code(s): R19.7 - Diarrhea, unspecified Status: Chronic Assessment and Plan: Most likely secondary to C diff colitis patient is treated with dicifid, seen by GI plan is above continue supportive care, encourage fluids orally, cdl driver consult (3) Acute hypokalemia: Code(s): E87.6 - Hypokalemia Status: Acute Assessment and Plan: Continue potassium replacement. Monitor serum potassium. (4) Hypomagnesemia: Code(s): E83.42 - Hypomagnesemia Status: Acute Assessment and Plan: Continue magnesium replacement. Monitor serum magnesium. (5) Malnutrition: Qualifiers: Malnutrition type: unspecified type Qualified Code(s): E46 - Unspecified protein-calorie malnutrition Code(s): E46 - Unspecified protein-calorie malnutrition Status: Acute Assessment and Plan: Patient is a poor appetite has liver cirrhosis will continue to increase the patient to eat more patient is seen by dietitian (6) Chronic anticoagulation: Code(s): Z79.01 - retirement (current) use of anticoagulants Status: Chronic Assessment and Plan: On chronic anticoagulation w/ Elquis secondary to LLE DVT. Continue Eliquis therapy. hold eliquis pt is going for colonoscopy tuesday (7) Weakness: Code(s): R53.1 - Weakness Status: Chronic Assessment and Plan: Secondary to ongoing colitis and chronic illness. Encourage nutrition, PT/OT evaluation when appropriate. (8) Dehydration: Code(s): E86.0 - Dehydration Status: Acute Assessment and Plan: Continue ensure fluids orally Monitor urine output and vital signs closely. (9) Leukocytosis: Qualifiers: Leukocytosis type: unspecified Qualified Code(s): D72.829 - Elevated white blood cell cou
[2019-09-04 14:01] LABS: Norovirus RNA PCR, Stool NOT DETECTED
[2019-09-07 19:12] LABS: Calprotectin, Stool 107.5 mcg/g
== END 2019-09-03 11:03 | DRG 372 ==
LOC: ANHED 21:01 → ANH3MEDSUR 08-24 10:41
PROVIDERS: Emergency Medicine; Family Medicine; Internal Medicine Gastroenterology; Admitting Provider Family Medicine; Emergency Provider Emergency Medicine; PCP Family Medicine; Visit Provider Family Medicine
PROC: 0DJD8ZZ Inspection of Lower Intestinal Tract, Via Natural or Artificial Opening Endoscopic (ICD-10-PCS; CPT 45378; principal; 2019-08-27 11:00)
DX: A04.72 Enterocolitis due to Clostridium difficile, not specified as recurrent (principal); K51.00 Ulcerative (chronic) pancolitis without complications; E46 Unspecified protein-calorie malnutrition; I82.4Z2 Acute embolism and thrombosis of unspecified deep veins of left distal lower extremity; E87.6 Hypokalemia; E83.42 Hypomagnesemia; Z68.20 Body mass index [BMI] 20.0-20.9, adult; E86.0 Dehydration; D72.829 Elevated white blood cell count, unspecified; D64.9 Anemia, unspecified; I10 Essential (primary) hypertension; E55.9 Vitamin D deficiency, unspecified; Z79.01 Long term (current) use of anticoagulants; Z87.891 Personal history of nicotine dependence
CPT/HCPCS: 36415; 74177; 80048; 80053; 81001; 82274; 82607; 82705; 82746; 83605; 83690; 83735; 83993; 85025; 85027; 85610; 87040; 87045; 87046; 87077; 87086; 87088; 87177; 87186; 87209; 87269; 87272; 87324; 87427; 87798; 88305; 89055; 93005; 96374; 97110; 97116; 97161; 97165; 97530; 97535; 99285; A9270; J1940; J2704; J3475; J7120; J7121; P9047; Q9967

== ENCOUNTER 2019-10-23 14:43 | Outpatient (CLI) | payer OTHER, SELFPAY ==
[2019-10-23 15:09] LABS: Basophils Absolute Auto 0.1 K/mm3 (0.0-0.1); Basophils Percent Auto 1.7 % (0.2-1.2); Eosinophils Absolute Auto 0.4 K/mm3 (0-0.3); Eosinophils Percent Auto 7.8 % (0-4.4); Hemoglobin 12.3 g/dL (12.0-15.0); Immature Granulocyte Absolute 0.01 K/mm3 (0.00-0.031); Immature Granulocyte Percent A 0.2 % (0-0.5); Lymphocytes Absolute Auto 1.88 K/mm3 (0.9-3.2); Lymphocytes Percent Auto 35.7 % (18.3-44.2); Mean Corpuscular HGB Conc 32.4 g/dl (32-36); Mean Corpuscular Hemoglobin 31.3 pg (26-34); Mean Corpuscular Volume 96.7 fl (80-100); Mean Platelet Volume 9.5 fl (7.4-10.4); Monocytes Absolute Auto 0.5 K/mm3 (0.1-0.6); Monocytes Percent Auto 9.5 % (2.6-8.5); Neutrophils Absolute Auto 2.4 K/mm3 (1.3-6.7); Neutrophils Percent Auto 45.1 % (45.5-73.1); Platelet Count Result 303 k/mm3 (150-375); Red Blood Count 3.93 M/mm3 (4.2-5.4); Red Cell Distribution Width 13.5 % (11.5-14.5); White Blood Count 5.3 K/mm3 (4.5-10.0)
[2019-10-23 15:21] LABS: Alanine Aminotransferase 32 U/L (4-35); Albumin Level 3.5 g/dL (3.5-5.1); Alkaline Phosphatase 99 U/L (38-126); Aspartate Amino Transferase 41 U/L (14-36); Bilirubin,Total 0.3 mg/dL (0.2-1.3); Blood Urea Nitrogen 11 mg/dL (7-17); Calcium 9.1 mg/dL (8.4-10.2); Carbon Dioxide 28 mmol/L (22-30); Chloride 101 mmol/L (98-107); Estimated Glomerular Filt Rate > 60; Glucose 105 mg/dL (65-105); Potassium 4.4 mmol/L (3.4-5.0); Sodium 135 mmol/L (137-145)
[2019-10-23 18:49] LABS: Free T4 Free Thyroxine 0.91 ng/mL (0.78-2.19)
== END 2019-10-23 14:44 | disposition home or self-care (01) ==
PROVIDERS: PCP Family Medicine; Visit Provider Family Medicine
DX: K52.9 Noninfective gastroenteritis and colitis, unspecified (principal); E46 Unspecified protein-calorie malnutrition; E03.9 Hypothyroidism, unspecified
CPT/HCPCS: 36415; 80053; 84439; 84443; 85025

== ENCOUNTER 2022-12-30 11:01 | Outpatient (CLI) | payer BC, SELFPAY ==
[2022-12-30 11:41] LABS: Cholesterol 243 mg/dL (0-200); Triglycerides 122 mg/dL (<150)
[2022-12-30 11:49] LABS: LDL Cholesterol Direct 81 mg/dL
[2022-12-30 12:04] LABS: HDL Direct 152 mg/dL
== END 2022-12-30 11:02 | disposition home or self-care (01) ==
PROVIDERS: PCP Nurse Practitioner Adult Health; Visit Provider Nurse Practitioner Adult Health
DX: E78.5 Hyperlipidemia, unspecified (principal)
CPT/HCPCS: 36415; 80061

== ENCOUNTER 2023-08-01 09:23 | Outpatient (CLI) | payer BC, SELFPAY ==
[2023-08-01 18:21] LABS: Basophils Absolute Auto 0.1 K/mm3 (0.0-0.1); Basophils Percent Auto 1.7 % (0.2-1.2); Eosinophils Absolute Auto 0.1 K/mm3 (0-0.3); Hematocrit 43.2 % (37.0-47.0); Hemoglobin 14.7 g/dL (12.0-15.0); Immature Granulocyte Absolute 0.01 K/mm3 (0.00-0.031); Immature Granulocyte Percent A 0.2 % (0-0.5); Lymphocytes Absolute Auto 2.04 K/mm3 (0.9-3.2); Lymphocytes Percent Auto 34.6 % (18.3-44.2); Mean Corpuscular Hemoglobin 35.9 pg (26-34); Mean Corpuscular Volume 105.6 fl (80-100); Mean Platelet Volume 10.5 fl (7.4-10.4); Monocytes Absolute Auto 0.6 K/mm3 (0.1-0.6); Monocytes Percent Auto 10.2 % (2.6-8.5); Neutrophils Percent Auto 51.3 % (45.5-73.1); Platelet Count Result 220 k/mm3 (150-375); Red Blood Count 4.09 M/mm3 (4.2-5.4); Red Cell Distribution Width 13.2 % (11.5-14.5); White Blood Count 5.9 K/mm3 (4.5-10.0)
[2023-08-01 18:50] LABS: Free T4 Free Thyroxine 1.65 ng/mL (0.78-2.19)
[2023-08-01 18:55] LABS: Platelet Estimate Adequate (Adequate); Schistocytes None Seen (NORMAL)
[2023-08-01 18:56] LABS: Macrocytosis 1+ (NORMAL)
[2023-08-01 19:03] LABS: Alanine Aminotransferase 32 U/L (6-35); Albumin Level 4.5 g/dL (3.5-5.1); Alkaline Phosphatase 100 U/L (38-126); Anion Gap 13 mmol/L (8-16); Aspartate Amino Transferase 81 U/L (14-36); Blood Urea Nitrogen 11 mg/dL (7-17); Calcium 10.4 mg/dL (8.4-10.2); Carbon Dioxide 24 mmol/L (22-30); Chloride 93 mmol/L (98-107); Cholesterol 261 mg/dL (0-200); Estimated Glomerular Filt Rate > 60; Glucose 144 mg/dL (65-110); LDL Cholesterol Direct 91 mg/dL; Potassium 3.9 mmol/L (3.4-5.0); Sodium 130 mmol/L (137-145); Triglycerides 161 mg/dL (<150)
[2023-08-01 19:20] LABS: HDL Direct 158 mg/dL
[2023-08-01 19:23] LABS: Thyroid Stimulating Hormone 0.734 uIU/mL (0.465-4.680); Total Triiodothyronine (T3) 0.95 NG/ML (0.97-1.69)
== END 2023-08-01 09:24 | disposition home or self-care (01) ==
LOC: ANHBWCLAB 09:26
PROVIDERS: PCP Nurse Practitioner Adult Health; Visit Provider Family Medicine
DX: E78.5 Hyperlipidemia, unspecified (principal); I10 Essential (primary) hypertension; Z13.29 Encounter for screening for other suspected endocrine disorder
CPT/HCPCS: 36415; 80053; 80061; 84439; 84443; 84480; 85025

== ENCOUNTER 2023-08-31 12:23 | Outpatient (NON) | payer BC, SELFPAY ==
[2023-09-07 19:07] LABS: Calprotectin, Stool 37 mcg/g
== END 2023-08-31 12:24 | disposition home or self-care (01) ==
PROVIDERS: PCP Nurse Practitioner Adult Health; Visit Provider Nurse Practitioner Family
DX: R19.7 Diarrhea, unspecified (principal)
CPT/HCPCS: 83993

== ENCOUNTER 2023-09-27 15:04 | Outpatient (CLI) | payer BC, SELFPAY ==
--- NOTE | ~2023-09-27 | XR_ITS ---
EXAM: XR abdomen/kub 1V DATE: 09/27/2023 15:34 HISTORY: R19.7 - Diarrhea, unspecified . COMPARISON: None available. FINDINGS: Clear lung bases. Normal bowel gas pattern. No organomegaly. No abnormal abdominal calcifi cation. Severe lumbar scoliosis. Multilevel degenerative disc disease. Mild bilateral hip osteoarthri tis. IMPRESSION: No radiographic evidence of obstruction or ileus. Reviewed, dictated and finalized at location K.
[2023-09-30 11:58] LABS: Immunoglobulin A 379 mg/dL (70-320); TTG IGA AB <1.0 U/mL (<15.0)
== END 2023-09-27 15:05 | disposition home or self-care (01) ==
PROVIDERS: PCP Nurse Practitioner Adult Health; Visit Provider Nurse Practitioner Family
DX: R63.4 Abnormal weight loss (principal); R19.7 Diarrhea, unspecified
CPT/HCPCS: 36415; 74018; 82784; 86364

== ENCOUNTER 2023-11-01 14:40 | Outpatient (NON) | payer BC, SELFPAY ==
[2023-11-07 15:48] LABS: H pylori Ag Stool Not Detected
== END 2023-11-01 14:41 | disposition home or self-care (01) ==
LOC: ANHLAB 14:41
PROVIDERS: PCP Nurse Practitioner Adult Health; Visit Provider Nurse Practitioner Family
DX: R19.7 Diarrhea, unspecified (principal); R63.4 Abnormal weight loss
CPT/HCPCS: 36415; 87045; 87177; 87209; 87338; 87427; 87449

== ENCOUNTER 2024-09-27 11:11 | Outpatient (CLI) | payer OTHER, SELFPAY ==
--- NOTE | ~2024-09-27 | XR_ITS ---
Lumbosacral Spine: AP and lateral views Clinical History: Pain Findings: There is severe dextroscoliosis. No acute fractures are visualized. There is moderate to se sammi degenerative disc narrowing throughout the lumbar spine. There is severe facet arthropathy throu ghout the lumbar spine. There are atherosclerotic calcifications of the aorta.. The sacroiliac joint s are normally outlined. Impression: Severe degenerative spondylosis with severe dextroscoliosis. Reviewed, dictated and finalized at location M. Impression: Severe degenerative spondylosis with severe dextroscoliosis.
--- NOTE | ~2024-09-27 | XR_ITS ---
AP and lateral views of the left hip Clinical history: Pain Findings: No acute fracture or dislocation is seen. Osseous alignment is anatomic. Left hip joint is intact. Soft tissues are unremarkable. Impression: No significant abnormality is seen. Reviewed, dictated and finalized at location M. Impression: No significant abnormality is seen.
--- NOTE | ~2024-09-27 | XR_ITS ---
EXAMINATION: SACRUM/COCCYX DATE: 09/27/2024 11:55 INDICATION: Left hip pain. No injury. TECHNIQUE: Three views sacrum/coccyx FINDINGS: No prior studies for comparison. There is no displaced fracture of the sacrum. The coccyx demonstrates overall normal morphology with out acute angulation.Osteopenia. There is severe lumbar spondylosis partially visualized with dextros coliosis. There is mild bilateral osteoarthritis of the hips. There is facet hypertrophy of the mid a nd lower lumbar spine with grade 1 degenerative spondylolisthesis at L5-S1. IMPRESSION: 1. No acute displaced osseous abnormality of the sacrum. Suspicion for occult or nondisplaced sacral fracture can either be evaluated with CT or MRI. Reviewed, dictated and finalized at location A.
--- OUTSIDE RECORDS SUMMARY | 2024-09-27 12:07 | XMS_ITS | Referral Summary ---
Author Organization [address] Address [address] [place] [address] Care Team Providers Care Installment Loan Collector Name Role Phone No, Physician Primary Care Provider [phone] Encounters Date Type Department Care Team Description 09/22/2024 Results Follow-Up [facility] at [address] [place] [id number] Katrina Oscar NP 09/21/2024 3:04 PM CDT - 09/21/2024 11:59 PM CDT [place] [address] Flank pain Discharge Disposition: Discharge to home or self care 09/21/2024 3:00 PM CDT Office Visit [facility] at [address] [place] [id number] Alicia Quinteros NP Flank pain (Primary Dx); Weakness; Abdominal pain from Last 3 Months Allergies No known active allergies Medications Lumigan 0.01 % ophthalmic drops 1 drop nightly 5 Active furosemide (LASIX) 20 mg tablet Take 1 tablet (20 mg total) by mouth daily 4 Active levothyroxine (SYNTHROID) 50 mcg tablet Take 1 tablet (50 mcg total) by mouth daily 4 Active lisinopril-hydr oCHLOROthiazide (ZESTORETIC) 10-12.5 mg per tablet Take 1 tablet by mouth daily 6 Active ketorolac (ACULAR) 0.5 % ophthalmic solution INSTILL 1 DROP THREE TIMES DAILY STARTING 2 DAYS BEFORE SURGERY, CONTINUE FOR 2 WEEKS AFTER 5 Active prednisoLONE acetate (PRED FORTE) 1 % ophthalmic suspension INSTILL 1 DROP THREE TIMES DAILY STARTING AFTER SURGERY AND CONTINUE FOR 3 WEEKS 5 Active ofloxacin (OCUFLOX) 0.3 % ophthalmic solution INSTILL 1 DROP THREE TIMES DAILY STARTING 2 DAYS BEFORE SURGERY AND CONTINUING FOR 1 WEEK AFTER 5 Active omeprazole (PriLOSEC) 10 mg capsule Take 1 capsule (10 mg total) by mouth daily Active cephalexin (KEFLEX) 500 mg capsule Take 1 capsule (500 mg total) by mouth 2 (two) times a day for 7 days 14 capsule 5 10/01/19 25 Active Active Problems Problem Noted Date Diagnosed Date Edema 05/01/2019 Social History Tobacco Use Types Packs/Day Years Used Date Smoking Tobacco: Never Assessed Comments Unknown Sex and Gender Information Value Date Recorded Sex Assigned at Not on file Legal 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 Gender Identity Not on file Sexual Orientation Not on file Last Filed Vital Signs Vital Sign Reading Time Taken Comments Blood Pressure 138/68 09/21/2024 3:12 PM CDT Pulse 74 09/21/2024 3:12 PM CDT Temperature 36.8 C (98.3 F) 09/21/2024 3:12 PM CDT Respiratory Rate 18 09/21/2024 3:12 PM CDT Oxygen Saturation 97% 09/21/2024 3:12 PM CDT Inhaled Oxygen Concentration - - Weight 42.2 kg (93 lb) 09/21/2024 3:12 PM CDT Height 154.9 cm (5' 1 ) 09/21/2024 3:12 PM CDT Body Mass Index 17.57 09/21/2024 3:12 PM CDT Plan of Treatment Not on file Procedures Procedure Name Priority Date/Time Associated Diagnosis Comments POCT URINALYSIS DIPSTICK Routine 09/21/2024 3:13 PM CDT Flank pain URINE CULTURE Routine 09/21/2024 3:04 PM CDT Flank pain from Last 3 Months Results * (ABNORMAL) POCT urinalysis dipstick (09/21/2024 3:13 PM CDT) Color, Urine, POC Dark Yellow Clarity, ur, POC Cloudy(A) Clear Glucose, ur, POC Negative Negative MG/DL Bilirubin, ur, POC Negative Negative, Small, Moderate, Large Ketones, ur, POC Negative Negative Specific [place], POC 1.030 1.003 - 1.030 Blood, ur, POC Negative Negative pH, ur, POC 5.5 5.0 - 8.0 Protein, ur, POC Trace(A) Negative Urobilinogen, urine, POC 0.2 0.2 - 1.0 mg/dL Nitrite, ur, POC Positive(A) Negative Leukocytes, ur, POC Negative Negative Lot Number [id number] Urine 09/21/2024 3:13 PM CDT Alicia Quinteros NP POINT OF CARE TEST ORDERABLES Fi nal Result * (ABNORMAL) Urine culture Urine, clean voided (09/21/2024 3:04 PM CDT) Report Final Report: Greater than or equal to 100,000 colonies/mL of Escherichia coli Plus growth of clinically insignificant bacterial pilo. (.) Comment:Testing performed by : [facility], [address] [place] [place] [address] Organism ESCHERICHIA COLI [place] Organism PLUS GROWTH OF CLINICALLY INSIGNIFICANT PILO. [facility] Urine, clean voided 09/21/2024 3:04 PM CDT 09/21/2024 11:56 PM CDT Narrative [facility] - 09/23/2024 3:56 PM CDT Testing performed by [facility] Microbiology Laboratory ([phone]) Organism Antibiotic Method Susceptibility Escherichia coli Ampicillin INTERPRETATION Resistant Escherichia coli Cefazolin INTERPRETATION Susceptible Escherichia coli Nitrofurantoin INTERPRETATION Susceptible Escherichia coli Gentamicin INTERPRETATION Susceptible Escherichia coli Trimethoprim with Sulfamethoxazole IN TERPRETATION Susceptible Escherichia coli Meropenem INTERPRETATION Susceptible Escherichia coli Cefepime INTERPRETATION Susceptible Escherichia coli Ciprofloxacin INTERPRETATION Susceptible Escherichia coli Ceftazidime INTERPRETATION Susceptible Escherichia coli Ceftriaxone INTERPRETATION Susceptible Escherichia coli Piperacillin/Tazobactam INTERPRETATIO N Susceptible Escherichia coli Cephalexin INTERPRETATION Susceptible Escherichia coli Cefuroxime-axetil INTERPRETATION Susceptible Escherichia coli Cefdinir INTERPRETATION Susceptible us Alicia Quinteros NP LAB MICROBIOLOGY - GENERAL ORDER JEANA Final Result [facility] [place] [id number] [place] [address] from Last 3 Months Insurance [facility] CHOICE PLUS [facility] HMO/PPO Address: [facility] [address] [place] [address] Care Teams Installment Loan Collector Relationship Specialty Start Date End Date No, Physician PCP - General 09/21/24
--- OUTSIDE RECORDS SUMMARY | 2024-09-27 12:07 | XMS_ITS | Clinical Summary ---
Author Organization [facility] [address] Address [address] [place] [address] Care Team Providers Care Automotive Design Layout Drafter Name Role Phone No, Physician Primary Care Provider Allergies No known active allergies Medications Lumigan [...] Problem Noted Date Diagnosed Date Edema 05/01/2019 Encounters Date Type Department Care Team Description 09/22/2024 Results Follow-Up [facility] [place] [address] [place] [address] Katrina Oscar NP 09/21/2024 3:04 PM CDT - 09/21/2024 11:59 PM CDT Hospital Encounter [address] [address] Flank pain Discharge Disposition: Discharge to home or self care 09/21/2024 3:00 PM CDT Office Visit [facility] [place] [address] [place] [address] Alicia Quinteros NP Flank pain (Primary Dx); Weakness; Abdominal pain from Last 3 Months Social History Tobacco Use Types Packs/Day Years Used Date Smoking Tobacco: Never Assessed Comments Unknown Sex and Gender Information Value Date Recorded Sex Assigned at Not on file Legal 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 Gender Identity Not on file Sexual Orientation Not on file Obstetrics History Last Filed Vital Signs Vital Sign Reading [...] 09/21/2024 3:12 PM CDT Plan of Treatment Health Maintenance Due Date Last Done Comments Breast Cancer Screening-Mammogram 1960 Cervical Cancer Screening 1960 Colon Cancer Screening-Colonoscopy 1960 Depression Screening 1960 Hepatitis C Screening 1960 DTaP/Tdap/Td Vaccine (1 - Tdap) 1971 Hepatitis B Screening 1978 Regular Well Visit/Exam 18-64 1978 Zoster Vaccine (1 of 2) 2010 Influenza Vaccine (#1) 2024 Pneumococcal vaccine <65 Aged Out No longer eligible based on patient's age to complete this topic Procedures Procedure Name Priority Date/Time Associated Diagnosis [...] Large Ketones, ur, POC Negative Negative Specific [place], POC 1.030 1.003 - 1.030 Blood, ur, POC Negative Negative pH, ur, POC 5.5 5.0 - 8.0 Protein, ur, POC Trace(A) Negative Urobilinogen, urine, POC 0.2 0.2 - 1.0 mg/dL Nitrite, ur, POC Positive(A) Negative Leukocytes, ur, POC Negative Negative Lot Number [id number] Urine 09/21/2024 3:13 PM CDT Alicia Quinteros NP POINT OF CARE TEST ORDERABLES Fi nal Result * (ABNORMAL) Urine culture Urine, clean voided (09/21/2024 3:04 PM CDT) Report Final Report: Greater than or equal to 100,000 colonies/mL of Escherichia coli Plus growth of clinically insignificant bacterial pilo. (.) Comment:Testing performed by : [facility], [address] [place]., [address] Organism ESCHERICHIA COLI [facility] Organism PLUS GROWTH OF CLINICALLY INSIGNIFICANT PILO. [facility] Urine, clean voided 09/21/2024 3:04 PM CDT 09/21/2024 11:56 PM CDT Narrative [facility] - 09/23/2024 3:56 PM CDT Testing performed by [facility] Microbiology Laboratory ([phone]) Organism Antibiotic Method Susceptibility Escherichia coli Ampicillin [...] - GENERAL ORDER JEANA Final Result [place] [id number] Department [place] [address] from Last 3 Months Insurance [facility] CHOICE PLUS [facility] HMO/PPO Address: [facility] [address] [place] [address] Care Teams Automotive Design Layout Drafter Relationship Specialty Start Date End Date No, Physician PCP - General 09/21/24
--- OUTSIDE RECORDS SUMMARY | 2024-09-27 12:07 | XMS_ITS | CONTINUITY OF CARE DOCUMENT ---
Author Name derek reed Address Unknown Organization [facility] Address [id number] [place] [address] [address] [place] [address] Phone [phone] Care Team Providers Care Law Enforcement Instructor Name Role Phone Efrain HERNADEZ, Unavailable [phone] MARGARET GONSALVES MD Unavailable MARGARET GONSALVES MD Unavailable [phone] PROBLEMS Condition Status Date Provider Notes Edema active Braden Watts INSURANCE PROVIDERS Payer name Policy type / Coverage type [place] red democrat ID [employer] [facility] Other [id number] TREATMENT PLAN Date Name Complete Echo
--- OUTSIDE RECORDS SUMMARY | 2024-09-27 12:07 | XMS_ITS | Clinical Summary ---
Author Organization [facility] Address [address] [place] [address] Care Team Providers Care Batch Attendant Name Role Phone Yuriy Green MD Primary Care Provider [phone] Source Comments [facility],non-owned Affiliates and Associated Physician Practices is amultiple site organization consisting of ambulatory clinics and hospital sitesin [place], [place], [place] and [place]. This disclosure is being madepursuant to the Care Everywhere program and may not contain all information available regarding this patient. Last updated 18.[facility] Allergies No known active allergies Medications * Be aware that medications may not be up to date on this document. Alwaysverify current medications with the patient. Medication Sig Dispensed Refills Start Date End Date Status lisinopril-hydroCHLOROt hiazide (PRINZIDE; ZESTORETIC) 10-12.5 MG tablet Take 1 Tab by mouth once daily 20 Tab 0 02/17/2016 Active Social History Tobacco Use Types Packs/Day Years Used Date Smoking Tobacco: Never Assessed Sex and Gender Information Value Date Recorded Sex Assigned at Not on file Gender Identity Not on file Sexual Orientation Not on file Last Filed Vital Signs Vital Sign Reading Time Taken Comments Blood Pressure 127/85 02/17/2016 10:28 AM CDT Pulse 90 02/17/2016 9:08 AM CDT Temperature 36.6 C (97.8 F) 02/17/2016 9:08 AM CDT Respiratory Rate 17 02/17/2016 9:08 AM CDT Oxygen Saturation 100% 02/17/2016 10:00 AM CDT Inhaled Oxygen Concentration - - Weight 49.9 kg (110 lb) 02/17/2016 9:08 AM CDT Height 157.5 cm (5' 2.01 ) 02/17/2016 9:08 AM CD T Body Mass Index 20.11 02/17/2016 9:08 AM CDT Plan of Treatment Health Maintenance Due Date Last Done Comments COLOGUARD (AGES 45-75) - COL ON CA SCREENING 1960 COLON MONITORING 1960 COLONOSCOPY - COLON CA SCREENING 1960 CT COLONOGRAPHY - COLON CA SCREENING 1960 Colorectal Cancer Screening 1960 FIT - COLON CA SCREENING 1960 FLEX SIG - COLON CA SCREENING 1960 LIPID TESTING 1960 MAMMOGRAM 1960 PAP SMEAR 1960 HIV SCREENING 1975 HEPATITIS C SCREENING 03/08/1978 DTAP/TDAP/TD VACCINES (1 - Tdap) 1979 PNEUMOCOCCAL VACCINE 50+ (1 of 1 - PCV) 2010 ZOSTER VACCINE (1 of 2) 2010 COVID-19 VACCINE (1 - 2023-2 5 season) 2024 INFLUENZA VACCINE (#1) 2024 DEPRESSION SCREENING 06/27/2024 Respiratory Syncytial Virus (RSV) Vaccine Pt: or over 60 yrs (1 - 1-dose 75+ series) 2035 HEPATITIS B VACCINE Aged Out No longe r eligible based on patient's age to complete this topic HIB VACCINE Aged Out No longer eligi ble based on patient's age to complete this topic HPV VACCINE Aged Out No longer eligi ble based on patient's age to complete this topic MENINGOCOCCAL (Group B) VACC INE SHARED DECISION-MAKING Aged Out No longer eligibl e based on patient's age to complete this topic MENINGOCOCCAL GROUPS A/C/Y/W VACCINE Aged Out No longer eligible b ased on patient's age to complete this topic PNEUMOCOCCAL VACCINE Aged Out No long er eligible based on patient's age to complete this topic Care Teams Batch Attendant Relationship Specialty Start Date End Date Yuriy Green MD [address] [facility] [address] [place] [id number] PCP - General 08/28/19
--- OUTSIDE RECORDS SUMMARY | 2024-09-27 12:07 | XMS_ITS | Continuity of Care Document ---
Author Organization [facility] Address [address] [id number] Phone Care Team Providers Care Senior Android Software Engineer Name Role Phone Cori Ji MD Unavailable Unavailable Allergies, Adverse Reactions, Alerts Substance Reaction Status Criticality No Known Allergies Active No Inform ation Medications Medication Instructions Dosage Effective Dates (start - stop) Status Comments folic acid 400 mcg tablet take 1 tablet by oral route every day 0.4 MG - Active cyanocobalamin (vit B-12) ER 1,000 mcg tablet,extended release 1 daily for 1month, then 1 tab 3x week thereafter - Active Procedures Procedure Date OFFICE [id number] BODY MASS INDEX DOCD SYST BP LT 130 MM HG DIAST BP < 80 MM HG Pt inelig neg scrn depres OFFICE [id number] BODY MASS INDEX DOCD SYST BP LT 130 MM HG DIAST BP < 80 MM HG BASIC METABOLIC PANEL(BMP) CBC, INC PLATELETS AND DIFFERENTIAL FOLIC ACID (S) (FOLATE) BRAIN NATRIURETIC PEPTIDE (BNP) 019 VITAMIN B12 (SERUM) ROUTINE VENIPUNCTURE OFFICE [id number] BODY MASS INDEX DOCD SYST BP LT 130 MM HG DIAST BP < 80 MM HG URINALYSIS, REFLEX (UA) ROUTINE VENIPUNCTURE CBC, INC PLATELETS AND DIFFERENTIAL AMYLASE COMPREHEN METABOLIC PANEL CMP 9 LIPASE URINALYSIS, DIPSTICK (UA) - Office Lab S ROUTINE VENIPUNCTURE ACUTE HEPATITIS PANEL OFFICE [id number] BODY MASS INDEX DOCD SYST BP LT 130 MM HG DIAST BP < 80 MM HG Advance Directives Directive Yes / No Effective Date File Name No Information Encounters Encounter Description Practice Location Reason(s) For Visit Diagnoses Date Provider Providers Copied on Encounter [facility], [address], , [id number] , tel: [phone] [facility] No Information [address] G[address], [facility] [address], [place], [place], [address], [place]. tel:[phone] [facility], [address], , [id number] , [place] tel:[phone] [facility] Abnormal weight loss 0 Garrison Pers[address], [facility] [address], [place], [place], [address], [place]. tel:[phone] OFFICE GMDTR-VZO-UN -MED [facility], [address], , [id number] , [place] tel: [phone] [facility] Loss of appetite (chief complaint) Poor appetiteWeight lossNauseaColon cancer screening 0 Corwin Youssef. [address] [facility], [address], [place], [place], [address], [place]. tel:[phone] Referring Provider: Cori Ji, [address], [place], [address] . tel:[phone] [facility], [address], , [id number] , [place] tel: [phone] [facility] weight loss (chief complaint) Weight lossFatty liverAbnormal liver ultrasoundVitami n B12 deficiencyBenign hypertension 201 [address], [address], [place], [place], [address], [place]. tel:[phone] Referring Provider: Cori Ji, [address], [place], [address] . tel:[phone] [facility], [address], , [id number] , [place] tel: [phone] [facility] Acute (chief complaint) MacrocytosisEdem a of both lower extremitiesEssen tial (primary) hypertensionWeig ht lossBody mass index (BMI) 19.9 or less, adultBody mass index (BMI) 20.0-20.9, adult 2201 9 [facility]. [address], [address], [place], [place], [address], [place]. tel:[phone] Referring Provider: Cori Ji, [address], [place], [address] . tel:[phone] [facility], [address], , [id number] , [place] tel: [phone] [facility] Internal [facility] Hematuria, unspecified type 201 [address] Garrison [address], [address], [place], [place], [address], [place]. tel:[phone] Referring Provider: [address], [place], [address] . tel:[phone] [facility], [address], , [id number] , tel: [phone] [facility] Non-intractable vomiting with nausea, unspecified vomiting typeWeight lossEncntr screen mammogram for malignant neoplasm of breastElevated LFTs Feb- 9 Garrison Persaud. [address], [address], [place], [place], [address], [place]. tel:[phone] Referring Provider: Cori Ji, [address], [place], [address] . tel:[phone] OFFICE ABSTC-IUK-RE TAILED [facility], [address], , [id number] , tel:[phone] [facility] eating trouble (chief complaint) Weight lossNon-intracta ble vomiting with nausea, unspecified vomiting typeEncntr screen mammogram for malignant neoplasm of breastBody mass index (BMI) 19.9 or less, adult Feb- 9 Amadeo Talbot. [address], [address], [place], [place], [address], [place]. tel:[phone] Referring Provider: Cori Ji, [address] [facility] [address], [place], [address] . tel:[phone] [facility], [address], , [id number] , tel:[phone] [facility] No Information 9 Garrison Persaud. [address], [facility] [address], [place], [place], [address], [place]. tel:[phone] [facility], [address], , [id number] , tel:[phone] [facility] preventive exam (chief complaint)C hronic Conditions (chief complaint) Encounter for adult health check-upEssentia l (primary) hypertensionDefi ciency of other specified B group vitaminsNicotine dependence, unspecified, uncomplicated 9 Garrison Persaud. [address], [address], [place], [place], [address], [place]. tel:[phone] Referring Provider: Cori Ji, [address], [place], [address] . tel:[phone] [facility], [address], , [id number] , tel: [phone] [facility] Essential (primary) hypertensionPhys ical examVitamin B12 deficiencyTobacc o use disorderHematuri a, unspecified type 8 Garrison Persaud[address], [address], [place], [place], [address], . tel:[phone] Referring Provider: Cori Ji, [address], [place], [address] . tel:[phone] [facility], [address], , [id number] , tel: [phone] [facility] UTI symptomsBenign hypertension 7 [facility]. [address], [address], [place], [place], [address], . tel:[phone] Referring Provider: Cori Ji, [address] [facility] [address], [place], [address] . tel:[phone] [facility], [address], , [id number] , tel: [phone] [facility] Physical examBenign hypertensionVita min B12 deficiencyTobacc o use disorderColonosc opy refused 6 Garrison Persaud[address], [address], [place], [place], [address], [place]. tel:[phone] Referring Provider: [address], [place], [address] . tel:[phone] [facility], [address], , [id number] , tel: [phone] [facility] Vitamin B12 deficiencyBenign hypertensionNico nima dependence, unspecified, uncomplicatedBer eavement 6 Garrison Persaud. [address], [address], [place], [place], [address], [place]. tel:[phone] Referring Provider: Cori Ji, [address], [place], [address] . tel:[phone] [facility], [address], , [id number] , tel: [phone] [facility] No Information 5 Jesus [address]Sraussnis. [address] [facility], [address], [place], [address]. tel:[phone] [facility], [address], , [id number] , [place] tel: [phone] [facility] Benign hypertension 5 Jesus Straussnis. [address] [place] [address], [address] [place] [address], [id number]. tel:[phone] Referring Provider: Bakari Carrillo, [address] [place] [address] [address], [address] . tel:[phone] [facility], [address], , [id number] , [place] tel: [phone] [facility] Benign hypertensionRout ine medical exam 5 Jesus Villegas. [address] [place] [address], [address], [place], [address]. tel:[phone] Referring Provider: Bakari Carrillo, [facility] [facility] [address], [address] . tel:[phone] [facility], [address], , [id number] , [place] tel: [phone] [facility] Routine Medical ExamHypertension , BenignRoutine Medical Exam 3 Jesus Villegas. [address] [place] [address], [address], [place], [address]. tel:[phone] Referring Provider: Bakari Carrillo, [address] [place] [address] [address] [place] [address], [address] . tel:[phone] [facility] [address], , [id number] , tel: [phone] [facility] Essential hypertensionHype rlipidemia 2 Jesus Villegas. [address] [place] [address] [place] [address], [id number]. tel:[phone] Referring Provider: Bakari Carrillo, [address] [place] [address] [address] [place] [address], [address] . tel:[phone] [place] [address], , [id number] , tel: [phone] [facility] Benign essential hypertension 2 Jesus Villegas. [address] [place] [address] [place] [address], [id number]. tel:[phone] Referring Provider: Bakari Carrillo, [address] [place] [address] [address] [place] [address], [address] . tel:[phone] [facility] [address], , [id number] , tel: [phone] [facility] LumbagoBenign essential hypertensionToba field account director use disorder 2 Scakayla Adia. [address] [place] [address] [address] [place] [address], [id number]. tel:[phone] Referring Provider: Bakari Carrillo, [address] [place] [address] [address] [place] [address], [address] . tel:[phone] [facility] [address] [place] [address], [id number] , tel: [phone] [facility] Tobacco use disorder Mar-0 1 Jesus Villegas. [address] [place] [address], [address] [place] [address], [id number]. tel:[phone] Referring Provider: Bakari Carrillo, [address] [place] [address] [address], [place], [address] . tel:[phone] [facility], [address], , [id number] , tel:[phone] [facility] POLYCYTHEMIA VERABENIGN HYPERTENSIONIMPA IRED FASTING GLUCOSE Apr-3 0-200 9 Jesus Villegas. [address] [place] [address], [facility] [address], [place], [place], [address]. tel:[phone] [facility], [address], , [id number] , [place] tel:[phone] [facility] IRON DEFIC ANEMIA NECJOINT PAIN-PELVISABN BLOOD CHEMISTRY NEC Apr-2 9-200 9 Jesus Villegas. [address] [place] [address], [facility] [address] [facility], [place], [place], [address]. tel:[phone] [facility], [address], , [id number] , [place] tel:[phone] [facility] BLOOD DISEASES NEC Aug-2 0-200 8 Jesus Villegas. [address] [place] [address], [facility] [address] [place] [address], [id number]. tel:[phone] [facility], [address], , [id number] , tel:[phone] [facility] LONG-TERM USE ANTICOAGULANEMIA NOSCONTUSION NOS Aug-1 8-200 8 Jesus Villegas. [address] [place] [address], [facility] [address] [place] [address], [id number]. tel:[phone] Family History Family Member Type Diagnosis Age At Onset No Information Payers Payer name Insurance type Covered constitution party ID Authoriza margauxreynaldo(s) JENNIFERTNA O [id number] Social History Type Description Quantity Date Captured Comments Alcohol Use Details Unknown Caffeine Use Details Unknown Tobacco Use Status Smoking Status No Information Sex Female Chief Complaint And Reason For Visit No Information Reason For Referral Reason For Referral No Information Plan Of Treatment Date Type Action Status Goal Dietary manageme nt education, guidance, and counseling completed Goal Dietary manageme nt education, guidance, and counseling completed Referral Referred To: Cristopher Son MD [address] [facility] [address] [place], [id number] Ordered: Referrals: Gastroenterology. Cristopher Son MD. Evaluation/diagnostic/treatment - Level 3 ordered Referral Ordered: Complete transthoracic echocardiography (TTE) ordered Referral Ordered: ECHO EXAM OF ABDOMEN, LIMITED (SINGLE ORGAN, QUADRANT, FOLLOW-UP) ordered Referral Ordered: Chest Xray, 2 Views chest ordered Referral Ordered: SCREENING MAMMOGRAM (CAD) Bilateral breast ordered Future Order: Radiol ogy Order SCREENING MAMMOGRAM (CAD) Bilateral breast (72167), Body Site: breast, Sent on: Sent Future Order: Radiol ogy Order Chest Xray, 2 Views chest ([id number]), Body Site: chest, Sent on: Sent Future Order: Radiol ogy Order SCREENING MAMMOGRAM (CAD) Bilateral breast ([id number]), Body Site: breast, Sent on: Sent History Of Present Illness Encounter Date Complaint History Of Prese nt Illness Loss of appetite Last December all t eeth removedHaving problemsAt first couldn't chewNow lost appetiteTeeth don't work quite rightCan't chew wellOn soft food.Lost weight (15 lbs)nausea without vomiting. No previous endoscopic procedures. weight loss over the past se veral months, continues to lose weight. Pt attributes this to dental pocedures and inability to chew i'm so sick of ensure, mashed potatoes, eggs to name some. She reports that she is not eating more than 1000cal daily, but she does try to drink at least one, maybe 2 boosts/day. She has no pain with eating after it leaves her oropharynx: no cough/n/v/abd pain. no regurgitation. BMs ok, no skin changes. She is tired, but she is working and also taking care of her 94yo grandmother, who lives with her. She is overwhelemed with the care, her granddaughter does help but she also has a busy life and Ms Zak doesn't want to bother her. Her LE edema is resolved. she has fatty liver as well as nodularity on ultrasound. She dpes not drink ETOH. she does not take excessive tylenol. cbc ok, cmp shows mild increase neg Acute Hep Panel. She has not made appt for GI but does have appt for Mammo. She reports she does have leave coverage due to her oral surgeries, declines my completing a new FMLA form for her to see GI. We did discuss that I believe this is an urgent issue and we discussed my concerns. She refuses further lab eval todayHTN: She is taking lisinopril. BP is quite low today in setting of weight loss. She reports generalized fatigue but no worse over the past several months. no cp/palp/sob. no LH/dizzy no LE [id number]: taking PO levels UTD at goal no parasthesiarefuses fluvax, tdap, shingrix Acute CC swelling. The first few hours in the morning she doesn't have much swelling. By the end of the day she can barely walk, hard to get shoes and socks on. This just started about a month ago. It's gotten worse, and is happening every day. Sometimes has swelling up the lower legs, and she also has pain to the legs associated with this.Denies SOB, CP, DEGROOT, dizziness. She is on Lisinopril 10mg QD and vitamin B12. BP well-controlled. Had lab work done recently, also abdominal U/S, and hasn't yet scheduled appointment with GI doctor following U/S. Had elevated LFTs on last lab draw. Weight is down 3lbs from last visit. Notes she had her teeth removed recently and she's been struggling to eat since then. Drinks one Ensure/day. Pt had macrocytosis on last CBC, Dr. Ji wanted to add Vitamin B12 and folate to next lab draw, will draw today.Hasn't done mammogram yet, notes scheduled for next month. Declines influenza vaccine. eating trouble Pt presents with c/o of trouble eating for 2 mos. She had dentures placed and since she has had trouble with eating, gagging when they are in place.. Painful to chew. But also appetite low. Nausea and occ vomiting. She thinks vomiting is d/t gagging/chocking. Wt loss approx 20 lbs since 08/15. She is using ensure but since she started she has had diarrhea. No blood in stool. Refuses csope. She is current smoker. No cough. No sob. Sometimes she gets the shakes, feels very weak. her kids almost took her to ED the other day d/t sx. She feels sx are bc she isnt eating. Also notes increased stress d/t wrk and taking care of 96yr old mother. has tried to adjust diet without benefit in sx. preventive exam Pertinent negati ves include sleep disturbances. The patient does use tobacco. Tobacco cessation has been discussed. Chronic Conditions *See Chronic Conditions HPI preventive exam (comments) mammo and pap at [employer]; c-scope declines; guaiac cards 08/14; guaiac cards gievn again 11/12 CT Chest <30pack yr; HCV: screening 11/12declines Tetanus andpneumo and shingrixdoing ok: her grandmother moved in with her so this is a stress Functional Status Date Functional Assessmen t No Information Instructions Date Instruction Additional Infor justyn See above Related to Weigh t loss See above Related to Nause a Has not had colon sc reeningPlan colonoscopy Related to Colon cancer screening Probably related to dental problemsCannot rule out UGI problemsPlan EGD Related to Poor appetite Handout recommended d/c of l isinopril in light of weight loss and very low BP today. She declines, reports that last time she stopped lisinopril she had to go to ER for hypertension. She did agree to check her BP daily and only take lisinopril if SBP >130. She will also call me with BP reading tomorrowdelcines flu/tdap/shingrixROV 4months, sooner if continued wieght loss or new sx or if she sees GI Related to Benign hypertension as above, I've urged GI azra Rel ated to Abnormal liver ultrasound some labs 02/12 but p t She refuses further lab eval today We did discuss that I believe this is an urgent issue and we discussed my concerns. c-scope recommended, she refuses-GI eval recommended urgently, she states she might not go until beginning of the year. I urged her to reconsider and to please let me know if there is any assistance I can provide in getting her to GI as soon as possible. -mammo is scheduled-[employer] for pap-CT CHest <30pack yr Related to Weight loss as above, I've urged LIAM oquendo Rel ated to Fatty liver lab UTDcontinue supplementation Related to Vitamin B12 deficiency Disease process Pt's weight is down an additional 3lbs today from last visit. She notes she has been struggling since having her teeth removed. Discussed concern for malignancy. She drinks 1 Ensure/day.P:Pt notes mammogram is scheduled for next monthEncouraged increase Ensure to BIDEncouraged to schedule appt with GI re: fatty liver, elevated LFTs, weight lossF/u 05/10 visit Related to Weight loss Noted on previous CB C, unable to add B12 and folate to that draw, will check today. Pt takes Vitamin B12 supplement daily.P:Labs: Vitamin B12, FolateF/u pending results Related to Macrocytosis C/o edema to BLE ove r the last month; not bad in the morning, increases as the day goes on. Sometimes goes as high as the calves. She has good pedal pulses, no sores or lesions on feet, denies claudication. Feet are pink and warm. No recent travel. Also has pain to feet and legs associated with swelling, no numbness or tingling. Denies DEGROOT, SOB, CP, dizziness. Discussed conservative tx/evaluation.P:Labs: BMP, CBC, BNPCompression stockings daily encouragedElevate feet when seated, monitor sodium intakeF/u pending results, call with new or worsening symptoms, ROV 05/10/19 Related to Edema of both lower extremities BP stable on Lisinop ril 10mg QD. Trace edema to BLE, L>R on exam today, pt notes this increases as the day goes on. No SOB, DEGROOT, CP, dizziness.P:Labs: CBC, BMP, BNPContinue LisinoprilMonitor sodium intake, serving sizesEncouraged compression stockings, elevating feet when seatedF/u pending results, keep ROV appt 05/10/19, call sooner with issues Related to Essential (primary) hypertension Dietary management e ducation, guidance, and counseling Related to Body mass index (BMI) 19 or less, adult N/v x 2 mos, also no chelsey wt loss over last 8 mos of 20lbs. She had dental procedure 2 mos ago and painful to eat, also gags with dentures in. Pt feels like it may be contributing to her n/v as well. She is using ensure. C/o diarrhea seems to be associated with Ensure intake. No blood. P. Ck labs as aboveCXRCOnt to deny csopeFurther wrk up pending labs/cxr Related to Non-intractable vomiting with nausea, unspecified vomiting type Pt presents with pillo allyssa 20lbs wt loss. She feels a lot of is d/t stress and recent dental wrk. C/o decreased appetite, n/v x 2 mos. Mammogram due. pt is smoker. No h/o csope. P. Discussed concern wt loss Ck CXRCBC, cmp, amylase, lipasePt again denies CsopePt was unable to wait for labs today, she will come back tomorrow. 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
[2024-09-27 13:02] LABS: Eosinophils Absolute Auto 0.1 K/mm3 (0-0.3); Eosinophils Percent Auto 1.5 % (0-4.4); Hematocrit 41.7 % (37.0-47.0); Hemoglobin 14.4 g/dL (12.0-15.0); Immature Granulocyte Absolute 0.01 K/mm3 (0.00-0.031); Immature Granulocyte Percent A 0.2 % (0-0.5); Lymphocytes Absolute Auto 1.29 K/mm3 (0.9-3.2); Lymphocytes Percent Auto 32.1 % (18.3-44.2); Mean Corpuscular HGB Conc 34.5 g/dl (32-36); Mean Corpuscular Volume 104.3 fl (80-100); Mean Platelet Volume 10.3 fl (7.4-10.4); Monocytes Absolute Auto 0.4 K/mm3 (0.1-0.6); Monocytes Percent Auto 10.9 % (2.6-8.5); Neutrophils Absolute Auto 2.2 K/mm3 (1.3-6.7); Neutrophils Percent Auto 54.3 % (45.5-73.1); Platelet Count Result 135 k/mm3 (150-375); Red Cell Distribution Width 13.7 % (11.5-14.5)
[2024-09-27 13:18] LABS: Hemoglobin A1C 4.7 % (<5.7)
[2024-09-27 13:19] LABS: Alanine Aminotransferase 45 U/L (6-35); Albumin Level 4.8 g/dL (3.5-5.1); Alkaline Phosphatase 127 U/L (38-126); Anion Gap 12 mmol/L (4-12); Aspartate Amino Transferase 82 U/L (14-36); Blood Urea Nitrogen 13 mg/dL (7-17); Calcium 9.7 mg/dL (8.4-10.2); Carbon Dioxide 25 mmol/L (22-30); Chloride 91 mmol/L (98-107); Estimated Glomerular Filt Rate > 60; Glucose 78 mg/dL (65-110); Potassium 4.7 mmol/L (3.4-5.0); Sodium 128 mmol/L (137-145)
[2024-09-27 13:46] LABS: Total Triiodothyronine (T3) 0.83 NG/ML (0.97-1.69)
[2024-09-27 14:24] LABS: Hepatitis C Virus Antibody Negative (Negative)
== END 2024-09-27 11:12 | disposition home or self-care (01) ==
LOC: ANHLAB 11:16
PROVIDERS: PCP Registered Nurse; Visit Provider Family Medicine
DX: E03.9 Hypothyroidism, unspecified (principal); E78.5 Hyperlipidemia, unspecified; R73.01 Impaired fasting glucose; M47.896 Other spondylosis, lumbar region
CPT/HCPCS: 36415; 72100; 72220; 73502; 80053; 83036; 84439; 84443; 84480; 85025; 86803

== ENCOUNTER 2024-10-03 20:16 | Emergency (ER) | payer OTHER, SELFPAY ==
--- NOTE | ~2024-10-03 | XR_ITS ---
Left Shoulder Technique: AP and scapular Y views were obtained. Clinical History: Pain Findings: No fracture or dislocation is seen. Osseous alignment is anatomic. The glenohumeral and acr omioclavicular joint spaces are preserved. Soft tissues are unremarkable. Impression: Unremarkable left shoulder radiographs. Reviewed, dictated and finalized at [facility]. Impression: Unremarkable left shoulder radiographs.
--- NOTE | ~2024-10-03 | XR_ITS ---
AP view of the pelvis and AP and lateral views of the left hip Clinical history: Pain Findings: No acute fracture or dislocation is seen. Osseous alignment is anatomic. Bilateral hip and SI joint spaces are preserved. Soft tissues are unremarkable. Impression: No significant abnormality is seen. Reviewed, dictated and finalized at [facility]. Impression: No significant abnormality is seen.
--- NOTE | ~2024-10-03 | XR_ITS ---
Left elbow Technique: AP, oblique, and lateral views were obtained. Clinical History: Pain Findings: No acute fracture or dislocation is seen. Osseous alignment is anatomic. Joint spaces are p reserved. There is no displacement of the fat pads, and soft tissues are unremarkable. Impression: Unremarkable radiographs. Reviewed, dictated and finalized at location . Impression: Unremarkable radiographs.
--- NOTE | ~2024-10-03 | XR_ITS ---
Left wrist Technique: PA, oblique, lateral, and ulnar deviation views were obtained. Clinical History: Pain Findings: No acute fracture or dislocation is seen. Osseous alignment is anatomic. Joint spaces are p reserved. Soft tissues are unremarkable. Impression: Unremarkable left wrist radiographs. Reviewed, dictated and finalized at location . Impression: Unremarkable left wrist radiographs.
--- OUTSIDE RECORDS SUMMARY | 2024-10-03 20:19 | XMS_ITS | Clinical Summary ---
Author Organization [facility] Address [address] [facility] [place] [address] Care Team Providers Care Childcare Teacher Name Role Phone Yuriy Green MD Primary Care Provider [phone] Source Comments [facility],non-owned Affiliates and Associated Physician Practices is amultiple site organization consisting of ambulatory clinics and hospital sitesin [place], [place], [place] and [place]. This disclosure is being madepursuant to the Care Everywhere program and may not contain all information available regarding this patient. Last updated 18.[facility] Allergies No known active allergies Medications * [...] VACCINE (1 - 2023-2 5 season) 2024 DEPRESSION SCREENING 06/27/2024 INFLUENZA VACCINE (Season Ended) 2025 Respiratory Syncytial Virus (RSV) Vaccine Pt: or [...] age to complete this topic Care Teams Childcare Teacher Relationship Specialty Start Date End Date Yuriy Green MD [address] [facility] [address] [place] [address] PCP - General 08/28/19
--- OUTSIDE RECORDS SUMMARY | 2024-10-03 20:19 | XMS_ITS | Continuity of Care Document ---
Author Organization [facility] Address [address] [place] [address] Phone Care Team Providers Care Yolk Spray Drier Name Role Phone Cori Ji MD Unavailable [...] thereafter - Active Procedures Procedure Date OFFICE [id number] BODY MASS INDEX DOCD SYST BP LT 130 MM HG DIAST BP < 80 MM HG Pt inelig neg scrn depres OFFICE [id number] BODY MASS INDEX DOCD SYST BP LT 130 MM HG DIAST BP < 80 MM HG BASIC METABOLIC PANEL(BMP) CBC, INC PLATELETS AND DIFFERENTIAL FOLIC ACID (S) (FOLATE) BRAIN NATRIURETIC PEPTIDE (BNP) 019 VITAMIN B12 (SERUM) ROUTINE VENIPUNCTURE OFFICE [id number] BODY MASS INDEX DOCD SYST BP LT 130 MM HG DIAST BP < 80 MM HG URINALYSIS, REFLEX (UA) ROUTINE VENIPUNCTURE CBC, INC PLATELETS AND DIFFERENTIAL AMYLASE COMPREHEN METABOLIC PANEL CMP 9 LIPASE URINALYSIS, DIPSTICK (UA) - Office Lab S ROUTINE VENIPUNCTURE ACUTE HEPATITIS PANEL OFFICE [id number] BODY MASS INDEX DOCD SYST BP LT 130 MM HG DIAST BP < 80 MM HG Advance Directives Directive Yes / No Effective Date File Name No Information Encounters Encounter Description Practice Location Reason(s) For Visit Diagnoses Date Provider Providers Copied on Encounter [facility], [address], [place], [place], [address] , tel: [phone] [facility] No Information [address], [facility] [address], [place], [place], [address], [place]. tel:[phone] [facility], [address], [place], [place], [address] , [place] tel:[phone] [facility] Abnormal weight loss 0 G[address], [facility] [address], [place], [place], [address], [place]. tel:[phone] OFFICE UGTCX-DUW-ID -MED [facility], [address], [place], [place], [address] , [place] tel:[phone] [facility] Loss of appetite (chief complaint) Poor appetiteWeight lossNauseaColon cancer screening 0 Corwin Youssef. [address] [facility], [address], [place], [place], [address], [place]. tel:[phone] Referring Provider: Cori Ji, [address], [place], [address] . tel:[phone] [facility], [address], [place], [place], [address] , [place] tel: [phone] [facility] weight loss (chief complaint) Weight lossFatty liverAbnormal liver ultrasoundVitami n B12 deficiencyBenign hypertension 201 [address], [address], [place], [place], [address], [place]. tel:[phone] Referring Provider: Cori Ji, [address], [place], [address] . tel:[phone] [facility], [address], [place], [place], [address] , [place] tel: [phone] [facility] Acute (chief complaint) MacrocytosisEdem a of both lower extremitiesEssen tial (primary) hypertensionWeig ht lossBody mass index (BMI) 19.9 or less, adultBody mass index (BMI) 20.0-20.9, adult 2201 9 [facility]. [address], [address], [place], [place], [address], [place]. tel:[phone] Referring Provider: Cori Ji, [address], [place], [address] . tel:[phone] [facility], [address], [place], [place], [address] , [place] tel: [phone] [facility] Internal [facility] Hematuria, unspecified type 201 [address], [address], [place], [place], [address], [place]. tel:[phone] Referring Provider: [address], [place], [address] . tel:[phone] [facility], [address], [place], [place], [address] , tel: [phone] [facility] Non-intractable vomiting with nausea, unspecified vomiting typeWeight lossEncntr screen mammogram for malignant neoplasm of breastElevated LFTs Feb- 9 Garrison Persaud. [address], [address], [place], [place], [address], [place]. tel:[phone] Referring Provider: Cori Ji, [address], [place], [address] . tel:[phone] OFFICE BWRQS-WEZ-BM TAILED [facility], [address], [place], [place], [address] , tel:[phone] [facility] eating trouble (chief complaint) Weight lossNon-intracta ble vomiting with nausea, unspecified vomiting typeEncntr screen mammogram for malignant neoplasm of breastBody mass index (BMI) 19.9 or less, adult Feb- 9 Amadeo Talbot. [address], [address], [place], [place], [address], [place]. tel:[phone] Referring Provider: Cori Ji, [address] [facility] [address], [place], [address] . tel:[phone] [facility], [address], [place], [place], [address] , tel:[phone] [facility] No Information 9 G[address] Persaud. [address], [facility] [address], [place], [place], [address], [place]. tel:[phone] [facility], [address], [place], [place], [address] , tel:[phone] [facility] preventive exam (chief complaint)C hronic Conditions (chief complaint) Encounter for adult health check-upEssentia l (primary) hypertensionDefi ciency of other specified B group vitaminsNicotine dependence, unspecified, uncomplicated 9 Garrison Persaud. [address], [address], [place], [place], [address], [place]. tel:[phone] Referring Provider: Cori Ji, [address], [place], [address] . tel:[phone] [facility], [address], [place], [place], [address] , tel: [phone] [facility] Essential (primary) hypertensionPhys ical examVitamin B12 deficiencyTobacc o use disorderHematuri a, unspecified type 8 [address], [address], [place], [place], [address], . tel:[phone] Referring Provider: Cori Ji, [address], [place], [address] . tel:[phone] [facility], [address], [place], [place], [address] , tel: [phone] [facility] UTI symptomsBenign hypertension 7 [facility]. [address], [address], [place], [place], [address], . tel:[phone] Referring Provider: Cori Ji, [address] [facility] [address], [place], [address] . tel:[phone] [facility], [address], [place], [place], [address] , tel: [phone] [facility] Physical examBenign hypertensionVita min B12 deficiencyTobacc o use disorderColonosc opy refused 6 [address], [address], [place], [place], [address], [place]. tel:[phone] Referring Provider: [address], [place], [address] . tel:[phone] [facility], [address], [place], [place], [address] , tel: [phone] [facility] Vitamin B12 deficiencyBenign hypertensionNico nima dependence, unspecified, uncomplicatedBer eavement 6 Garrison Persaud. [address], [address], [place], [place], [address], [place]. tel:[phone] Referring Provider: Cori Ji, [address], [place], [address] . tel:[phone] [facility], [address], [place], [place], [address] , tel: [phone] [facility] No Information 5 Jesus Straussnis. [address] [facility], [address], [place], [address]. tel:[phone] [facility] [employer], [address], [place], [place], [address] , [place] tel: [phone] [facility] Benign hypertension 5 Jesus Straussnis. [address] [place] [address], [address] [place] [address], [id number]. tel:[phone] Referring Provider: Bakari Carrillo, [address] [place] [address] [address], [place], [address] . tel:[phone] [facility] [employer], [address], [place], [place], [address] , [place] tel: [phone] [facility] Benign hypertensionRout ine medical exam 5 Jesus Villegas. [address] [place] [address], [address], [place], [address]. tel:[phone] Referring Provider: Bakari Carrillo, [facility] [facility] [address], [place], [address] . tel:[phone] [facility] [employer], [address], [place], [place], [address] , [place] tel: [phone] [facility] Routine Medical ExamHypertension , BenignRoutine Medical Exam 3 Jesus Villegas. [address] [place] [address], [address], [place], [address]. tel:[phone] Referring Provider: Bakari Carrillo, [address] [place] [address] [place] [address], [address] . tel:[phone] [facility] [address], [place], [place], [address] , tel: [phone] [facility] Essential hypertensionHype rlipidemia 2 Jesus Villegas. [address] [place] [address] [place] [address], [address]. tel:[phone] Referring Provider: Bakari Carrillo, [address] [place] [address] [place] [address], [address] . tel:[phone] [address] [address], [place], [place], [address] , tel: [phone] [facility] Benign essential hypertension 2 Jesus Villegas. [address] [place] [address] [place] [address], [id number]. tel:[phone] Referring Provider: Bakari Carrillo, [address] [place] [address] [place] [address], [address] . tel:[phone] [facility] [address], [place], [place], [address] , tel: [phone] [facility] LumbagoBenign essential hypertensionToba cash accountant use disorder 2 Scakayla Adia. [address] [place] [address] [place] [address], [address]. tel:[phone] Referring Provider: Bakari Carrillo, [address] [place] [address] [place] [address], [address] . tel:[phone] [facility] [address] [place] [address], [address] , tel: [phone] [facility] Tobacco use disorder Mar-0 1 Jesus Villegas. [address] [place] [address], [address] [place] [address], [id number]. tel:[phone] Referring Provider: Bakari Carrillo, [address] [place] [address] [address], [place], [address] . tel:[phone] [facility], [address], [place], [place], [address] , tel:[phone] [facility] POLYCYTHEMIA VERABENIGN HYPERTENSIONIMPA IRED FASTING GLUCOSE Apr-3 0-200 9 Jesus Villegas. [address] [place] [address], [facility] [address], [place], [place], [address]. tel:[phone] [facility], [address], [place], [place], [address] , [place] tel:[phone] [facility] IRON DEFIC ANEMIA NECJOINT PAIN-PELVISABN BLOOD CHEMISTRY NEC Apr-2 9-200 9 Jesus Villegas. [address] [place] [address], [facility] Suite [facility], [place], [place], [address]. tel:[phone] [facility], [address], [place], [place], [address] , [place] tel:[phone] [facility] BLOOD DISEASES NEC Aug-2 0-200 8 Jesus Villegas. [address] [place] [address], [facility] [address] [place] [address], [address]. tel:[phone] [facility], [address], [place], [place], [address] , tel:[phone] [facility] LONG-TERM USE ANTICOAGULANEMIA NOSCONTUSION NOS Aug-1 8-200 8 Jesus Villegas. [address] [place] [address], [facility] [address] [place] [address], [id number]. tel:[phone] Family History Family Member Type Diagnosis Age At Onset No Information Payers Payer name Insurance type Covered green party ID Authoriza margauxreynaldo(s) JENNIFERTNA O [id number] Social History Type Description Quantity Date Captured [...] Referral Referred To: Cristopher Son MD [address] [facility] [address] [place], [phone] Ordered: Referrals: Gastroenterology. Cristopher Son MD. Evaluation/diagnostic/treatment - Level 3 ordered Referral Ordered: Complete transthoracic echocardiography (TTE) ordered Referral Ordered: ECHO EXAM OF ABDOMEN, LIMITED (SINGLE ORGAN, QUADRANT, FOLLOW-UP) ordered Referral Ordered: Chest Xray, 2 Views chest ordered Referral Ordered: SCREENING MAMMOGRAM (CAD) Bilateral breast ordered Future Order: Radiol ogy Order SCREENING MAMMOGRAM (CAD) Bilateral breast ([id number]), Body Site: breast, Sent on: Sent Future Order: Radiol ogy Order Chest Xray, 2 Views chest ([id number]), Body Site: chest, Sent on: Sent Future Order: Radiol ogy Order SCREENING MAMMOGRAM (CAD) Bilateral breast ([id number]), Body Site: breast, Sent on: Sent History [...] months. no cp/palp/sob. no LH/dizzy no LE [id number]: taking PO levels UTD at goal no [...] preventive exam (comments) mammo and pap at [facility]; c-scope declines; guaiac cards 08/14; guaiac cards [...] Benign hypertension as above, I've urged GI eval Rel ated to Abnormal liver ultrasound as above, I've urged GI eval Rel ated to Fatty liver lab UTDcontinue supplementation Related to Vitamin B12 deficiency some labs 02/12 but p t She [...] GI as soon as possible. 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
--- OUTSIDE RECORDS SUMMARY | 2024-10-03 20:19 | XMS_ITS | CONTINUITY OF CARE DOCUMENT ---
Author Name derek reed Address Unknown Organization [facility] Address [address] [place] [address] [address] [place] [address] Phone [phone] Care Team Providers Care Chief Of Staff Doctor Name Role Phone Efrain HERNADEZ, Unavailable [phone] MARGARET GONSALVES MD Unavailable MARGARET GONSALVES MD Unavailable [phone] INSURANCE PROVIDERS Payer name Policy type / Coverage type [place] red republican ID [employer]ET[employer] [facility] Other [id number] TREATMENT PLAN Date Name Complete Echo
--- OUTSIDE RECORDS SUMMARY | 2024-10-03 20:19 | XMS_ITS | Clinical Summary ---
Author Organization [facility] [address] [facility] Address [address] [place] [address] Care Team Providers Care Real Estate Office Manager Name Role Phone No, Physician Primary Care Provider [phone] Allergies No known active allergies Medications Lumigan [...] days 14 capsule 5 10/01/19 25 Active Problems Problem Noted Date Diagnosed Date Edema 05/01/2019 Encounters Date Type Department Care Team Description 09/22/2024 Results Follow-Up [facility] [address] [place] [address] Katrina Oscar NP 09/21/2024 3:04 PM CDT - 09/21/2024 11:59 PM CDT Hospital Encounter [place] [id number] Flank pain Discharge Disposition: Discharge to home or self care 09/21/2024 3:00 PM CDT Office Visit [facility] [address] [place] [address] Alicia Quinteros NP Flank pain (Primary Dx); Weakness; Abdominal pain from Last 3 Months Social History Tobacco Use Types Packs/Day Years Used Date Smoking Tobacco: Never Assessed Comments Unknown Sex and Gender Information Value Date Recorded Sex Assigned at Not on file 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 Gender Identity Not on file Sexual Orientation [...] Large Ketones, ur, POC Negative Negative Specific Raphine, POC 1.030 1.003 - 1.030 Blood, ur, POC Negative Negative pH, ur, POC 5.5 5.0 - 8.0 Protein, ur, POC Trace(A) Negative Urobilinogen, urine, POC 0.2 0.2 - 1.0 mg/dL Nitrite, ur, POC Positive(A) Negative Leukocytes, ur, POC Negative Negative Lot Number [id number] Urine 09/21/2024 3:13 PM CDT Alicia Quinteros NP POINT OF CARE TEST ORDERABLES Fi nal Result * (ABNORMAL) Urine culture Urine, clean voided (09/21/2024 3:04 PM CDT) Report Final Report: Greater than or equal to 100,000 colonies/mL of Escherichia coli Plus growth of clinically insignificant bacterial pilo. (.) Comment:Testing performed by : [facility], [address] [place]., [address] Organism ESCHERICHIA COLI [facility] Organism PLUS GROWTH OF CLINICALLY INSIGNIFICANT PILO. [facility] Urine, clean voided 09/21/2024 3:04 PM CDT 09/21/2024 11:56 PM CDT Narrative [facility] - 09/23/2024 3:56 PM CDT Testing performed by [facility] Microbiology Laboratory ([phone]) Organism Antibiotic Method Susceptibility Escherichia coli Ampicillin [...] - GENERAL ORDER JEANA Final Result [facility] [address] Department [place] [address] from Last 3 Months Insurance [facility] CHOICE PLUS [facility] H[facility]/PPO Address: [facility] [address] [place] [address] Care Teams Real Estate Office Manager Relationship Specialty Start Date End Date No, Physician PCP - General 09/21/24
--- OUTSIDE RECORDS SUMMARY | 2024-10-03 20:19 | XMS_ITS | Referral Summary ---
Author Organization [address] Address [address] [place] [address] Care Team Providers Care Director Funds Development Name Role Phone No, Physician Primary Care Provider [phone] Encounters Date Type Department Care Team Description 09/22/2024 Results Follow-Up [facility] Medical [facility] at [address] [place] [address] Katrina Oscar NP 09/21/2024 3:04 PM CDT - 09/21/2024 11:59 PM [place] [address] Flank pain Discharge Disposition: Discharge to home or self care 09/21/2024 3:00 PM CDT Office Visit [facility] Medical [facility] at [address] [place] [address] Alicia Quinteros NP Flank pain (Primary Dx); [...] on file 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 Gender Identity Not on file Sexual Orientation [...] Large Ketones, ur, POC Negative Negative Specific [place], POC 1.030 1.003 - 1.030 Blood, ur, POC Negative Negative pH, ur, POC 5.5 5.0 - 8.0 Protein, ur, POC Trace(A) Negative Urobilinogen, urine, POC 0.2 0.2 - 1.0 mg/dL Nitrite, ur, POC Positive(A) Negative Leukocytes, ur, POC Negative Negative Lot Number [id number] Urine 09/21/2024 3:13 PM CDT Alicia Quinteros NP POINT OF CARE TEST ORDERABLES Fi nal Result * (ABNORMAL) Urine culture Urine, clean voided (09/21/2024 3:04 PM CDT) Report Final Report: Greater than or equal to 100,000 colonies/mL of Escherichia coli Plus growth of clinically insignificant bacterial pilo. (.) Comment:Testing performed by : [facility], [address] [place] [address] Organism ESCHERICHIA COLI [facility] Organism PLUS GROWTH OF CLINICALLY INSIGNIFICANT PILO. [facility] Urine, clean voided 09/21/2024 3:04 PM CDT 09/21/2024 11:56 PM CDT Narrative [facility] - 09/23/2024 3:56 PM CDT Testing performed by [facility] Microbiology Laboratory ([phone]) Organism Antibiotic Method Susceptibility Escherichia coli Ampicillin [...] GENERAL ORDER JEANA Final Result [facility] [id number] [place] [address] from Last 3 Months Insurance [facility] CHOICE PLUS Care Teams Director Funds Development Relationship Specialty Start Date End Date No, Physician PCP - General 09/21/24
[2024-10-03 20:35] VITALS: BP 103/62; PULSE 72; RESP 14; TEMP 36.3; O2SAT 99
[2024-10-04 00:46] VITALS: BP 151/71; PULSE 65; RESP 17; TEMP 36.7; O2SAT 100
--- NOTE | 2024-10-04 00:46 | PC.NURSE ---
Patient states that she did not hit her head. Family members state they heard the patient hit her head.
--- OUTSIDE RECORDS SUMMARY | 2024-10-04 01:46 | XMS_ITS | Referral Summary ---
Author Organization [address] Address [address] [place] [address] Care Team Providers Care Kiln Stoker Name Role Phone No, Physician Primary Care Provider [phone] Encounters Date Type Department Care Team Description 09/22/2024 Results Follow-Up [facility] Medical [facility] at [address] [place] [phone] Katrina Oscar NP 09/21/2024 3:04 PM CDT - 09/21/2024 11:59 [place] [address] Flank pain Discharge Disposition: Discharge to home or self care 09/21/2024 3:00 PM CDT Office Visit [facility] Medical [facility] at [address] [place] [phone] Alicia Quinteros NP Flank pain (Primary Dx); [...] on file 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 Gender Identity Not on file Sexual [...] Large Ketones, ur, POC Negative Negative Specific Cyril, POC 1.030 1.003 - 1.030 Blood, ur, POC Negative Negative pH, ur, POC 5.5 5.0 - 8.0 Protein, ur, POC Trace(A) Negative Urobilinogen, urine, POC 0.2 0.2 - 1.0 mg/dL Nitrite, ur, POC Positive(A) Negative Leukocytes, ur, POC Negative Negative Lot Number [id number] Urine 09/21/2024 3:13 PM CDT Alicia Quinteros NP POINT OF CARE TEST ORDERABLES Fi nal Result * (ABNORMAL) Urine culture Urine, clean voided (09/21/2024 3:04 PM CDT) Report Final Report: Greater than or equal to 100,000 colonies/mL of Escherichia coli Plus growth of clinically insignificant bacterial pilo. (.) Comment:Testing performed by : [facility], [address] [facility] [place]., [address] Organism ESCHERICHIA COLI [facility] Organism PLUS GROWTH OF CLINICALLY INSIGNIFICANT PILO. [facility] Urine, clean voided 09/21/2024 3:04 PM CDT 09/21/2024 11:56 PM CDT Narrative [facility] - 09/23/2024 3:56 PM CDT Testing performed by [facility] Microbiology Laboratory ([phone]) Organism Antibiotic Method Susceptibility Escherichia coli Ampicillin [...] GENERAL ORDER JEANA Final Result [facility] BROWN [address] Department [place] [address] from Last 3 Months Insurance [facility] PL[facility] Care Teams Kiln Stoker Relationship Specialty Start Date End Date No, Physician PCP - General 09/21/24
--- OUTSIDE RECORDS SUMMARY | 2024-10-04 01:46 | XMS_ITS | Continuity of Care Document ---
Author Organization [employer] Address [address] [place] [address] Phone Care Team Providers Care Facilities Locator Name Role Phone Cori Ji MD Unavailable [...] thereafter - Active Procedures Procedure Date OFFICE [id number] BODY MASS INDEX DOCD SYST BP LT 130 MM HG DIAST BP < 80 MM HG Pt inelig neg scrn depres OFFICE [id number] BODY MASS INDEX DOCD SYST BP LT 130 MM HG DIAST BP < 80 MM HG BASIC METABOLIC PANEL(BMP) CBC, INC PLATELETS AND DIFFERENTIAL FOLIC ACID (S) (FOLATE) BRAIN NATRIURETIC PEPTIDE (BNP) 019 VITAMIN B12 (SERUM) ROUTINE VENIPUNCTURE OFFICE [id number] BODY MASS INDEX DOCD SYST BP LT 130 MM HG DIAST BP < 80 MM HG URINALYSIS, REFLEX (UA) ROUTINE VENIPUNCTURE CBC, INC PLATELETS AND DIFFERENTIAL AMYLASE COMPREHEN METABOLIC PANEL CMP 9 LIPASE URINALYSIS, DIPSTICK (UA) - Office Lab S ROUTINE VENIPUNCTURE ACUTE HEPATITIS PANEL OFFICE [id number] BODY MASS INDEX DOCD SYST BP LT 130 MM HG DIAST BP < 80 MM HG Advance Directives Directive Yes / No Effective Date File Name No Information Encounters Encounter Description Practice Location Reason(s) For Visit Diagnoses Date Provider Providers Copied on Encounter [employer], [address], [place], [place], [address] , tel: [phone] [facility] No Information [address], [facility] [address], [place], [place], [address], [place]. tel:[phone] [employer], [address], [place], [place], [address] , [place] tel:[phone] [facility] Abnormal weight loss 0 Garrison [address], [facility] [address], [place], [place], [address], [place]. tel:[phone] OFFICE [id number]-[id number]-DZ -MED [employer], [address], [place], [place], [address] , [place] tel:[phone] [facility] Loss of appetite (chief complaint) Poor appetiteWeight lossNauseaColon cancer screening 0 Corwin Youssef. [address] [facility], [address], [place], [place], [address], [place]. tel:[phone] Referring Provider: Cori Ji, [address], [place], [address] . tel:[phone] [facility], [address], [place], [place], [address] , [place] tel: [phone] [facility] weight loss (chief complaint) Weight lossFatty liverAbnormal liver ultrasoundVitami n B12 deficiencyBenign hypertension 201 [address], [address], [place], [place], [address], [place]. tel:[phone] Referring Provider: Cori Ji, [address], [place], [address] . tel:[phone] [facility]ICE [facility], [address], [place], [place], [address] , [place] tel: [phone] [facility] Acute (chief complaint) MacrocytosisEdem a of both lower extremitiesEssen tial (primary) hypertensionWeig ht lossBody mass index (BMI) 19.9 or less, adultBody mass index (BMI) 20.0-20.9, adult 2201 9 [facility]. [address], [address], [place], [place], [address], [place]. tel:[phone] Referring Provider: Cori Ji, [address], [place], [address] . tel:[phone] [facility], [address], [place], [place], [address] , [place] tel: [phone] [facility] Internal [facility] Hematuria, unspecified type 201 [address] G[address], [address], [place], [place], [address], [place]. tel:[phone] Referring Provider: [address], [place], [address] . tel:[phone] [facility], [address], [place], [place], [address] , tel: [phone] [facility] Non-intractable vomiting with nausea, unspecified vomiting typeWeight lossEncntr screen mammogram for malignant neoplasm of breastElevated LFTs Feb- 9 Garrison Persaud. [address], [address], [place], [place], [address], [place]. tel:[phone] Referring Provider: Cori Ji, [address], [place], [address] . tel:[phone] OFFICE XQFJS-MQP-WO TAILED [facility], [address], [place], [place], [address] , tel:[phone] [facility] eating trouble (chief complaint) Weight lossNon-intracta ble vomiting with nausea, unspecified vomiting typeEncntr screen mammogram for malignant neoplasm of breastBody mass index (BMI) 19.9 or less, adult Feb- 9 Amadeo Talbot. [address], [address], [place], [place], [address], [place]. tel:[phone] Referring Provider: Cori Ji, [address] [facility] [address], [place], [address] . tel:[phone] [facility], [address], [place], [place], [address] , tel:[phone] [facility] No Information 9 Garrison Persaud. [address], [facility] [address], [place], [place], [address], [place]. tel:[phone] [facility], [address], [place], [place], [address] , tel:[phone] [facility] preventive exam (chief complaint)C hronic Conditions (chief complaint) Encounter for adult health check-upEssentia l (primary) hypertensionDefi ciency of other specified B group vitaminsNicotine dependence, unspecified, uncomplicated 9 Garrison Persaud. [address], [address], [place], [place], [address], [place]. tel:[phone] Referring Provider: Cori Ji, [address], [place], [address] . tel:[phone] [facility], [address], [place], [place], [address] , tel: [phone] [facility] Essential (primary) hypertensionPhys ical examVitamin B12 deficiencyTobacc o use disorderHematuri a, unspecified type 8 Garrison Persaud. [address], [address], [place], [place], [address], . tel:[phone] Referring Provider: Cori Ji, [address], [place], [address] . tel:[phone] [facility], [address], [place], [place], [address] , tel: [phone] [facility] UTI symptomsBenign hypertension 7 [facility]. [address], [address], [place], [place], [address], . tel:[phone] Referring Provider: Cori Ji, [address] [facility] [address], [place], [address] . tel:[phone] [facility], [address], [place], [place], [address] , tel: [phone] [facility] Physical examBenign hypertensionVita min B12 deficiencyTobacc o use disorderColonosc opy refused 6 Garrison Persaud[address], [address], [place], [place], [address], [place]. tel:[phone] Referring Provider: [address], [place], [address] . tel:[phone] [facility], [address], [place], [place], [address] , tel: [phone] [facility] Vitamin B12 deficiencyBenign hypertensionNico nima dependence, unspecified, uncomplicatedBer eavement 6 Garrison Persaud. [address], [address], [place], [place], [address], [place]. tel:[phone] Referring Provider: Cori Ji, [address], [place], [address] . tel:[phone] [facility], [address], [place], [place], [address] , tel: [phone] [facility] No Information 5 Jesus Straussnis. [address] [facility], [address], [place], [address]. tel:[phone] [facility], [address], [place], [place], [address] , [place] tel: [phone] [facility] Benign hypertension 5 Jesus Straussnis. [address] [place] [address], [address] [place] [address], [id number]. tel:[phone] Referring Provider: Bakari Carrillo, [address] [place] [address] [address], [place], [address] . tel:[phone] [facility], [address], [place], [place], [address] , [place] tel: [phone] [facility] Benign hypertensionRout ine medical exam 5 Jesus Villegas. [address] [place] [address], [address], [place], [address]. tel:[phone] Referring Provider: Bakari Carrillo, [facility] [facility] [address], [place], [address] . tel:[phone] [facility], [address], [place], [place], [address] , [place] tel: [phone] [facility] Routine Medical ExamHypertension , BenignRoutine Medical Exam 3 Jesus Villegas. [address] [place] [address], [address], [place], [address]. tel:[phone] Referring Provider: Bakari Carrillo, [address] [place] [address] [place] [address], [address] . tel:[phone] [facility] [address], [place], [place], [address] , tel: [phone] [facility] Essential hypertensionHype rlipidemia 2 Jesus Villegas. [address] [place] [address] [address] [place] [address], [id number]. tel:[phone] Referring Provider: Bakari Carrillo, [address] [place] [address] [place] [address], [address] . tel:[phone] [place] [address], [place], [place], [address] , tel: [phone] [facility] Benign essential hypertension 2 Jesus Villegas. [address] [place] [address] [address] [place] [address], [id number]. tel:[phone] Referring Provider: Bakari Carrillo, [address] [place] [address] [place] [address], [address] . tel:[phone] [facility] [address], [place], [place], [address] , tel: [phone] [facility] LumbagoBenign essential hypertensionToba oncology account specialist use disorder 2 Scakayla Adia. [address] [place] [address] [address] [place] [address], [id number]. tel:[phone] Referring Provider: Bakari Carrillo, [address] [place] [address] [place] [address], [address] . tel:[phone] [facility] [address] [place] [address], [address] , tel: [phone] [facility] Tobacco use disorder Mar-0 1 Jesus Villegas. [address] [place] [address], [address] [place] [address], [id number]. tel:[phone] Referring Provider: Bakari Carrillo, [address] [place] [address] [place] [address], [address] . tel:[phone] [employer], [address], [place], [place], [address] , tel:[phone] [facility] POLYCYTHEMIA VERAIMPAIRED FASTING GLUCOSEBENIGN HYPERTENSION Apr-3 0-200 9 Jesus Villegas. [address] [place] [address], [facility] [address] [place] [address], [id number]. tel:[phone] [employer] [facility], [address], [place], [place], [address] , [place] tel:[phone] [facility] IRON DEFIC ANEMIA NECJOINT PAIN-PELVISABN BLOOD CHEMISTRY NEC Sep-2 9-200 9 Jesus Villegas. [address] [place] [address] [place] [address], [id number]. tel:[phone] [facility], [address], [place], [place], [address] , [place] tel:[phone] [facility] BLOOD DISEASES NEC Aug-2 0-200 8 Jesus Villegas. [address] [place] [address], [facility] [address] [place] [address], [id number]. tel:[phone] [facility] [facility], [address], [place], [place], [address] , tel:[phone] [facility] LONG-TERM USE ANTICOAGULANEMIA NOSCONTUSION NOS Aug- 8-200 8 Jesus Villegas. [address] [place] [address], [facility] [address] [place] [address], [id number]. tel:[phone] Family History Family Member Type Diagnosis Age At Onset No Information Payers Payer name Insurance type Covered democrat ID Authoriza tireynaldo(s) JENNIFERTNA O CI [id number] Social History Type Description Quantity Date Captured [...] Referral Referred To: Cristopher Son MD [address] [facility] [address] [place], [phone] Ordered: Referrals: Gastroenterology. Cristopher Son MD. Evaluation/diagnostic/treatment - Level 3 ordered Referral Ordered: Complete transthoracic echocardiography (TTE) ordered Referral Ordered: ECHO EXAM OF ABDOMEN, LIMITED (SINGLE ORGAN, QUADRANT, FOLLOW-UP) ordered Referral Ordered: Chest Xray, 2 Views chest ordered Referral Ordered: SCREENING MAMMOGRAM (CAD) Bilateral breast ordered Future Order: Radiol ogy Order SCREENING MAMMOGRAM (CAD) Bilateral breast ([id number]), Body Site: breast, Sent on: Sent Future Order: Radiol ogy Order Chest Xray, 2 Views chest ([id number]), Body Site: chest, Sent on: Sent Future Order: Radiol ogy Order SCREENING MAMMOGRAM (CAD) Bilateral breast ([id number]), Body Site: breast, Sent on: Sent History [...] also has a busy life and Ms Crespo doesn't want to bother her. Her LE [...] months. no cp/palp/sob. 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
--- OUTSIDE RECORDS SUMMARY | 2024-10-04 01:46 | XMS_ITS | Clinical Summary ---
Author Organization [email or web address] Address [address] [facility] [place] [address] Care Team Providers Care Repair Tech Name Role Phone Yuriy Green MD Primary Care Provider [phone] Source Comments [email or web address],non-owned Affiliates and Associated Physician Practices is amultiple site organization consisting of ambulatory clinics and hospital sitesin [place], [place], [place] and [place]. This disclosure is being madepursuant to the Care Everywhere program and may not contain all information available regarding this patient. Last updated 18.[email or web address] Allergies No known active allergies Medications * [...] age to complete this topic Care Teams Repair Tech Relationship Specialty Start Date End Date Yuriy Green MD [address] [facility] [address] [place] [address] PCP - General 08/28/19
--- OUTSIDE RECORDS SUMMARY | 2024-10-04 01:46 | XMS_ITS | CONTINUITY OF CARE DOCUMENT ---
Author Name derek reed Address Unknown Organization [facility] Address [address] [place] [address] [address] [place] [address] Phone [phone] Care Team Providers Care Plan Consultant Name Role Phone Efrain HERNADEZ, Unavailable [phone] MARGARET GONSALVES MD Unavailable MARGARET GONSALVES MD Unavailable [phone] PROBLEMS Condition Status Date Provider Notes Edema active Braden Watts INSURANCE PROVIDERS Payer name Policy type / Coverage type [place] red constitution party ID AETNA [facility] Other [id number] TREATMENT PLAN Date Name Complete Echo
--- OUTSIDE RECORDS SUMMARY | 2024-10-04 01:46 | XMS_ITS | Clinical Summary ---
Author Organization [facility] [address] [facility] Address [address] [place] [address] Care Team Providers Care Mold Engraver Name Role Phone No, Physician Primary Care Provider [phone] Allergies No known active allergies Medications Lumigan [...] Department Care Team Description 09/22/2024 Results Follow-Up [facility] [place] [address] [place] [address] Katrina Oscar NP 09/21/2024 3:04 PM CDT - 09/21/2024 11:59 PM CDT Hospital Encounter [place] [id number] Flank pain Discharge Disposition: Discharge to home or self care 09/21/2024 3:00 PM CDT Office Visit 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 Gender Identity Not on file Sexual Orientation [...] Large Ketones, ur, POC Negative Negative Specific Pearson, POC 1.030 1.003 - 1.030 Blood, ur, POC Negative Negative pH, ur, POC 5.5 5.0 - 8.0 Protein, ur, POC Trace(A) Negative Urobilinogen, urine, POC 0.2 0.2 - 1.0 mg/dL Nitrite, ur, POC Positive(A) Negative Leukocytes, ur, POC Negative Negative Lot Number [id number] Urine 09/21/2024 3:13 PM CDT Alicia Quinteros NP POINT OF CARE TEST ORDERABLES Fi nal Result * (ABNORMAL) Urine culture Urine, clean voided (09/21/2024 3:04 PM CDT) Report Final Report: Greater than or equal to 100,000 colonies/mL of Escherichia coli Plus growth of clinically insignificant bacterial pilo. (.) Comment:Testing performed by : [facility], [address] [facility] [place]., [address] Organism ESCHERICHIA COLI [facility] Organism PLUS GROWTH OF CLINICALLY INSIGNIFICANT PILO. [facility] Urine, clean voided 09/21/2024 3:04 PM CDT 09/21/2024 11:56 PM CDT Narrative [facility] - 09/23/2024 3:56 PM CDT Testing performed by [facility] Microbiology Laboratory ([phone]) Organism Antibiotic Method Susceptibility Escherichia coli Ampicillin [...] - GENERAL ORDER JEANA Final Result [facility] [address] Department [place] [address] from Last 3 Months Insurance [facility] CHOICE PLUS [facility] HMO/PPO Address: [facility] [address] [place] [address] Care Teams Mold Engraver Relationship Specialty Start Date End Date No, Physician PCP - General 09/21/24
--- NOTE | 2024-10-04 01:48 | ED.GENADULT ---
HPI - General Adult General Chief complaint: Fall Stated complaint: fall, left arm pain Time Seen by Provider: 10/04/24 01:31 History of Present Illness HPI narrative: Patient is a 64-year-old female who presents emergency department with chief complaint of fall. Patient reports that she lost her footing and fell and struck her left side of her body against the wall. The patient reports no loss of consciousness reports no neck pain. The patient states that she has pain in her left shoulder elbow and forearm the patient states she has skin tears to the shoulder area elbow area and forearm. 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 Nursing and ancillary documentation was reviewed. [facility] Past Medical History Medical History Nausea & vomiting Malnutrition Diarrhea DVT (deep venous thrombosis) Anemia Vitamin D deficiency Pancolitis Cervical dysplasia HTN (hypertension) Surgical History Surgical History H/O LEEP Family History Family History Father COPD (chronic obstructive pulmonary disease) Emphysema lung Mother Rheumatoid arthritis Social History Social History Social History: Patient currently lives at home alone. She lists her son, Emir, as her surrogate MDM. She wishes to be listed as DNR. Her PCP is Dr. Peoples Smoking packs per day: 0.5 Smoking cigarettes per day: 10.0 Years smoked: 40 Smoking pack-years: 20.00 Smoking status: Current every day smoker Tobacco type: cigarettes Second hand tobacco smoke exposure: Yes Alcohol intake: current Drinks per week: 2 Alcohol use details: pt has a glass of wine occasionally Substance use: never Substance use type: does not use Living arrangements: with family Occupation/Education: occupation Gender identity (if verbalized by the patient): Female Sexual Orientation (if Verbalized by the Patient): Straight or Heterosexual Spiritual care concerns: No Agree to blood products: Yes Exam Narrative: GENERAL: Well-appearing, well-nourished, and in no acute distress. HEAD: Normocephalic, atraumatic. EYES: PERRLA and EOMI. ENT: Nares clear, no rhinorrhea or epistaxis. Mucous membranes moist. NECK: Supple. CHEST: Clear to auscultation. No respiratory distress. HEART: Regular rate and rhythm. No murmur heard. Normal peripheral pulses. ABDOMEN: Soft, nontender, nondistended, normal active bowel sounds. EXTREMITIES: Normal range of motion. No edema. Mild tenderness to palpation left shoulder left elbow and left forearm. Mild tenderness in the left hip SKIN: Warm, dry, no rash. Her multiple skin tears present left upper extremity NEURO: No focal deficits. Alert and oriented x3. PSYCH: Normal mood and affect. Course Vital Signs Vital signs: Vital Signs Temperature 36.3 C L 10/03/24 20:35 Pulse Rate 72 10/03/24 20:35 Respiratory Rate 14 10/03/24 20:35 Blood Pressure 103/62 10/03/24 20:35 Pulse Oximetry 99 10/03/24 20:35 Oxygen Delivery Room Air 10/03/24 20:35 Temperature 36.7 C 10/04/24 00:46 Pulse Rate 65 10/04/24 00:46 Respiratory Rate 17 10/04/24 00:46 Blood Pressure 151/71 H 10/04/24 00:46 Pulse Oximetry 100 10/04/24 00:46 Oxygen Delivery Room Air 10/03/24 20:35 Medical Decision Making MDM Narrative Medical decision making narrative: Differential diagnosis includes fracture, contusion, skin tear Patient reports this time she does not want to do a tetanus booster and did not have contact with any metal The patient's skin tears were dressed Plain film x-rays showed no evidence of fracture Vital Signs Vital Signs: Vital Signs Temperature 36.3 C L 10/03/24 20:35 Pulse Rate 72 10/03/24 20:35 Respiratory Rate 14 10/03/24 20:35 Blood Pressure 103/62 10/03/24 20:35 Pulse Oximetry 99 10/03/24 20:35 Oxygen Delivery Room Air 10/03/24 20:35 Temperature 36.7 C 10/04/24 00:46 Pulse Rate 65 10/04/24 00:46 Respiratory Rate 17 10/04/24 00:46 Blood Pressure 151/71 H 10/04/24 00:46 Pulse Oximetry 100 10/04/24 00:46 Oxygen Delivery Room Air 10/03/24 20:35 Discharge Plan Discharge Clinical Impression: Fall from ground level, Skin tear of left upper extremity, Contusion of left hip Patient Disposition: Home Condition: Stable Instructions: Antibiotic Form, Concussion (ED), Skin Avulsion (ED) Patient Language: Mongolian Prescriptions: No Action lansoprazole [Prevacid] 30 mg capsule,delayed release(DR/EC) 30 mg PO DAILY 30 Days Qty: 30 2RF [place] [place] 1.5 billion cell capsule PO furosemide 20 mg tablet See Rx Instructions .ROUTE .COMPLEX Qty: 90 1RF Dose Instruction: TAKE ONE TABLET BY MOUTH EVERY MORNING Rx Instructions: TAKE ONE TABLET BY MOUTH EVERY MORNING lisinopril 5 mg tablet 5 mg PO DAILY Qty: 90 1RF Thera 400 mcg tablet 1 tablet PO QPM Qty: 30 3RF levothyroxine [Synthroid] 50 mcg tablet 50 mcg PO DAILY@0630 Qty: 90 1RF Eliquis 2.5 mg tablet 2.5 mg PO Q12HR Qty: 60 2RF Patient Comments: Family stated that she has not had her night time dose yet Follow-up/Referrals: Meredith,Pal Cotter APRN [Primary Care Provider] - Time of Disposition: 03:21
[2024-10-04 03:00] VITALS: BP 144/77; PULSE 77; RESP 18; TEMP 36.7; O2SAT 99
== END 2024-10-04 03:33 | disposition home or self-care (01) ==
PROVIDERS: Emergency Provider Emergency Medicine; PCP Registered Nurse
DX: S51.012A Laceration without foreign body of left elbow, initial encounter (principal); S70.02XA Contusion of left hip, initial encounter; S51.812A Laceration without foreign body of left forearm, initial encounter; S41.012A Laceration without foreign body of left shoulder, initial encounter; I10 Essential (primary) hypertension; E55.9 Vitamin D deficiency, unspecified; F17.210 Nicotine dependence, cigarettes, uncomplicated; Z86.718 Personal history of other venous thrombosis and embolism; Z86.2 Personal history of diseases of the blood and blood-forming organs and certain disorders involving the immune mechanism; Z66 Do not resuscitate; Z79.01 Long term (current) use of anticoagulants; Z79.899 Other long term (current) drug therapy; W01.198A Fall on same level from slipping, tripping and stumbling with subsequent striking against other object, initial encounter
CPT/HCPCS: 73030; 73080; 73110; 73502; 99284